=== PATIENT | female | born 1960 | race American Indian/Alaskan Native ===

== ENCOUNTER 2020-05-22 08:31 | Observation (INO) | payer OTHER ==
[2020-05-22] MEDS ORDERED: DEXTROSE 50% IN WATER (25GM) 50 ML SYRINGE IV ONE ×2 (08:41→09:56)
[2020-05-22 09:26] LABS: Basophils # (Auto) 0.1 K/mm3 (0.0-0.1); Basophils % (Auto) 0.8 % (0.0-1.8); Eosinophils % (Auto) 0.1 % (0.0-4.3); Hematocrit 42.2 % (30.3-42.9); Hemoglobin 14.6 gm/dl (10.1-14.3); Lymphocytes # (Auto) 1.4 K/mm3 (1.2-5.4); Lymphocytes % (Auto) 18.2 % (13.4-35.0); Mean Corpuscular HGB Conc 35 % (30-34); Mean Corpuscular Volume 93 fl (79-97); Monocytes # (Auto) 0.4 K/mm3 (0.0-0.8); Monocytes % (Auto) 5.6 % (0.0-7.3); Red Blood Count 4.52 M/mm3 (3.65-5.03); Red Cell Distribution Width 13.6 % (13.2-15.2)
[2020-05-22 09:28] LABS: Platelet Count 247 K/mm3 (140-440)
[2020-05-22 09:51] LABS: BUN/Creatinine Ratio 18; Blood Urea Nitrogen 14 mg/dL (7-17); Hemolysis Index 121
--- NOTE | 2020-05-22 11:04 | Cat Scan Report ---
CT HEAD WITHOUT CONTRAST INDICATION / CLINICAL INFORMATION: ALTERED MENTAL STATUS. TECHNIQUE: All CT scans at this location are performed using CT dose reduction for ALARA by means of automated e xposure control. COMPARISON: None available. FINDINGS: HEMORRHAGE: No evidence of intracranial hemorrhage or extra-axial fluid collection. EXTRA-AXIAL SPACES: Cortical sulci, sylvian fissures and basilar cisterns have an unremarkable appear ance. VENTRICULAR SYSTEM: The ventricular system is of normal size and configuration. CEREBRAL PARENCHYMA: Periventricular and deep white matter lucencies noted likely related to microvas cular ischemic change. This is somewhat greater than expected for age 59 years. A more focal 6 mm ramses meter area of decreased brain parenchymal attenuation is seen in the left gangliocapsular region. Thi s may represent a small deep infarction, age indeterminate. MIDLINE SHIFT OR HERNIATION: There is no mass effect. CEREBELLUM / BRAINSTEM: Brainstem and cerebellum have an unremarkable appearance. MIDLINE STRUCTURES:No abnormalities of the pituitary gland or pineal region are identified. INTRACRANIAL VESSELS: Mildly calcified atherosclerotic plaque is observed along the cavernous segment s of both internal carotid arteries. Similar findings are seen at the distal vertebral arteries. ORBITS: visualized portions of the orbits have an unremarkable appearance. SOFT TISSUES of HEAD: No significant abnormality. CALVARIUM: Evaluation of bone windows reveals no abnormalities. PARANASAL SINUSES / MASTOID AIR CELLS: Paranasal sinuses are free from inflammatory mucosal disease. Mastoid air cells are normally pneumatized. IMPRESSION: 1. Moderate microvascular ischemic change, greater than expected for age 59 years. 2. Focal area of decreased attenuation in the left gangliocapsular region may represent a small deep infarction, age indeterminate. Signer Name: Gilles Perez MD Signed: 05/22/2020 11:00 AM Workstation Name: [id number]
[2020-05-22 11:58] LABS: Bilirubin,Urine NEG (Negative); Blood,Urine NEG (Negative); Color,Urine Yellow (Yellow); Mucus,Urine FEW /HPF
--- NOTE | 2020-05-22 12:54 | Emergency Department Report ---
ED Altered Mental Status HPI - General Chief Complaint: Hypoglycemia Stated Complaint: LOW BLOOD SUGAR Time Seen by Provider: 05/22/20 08:37 Source: EMS Mode of arrival: Stretcher Limitations: No Limitations - History of Present Illness Initial Comments: Patient is a 59-year-old F [place] female who is presenting with altered mental status. Patient's daughter states she was try to get in touch with her this morning was unsuccessful and she when checked on her she was unconscious. Paramedics arrived and her blood glucose was 13. Is unknown whether the patient is ate or drank last night. Patient was given D50 prior to arrival and blood glucose was still 40. After giving her 2 additional amps we got the patient's blood glucose up to the 170 range. Patient is not complaining of any chest pain or shortness of breath but still states she feels weak all over. Patient's daughter states she is normally talkative and active throughout the day and the patient is slow to respond to questions and is just stating that she is cold. - Related Data Allergies Allergy/AdvReac Type Severity Reaction Status Date / Time No Known Allergies Allergy Unverified 05/22/20 09:16 ED Review of Systems ROS: Stated complaint: LOW BLOOD SUGAR Other details as noted in HPI Comment: All other systems reviewed and negative ED Past Medical Hx - Past Medical History Previous Medical History?: Yes Hx Diabetes: Yes - Social History Smoking Status: Unknown if ever smoked ED Physical Exam - General Limitations: No Limitations General appearance: alert, lethargic - Head Head exam: Present: atraumatic, normocephalic - Eye Eye exam: Present: normal appearance - ENT ENT exam: Present: mucous membranes moist - Neck Neck exam: Present: normal inspection - Respiratory Respiratory exam: Present: normal lung sounds bilaterally. Absent: respiratory distress, wheezes, rales - Cardiovascular Cardiovascular Exam: Present: regular rate, normal rhythm. Absent: systolic murmur, diastolic murmur, rubs, gallop - GI/Abdominal GI/Abdominal exam: Present: soft, normal bowel sounds - Extremities Exam Extremities exam: Present: normal inspection - Back Exam Back exam: Present: normal inspection - Neurological Exam Neurological exam: Present: alert, oriented X3 - Psychiatric Psychiatric exam: Present: normal affect, normal mood - Skin Skin exam: Present: warm, dry, intact, normal color. Absent: rash - Level of Consciousness 1a. Level of Consciousness: arousable/minor stimuli - LOC Questions 1b. LOC Questions: answers both correctly - LOC Command 1c. LOC Commands: performs tasks correctly - Best Gaze 2. Best Gaze: normal - Visual 3. Visual: no visual loss - Facial Palsy 4. Facial Palsy: normal symmetrical movement - Motor Arm 5a. Motor Arm Left: no drift 5b. Motor Arm Right: no drift - Motor Leg 6a. Motor Leg Left: no drift 6b. Motor Leg Right: no drift - Limb Ataxia 7. Limb Ataxia: absent - Sensory 8. Sensory: normal - Best Language 9. Best Language: no aphasia - Dysarthria 10. Dysarthria: normal - Extinction and Inattention 11. Extinction/Inattention: no abnormality - Scoring Total Score: 1 Stroke Severity: Minor Stroke ED Course Vital Signs 05/22/20 05/22/20 05/22/20 09:00 09:02 10:31 Pulse Rate 130 H 126 H Respiratory 22 22 25 H Rate Blood Pressure 160/98 180/100 O2 Sat by Pulse 90 94 100 Oximetry 05/22/20 05/22/20 05/22/20 11:01 11:10 11:15 Pulse Rate 121 H 120 H Respiratory 17 18 18 Rate Blood Pressure 137/73 137/73 O2 Sat by Pulse 100 100 100 Oximetry 05/22/20 05/22/20 11:31 11:45 Pulse Rate 124 H 119 H Respiratory 19 22 Rate Blood Pressure 180/100 180/100 O2 Sat by Pulse 100 100 Oximetry - Lab Data Result diagrams: 05/22/20 08:59 05/22/20 08:59 Lab Results 05/22/20 05/22/20 05/22/20 Range/Units 08:57 08:59 08:59 WBC 7.7 (4.5-11.0) K/mm3 RBC 4.52 (3.65-5.03) M/mm3 Hgb 14.6 H (10.1-14.3) gm/dl Hct 42.2 (30.3-42.9) % MCV 93 (79-97) fl MCH 32 (28-32) pg MCHC 35 H (30-34) % RDW 13.6 (13.2-15.2) % Plt Count 247 (140-440) K/mm3 Lymph % (Auto) 18.2 (13.4-35.0) % Webb % (Auto) 5.6 (0.0-7.3) % Eos % (Auto) 0.1 (0.0-4.3) % Baso % (Auto) 0.8 (0.0-1.8) % Lymph # (Auto) 1.4 (1.2-5.4) K/mm3 Webb # (Auto) 0.4 (0.0-0.8) K/mm3 Eos # (Auto) 0.0 (0.0-0.4) K/mm3 Baso # (Auto) 0.1 (0.0-0.1) K/mm3 Seg Neutrophils % 75.3 H (40.0-70.0) % Seg Neutrophils # 5.8 (1.8-7.7) K/mm3 Sodium 139 (137-145) mmol/L Potassium 4.7 (3.6-5.0) mmol/L Chloride 105.4 (98-107) mmol/L Carbon Dioxide 20 L (22-30) mmol/L Anion Gap 18 mmol/L BUN 14 (7-17) mg/dL Creatinine 0.8 (0.6-1.2) mg/dL Estimated GFR > 60 ml/min BUN/Creatinine Ratio 18 % Glucose 198 H (65-100) mg/dL POC Glucose 40 L (70-105) mg/dL Calcium 9.0 (8.4-10.2) mg/dL Urine Color (Yellow) Urine Turbidity (Clear) Urine pH (5.0-7.0) Ur Specific [place] (1.003-1.030) Urine Protein (Negative) mg/dL Urine Glucose (UA) (Negative) mg/dL Urine Ketones (Negative) mg/dL Urine Blood (Negative) Urine Nitrite (Negative) Urine Bilirubin (Negative) Urine Urobilinogen (<2.0) mg/dL Ur Leukocyte Esterase (Negative) Urine WBC (Auto) (0.0-6.0) /HPF Urine RBC (Auto) (0.0-6.0) /HPF U Epithel Cells (Auto) (0-13.0) /HPF Urine Mucus /HPF 05/22/20 05/22/20 05/22/20 Range/Units 09:14 10:06 11:08 WBC (4.5-11.0) K/mm3 RBC (3.65-5.03) M/mm3 Hgb (10.1-14.3) gm/dl Hct (30.3-42.9) % MCV (79-97) fl MCH (28-32) pg MCHC (30-34) % RDW (13.2-15.2) % Plt Count (140-440) K/mm3 Lymph % (Auto) (13.4-35.0) % Webb % (Auto) (0.0-7.3) % Eos % (Auto) (0.0-4.3) % Baso % (Auto) (0.0-1.8) % Lymph # (Auto) (1.2-5.4) K/mm3 Webb # (Auto) (0.0-0.8) K/mm3 Eos # (Auto) (0.0-0.4) K/mm3 Baso # (Auto) (0.0-0.1) K/mm3 Seg Neutrophils % (40.0-70.0) % Seg Neutrophils # (1.8-7.7) K/mm3 Sodium (137-145) mmol/L Potassium (3.6-5.0) mmol/L Chloride (98-107) mmol/L Carbon Dioxide (22-30) mmol/L Anion Gap mmol/L BUN (7-17) mg/dL Creatinine (0.6-1.2) mg/dL Estimated GFR ml/min BUN/Creatinine Ratio % Glucose (65-100) mg/dL POC Glucose 107 H 76 175 H (70-105) mg/dL Calcium (8.4-10.2) mg/dL Urine Color (Yellow) Urine Turbidity (Clear) Urine pH (5.0-7.0) Ur Specific [place] (1.003-1.030) Urine Protein (Negative) mg/dL Urine Glucose (UA) (Negative) mg/dL Urine Ketones (Negative) mg/dL Urine Blood (Negative) Urine Nitrite (Negative) Urine Bilirubin (Negative) Urine Urobilinogen (<2.0) mg/dL Ur Leukocyte Esterase (Negative) Urine WBC (Auto) (0.0-6.0) /HPF Urine RBC (Auto) (0.0-6.0) /HPF U Epithel Cells (Auto) (0-13.0) /HPF Urine Mucus /HPF 05/22/ Range/Units 11:49 WBC (4.5-11.0) K/mm3 RBC (3.65-5.03) M/mm3 Hgb (10.1-14.3) gm/dl Hct (30.3-42.9) % MCV (79-97) fl MCH (28-32) pg MCHC (30-34) % RDW (13.2-15.2) % Plt Count (140-440) K/mm3 Lymph % (Auto) (13.4-35.0) % Webb % (Auto) (0.0-7.3) % Eos % (Auto) (0.0-4.3) % Baso % (Auto) (0.0-1.8) % Lymph # (Auto) (1.2-5.4) K/mm3 Webb # (Auto) (0.0-0.8) K/mm3 Eos # (Auto) (0.0-0.4) K/mm3 Baso # (Auto) (0.0-0.1) K/mm3 Seg Neutrophils % (40.0-70.0) % Seg Neutrophils # (1.8-7.7) K/mm3 Sodium (137-145) mmol/L Potassium (3.6-5.0) mmol/L Chloride (98-107) mmol/L Carbon Dioxide (22-30) mmol/L Anion Gap mmol/L BUN (7-17) mg/dL Creatinine (0.6-1.2) mg/dL Estimated GFR ml/min BUN/Creatinine Ratio % Glucose (65-100) mg/dL POC Glucose (70-105) mg/dL Calcium (8.4-10.2) mg/dL Urine Color Yellow (Yellow) Urine Turbidity Clear (Clear) Urine pH 5.0 (5.0-7.0) Ur Specific [place] 1.018 (1.003-1.030) Urine Protein 30 mg/dl (Negative) mg/dL Urine Glucose (UA) >=500 (Negative) mg/dL Urine Ketones Neg (Negative) mg/dL Urine Blood Neg (Negative) Urine Nitrite Neg (Negative) Urine Bilirubin Neg (Negative) Urine Urobilinogen 2.0 (<2.0) mg/dL Ur Leukocyte Esterase Tr (Negative) Urine WBC (Auto) 1.0 (0.0-6.0) /HPF Urine RBC (Auto) 1.0 (0.0-6.0) /HPF U Epithel Cells (Auto) < 1.0 (0-13.0) /HPF Urine Mucus Few /HPF - Radiology Data CT HEAD WITHOUT CONTRAST INDICATION / CLINICAL INFORMATION: ALTERED MENTAL STATUS. TECHNIQUE: All CT scans at this location are performed using CT dose reduction for ALARA by means of automated exposure control. COMPARISON: None available. FINDINGS: HEMORRHAGE: No evidence of intracranial hemorrhage or extra-axial fluid collection. EXTRA-AXIAL SPACES: Cortical sulci, sylvian fissures and basilar cisterns have an unremarkable appearance. VENTRICULAR SYSTEM: The ventricular system is of normal size and configuration. CEREBRAL PARENCHYMA: Periventricular and deep white matter lucencies noted likely related to microvascular ischemic change. This is somewhat greater than expected for age 59 years. A more focal 6 mm diameter area of decreased brain parenchymal attenuation is seen in the left gangliocapsular region. This may represent a small deep infarction, age indeterminate. MIDLINE SHIFT OR HERNIATION: There is no mass effect. CEREBELLUM / BRAINSTEM: Brainstem and cerebellum have an unremarkable appearance. MIDLINE STRUCTURES:No abnormalities of the pituitary gland or pineal region are identified. INTRACRANIAL VESSELS: Mildly calcified atherosclerotic plaque is observed along the cavernous segments of both internal carotid arteries. Similar findings are seen at the distal vertebral arteries. ORBITS: visualized portions of the orbits have an unremarkable appearance. SOFT TISSUES of HEAD: No significant abnormality. CALVARIUM: Evaluation of bone windows reveals no abnormalities. PARANASAL SINUSES / MASTOID AIR CELLS: Paranasal sinuses are free from inflammatory mucosal disease. Mastoid air cells are normally pneumatized. IMPRESSION: 1. Moderate microvascular ischemic change, greater than expected for age 59 years. 2. Focal area of decreased attenuation in the left gangliocapsular region may represent a small deep infarction, age indeterminate. Signer Name: Gilles Perez MD Signed: 05/22/2020 11:00 AM Workstation Name: [id number] - Medical Decision Making After the patient's blood glucose funmilayo to acceptable level the patient still was sluggish and not at her baseline. We will admit the patient for observation. Critical care attestation.: If time is entered above; I have spent that time in minutes in the direct care of this critically ill patient, excluding procedure time. ED Disposition Clinical Impression: Hypoglycemia, Altered mental status Disposition: DC-09 OP ADMIT IP TO THIS HOSP Is pt being admited?: Yes Does the pt Need Aspirin: No Condition: Stable Time of Disposition: 12:59
[2020-05-22] MEDS ORDERED: DEXTROSE 5% IN WATER 1,000 ML IV SCH (13:00)
[2020-05-22] MEDS ORDERED: D5W/0.9% NACL 1,000 ML IV ONE (17:03)
[2020-05-22] MEDS ORDERED: DEXTROSE 5% IN WATER 1,000 ML IV ONE (20:35)
--- NOTE | 2020-05-22 23:27 | History and Physical Report ---
History of Present Illness Date of examination: 05/22/20 Date of admission: 05/22/20 13:01 Chief complaint: Unresponsive since a.m. Low blood glucose level of 13 History of present illness: 59-year-old female with history of diabetes on insulin was found unresponsive and a blood glucose of 13. Patient's daughter was trying to get intact with her and because there was no response, the daughter went and checked on her mother and found her to be unconscious. Paramedics arrived and her blood glucose was 13. Patient was given D50 W. Patient not able to give much history. Patient was given D50 prior to arrival with glucose was still 40. 2 additional amps of D50 W were given in the emergency room. With her blood glucose level coming up to 170. No chest pain no fever. Cannot tell whether patient has missed dinner. No fever or chills. Past History Past Medical History: diabetes (On insulin) Past Surgical History: Other (Surgical history not available) Social history: Lives alone Family history: diabetes Medications and Allergies Allergies Allergy/AdvReac Type Severity Reaction Status Date / Time No Known Allergies Allergy Unverified 05/22/20 09:16 Home Medications Medication Instructions Recorded Confirmed Last Taken Type Amoxicillin [Trimox CAP] 500 mg PO Q8H 05/22/20 05/22/20 Unknown History Clarithromycin [Clarithromycin ER] 500 mg PO DAILY 05/22/20 05/22/20 Unknown History Insulin Detemir [Levemir Flextouch] 10 unit SQ DAILY 05/22/20 05/22/20 Unknown History Active Meds: Active Medications Dextrose (D5w) 1,000 mls @ 75 mls/hr IV DIRECT SOLE Last Admin: 05/22/20 17:01 Dose: 75 mls/hr Documented by: Review of Systems All systems: negative Constitutional: no weight loss, no weight gain, no fever, no chills, no sweats, no night sweats Neurological: change in mentation, confusion Exam - Physical Exam Narrative exam: Initially patient was unresponsive but later became more responsive after multiple D50 W amps IV - Constitutional Vitals: Temp Pulse Resp BP Pulse Ox 106 H 20 128/80 96 05/22/20 20:31 05/22/20 20:31 05/22/20 20:31 05/22/20 20:31 General appearance: Present: no acute distress, well-nourished - EENT Eyes: Present: PERRL ENT: hearing intact, clear oral mucosa - Neck Neck: Present: supple, normal ROM - Respiratory Respiratory effort: normal Respiratory: bilateral: CTA - Cardiovascular Heart rate: 78 Rhythm: regular Heart Sounds: Present: S1 & S2. Absent: rub, click - Extremities Extremities: pulses symmetrical, No edema Peripheral Pulses: within normal limits - Abdominal General gastrointestinal: Present: soft, non-tender, non-distended, normal bowel sounds Female genitourinary: Present: normal - Rectal Rectal Exam: deferred - Integumentary Integumentary: Present: clear, warm, dry - Musculoskeletal Musculoskeletal: generalized weakness - Psychiatric Psychiatric: intact judgment & insight, other (Patient is lethargic and decreased responsiveness but becoming more conscious and responsive) - Neurologic Neurologic: CNII-XII intact, moves all extremities - Allied Health Allied health notes reviewed: nursing, case management HEART Score - HEART Score History: Slightly suspicious Age: 45-65 Risk factors: 1-2 risk factors Troponin: < normal limit - Critical Actions Critical Actions: 0-3 pts:0.9-1.7%risk of adverse cardiac event.Candidate for discharge Results - Labs CBC & Chem 7: 05/22/20 08:59 05/22/20 08:59 Labs: Laboratory Last Values WBC 7.7 K/mm3 (4.5-11.0) 05/22/20 08:59 RBC 4.52 M/mm3 (3.65-5.03) 05/22/20 08:59 Hgb 14.6 gm/dl (10.1-14.3) H 05/22/20 08:59 Hct 42.2 % (30.3-42.9) 05/22/20 08:59 MCV 93 fl (79-97) 05/22/20 08:59 MCH 32 pg (28-32) 05/22/20 08:59 MCHC 35 % (30-34) H 05/22/20 08:59 RDW 13.6 % (13.2-15.2) 05/22/20 08:59 Plt Count 247 K/mm3 (140-440) 05/22/20 08:59 Lymph % (Auto) 18.2 % (13.4-35.0) 05/22/20 08:59 [place] % (Auto) 5.6 % (0.0-7.3) 05/22/20 08:59 Eos % (Auto) 0.1 % (0.0-4.3) 05/22/20 08:59 Baso % (Auto) 0.8 % (0.0-1.8) 05/22/20 08:59 Lymph # (Auto) 1.4 K/mm3 (1.2-5.4) 05/22/20 08:59 [place] # (Auto) 0.4 K/mm3 (0.0-0.8) 05/22/20 08:59 Eos # (Auto) 0.0 K/mm3 (0.0-0.4) 05/22/20 08:59 Baso # (Auto) 0.1 K/mm3 (0.0-0.1) 05/22/20 08:59 Seg Neutrophils % 75.3 % (40.0-70.0) H 05/22/20 08:59 Seg Neutrophils # 5.8 K/mm3 (1.8-7.7) 05/22/20 08:59 Sodium 139 mmol/L (137-145) 05/22/20 08:59 Potassium 4.7 mmol/L (3.6-5.0) 05/22/20 08:59 Chloride 105.4 mmol/L (98-107) 05/22/20 08:59 Carbon Dioxide 20 mmol/L (22-30) L 05/22/20 08:59 Anion Gap 18 mmol/L 05/22/20 08:59 BUN 14 mg/dL (7-17) 05/22/20 08:59 Creatinine 0.8 mg/dL (0.6-1.2) 05/22/20 08:59 Estimated GFR > 60 ml/min 05/22/20 08:59 BUN/Creatinine Ratio 18 % 05/22/20 08:59 Glucose 198 mg/dL (65-100) H 05/22/20 08:59 POC Glucose 100 mg/dL (70-105) 05/22/20 22:10 Calcium 9.0 mg/dL (8.4-10.2) 05/22/20 08:59 Urine Color Yellow (Yellow) 05/22/20 11:49 Urine Turbidity Clear (Clear) 05/22/20 11:49 Urine pH 5.0 (5.0-7.0) 05/22/20 11:49 Ur Specific [place] 1.018 (1.003-1.030) 05/22/20 11:49 Urine Protein 30 mg/dl mg/dL (Negative) 05/22/20 11:49 Urine Glucose (UA) >=500 mg/dL (Negative) 05/22/20 11:49 Urine Ketones Neg mg/dL (Negative) 05/22/20 11:49 Urine Blood Neg (Negative) 05/22/20 11:49 Urine Nitrite Neg (Negative) 05/22/20 11:49 Urine Bilirubin Neg (Negative) 05/22/20 11:49 Urine Urobilinogen 2.0 mg/dL (<2.0) 05/22/20 11:49 Ur Leukocyte Esterase Tr (Negative) 05/22/20 11:49 Urine WBC (Auto) 1.0 /HPF (0.0-6.0) 05/22/20 11:49 Urine RBC (Auto) 1.0 /HPF (0.0-6.0) 05/22/20 11:49 U Epithel Cells (Auto) < 1.0 /HPF (0-13.0) 05/22/20 11:49 Urine Mucus Few /HPF 05/22/20 11:49 Short CBC 05/22/20 Range/Units 08:59 WBC 7.7 (4.5-11.0) K/mm3 Hgb 14.6 H (10.1-14.3) gm/dl Hct 42.2 (30.3-42.9) % Plt Count 247 (140-440) K/mm3 BMP 05/22/20 08:59 Sodium 139 Potassium 4.7 Chloride 105.4 Carbon Dioxide 20 L BUN 14 Creatinine 0.8 Glucose 198 H Calcium 9.0 Urine 05/22/20 Range/Units 11:49 Urine Color Yellow (Yellow) Urine pH 5.0 (5.0-7.0) Ur Specific [place] 1.018 (1.003-1.030) Urine Protein 30 mg/dl (Negative) mg/dL Urine Glucose (UA) >=500 (Negative) mg/dL - Imaging and Cardiology Imaging and Cardiology: Head CT Moderate microvascular ischemic change greater than expected for age 59 years Focal area of decreased attenuation in the left ganglial capsular region may represent a small deep infarction age-indeterminate. Wells/IV: IV Catheter Type [Left Upper INT / Saline Lock arm] IV Catheter Type [Right Wrist] INT / Saline Lock Assessment and Plan Advance Directives: Yes - Patient Problems (1) Hypoglycemia Current Visit: Yes Status: Acute Plan to address problem: Persistent hypoglycemia Admitted with IV D5W Patient was given about 4 A of D50 W in the emergency room and the paramedics to bring it up to 170 Her insulin dose needs to be reduced to 5 units and patient to be advised about regular meals Patient lives alone Insulin on hold (2) Acute metabolic encephalopathy Current Visit: Yes Status: Acute Plan to address problem: Secondary to hypoglycemia (3) IDDM (insulin dependent diabetes mellitus) Current Visit: Yes Status: Chronic Plan to address problem: Patient Levemir 10 units at nighttime We will decrease the insulin to 5 units at the time of discharge patient in observation status (4) DVT prophylaxis Current Visit: Yes Status: Acute Plan to address problem: On heparin and GI prophylaxis
[2020-05-22] MEDS ORDERED: ACETAMINOPHEN 325 MG TAB PO PRN (23:28)
[2020-05-22] MEDS ORDERED: ONDANSETRON 4 MG/2 ML INJ IV PRN (23:28)
[2020-05-22] MEDS ORDERED: HYDROmorphone 1 MG/1 ML INJ IV PRN (23:28)
[2020-05-22] MEDS ORDERED: oxyCODONE /ACETAMINOPHEN 5-325MG TAB PO PRN (23:28)
[2020-05-22] MEDS ORDERED: D5W/0.9% NACL 1,000 ML IV SCH (23:45)
--- NOTE | 2020-05-23 08:18 | Progress Note ---
Assessment and Plan Assessment and plan: --Acute metabolic encephalopathy; present on admission Secondary to severe hypoglycemia Patient has history of diabetes mellitus --Severe hypoglycemia ; Patient is on insulin at home all diabetic medications are on hold Blood sugars reasonably improved Frequent Accu-Cheks, sliding scale coverage IV D50 as needed, check HbA1c --Insulin-dependent diabetes mellitus; Unable to assess the compliance of medications Closely monitor blood sugars, start long-acting insulin from lower doses And increase as needed, check A1c Diabetic education, nutrition education Possible home health nurse at discharge for disease monitoring --Abnormal CT head; possible CVA Focal area of decreased attenuation in the left ganglial capsular region may represent small deep infarction age indeterminate Moderate microvascular ischemic changes greater than expected for age 59 We will check MRI, further neuro work-up pending MRI findings --Ongoing tobacco use; Smoking cessation counseling, advised nicotine patch as needed --DVT prophylaxis; subcu heparin --DC planning per case management We will closely monitor the patient and adjust the management as needed Plan of care reviewed with the patient and her nurse History Interval history: I have seen and examined the patient at the bedside this morning Patient's chart and medications reviewed Patient was admitted with altered level of consciousness and severe hypoglycemia Blood sugars are reasonable level today Patient is alert and awake responding appropriately Vital signs noted Hospitalist Physical - Constitutional Vitals: Temp Pulse Resp BP Pulse Ox 99.2 F 103 H 16 148/81 96 05/23/20 04:24 05/23/20 04:24 05/23/20 04:24 05/23/20 04:24 05/23/20 04:24 General appearance: Present: no acute distress, well-nourished - EENT Eyes: Present: PERRL, EOM intact - Neck Neck: Present: supple, normal ROM - Respiratory Respiratory effort: normal Respiratory: bilateral: diminished, negative: rales, rhonchi, wheezing - Cardiovascular Rhythm: regular Heart Sounds: Present: S1 & S2 - Extremities Extremities: no ischemia, No edema - Abdominal General gastrointestinal: soft, non-tender, non-distended, normal bowel sounds - Integumentary Integumentary: Present: clear, warm - Psychiatric Psychiatric: appropriate mood/affect, cooperative - Neurologic Neurologic: moves all extremities HEART Score - HEART Score Age: 45-65 Risk factors: 1-2 risk factors Troponin: < normal limit - Critical Actions Critical Actions: 0-3 pts:0.9-1.7%risk of adverse cardiac event.Candidate for discharge Results - Labs CBC & Chem 7: 05/23/20 15:57 05/23/20 09:25 Labs: Laboratory Last Values WBC 7.7 K/mm3 (4.5-11.0) 05/22/20 08:59 RBC 4.52 M/mm3 (3.65-5.03) 05/22/20 08:59 Hgb 14.6 gm/dl (10.1-14.3) H 05/22/20 08:59 Hct 42.2 % (30.3-42.9) 05/22/20 08:59 MCV 93 fl (79-97) 05/22/20 08:59 MCH 32 pg (28-32) 05/22/20 08:59 MCHC 35 % (30-34) H 05/22/20 08:59 RDW 13.6 % (13.2-15.2) 05/22/20 08:59 Plt Count 247 K/mm3 (140-440) 05/22/20 08:59 Lymph % (Auto) 18.2 % (13.4-35.0) 05/22/20 08:59 [place] % (Auto) 5.6 % (0.0-7.3) 05/22/20 08:59 Eos % (Auto) 0.1 % (0.0-4.3) 05/22/20 08:59 Baso % (Auto) 0.8 % (0.0-1.8) 05/22/20 08:59 Lymph # (Auto) 1.4 K/mm3 (1.2-5.4) 05/22/20 08:59 [place] # (Auto) 0.4 K/mm3 (0.0-0.8) 05/22/20 08:59 Eos # (Auto) 0.0 K/mm3 (0.0-0.4) 05/22/20 08:59 Baso # (Auto) 0.1 K/mm3 (0.0-0.1) 05/22/20 08:59 Seg Neutrophils % 75.3 % (40.0-70.0) H 05/22/20 08:59 Seg Neutrophils # 5.8 K/mm3 (1.8-7.7) 05/22/20 08:59 Sodium 139 mmol/L (137-145) 05/22/20 08:59 Potassium 4.7 mmol/L (3.6-5.0) 05/22/20 08:59 Chloride 105.4 mmol/L (98-107) 05/22/20 08:59 Carbon Dioxide 20 mmol/L (22-30) L 05/22/20 08:59 Anion Gap 18 mmol/L 05/22/20 08:59 BUN 14 mg/dL (7-17) 05/22/20 08:59 Creatinine 0.8 mg/dL (0.6-1.2) 05/22/20 08:59 Estimated GFR > 60 ml/min 05/22/20 08:59 BUN/Creatinine Ratio 18 % 05/22/20 08:59 Glucose 198 mg/dL (65-100) H 05/22/20 08:59 POC Glucose 202 mg/dL (70-105) H 05/23/20 07:26 Hemoglobin A1c 7.6 % (4-6) H 05/22/20 23:47 Calcium 9.0 mg/dL (8.4-10.2) 05/22/20 08:59 Urine Color Yellow (Yellow) 05/22/20 11:49 Urine Turbidity Clear (Clear) 05/22/20 11:49 Urine pH 5.0 (5.0-7.0) 05/22/20 11:49 Ur Specific [place] 1.018 (1.003-1.030) 05/22/20 11:49 Urine Protein 30 mg/dl mg/dL (Negative) 05/22/20 11:49 Urine Glucose (UA) >=500 mg/dL (Negative) 05/22/20 11:49 Urine Ketones Neg mg/dL (Negative) 05/22/20 11:49 Urine Blood Neg (Negative) 05/22/20 11:49 Urine Nitrite Neg (Negative) 05/22/20 11:49 Urine Bilirubin Neg (Negative) 05/22/20 11:49 Urine Urobilinogen 2.0 mg/dL (<2.0) 05/22/20 11:49 Ur Leukocyte Esterase Tr (Negative) 05/22/20 11:49 Urine WBC (Auto) 1.0 /HPF (0.0-6.0) 05/22/20 11:49 Urine RBC (Auto) 1.0 /HPF (0.0-6.0) 05/22/20 11:49 U Epithel Cells (Auto) < 1.0 /HPF (0-13.0) 05/22/20 11:49 Urine Mucus Few /HPF 05/22/20 11:49 Wells/IV: Voiding Method Urinal IV Catheter Type [Left Upper INT / Saline Lock arm] IV Catheter Type [Right Wrist] INT / Saline Lock Active Medications - Current Medications Current Medications: Generic Name Dose Route Start Last Admin Trade Name Freq PRN Reason Stop Dose Admin Acetaminophen 650 mg 05/22/20 23:28 Tylenol PO Q4H PRN Pain MILD(1-3)/Fever >100.5/WILDE Famotidine 20 mg 05/23/20 10:00 Pepcid IV BID SOLE Hydromorphone HCl 0.5 mg 05/22/20 23:28 Dilaudid IV Q3H PRN Pain , Severe (7-10) Ondansetron HCl 4 mg 05/22/20 23:28 Zofran IV Q8H PRN Nausea And Vomiting Oxycodone/Acetaminophen 1 tab 05/22/20 23:28 Percocet 5/325 PO Q6H PRN Pain, Moderate (4-6) Pneumococcal Polyvalent Vaccine 0.5 ml 05/23/20 12:00 Pneumovax 23 IM 05/23/20 12:01 .ONCE ONE Sodium Chloride 10 ml 05/23/20 10:00 Sodium Chloride Flush Syringe 10 Ml IV BID SOLE Sodium Chloride 10 ml 05/22/20 23:28 Sodium Chloride Flush Syringe 10 Ml IV PRN PRN LINE FLUSH
[2020-05-23] MEDS ORDERED: FAMOTIDINE 20 MG/2 ML INJ IV SCH (10:00)
[2020-05-23 10:41] LABS: Hematocrit TNR % (30.3-42.9); Hemoglobin TNR gm/dl (10.1-14.3); Mean Corpuscular HGB Conc TNR % (30-34); Mean Corpuscular Volume TNR fl (79-97); Mean Platelet Volume TNR fl (6-12); Platelet Count TNR K/mm3 (140-440); Red Blood Count TNR M/mm3 (3.65-5.03); Red Cell Distribution Width TNR % (13.2-15.2)
[2020-05-23 10:42] LABS: Alanine Aminotransferase 12 units/L (7-56); Albumin 3.5 g/dL (3.9-5); BUN/Creatinine Ratio 8; Basophils % (Auto) TNR % (0.0-1.8); Blood Urea Nitrogen 6 mg/dL (7-17); Calcium 8.5 mg/dL (8.4-10.2); Eosinophils % (Auto) TNR % (0.0-4.3); Hemolysis Index 6; Lymphocytes # (Auto) TNR K/mm3 (1.2-5.4); Lymphocytes % (Auto) TNR % (13.4-35.0); Monocytes % (Auto) TNR % (0.0-7.3)
[2020-05-23 10:43] LABS: Basophils # (Auto) TNR K/mm3 (0.0-0.1); Eosinophils # (Auto) TNR K/mm3 (0.0-0.4); Monocytes # (Auto) TNR K/mm3 (0.0-0.8)
[2020-05-23] MEDS ORDERED: PNEUMOCOCCAL 23 Valent 0.5 ML VIAL IM ONE (12:00)
[2020-05-23] MEDS ORDERED: FLU VACC QUAD 2020-2021 (6 months +)/PF 60 0.5 ML SYRINGE IM ONE (12:00)
[2020-05-23 16:59] LABS: Hematocrit 40.5 % (30.3-42.9); Hemoglobin 13.7 gm/dl (10.1-14.3); Mean Corpuscular HGB Conc 34 % (30-34); Mean Corpuscular Volume 97 fl (79-97); Platelet Count 207 K/mm3 (140-440); Red Cell Distribution Width 13.9 % (13.2-15.2)
[2020-05-23] MEDS: FAMOTIDINE 20 MG TAB PO SCH (21:01)
[2020-05-23] MEDS: ASPIRIN EC 325 MG TAB PO SCH (21:01)
[2020-05-24 06:52] LABS: Chol/HDL Ratio 4.12 %
--- NOTE | 2020-05-24 08:56 | Progress Note ---
Assessment and Plan Assessment and plan: --Abnormal CT head; possible CVA CT head ;focal area of decreased attenuation in the left ganglial capsular region may represent small deep infarction age indeterminate Moderate microvascular ischemic changes greater than expected for age 59 Follow MRI, further neuro work-up pending MRI findings Continue aspirin, statin, Patient has no physical deficits Consider PT OT, neuro consult if needed We will check echocardiogram, carotid Doppler --Dyslipidemia; Statin, low-cholesterol diet --Acute metabolic encephalopathy; present on admission Secondary to severe hypoglycemia Patient has history of diabetes mellitus --Severe hypoglycemia ; Patient is on insulin at home all diabetic medications are on hold Blood sugars reasonably improved Frequent Accu-Cheks, sliding scale coverage IV D50 as needed, check HbA1c --Insulin-dependent diabetes mellitus; Unable to assess the compliance of medications Closely monitor blood sugars, start long-acting insulin from lower doses And increase as needed, check A1c Diabetic education, nutrition education Possible home health nurse at discharge for disease monitoring --Ongoing tobacco use; Smoking cessation counseling, advised nicotine patch as needed --DVT prophylaxis; subcu heparin --DC planning per case management We will closely monitor the patient and adjust the management as needed Plan of care reviewed with the patient and her nurse Hospitalist Physical - Constitutional Vitals: Temp Pulse Resp BP Pulse Ox 99.0 F 98 H 16 157/85 98 05/24/20 04:08 05/24/20 04:08 05/24/20 04:08 05/24/20 04:08 05/24/20 04:08 General appearance: Present: no acute distress, well-nourished HEART Score - HEART Score Age: 45-65 Risk factors: 1-2 risk factors Troponin: < normal limit - Critical Actions Critical Actions: 0-3 pts:0.9-1.7%risk of adverse cardiac event.Candidate for discharge Results - Labs CBC & Chem 7: 05/23/20 15:57 05/23/20 09:25 Labs: Laboratory Last Values WBC 6.9 K/mm3 (4.5-11.0) 05/23/20 15:57 RBC 4.20 M/mm3 (3.65-5.03) 05/23/20 15:57 Hgb 13.7 gm/dl (10.1-14.3) 05/23/20 15:57 Hct 40.5 % (30.3-42.9) 05/23/20 15:57 MCV 97 fl (79-97) 05/23/20 15:57 MCH 33 pg (28-32) H 05/23/20 15:57 MCHC 34 % (30-34) 05/23/20 15:57 RDW 13.9 % (13.2-15.2) 05/23/20 15:57 Plt Count 207 K/mm3 (140-440) 05/23/20 15:57 Lymph % (Auto) TNR 05/23/20 09:25 [place] % (Auto) TNR 05/23/20 09:25 Eos % (Auto) TNR 05/23/20 09:25 Baso % (Auto) TNR 05/23/20 09:25 Lymph # (Auto) TNR 05/23/20 09:25 [place] # (Auto) TNR 05/23/20 09:25 Eos # (Auto) TNR 05/23/20 09:25 Baso # (Auto) TNR 05/23/20 09:25 Add Manual Diff TNR 05/23/20 09:25 Seg Neutrophils % TNR 05/23/20 09:25 Seg Neutrophils # TNR 05/23/20 09:25 Sodium 140 mmol/L (137-145) 05/23/20 09:25 Potassium 3.4 mmol/L (3.6-5.0) L D 05/23/20 09:25 Chloride 101.8 mmol/L (98-107) 05/23/20 09:25 Carbon Dioxide 27 mmol/L (22-30) D 05/23/20 09:25 Anion Gap 15 mmol/L 05/23/20 09:25 BUN 6 mg/dL (7-17) L 05/23/20 09:25 Creatinine 0.8 mg/dL (0.6-1.2) 05/23/20 09:25 Estimated GFR > 60 ml/min 05/23/20 09:25 BUN/Creatinine Ratio 8 % 05/23/20 09:25 Glucose 217 mg/dL (65-100) H 05/23/20 09:25 POC Glucose 158 mg/dL (70-105) H 05/24/20 07:30 Hemoglobin A1c 7.6 % (4-6) H 05/22/20 23:47 Calcium 8.5 mg/dL (8.4-10.2) 05/23/20 09:25 Total Bilirubin 0.80 mg/dL (0.1-1.2) 05/23/20 09:25 AST 15 units/L (5-40) 05/23/20 09:25 ALT 12 units/L (7-56) 05/23/20 09:25 Alkaline Phosphatase 55 units/L (35-129) 05/23/20 09:25 Total Protein 5.9 g/dL (6.3-8.2) L 05/23/20 09:25 Albumin 3.5 g/dL (3.9-5) L 05/23/20 09:25 Albumin/Globulin Ratio 1.5 % 05/23/20 09:25 Triglycerides 114 mg/dL (2-149) 05/24/20 05:11 Cholesterol 206 mg/dL (50-199) H 05/24/20 05:11 LDL Cholesterol Direct 142 mg/dL (50-130) H 05/24/20 05:11 HDL Cholesterol 50 mg/dL (40-59) 05/24/20 05:11 Cholesterol/HDL Ratio 4.12 % 05/24/20 05:11 Urine Color Yellow (Yellow) 05/22/20 11:49 Urine Turbidity Clear (Clear) 05/22/20 11:49 Urine pH 5.0 (5.0-7.0) 05/22/20 11:49 Ur Specific [place] 1.018 (1.003-1.030) 05/22/20 11:49 Urine Protein 30 mg/dl mg/dL (Negative) 05/22/20 11:49 Urine Glucose (UA) >=500 mg/dL (Negative) 05/22/20 11:49 Urine Ketones Neg mg/dL (Negative) 05/22/20 11:49 Urine Blood Neg (Negative) 05/22/20 11:49 Urine Nitrite Neg (Negative) 05/22/20 11:49 Urine Bilirubin Neg (Negative) 05/22/20 11:49 Urine Urobilinogen 2.0 mg/dL (<2.0) 05/22/20 11:49 Ur Leukocyte Esterase Tr (Negative) 05/22/20 11:49 Urine WBC (Auto) 1.0 /HPF (0.0-6.0) 05/22/20 11:49 Urine RBC (Auto) 1.0 /HPF (0.0-6.0) 05/22/20 11:49 U Epithel Cells (Auto) < 1.0 /HPF (0-13.0) 05/22/20 11:49 Urine Mucus Few /HPF 05/22/20 11:49 Wells/IV: Voiding Method Toilet IV Catheter Type [Left Upper INT / Saline Lock arm] IV Catheter Type [Right Wrist] INT / Saline Lock Active Medications - Current Medications Current Medications: Generic Name Dose Route Start Last Admin Trade Name Freq PRN Reason Stop Dose Admin Acetaminophen 650 mg 05/22/20 23:28 Tylenol PO Q4H PRN Pain MILD(1-3)/Fever >100.5/WILDE Aspirin 325 mg 05/23/20 19:00 05/23/20 21:01 Ecotrin PO 325 mg QDAY SOLE Administration Atorvastatin Calcium 20 mg 05/23/20 22:00 05/23/20 21:01 Lipitor PO 20 mg QHS SOLE Administration Famotidine 20 mg 05/23/20 22:00 05/23/20 21:01 Pepcid PO 20 mg BID SOLE Administration Hydromorphone HCl 0.5 mg 05/22/20 23:28 Dilaudid IV Q3H PRN Pain , Severe (7-10) Ondansetron HCl 4 mg 05/22/20 23:28 Zofran IV Q8H PRN Nausea And Vomiting Oxycodone/Acetaminophen 1 tab 05/22/20 23:28 Percocet 5/325 PO Q6H PRN Pain, Moderate (4-6) Sodium Chloride 10 ml 05/23/20 10:00 05/23/20 21:01 Sodium Chloride Flush Syringe 10 Ml IV 10 ml BID SOLE Administration Sodium Chloride 10 ml 05/22/20 23:28 Sodium Chloride Flush Syringe 10 Ml IV PRN PRN LINE FLUSH
[2020-05-24 10:06] VITALS: BP 156/90
[2020-05-24] MEDS: FAMOTIDINE 20 MG TAB PO SCH (10:12)
[2020-05-24] MEDS: ASPIRIN EC 325 MG TAB PO SCH (10:12)
--- NOTE | 2020-05-24 18:45 | Discharge Summary ---
Providers - Providers Date of Admission: 05/22/20 13:01 Date of discharge: 05/24/20 Attending physician: SUSANA ALCALA Primary care physician: [facility] Hospitalization Reason for admission: Metabolic encephalopathy/severe hypoglycemia/possible CVA Condition: Serious Pertinent studies: CT head ;focal area of decreased attenuation in the left ganglial capsular region may represent small deep infarction age indeterminate Moderate microvascular ischemic changes greater than expected for age 59 Hospital course: 59-year-old female patient with significant past medical history of type 2 diabetes insulin was found unresponsive and noted to have very low blood sugars of 13,Patient was brought to the emergency room received D50 was unresponsive but gradually got better.patient's insulin and diabetic medications were held Symptomatically managed, patient CT had without contrast revealed focal area of decreased attenuation of the left ganglial capsular region may represent deep infarction/possible stroke age undetermined. Patient was recommended neuro work-up to rule out acute versus acute on chronic versus chronic CVA. Placed on aspirin and statin, evaluation started with MRI carotid Doppler echocardiogram and considering neurology consult. However today patient did not want any of the work-up and wanted to leave the hospital AGAINST MEDICAL ADVICE. All the healthcare providers have counseled the patient the importance of completing the treatment and recent complications and consequences of not addr essing patient's health problems were explained to the patient, patient verbalized understanding signed the necessary AMA papers And left the hospital. Patient was advised to go back to the emergent emergency room immediately if she has worsening symptoms and also meet with his primary care physician MICHAEL for further evaluation and management She verbalized understanding Patient left AMA at 11:45 AM today Final diagnosis; --Abnormal CT head; possible CVA --Dyslipidemia; --Acute metabolic encephalopathy; present on admission Secondary to severe hypoglycemia improved --Severe hypoglycemia ; severe hypoglycemia --Insulin-dependent diabetes mellitus; --Ongoing tobacco use; Smoking cessation counseling done ,advised nicotine patch as needed --DVT prophylaxis; subcu heparin Disposition: DC-[id number] LEFT AGAINST MED ADVICE Time spent for discharge: 32 min Core Measure Documentation - Palliative Care Palliative Care/ Comfort Measures: Not Applicable - Core Measures Any of the following diagnoses?: none Exam - Physical Exam Narrative exam: Patient left AMA - Constitutional Vitals: Temp Pulse Resp BP Pulse Ox 98.0 F 95 H 18 156/90 97 05/24/20 07:10 05/24/20 10:00 05/24/20 07:10 05/24/20 07:10 05/24/20 07:10 - Respiratory Respiratory: bilateral: diminished, negative: rales, rhonchi, wheezing Plan Additional Instructions: Patient left AMA Follow up with: PRIMARY CARE, [Primary Care Provider] - 7 Days Forms: AMA Form
== END 2020-05-24 11:20 | disposition left against medical advice (07) ==
LOC: EDBD → ED 08:31 → 4A 13:01
PROVIDERS: ADMIT Internal Medicine; ATTEND Internal Medicine
DX: E11.649 Type 2 diabetes mellitus with hypoglycemia without coma (principal); G93.41 Metabolic encephalopathy; R41.82 Altered mental status, unspecified; E78.5 Hyperlipidemia, unspecified; R93.0 Abnormal findings on diagnostic imaging of skull and head, not elsewhere classified; F17.210 Nicotine dependence, cigarettes, uncomplicated; Z23 Encounter for immunization; Z79.4 Long term (current) use of insulin
CPT/HCPCS: 36415; 70450; 80048; 80053; 80061; 81001; 82962; 83036; 85025; 85027; 90471; 90732; 93005; 96361; 96374; 96375; 96376; 99284; 99406; A9270; G0378; J7042; J7070; 90686; G0009

== ENCOUNTER 2021-01-12 18:45 | Inpatient (IN) | payer OTHER ==
[2021-01-12 19:24] LABS: Basophils % (Auto) 0.8 % (0.0-1.8); Eosinophils # (Auto) 0.1 K/mm3 (0.0-0.4); Eosinophils % (Auto) 2.1 % (0.0-4.3); Hematocrit 42.8 % (30.3-42.9); Hemoglobin 14.5 gm/dl (10.1-14.3); Lymphocytes # (Auto) 1.6 K/mm3 (1.2-5.4); Lymphocytes % (Auto) 28.1 % (13.4-35.0); Mean Corpuscular HGB Conc 34 % (30-34); Mean Corpuscular Volume 96 fl (79-97); Monocytes # (Auto) 0.8 K/mm3 (0.0-0.8); Monocytes % (Auto) 14.9 % (0.0-7.3); Platelet Count 233 K/mm3 (140-440); Red Blood Count 4.46 M/mm3 (3.65-5.03); Red Cell Distribution Width 13.9 % (13.2-15.2)
[2021-01-12 19:37] LABS: INR 0.97 (0.87-1.13)
[2021-01-12 19:38] LABS: Partial Thromboplastin Time 22.9 Sec. (24.2-36.6); Thrombin Time 16.5 Sec. (15.1-19.6)
[2021-01-12 19:39] LABS: Creatine Kinase MB 2.8 ng/mL (0.0-4.0)
[2021-01-12 19:40] LABS: BUN/Creatinine Ratio 16; Blood Urea Nitrogen 16 mg/dL (7-17); Calcium 8.8 mg/dL (8.4-10.2); Hemolysis Index 8
--- NOTE | 2021-01-12 19:50 | Emergency Department Report ---
Blank Doc - Documentation Documentation: [facility] Consult Note # Demographics Consult Type: Acute Stroke Level 2 (4.5-24 hrs) Patient Location: Emergency Room First Name: Melva Last Name: Kareem Date of : 1960 Age: 60 Gender: Female Time of Initial Page ( Time): 01/12/2021, 19:15 Time of Return Call ( Time): 01/12/2021, 19:15 # HPI History: 60yo F presents after being found by family slumped over, has left sided facial droop and slurred speech. last well at 0700 this morning. # Scores Time of exam and NIHSS (): 01/12/2021, 19:32 Level of Consciousness 1a: [0] = Alert; keenly responsive LOC Questions 1b: [2] = Answers neither correctly LOC Commands 1c: [0] = Performs both tasks correctly Best Gaze 2: [2] = Forced deviation Visual 3: [0] = No visual loss Facial Palsy 4: [2] = Partial paralysis Motor Arm Left 5a: [4] = No movement Motor Arm Right 5b: [0] = No drift Motor Leg Left 6a: [4] = No movement Motor Leg Right 6b: [3] = No effort against gravity Limb Ataxia 7: [0] = Absent Sensory 8: [0] = Normal Best Language 9: [2] = Severe aphasia Dysarthria 10: [2] = Severe dysarthria Extinction and Inattention 11: [0] = No abnormality NIHSS Total: 21 # PMH-FH-SH Past Medical History: Diabetes hypertension # Data Time Head CT personally read by me (): 01/12/2021, 19:[address]: no bleed early ischemic change preliminarily reviewed by me, please refer to radiology read for official reading # Plan Thrombolytic/Intervention: NOT IV Thrombolytic or IA Intervention Thrombolytic Exclusion: > 4.5 hours Intraarterial Exclusion: unfavorable imaging/hypodensity Blood Pressure Management: labetolol Target Blood Pressure: SBP < 220 SBP > 100 Labs: hemoglobin A1c lipid panel Imaging: (urgency: STAT): CT Angiogram Head and CT Angiogram Neck AND call back with results if abnormal Imaging: (urgency: routine): MRI Brain without contrast Diagnostic Test: echo without bubble study Therapy/Evaluation: NPO until swallow evaluation PT/OT evaluation speech/swallow consultation Medication: aspirin 81 mg daily start statin with goal of LDL < 70 DVT Prophylaxis: SCD Other: LDL < 70 If patient has any neurological deterioration please call me back immediately permissive hypertension telemetry monitoring I have discussed my recommendations with the referring provider Disposition: admit # Logistics Telemedicine: Interactive 2 way audio and visual telecommunication technology was utilized during this visit
--- NOTE | 2021-01-12 19:52 | Emergency Department Report ---
ED Neuro Deficit HPI - General Chief Complaint: Altered Mental Status Stated Complaint: STROKE Time Seen by Provider: 01/12/21 19:12 Source: EMS Mode of arrival: Stretcher Limitations: Altered Mental Status - History of Present Illness Initial Comments: 60-year-old female, history of hypertension and diabetes, presents to ED as a stroke alert. I spoke with patient's daughter, Gin, over the phone. Patient's daughter lives with her. Daughter states that she was last seen normal at 7 AM this morning when daughter left for work. Daughter states carmen duncan normally works from home and [employer]. States patient has no history of prior CVA. Daughter came home this evening and found patient naked, on the floor, with the shower running. She noticed patient had a laceration to the left temporal area. Daughter states she has seen patient in this state before, usually due to hypoglycemia, so she checked patient's glucose and it was in the 200s, so daughter called EMS. She reports patient received her second Covid vaccine on Monday, 4 days ago. -: unknown Last Observed Normal: 07:00 Location: speech, left arm, left leg Presenting Symptoms: Present: Weak/Paralyzed One Side, Facial Droop/Numbness, Unable to Speak Clearly History of same: No Place: home Severity: moderate Quality: weak, constant Improves With: none Worsens With: none On Anticoagulants: No Context: found down Treatments Prior to Arrival: none - Related Data Home Medications: Home Medications Medication Instructions Recorded Confirmed Last Taken Amoxicillin [Trimox CAP] 500 mg PO Q8H 05/22/20 05/22/20 Unknown Clarithromycin [Clarithromycin ER] 500 mg PO DAILY 05/22/20 05/22/20 Unknown Insulin Detemir [Levemir Flextouch] 10 unit SQ DAILY 05/22/20 05/22/20 Unknown Allergies/Adverse Reactions: Allergies Allergy/AdvReac Type Severity Reaction Status Date / Time No Known Allergies Allergy Unverified 05/22/20 09:16 ED Review of Systems ROS: Stated complaint: STROKE Other details as noted in HPI Comment: Unobtainable due to pts medical conditions ED Past Medical Hx - Past Medical History Hx Diabetes: Yes - Social History Smoking Status: Current Every Day Smoker - Medications Home Medications: Home Medications Medication Instructions Recorded Confirmed Last Taken Type Amoxicillin [Trimox CAP] 500 mg PO Q8H 05/22/20 05/22/20 Unknown History Clarithromycin [Clarithromycin ER] 500 mg PO DAILY 05/22/20 05/22/20 Unknown H istory Insulin Detemir [Levemir Flextouch] 10 unit SQ DAILY 05/22/20 05/22/20 Unknown History ED Neuro Physical Exam - General Limitations: Altered Mental Status General appearance: alert Suspected Stroke: Yes - Head Head exam: Present: other (3 cm laceration to left temporal area) - Eye Eye exam: Present: normal appearance, PERRL, EOMI - ENT ENT exam: Present: mucous membranes dry - Neck Neck exam: Present: normal inspection - Respiratory Respiratory exam: Present: normal lung sounds bilaterally. Absent: respiratory distress - Cardiovascular Cardiovascular Exam: Present: regular rate, normal rhythm - GI/Abdominal GI/Abdominal exam: Present: soft. Absent: distended, tenderness - Extremities Exam Extremities exam: Present: normal inspection - NIHSS Assessment Interval: Baseline 1a. Level of Consciousness: alert/keenly responsive 1b. LOC Questions: dysarthric/intubated 1c. LOC Commands: performs tasks correctly 2. Best Gaze: normal 3. Visual: no visual loss 4. Facial Palsy: partial paralysis 5b. Motor Arm Right: no drift 5a. Motor Arm Left: no movement 6a. Motor Leg Left: no movement 6b. Motor Leg Right: some gravity effort 7. Limb Ataxia: absent 8. Sensory: normal 9. Best Language: severe aphasia 10. Dysarthria: severe dysarthria 11. Extinction/Inattention: no abnormality Total Score: 17 Stroke Severity: Moderate to Severe Stroke - Psychiatric Psychiatric exam: Present: normal affect, normal mood - Skin Skin exam: Present: warm, dry, intact, normal color ED Course Vital Signs 01/12/21 01/12/21 01/12/21 19:43 19:55 20:00 Temperature 97.9 F Pulse Rate 91 H 93 H Respiratory 22 15 18 Rate Blood Pressure 144/90 Blood Pressure 141/78 [Left] O2 Sat by Pulse 100 97 Oximetry 01/12/21 01/12/21 01/12/21 20:30 21:00 21:30 Temperature Pulse Rate 86 87 80 Respiratory 15 17 16 Rate Blood Pressure 150/87 152/82 151/85 Blood Pressure [Left] O2 Sat by Pulse 99 97 99 Oximetry 01/12/21 01/12/21 01/12/21 21:44 22:00 22:30 Temperature Pulse Rate 86 101 H 80 Respiratory 19 17 19 Rate Blood Pressure 162/97 151/84 Blood Pressure 151/79 [Left] O2 Sat by Pulse 98 100 97 Oximetry 01/12/21 23:00 Temperature Pulse Rate 87 Respiratory 17 Rate Blood Pressure 150/80 Blood Pressure [Left] O2 Sat by Pulse 99 Oximetry - Laceration /Wound Repair Face Wound Location: face Wound Length (cm): 3 Wound's Depth, Shape: superficial, linear Wound Explored: clean Irrigated w/ Saline (ccs): 30 Wound Repaired With: Dermabond - Lab Data Result diagrams: 01/12/21 Unknown 01/12/21 Unknown Lab Results 01/12/21 01/12/21 Range/Units 19:00 20:02 POC Glucose 209 H (70-105) mg/dL Magnesium 2.00 (1.7-2.3) mg/dL - EKG Data -: EKG Interpreted by [place] EKG shows normal: sinus rhythm, axis, intervals, QRS complexes Rate: normal Interpretation: nonspecific ST-T wave darci, LVH - Radiology Data Radiology results: report reviewed, image reviewed - Medical Decision Making 60-year-old female presents to ED with right MCA stroke. Patient presented outside of the window for TPA. CTA did not show any large vessel occlusion, therefore she is not a candidate for interventional therapy. EKG is unr emarkable. Labs show evidence of hypokalemia. Potassium has been repleted. Patient will be admitted to hospitalist, Dr. Salvador, for further management. - Differential Diagnosis Hemorrhagic CVA, ischemic CVA, hyperglycemia, intracranial trauma - Thrombolytic Inclusion/Exclusion Thrombolytic Exclusion Criteria: Symptom Onset > 3 Hours Critical Care Time: Yes Critical care time in (mins) excluding proc time.: 35 Critical care attestation.: If time is entered above; I have spent that time in minutes in the direct care of this critically ill patient, excluding procedure time. Critical Care Time: 35 min ED Disposition Clinical Impression: CVA (cerebral vascular accident), Hypokalemia, Laceration of face Disposition: - OP ADMIT IP TO THIS HOSP Is pt being admited?: Yes Condition: Stable Time of Disposition: 20:48
--- NOTE | 2021-01-12 19:59 | Cat Scan Report ---
CT HEAD WITHOUT CONTRAST INDICATION / CLINICAL INFORMATION: Stroke symptoms. TECHNIQUE: All CT scans at this location are performed using CT dose reduction for ALARA by means of automated e xposure control. COMPARISON: Head CT 05/22/2020 FINDINGS: HEMORRHAGE: No evidence of intracranial hemorrhage or extra-axial fluid collection. EXTRA-AXIAL SPACES: Cortical sulci, sylvian fissures and basilar cisterns have an unremarkable appear ance. VENTRICULAR SYSTEM: The third and lateral ventricles are of normal size and configuration. Choroid pl exus in the temporal horns the lateral ventricles is unusually dense but bilaterally symmetrical and unchanged since 05/22/2020. CEREBRAL PARENCHYMA: Decreased brain parenchymal attenuation is observed in the right temporal lobe a s well as in the right frontal and parietal opercula. There is loss of differentiation between kilpatrick a nd white matter in this same region. These findings reflect the sequelae of recent right MCA infarcti on. Last known well time was about 8:00 AM Eastern standard time. The appearance of this patient's in farction suggest that the stroke occurred shortly after the last known well time. MIDLINE SHIFT OR HERNIATION: There is no mass effect. CEREBELLUM / BRAINSTEM: Brainstem and cerebellum have an unremarkable appearance. MIDLINE STRUCTURES:No abnormalities of the pituitary gland or pineal region are identified. INTRACRANIAL VESSELS: Calcified atherosclerotic plaque is present along the course the cavernous segm ents of both internal carotid arteries. ORBITS: visualized portions of the orbits have an unremarkable appearance. SOFT TISSUES of HEAD: No significant abnormality. CALVARIUM: Evaluation of bone windows reveals no abnormalities. PARANASAL SINUSES / MASTOID AIR CELLS: Frontal sinuses did not develop in this individual. Visualized portions of the paranasal sinuses are free from inflammatory mucosal disease. Mastoid air cells are normally pneumatized. ADDITIONAL FINDINGS: None. IMPRESSION: 1. Recent right MCA infarction with no indication of hemorrhagic transformation. CODE STROKE: Time of Communication (WEIGHER AND MIXER/CDT): 1850 Central standard time. Licensed Practitioner Receiving Report: Dr. Ibarra of the [facility] emergency de partment. Signer Name: Gilles Perez MD Signed: 01/12/2021 7:55 PM Workstation Name: [id number]
[2021-01-12 20:06] LABS: Chol/HDL Ratio 4.53 %; HDL Cholesterol 49 mg/dL (40-59); LDL Cholesterol,Direct 143 mg/dL (50-130)
--- NOTE | 2021-01-12 20:23 | Cat Scan Report ---
CTA neck without and with intravenous contrast material CLINICAL HISTORY: stroke sx TECHNIQUE: Following acquisition of a timing bolus 0.625 mm thick contiguous axial scans were obtained from aort ic arch to the skull base during rapid bolus intravenous contrast infusion. In addition to evaluation of axial source images multiplanar reconstructions were produced and reviewed for this report. 3 raheem ne MIP reconstructions were produced and reviewed. Contrast dose report: Omnipaque 350: 100 ml, administered intravenously All CT examinations performed at this facility utilize modulated dose reduction, iterative reconstruc tion or weight-based dosing, as appropriate, to obtain a radiation dose which is as low as can reason ably be achieved. FINDINGS: Thoracic aorta:No abnormalities are identified along the course of the thoracic aorta.. There is a co mmon origin of the brachiocephalic artery and left common carotid artery. Calcified plaque is present at the origin of the great vessels without associated stenosis. Right and left subclavian arteries d emonstrate normal contrast enhancement. Right carotid artery: Mildly calcified atherosclerotic plaque is observed at the carotid bifurcation extending into the proximal R ICA. There is no associated stenosis. Left carotid artery: Mildly calcified plaque is observed at the proximal left carotid bulb with no as sociated stenosis. Posterior circulation:The vertebral arteries have an unremarkable appearance. Mild dominance of the l eft vertebral artery is noted. Both vertebral arteries contribute to the basilar artery origin. The b asilar artery is not included on this examination. The degree of stenosis, if any, is determined utilizing NASCET like criteria. In this case there is no indication of hemodynamically significant stenosis at the carotid bifurcations or elsewhere. Thyroid gland is enlarged consistent with thyroid goiter. No thyroid nodules or cysts are identified. Evaluation of the nonvascular soft tissue structures reveal no additional abnormality. There is no in dication of cervical lymphadenopathy. No abnormalities are seen along the course of the airway. Visua lized portions of the parotid glands and the submandibular salivary glands have a normal appearance. Evaluation of the lung apices reveals no evidence of lung nodule or infiltrate. Evaluation of the cervical spine revealed no significant abnormalities. IMPRESSION: 1. No indication of hemodynamically significant stenosis at the carotid bifurcations or elsewhere. Signer Name: Gilles Perez MD Signed: 01/12/2021 8:19 PM Workstation Name: [id number]
--- NOTE | 2021-01-12 20:33 | Cat Scan Report ---
CTA head with intravenous contrast CLINICAL HISTORY: Left-sided weakness. Cerebrovascular accident. TECHNIQUE: 0.625 mm thick contiguous axial scans were obtained from the skull base to the skull vertex during r apid bolus administration of intravenous contrast material. Multiplanar reconstructions were produced in the coronal and sagittal planes. In addition 3 plane MIP instructions were produced and reviewed for this report. The axial source images and reconstructed images were reviewed for this report. CONTRAST DOSE REPORT: Omnipaque 350: 100 ml administered intravenously. All CT scans at this location are performed using CT dose reduction for ALARA by means of automated e xposure control. FINDINGS: Internal carotid arteries:Pradip, cavernous, opthalmic, clinoid and supraclinoid segments of the ICAs have an unremarkable appearance. Middle cerebral arteries:Normal and symmetrical M1 segments of the middle cerebral arteries are demon strated. There is decreased size and contrast density of opercular and cortical branches of the right middle cerebral artery in the region of the patient's recently demonstrated are MCA infarction. I do not identify a large vessel occlusion however. No abnormalities are seen on evaluation of the left-s ided insular or opercular branches. Anterior cerebral arteries:Bilaterally symmetrical A1 segments are demonstrated. No abnormalities are seen along the course of the A2 segments or their visualized pericallosal branches. Vertebral arteries: Mild dominance of the left vertebral artery is noted. Both vertebral arteries con tribute to the basilar artery origin. Basilar artery:Basilar artery has an unremarkable appearance. Posterior cerebral arteries: Bilaterally symmetrical posterior cerebral arteries are observed. Dural sinuses: Dural venous sinuses are well demonstrated on this exam. There is no evidence of dural sinus thrombosis. IMPRESSION: 1. Interval decrease in size and contrast density of opercular and cortical branches of the right mid dle cerebral artery in the distribution of the patient's recently demonstrated infarction. I do not i dentify a definite large vessel occlusion however. Signer Name: Gilles Perez MD Signed: 01/12/2021 8:28 PM Workstation Name: [id number]
[2021-01-12] MEDS ORDERED: DEXTROSE 50% IN WATER (25GM) 50 ML SYRINGE IV PRN (21:44)
[2021-01-12] MEDS ORDERED: ONDANSETRON 4 MG/2 ML INJ IV PRN (21:44)
[2021-01-12] MEDS ORDERED: ACETAMINOPHEN 325 MG TAB PO PRN (21:44)
[2021-01-12] MEDS ORDERED: SODIUM CHLORIDE 0.9% 1000 ML 1,000 ML IV SCH (21:45)
[2021-01-12] MEDS: POTASSIUM CHLORIDE 10 MEQ 10 MEQ/100 ML BAG IV SCH ×3 (21:48→23:58)
--- NOTE | 2021-01-12 21:56 | History and Physical Report ---
History of Present Illness Date of examination: 01/12/21 Date of admission: 01/12/21 Chief complaint: Altered mental status Left-sided facial droop slurred speech History of present illness: 60-year-old female with history of hypertension and diabetes was brought to the emergency room because of left-sided facial droop slurred speech. Patient was last seen normal at 7 AM this morning when daughter left for work. 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 States patient has no history of prior CVA. Daughter came home this evening and found patient naked, on the floor, with the shower running. She noticed patient had a laceration to the left temporal area. Daughter states she has seen patient in this state before, usually due to hypoglycemia, so she checked patient's glucose and it was in the 200s, so daughter called EMS. She reports patient received her second Covid vaccine on Monday, [address] scan of the head showed recent right MCA infarction with no indication of hemorrhagic transformation. Patient is seen and evaluated by telemetry neurology Past History Past Medical History: diabetes, hypertension Medications and Allergies Allergies Allergy/AdvReac Type Severity Reaction Status Date / Time No Known Allergies Allergy Unverified 05/22/20 09:16 Home Medications Medication Instructions Recorded Confirmed Last Taken Type Amoxicillin [Trimox CAP] 500 mg PO Q8H 05/22/20 05/22/20 Unknown History Clarithromycin [Clarithromycin ER] 500 mg PO DAILY 05/22/20 05/22/20 Unknown History Insulin Detemir [Levemir Flextouch] 10 unit SQ DAILY 05/22/20 05/22/20 Unknown History Active Meds: Active Medications Acetaminophen (Acetaminophen 325 Mg Tab) 650 mg PO Q4H PRN PRN Reason: Pain MILD(1-3)/Fever >100.5/WILDE Amoxicillin (Amoxicillin 500 Mg Cap) 500 mg PO Q8H SOLE; Protocol Aspirin (Aspirin 325 Mg Tab) 325 mg PO QDAY SOLE Atorvastatin Calcium (Atorvastatin 40 Mg Tab) 40 mg PO QHS SOLE Dextrose (Dextrose 50% In Water (25gm) 50 Ml Syringe) 50 ml IV Q30MIN PRN; Protocol PRN Reason: Hypoglycemia Famotidine (Famotidine 20 Mg/2 Ml Inj) 20 mg IV BID SOLE Potassium Chloride (Kcl 10meq/100ml) 10 meq in 100 mls @ 100 mls/hr IV Q1H SOLE Stop: 01/12/21 23:59 Last Admin: 01/12/21 21:48 Dose: 100 mls/hr Documented by: Sodium Chloride (Nacl 0.9% 1000 Ml) 1,000 mls @ 100 mls/hr IV DIRECT SOLE Potassium Chloride/Sodium Chloride (Ns/Kcl 20meq) 1,000 mls @ 100 mls/hr IV DIRECT SOLE Insulin Human Regular (Insulin Regular, Human 100 Units/1 Ml) 0 units SUB-Q Q6H SOLE; Protocol Labetalol HCl (Labetalol 20 Mg/4 Ml Inj) 10 mg IV Q5MIN PRN PRN Reason: to maintain SBP < 180 Miscellaneous Medication (Clarithromycin [Clarithromycin Er]) 500 mg PO DAILY SOLE Ondansetron HCl (Ondansetron 4 Mg/2 Ml Inj) 4 mg IV Q8H PRN PRN Reason: Nausea And Vomiting Sodium Chloride (Sodium Chloride 0.9% 10 Ml Flush Syringe) 10 ml IV BID SOLE Sodium Chloride (Sodium Chloride 0.9% 10 Ml Flush Syringe) 10 ml IV PRN PRN PRN Reason: LINE FLUSH Sodium Chloride (Sodium Chloride 0.9% 10 Ml Flush Syringe) 10 ml INJ PRN PRN PRN Reason: LINE FLUSH Review of Systems Neurological: change in speech, change in mentation Exam - Constitutional Vitals: Temp Pulse Resp BP Pulse Ox 97.9 F 86 19 151/79 98 01/12/21 19:43 01/12/21 21:44 01/12/21 21:44 01/12/21 21:44 01/12/21 21:44 General appearance: Present: no acute distress, well-nourished - EENT Eyes: Present: PERRL ENT: hearing intact, clear oral mucosa - Neck Neck: Present: supple, normal ROM - Respiratory Respiratory effort: normal Respiratory: bilateral: CTA - Cardiovascular Heart Sounds: Present: S1 & S2. Absent: rub, click - Extremities Extremities: pulses symmetrical, No edema Peripheral Pulses: within normal limits - Abdominal General gastrointestinal: Present: soft, non-tender, non-distended, normal bowel sounds Female genitourinary: Present: normal - Integumentary Integumentary: Present: clear, warm, dry - Musculoskeletal Musculoskeletal: left sided weakness - Psychiatric Psychiatric: appropriate mood/affect, intact judgment & insight - Neurologic Neurologic: other (Left facial droop. Slurred speech) HEART Score - HEART Score Troponin: Troponin T 0.070 ng/mL (0.00-0.029) H 01/12/21 Unknown Results - Labs CBC & Chem 7: 01/12/21 Unknown 01/12/21 Unknown Labs: Laboratory Last Values WBC 5.5 K/mm3 (4.5-11.0) 01/12/21 Unknown RBC 4.46 M/mm3 (3.65-5.03) 01/12/21 Unknown Hgb 14.5 gm/dl (10.1-14.3) H 01/12/21 Unknown Hct 42.8 % (30.3-42.9) 01/12/21 Unknown MCV 96 fl (79-97) 01/12/21 Unknown MCH 33 pg (28-32) H 01/12/21 Unknown MCHC 34 % (30-34) 01/12/21 Unknown RDW 13.9 % (13.2-15.2) 01/12/21 Unknown Plt Count 233 K/mm3 (140-440) 01/12/21 Unknown Lymph % (Auto) 28.1 % (13.4-35.0) 01/12/21 Unknown [place] % (Auto) 14.9 % (0.0-7.3) H 01/12/21 Unknown Eos % (Auto) 2.1 % (0.0-4.3) 01/12/21 Unknown Baso % (Auto) 0.8 % (0.0-1.8) 01/12/21 Unknown Lymph # (Auto) 1.6 K/mm3 (1.2-5.4) 01/12/21 Unknown [place] # (Auto) 0.8 K/mm3 (0.0-0.8) 01/12/21 Unknown Eos # (Auto) 0.1 K/mm3 (0.0-0.4) 01/12/21 Unknown Baso # (Auto) 0.0 K/mm3 (0.0-0.1) 01/12/21 Unknown Seg Neutrophils % 54.1 % (40.0-70.0) 01/12/21 Unknown Seg Neutrophils # 3.0 K/mm3 (1.8-7.7) 01/12/21 Unknown PT 13.5 Sec. (12.2-14.9) 01/12/21 Unknown INR 0.97 (0.87-1.13) 01/12/21 Unknown APTT 22.9 Sec. (24.2-36.6) L 01/12/21 Unknown Thrombin Time 16.5 Sec. (15.1-19.6) 01/12/21 Unknown Sodium 135 mmol/L (137-145) L 01/12/21 Unknown Potassium 2.7 mmol/L (3.6-5.0) L* 01/12/21 Unknown Chloride 91.1 mmol/L (98-107) L 01/12/21 Unknown Carbon Dioxide 25 mmol/L (22-30) 01/12/21 Unknown Anion Gap 22 mmol/L 01/12/21 Unknown BUN 16 mg/dL (7-17) 01/12/21 Unknown Creatinine 1.0 mg/dL (0.6-1.2) 01/12/21 Unknown Estimated GFR > 60 ml/min 01/12/21 Unknown BUN/Creatinine Ratio 16 % 01/12/21 Unknown Glucose 209 mg/dL (65-100) H 01/12/21 Unknown POC Glucose 209 mg/dL (70-105) H 01/12/21 19:00 Calcium 8.8 mg/dL (8.4-10.2) 01/12/21 Unknown Magnesium 2.00 mg/dL (1.7-2.3) 01/12/21 20:02 Total Creatine Kinase 194 units/L (30-135) H 01/12/21 Unknown CK-MB (CK-2) 2.8 ng/mL (0.0-4.0) 01/12/21 Unknown CK-MB (CK-2) Rel Index 1.4 (0-4) 01/12/21 Unknown Troponin T 0.070 ng/mL (0.00-0.029) H 01/12/21 Unknown Triglycerides 130 mg/dL (2-149) 01/12/21 Unknown Cholesterol 222 mg/dL (50-199) H 01/12/21 Unknown LDL Cholesterol Direct 143 mg/dL (50-130) H 01/12/21 Unknown HDL Cholesterol 49 mg/dL (40-59) 01/12/21 Unknown Cholesterol/HDL Ratio 4.53 % 01/12/21 Unknown - Imaging and Cardiology CT Scan - head: report reviewed Assessment and Plan VTE prophylaxis?: Mechanical Plan of care discussed with patient/family: Yes - Patient Problems (1) CVA (cerebral vascular accident) Current Visit: Yes Status: Acute Plan to address problem: Admit the patient to the medical telemetry. Put the patient on CVA pathway. Aspirin 325 mg p.o. daily. Lipitor 40 mg p.o. daily. MRI of the brain with and without contrast MRA of the brain and neck with and without contrast echocardiogram PT OT any speech evaluation. Will consult neurology for ev aluation (2) Acute metabolic encephalopathy Current Visit: No Status: Acute Plan to address problem: Put the patient on CVA pathway. Aspirin 325 mg p.o. daily. Lipitor 40 mg p.o. daily. MRI of the brain with and without contrast MRA of the brain and neck with and without contrast echocardiogram PT OT any speech evaluation. Will consult neurology for evaluation (3) Hypokalemia Current Visit: Yes Status: Acute Plan to address problem: We will put the patient on normal saline with 20 of potassium at the rate of 100 cc/h. We also put the patient on potassium chloride 40 mEq IV every 4 hours x2 dose. Recheck BMP in the morning (4) IDDM (insulin dependent diabetes mellitus) Current Visit: No Status: Chronic Plan to address problem: We will put the patient on insulin sliding scale with regular insulin moderate dose coverage Accu-Chek every 6 hours. We will consult diabetic education (5) Hypertension Current Visit: Yes Status: Acute Plan to address problem: Labetalol 10 mg IV every 6 hours as needed. We will monitor the blood pressure closely. (6) DVT prophylaxis Current Visit: No Status: Acute Plan to address problem: SCD for DVT prophylaxis. Pepcid 20 mg IV every 12 hours for the GI prophylaxis. Patient is a full code
[2021-01-12] MEDS ORDERED: NACL 0.9%/KCL 20 MEQ 20 MEQ/1,000 ML BAG IV SCH (22:00)
[2021-01-12] MEDS: AMOXICILLIN 500 MG CAP PO SCH (22:13)
[2021-01-12] MEDS: FAMOTIDINE 20 MG/2 ML INJ IV SCH (22:27)
[2021-01-12] MEDS: INSULIN REGULAR, HUMAN 100 UNITS/1 ML SUB-Q SCH (22:28)
[2021-01-13] MEDS: POTASSIUM CHLORIDE 10 MEQ 10 MEQ/100 ML BAG IV SCH ×5 (01:01→13:55)
--- NOTE | 2021-01-13 07:37 | Consultation ---
History of Present Illness Consult date: 01/14/21 Reason for Consult: change in mentation History of present illness: Altered mental status Left-sided facial droop slurred speech History of present illness: 60-year-old female with history of hypertension and diabetes was brought to the emergency room because of left-sided facial droop slurred speech. Patient was last seen normal at 7 AM this morning when daughter left for work. 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 States patient has no history of prior CVA. Daughter came home this evening and found patient naked, on the floor, with the shower running. She noticed patient had a laceration to the left temporal area. Daughter states she has seen patient in this state before, usually due to hypoglycemia, so she checked patient's glucose and it was in the 200s, so daughter called EMS. She reports patient received her second Covid vaccine on Monday, [address] scan of the head showed recent right MCA infarction with no indication of hemorrhagic transformation. Patient is seen and evaluated by telemetry neurology Past History Past Medical History: diabetes, hypertension Medications and Allergies Allergies Allergy/AdvReac Type Severity Reaction Status Date / Time No Known Allergies Allergy Unverified 05/22/20 09:16 Home Medications Medication Instructions Recorded Confirmed Last Taken Type Amoxicillin [Trimox CAP] 500 mg PO Q8H 05/22/20 05/22/20 Unknown History Clarithromycin [Clarithromycin ER] 500 mg PO DAILY 05/22/20 05/22/20 Unknown History Insulin Detemir [Levemir Flextouch] 10 unit SQ DAILY 05/22/20 05/22/20 Unknown History Active Meds: Active Medications Acetaminophen (Acetaminophen 325 Mg Tab) 650 mg PO Q4H PRN PRN Reason: Pain MILD(1-3)/Fever >100.5/WILDE Amoxicillin (Amoxicillin 500 Mg Cap) 500 mg PO Q8H SOLE; Protocol Aspirin (Aspirin 325 Mg Tab) 325 mg PO QDAY SOLE Atorvastatin Calcium (Atorvastatin 40 Mg Tab) 40 mg PO QHS SOLE Dextrose (Dextrose 50% In Water (25gm) 50 Ml Syringe) 50 ml IV Q30MIN PRN; Protocol PRN Reason: Hypoglycemia Famotidine (Famotidine 20 Mg/2 Ml Inj) 20 mg IV BID SOLE Potassium Chloride (Kcl 10meq/100ml) 10 meq in 100 mls @ 100 mls/hr IV Q1H SOLE Stop: 01/12/21 23:59 Last Admin: 01/12/21 21:48 Dose: 100 mls/hr Documented by: Sodium Chloride (Nacl 0.9% 1000 Ml) 1,000 mls @ 100 mls/hr IV DIRECT SOLE Potassium Chloride/Sodium Chloride (Ns/Kcl 20meq) 1,000 mls @ 100 mls/hr IV DIRECT SOLE Insulin Human Regular (Insulin Regular, Human 100 Units/1 Ml) 0 units SUB-Q Q6H [facility]; Protocol Labetalol HCl (Labetalol 20 Mg/4 Ml Inj) 10 mg IV Q5MIN PRN PRN Reason: to maintain SBP < 180 Miscellaneous Medication (Clarithromycin [Clarithromycin Er]) 500 mg PO DAILY SOLE Ondansetron HCl (Ondansetron 4 Mg/2 Ml Inj) 4 mg IV Q8H PRN PRN Reason: Nausea And Vomiting Sodium Chloride (Sodium Chloride 0.9% 10 Ml Flush Syringe) 10 ml IV BID SOLE Sodium Chloride (Sodium Chloride 0.9% 10 Ml Flush Syringe) 10 ml IV PRN PRN PRN Reason: LINE FLUSH Sodium Chloride (Sodium Chloride 0.9% 10 Ml Flush Syringe) 10 ml INJ PRN PRN PRN Reason: LINE FLUSH Review of Systems Neurological: change in speech, change in mentation Past History Past Medical History: diabetes, hypertension Medications and Allergies Allergies Allergy/AdvReac Type Severity Reaction Status Date / Time No Known Allergies Allergy Unverified 05/22/20 09:16 Home Medications Medication Instructions Recorded Confirmed Last Taken Type Amoxicillin [Trimox CAP] 500 mg PO Q8H 05/22/20 05/22/20 Unknown History Clarithromycin [Clarithromycin ER] 500 mg PO DAILY 05/22/20 05/22/20 Unknown History Insulin Detemir [Levemir Flextouch] 10 unit SQ DAILY 05/22/20 05/22/20 Unknown History Active Meds: Active Medications Acetaminophen (Acetaminophen 325 Mg Tab) 650 mg PO Q4H PRN PRN Reason: Pain MILD(1-3)/Fever >100.5/WILDE Aspirin (Aspirin 325 Mg Tab) 325 mg PO QDAY [facility] Atorvastatin Calcium (Atorvastatin 40 Mg Tab) 40 mg PO QHS [facility] Last Admin: 01/12/21 22:12 Dose: Not Given Documented by: Dextrose (Dextrose 50% In Water (25gm) 50 Ml Syringe) 0 ml IV Q30MIN PRN; Protocol PRN Reason: Hypoglycemia Famotidine (Famotidine 20 Mg/2 Ml Inj) 20 mg IV BID [facility] Last Admin: 01/12/21 22:27 Dose: 20 mg Documented by: Sodium Chloride (Nacl 0.9% 1000 Ml) 1,000 mls @ 100 mls/hr IV DIRECT SOLE Potassium Chloride/Sodium Chloride (Ns/Kcl 20meq) 20 meq in 1,000 mls @ 100 ml s/hr IV DIRECT SOLE Insulin Human Regular (Insulin Regular, Human 100 Units/1 Ml) 0 units SUB-Q Q 6HR [facility]; Protocol Last Admin: 01/12/21 22:28 Dose: Not Given Documented by: Labetalol HCl (Labetalol 20 Mg/4 Ml Inj) 10 mg IV Q5MIN PRN PRN Reason: to maintain SBP < 180 Ondansetron HCl (Ondansetron 4 Mg/2 Ml Inj) 4 mg IV Q8H PRN PRN Reason: Nausea And Vomiting Sodium Chloride (Sodium Chloride 0.9% 10 Ml Flush Syringe) 10 ml IV BID [facility] Last Admin: 01/12/21 22:28 Dose: 10 ml Documented by: Sodium Chloride (Sodium Chloride 0.9% 10 Ml Flush Syringe) 10 ml IV PRN PRN PRN Reason: LINE FLUSH Sodium Chloride (Sodium Chloride 0.9% 10 Ml Flush Syringe) 10 ml IV PRN PRN PRN Reason: LINE FLUSH Physical Examination - Vital Signs Vital Signs: Vital Signs Temp Pulse Resp BP Pulse Ox 97.9 F 91 H 22 141/78 100 01/12/21 19:43 01/12/21 19:43 01/12/21 19:43 01/12/21 19:43 01/12/21 19:43 - EENT EENT: Present: PERRL - Respiratory Respiratory: Present: chest non-tender, lungs clear, rhonchi - Cardiovascular Cardiovascular: Present: regular rate, normal S1, normal S2 Extremities: Present: no peripheral edema bilatateraly - Gastrointestinal Gastrointestinal: Present: normoactive bowel sounds - Integumentary Integumentary: Present: normal - Neurologic Cranial nerve examination: other (alert speech is slurred she hsd some difficulty in recalling inaddition to memory difficulty she is hard to understand due to above) Sensorimotor examination: intact, seizure (not do details memory evaluation due to speech difficulty), other (dense left facial droop as well as weakness left arm 1-2 /5 left leg is 3+/5, gait is not done ,difffiu) - Musculoskeletal Musculoskeletal: Present: erythematous joints Results - Laboratory Findings CBC and BMP: 01/12/21 Unknown 01/14/21 04:46 Abnormal Lab Findings: Abnormal Labs 01/12/21 01/12/21 01/12/21 19:00 Unknown Unknown Hgb 14.5 H MCH 33 H [place] % (Auto) 14.9 H APTT 22.9 L Sodium Potassium Chloride Glucose POC Glucose 209 H Total Creatine Kinase Troponin T Cholesterol LDL Cholesterol Direct 01/12/21 Unknown Hgb MCH [place] % (Auto) APTT Sodium 135 L Potassium 2.7 L* Chloride 91.1 L Glucose 209 H POC Glucose Total Creatine Kinase 194 H Troponin T 0.070 H Cholesterol 222 H LDL Cholesterol Direct 143 H Assessment and Plan Assessment and Plan VTE prophylaxis?: Mechanical Plan of care discussed with patient/family: Yes # CVA (cerebral vascular accident) - new onset left side dense weakness and slurred speech -CT brain r.MCA infarct -CTA brain and neck--stenosis of right opercular a. and cortical right MCA -MRI is pending -Started on ASA# 325 mg and lipitor increase to 80 mg -Echo is pending -PT/ST -LDL#[id number] - # Acute metabolic encephalopathy Put the patient on CVA pathway. Aspirin 325 mg p.o. daily. Lipitor 80 mg p.o. daily. MRI of the brain with and without contrast MRA of the brain and neck with and without contrast echocardiogram PT OT any speech evaluation. # Hypokalemia -We will put the patient on normal saline with 20 of potassium at the rate of 100 cc/h. We also put the patient on potassium chloride 40 mEq IV every 4 hours x2 dose. Recheck BMP in the morning # IDDM (insulin dependent diabetes mellitus) -We will put the patient on insulin sliding scale with regular insulin moderate dose coverage Accu-Chek every 6 hours. We will consult diabetic education -A1C is pending # Hypertension -Labetalol 10 mg IV every 6 hours as needed. We will monitor the blood pressure closely. # DVT prophylaxis -SCD for DVT prophylaxis. - Pepcid 20 mg IV every 12 hours for the GI prophylaxis. - Patient is a full code will follow
--- NOTE | 2021-01-13 08:33 | Progress Note ---
Assessment and Plan Assessment and plan: VTE prophylaxis?: Mechanical Plan of care discussed with patient/family: Yes --Severe hypokalemia; K2.9 today Current Visit: Yes Status: Acute Replenished last night, remains low at 2.9 KCl oral 40 mEq x 1 KCl IV 40 mEqx x1 Monitor electrolytes weekly magnesium --Acute CVA (cerebral vascular accident) Current Visit: Yes Status: Acute Not a candidate for TPA put the patient on CVA pathway. Aspirin 325 mg p.o. daily. Lipitor 40 mg p.o. daily. MRI of the brain with and without contrast MRA of the brain and neck with and without contrast echocardiogram , PT OT any speech evaluation. Neurology following --Acute metabolic encephalopathy Current Visit: No Status: Acute Put the patient on CVA pathway. Continue aspirin and statin , neuro work-up is in progress Neurology evaluated and is following --Type II diabetes mellitus (insulin dependent diabetes mellitus) Current Visit: No Status: Chronic. Accu-Chek sliding scale coverage ADA diet Long-acting insulin as needed -- Hypertension Current Visit: Yes Status: Acute Moderate control , continue current antihypertensives And as needed had as needed hydralazine --Full code; -- DVT prophylaxis Current Visit: No Status: Acute SCD for DVT prophylaxis. Pepcid 20 mg IV every 12 hours for the GI prophylaxis. Patient is a full code We will closely monitor the patient and adjust management as needed 01/13/2021; acute CVA, not a candidate for TPA Neuro work-up is in progress Severe hypokalemia, replenished with IV KCl Follow potassium and magnesium Follow neuro evaluation and recommendations Patient passed swallow eval, soft diet advance as tolerated Plan of care reviewed with the patient and her nurse History Interval history: I have seen and examined the patient in ER awaiting room assignment Patient was admitted with acute CVA, neuro work-up is in progress Neurologist evaluation recommendations noted and appreciated Patient is confused, dysarthria, difficulty speaking Vital signs noted Hospitalist Physical - Constitutional Vitals: Temp Pulse Resp BP Pulse Ox 97.9 F 81 15 172/92 99 01/12/21 19:43 01/13/21 08:00 01/13/21 08:00 01/13/21 08:00 01/13/21 08:00 General appearance: Present: mild distress, well-nourished, other (Dysarthria) - EENT Eyes: Present: PERRL, EOM intact - Neck Neck: Present: supple, normal ROM - Respiratory Respiratory effort: normal Respiratory: bilateral: diminished, negative: rales, rhonchi, wheezing - Cardiovascular Rhythm: regular Heart Sounds: Present: S1 & S2 - Extremities Extremities: no ischemia, No edema - Abdominal General gastrointestinal: soft, non-tender, non-distended, normal bowel sounds - Integumentary Integumentary: Present: clear, warm - Psychiatric Psychiatric: other (Dysarthria) - Neurologic Neurologic: other (Acute CVA with residual weakness) HEART Score - HEART Score Troponin: Troponin T 0.070 ng/mL (0.00-0.029) H 01/12/21 Unknown Results - Labs CBC & Chem 7: 01/12/21 Unknown 01/13/21 08:51 Labs: Laboratory Last Values WBC 5.5 K/mm3 (4.5-11.0) 01/12/21 Unknown RBC 4.46 M/mm3 (3.65-5.03) 01/12/21 Unknown Hgb 14.5 gm/dl (10.1-14.3) H 01/12/21 Unknown Hct 42.8 % (30.3-42.9) 01/12/21 Unknown MCV 96 fl (79-97) 01/12/21 Unknown MCH 33 pg (28-32) H 01/12/21 Unknown MCHC 34 % (30-34) 01/12/21 Unknown RDW 13.9 % (13.2-15.2) 01/12/21 Unknown Plt Count 233 K/mm3 (140-440) 01/12/21 Unknown Lymph % (Auto) 28.1 % (13.4-35.0) 01/12/21 Unknown [place] % (Auto) 14.9 % (0.0-7.3) H 01/12/21 Unknown Eos % (Auto) 2.1 % (0.0-4.3) 01/12/21 Unknown Baso % (Auto) 0.8 % (0.0-1.8) 01/12/21 Unknown Lymph # (Auto) 1.6 K/mm3 (1.2-5.4) 01/12/21 Unknown [place] # (Auto) 0.8 K/mm3 (0.0-0.8) 01/12/21 Unknown Eos # (Auto) 0.1 K/mm3 (0.0-0.4) 01/12/21 Unknown Baso # (Auto) 0.0 K/mm3 (0.0-0.1) 01/12/21 Unknown Seg Neutrophils % 54.1 % (40.0-70.0) 01/12/21 Unknown Seg Neutrophils # 3.0 K/mm3 (1.8-7.7) 01/12/21 Unknown PT 13.5 Sec. (12.2-14.9) 01/12/21 Unknown INR 0.97 (0.87-1.13) 01/12/21 Unknown APTT 22.9 Sec. (24.2-36.6) L 01/12/21 Unknown Thrombin Time 16.5 Sec. (15.1-19.6) 01/12/21 Unknown Sodium 135 mmol/L (137-145) L 01/12/21 Unknown Potassium 2.7 mmol/L (3.6-5.0) L* 01/12/21 Unknown Chloride 91.1 mmol/L (98-107) L 01/12/21 Unknown Carbon Dioxide 25 mmol/L (22-30) 01/12/21 Unknown Anion Gap 22 mmol/L 01/12/21 Unknown BUN 16 mg/dL (7-17) 01/12/21 Unknown Creatinine 1.0 mg/dL (0.6-1.2) 01/12/21 Unknown Estimated GFR > 60 ml/min 01/12/21 Unknown BUN/Creatinine Ratio 16 % 01/12/21 Unknown Glucose 209 mg/dL (65-100) H 01/12/21 Unknown POC Glucose 163 mg/dL (70-105) H 01/13/21 07:56 Calcium 8.8 mg/dL (8.4-10.2) 01/12/21 Unknown Magnesium 2.00 mg/dL (1.7-2.3) 01/12/21 20:02 Total Creatine Kinase 194 units/L (30-135) H 01/12/21 Unknown CK-MB (CK-2) 2.8 ng/mL (0.0-4.0) 01/12/21 Unknown CK-MB (CK-2) Rel Index 1.4 (0-4) 01/12/21 Unknown Troponin T 0.070 ng/mL (0.00-0.029) H 01/12/21 Unknown Triglycerides 130 mg/dL (2-149) 01/12/21 Unknown Cholesterol 222 mg/dL (50-199) H 01/12/21 Unknown LDL Cholesterol Direct 143 mg/dL (50-130) H 01/12/21 Unknown HDL Cholesterol 49 mg/dL (40-59) 01/12/21 Unknown Cholesterol/HDL Ratio 4.53 % 01/12/21 Unknown Active Medications - Current Medications Current Medications: Generic Name Dose Route Start Last Admin Trade Name Freq PRN Reason Stop Dose Admin Acetaminophen 650 mg 01/12/21 21:44 Acetaminophen 325 Mg Tab PO Q4H PRN Pain MILD(1-3)/Fever >100.5/WILDE Aspirin 325 mg 01/13/21 10:00 Aspirin 325 Mg Tab PO QDAY [facility] Atorvastatin Calcium 40 mg 01/12/21 22:00 01/12/21 22:12 Atorvastatin 40 Mg Tab PO Not Given QHS SOLE Dextrose 0 ml 01/12/21 21:44 Dextrose 50% In Water (25gm) 50 Ml Syringe IV Q30MIN PRN Hypoglycemia Protocol Famotidine 20 mg 01/12/21 22:00 01/12/21 22:27 Famotidine 20 Mg/2 Ml Inj IV 20 mg BID SOLE Administration Sodium Chloride 1,000 mls @ 100 mls/hr 01/12/21 21:45 Nacl 0.9% 1000 Ml IV DIRECT SOLE Potassium Chloride/Sodium Chloride 20 meq in 1,000 mls @ 100 mls/hr 01/12/21 22:00 Ns/Kcl 20meq IV DIRECT SOLE Insulin Human Regular 0 units 01/12/21 22:00 01/12/21 22:28 Insulin Regular, Human 100 Units/1 Ml SUB-Q Not Given Q6HR [facility] Protocol Labetalol HCl 10 mg 01/12/21 21:44 Labetalol 20 Mg/4 Ml Inj IV Q5MIN PRN to maintain SBP < 180 Ondansetron HCl 4 mg 01/12/21 21:44 Ondansetron 4 Mg/2 Ml Inj IV Q8H PRN Nausea And Vomiting Sodium Chloride 10 ml 01/12/21 22:00 01/12/21 22:28 Sodium Chloride 0.9% 10 Ml Flush Syringe IV 10 ml BID SOLE Administration Sodium Chloride 10 ml 01/12/21 21:44 Sodium Chloride 0.9% 10 Ml Flush Syringe IV PRN PRN LINE FLUSH Sodium Chloride 10 ml 01/12/21 21:44 Sodium Chloride 0.9% 10 Ml Flush Syringe IV PRN PRN LINE FLUSH
[2021-01-13 09:22] LABS: Blood Urea Nitrogen 12 mg/dL (7-17); Calcium 8.8 mg/dL (8.4-10.2); Hemolysis Index 118
[2021-01-13 09:23] LABS: BUN/Creatinine Ratio 17
[2021-01-13] MEDS ORDERED: POTASSIUM CHLORIDE ER 20 MEQ TAB PO ONE (09:36)
[2021-01-13] MEDS: AMOXICILLIN 500 MG CAP PO SCH (09:42)
[2021-01-13] MEDS ORDERED: CLARITHROMYCIN 500 MG TAB PO SCH (10:00)
[2021-01-13] MEDS: ASPIRIN 325 MG TAB PO SCH (10:03)
[2021-01-13] MEDS: INSULIN REGULAR, HUMAN 100 UNITS/1 ML SUB-Q SCH ×3 (10:04→21:24)
[2021-01-13] MEDS: FAMOTIDINE 20 MG/2 ML INJ IV SCH ×2 (10:47→21:09)
[2021-01-13] MEDS ORDERED: POTASSIUM CHLORIDE ER 20 MEQ TAB PO NR (19:49)
[2021-01-14 05:35] LABS: Alanine Aminotransferase 8 units/L (7-56); Albumin 3.6 g/dL (3.9-5); BUN/Creatinine Ratio 13; Blood Urea Nitrogen 10 mg/dL (7-17); Calcium 8.1 mg/dL (8.4-10.2); Hemolysis Index 5
--- NOTE | 2021-01-14 08:16 | Progress Note ---
Assessment and Plan Assessment and plan: Assessment and plan: VTE prophylaxis?: Mechanical Plan of care discussed with patient/family: Yes --Severe hypokalemia; K2.9 today Current Visit: Yes Status: Acute Replenished last night, remains low at 2.9 KCl oral 40 mEq x 1 KCl IV 40 mEqx x1 Monitor electrolytes weekly magnesium --Acute CVA (cerebral vascular accident)/left hemiparesis Current Visit: Yes Status: Acute Not a candidate for TPA put the patient on CVA pathway. Aspirin 325 mg p.o. daily. Lipitor 40 mg p.o. daily. Neuro work-up in progress MRI of the brain with and without contrast MRA of the brain and neck with and without contrast echocardiogram , PT OT any speech evaluation. Neurology following --Acute metabolic encephalopathy Current Visit: No Status: Acute Put the patient on CVA pathway. Continue aspirin and statin , neuro work-up is in progress Neurology evaluated and is following --Type II diabetes mellitus (insulin dependent diabetes mellitus) Current Visit: No Status: Chronic. Accu-Chek sliding scale coverage ADA diet Long-acting insulin as needed -- Hypertension Current Visit: Yes Status: Acute Moderate control , continue current antihypertensives And as needed had as needed hydralazine --Full code; -- DVT prophylaxis Current Visit: No Status: Acute SCD for DVT prophylaxis. Pepcid 20 mg IV every 12 hours for the GI prophylaxis. Patient is a full code We will closely monitor the patient and adjust management as needed 01/13/2021; acute CVA, not a candidate for TPA Neuro work-up is in progress Severe hypokalemia, replenished with IV KCl Follow potassium and magnesium Follow neuro evaluation and recommendations Patient passed swallow eval, soft diet advance as tolerated Plan of care reviewed with the patient and her nurse 01/14/2021; Neuro work-up consistent with acute right-sided CVA with left hemiparesis PT OT, rehabilitation, not a candidate for TPA Continue aspirin and statin Closely monitor the patient and adjust the management as needed History Interval history: I have seen and examined the patient at the bedside Patient's chart and medications reviewed Patient with acute CVA neuro work-up is in progress Patient is tolerating oral nutrition Dysarthria Vital signs noted Hospitalist Physical - Constitutional Vitals: Temp Pulse Resp BP Pulse Ox 98.5 F 96 H 20 168/92 99 01/14/21 07:21 01/14/21 07:44 01/14/21 07:44 01/14/21 07:44 01/14/21 07:44 General appearance: Present: mild distress, well-nourished, other (Dysarthria) - EENT Eyes: Present: PERRL, EOM intact - Neck Neck: Present: supple, normal ROM - Respiratory Respiratory effort: normal Respiratory: bilateral: diminished, negative: rales, rhonchi, wheezing - Cardiovascular Rhythm: regular Heart Sounds: Present: S1 & S2 - Extremities Extremities: no ischemia, No edema - Abdominal General gastrointestinal: soft, non-tender, non-distended, normal bowel sounds - Integumentary Integumentary: Present: clear, warm - Psychiatric Psychiatric: appropriate mood/affect, cooperative, other (Dysarthria) - Neurologic Neurologic: other (Acute CVA with left hemiparesis) HEART Score - HEART Score Troponin: Troponin T 0.070 ng/mL (0.00-0.029) H 01/12/21 Unknown Results - Labs CBC & Chem 7: 01/12/21 Unknown 01/14/21 04:46 Labs: Laboratory Last Values WBC 5.5 K/mm3 (4.5-11.0) 01/12/21 Unknown RBC 4.46 M/mm3 (3.65-5.03) 01/12/21 Unknown Hgb 14.5 gm/dl (10.1-14.3) H 01/12/21 Unknown Hct 42.8 % (30.3-42.9) 01/12/21 Unknown MCV 96 fl (79-97) 01/12/21 Unknown MCH 33 pg (28-32) H 01/12/21 Unknown MCHC 34 % (30-34) 01/12/21 Unknown RDW 13.9 % (13.2-15.2) 01/12/21 Unknown Plt Count 233 K/mm3 (140-440) 01/12/21 Unknown Lymph % (Auto) 28.1 % (13.4-35.0) 01/12/21 Unknown [place] % (Auto) 14.9 % (0.0-7.3) H 01/12/21 Unknown Eos % (Auto) 2.1 % (0.0-4.3) 01/12/21 Unknown Baso % (Auto) 0.8 % (0.0-1.8) 01/12/21 Unknown Lymph # (Auto) 1.6 K/mm3 (1.2-5.4) 01/12/21 Unknown [place] # (Auto) 0.8 K/mm3 (0.0-0.8) 01/12/21 Unknown Eos # (Auto) 0.1 K/mm3 (0.0-0.4) 01/12/21 Unknown Baso # (Auto) 0.0 K/mm3 (0.0-0.1) 01/12/21 Unknown Seg Neutrophils % 54.1 % (40.0-70.0) 01/12/21 Unknown Seg Neutrophils # 3.0 K/mm3 (1.8-7.7) 01/12/21 Unknown PT 13.5 Sec. (12.2-14.9) 01/12/21 Unknown INR 0.97 (0.87-1.13) 01/12/21 Unknown APTT 22.9 Sec. (24.2-36.6) L 01/12/21 Unknown Thrombin Time 16.5 Sec. (15.1-19.6) 01/12/21 Unknown Sodium 138 mmol/L (137-145) 01/14/21 04:46 Potassium 2.8 mmol/L (3.6-5.0) L* 01/14/21 04:46 Chloride 98.2 mmol/L (98-107) 01/14/21 04:46 Carbon Dioxide 24 mmol/L (22-30) 01/14/21 04:46 Anion Gap 19 mmol/L 01/14/21 04:46 BUN 10 mg/dL (7-17) 01/14/21 04:46 Creatinine 0.8 mg/dL (0.6-1.2) 01/14/21 04:46 Estimated GFR > 60 ml/min 01/14/21 04:46 BUN/Creatinine Ratio 13 % 01/14/21 04:46 Glucose 117 mg/dL (65-100) H 01/14/21 04:46 POC Glucose 140 mg/dL (70-105) H 01/14/21 06:21 Calcium 8.1 mg/dL (8.4-10.2) L 01/14/21 04:46 Magnesium 2.10 mg/dL (1.7-2.3) 01/14/21 04:46 Total Bilirubin 0.80 mg/dL (0.1-1.2) 01/14/21 04:46 AST 15 units/L (5-40) 01/14/21 04:46 ALT 8 units/L (7-56) 01/14/21 04:46 Alkaline Phosphatase 61 units/L (35-129) 01/14/21 04:46 Total Creatine Kinase 194 units/L (30-135) H 01/12/21 Unknown CK-MB (CK-2) 2.8 ng/mL (0.0-4.0) 01/12/21 Unknown CK-MB (CK-2) Rel Index 1.4 (0-4) 01/12/21 Unknown Troponin T 0.070 ng/mL (0.00-0.029) H 01/12/21 Unknown Total Protein 6.5 g/dL (6.3-8.2) 01/14/21 04:46 Albumin 3.6 g/dL (3.9-5) L 01/14/21 04:46 Albumin/Globulin Ratio 1.2 % 01/14/21 04:46 Triglycerides 130 mg/dL (2-149) 01/12/21 Unknown Cholesterol 222 mg/dL (50-199) H 01/12/21 Unknown LDL Cholesterol Direct 143 mg/dL (50-130) H 01/12/21 Unknown HDL Cholesterol 49 mg/dL (40-59) 01/12/21 Unknown Cholesterol/HDL Ratio 4.53 % 01/12/21 Unknown Active Medications - Current Medications Current Medications: Generic Name Dose Route Start Last Admin Trade Name Freq PRN Reason Stop Dose Admin Acetaminophen 650 mg 01/12/21 21:44 Acetaminophen 325 Mg Tab PO Q4H PRN Pain MILD(1-3)/Fever >100.5/WILDE Aspirin 325 mg 01/13/21 10:00 01/13/21 10:03 Aspirin 325 Mg Tab PO Not Given QDAY SOLE Atorvastatin Calcium 40 mg 01/12/21 22:00 01/13/21 21:09 Atorvastatin 40 Mg Tab PO 40 mg QHS SOLE Administration Dextrose 0 ml 01/12/21 21:44 Dextrose 50% In Water (25gm) 50 Ml Syringe IV Q30MIN PRN Hypoglycemia Protocol Famotidine 20 mg 01/12/21 22:00 01/13/21 21:09 Famotidine 20 Mg/2 Ml Inj IV 20 mg BID SOLE Administration Sodium Chloride 1,000 mls @ 100 mls/hr 01/12/21 21:45 01/13/21 21:58 Nacl 0.9% 1000 Ml IV Infused DIRECT SOLE Infusion Potassium Chloride/Sodium Chloride 20 meq in 1,000 mls @ 100 mls/hr 01/12/21 22:00 Ns/Kcl 20meq IV DIRECT SOLE Insulin Human Regular 0 units 01/12/21 22:00 01/13/21 21:24 Insulin Regular, Human 100 Units/1 Ml SUB-Q Not Given Q6HR [facility] Protocol Labetalol HCl 10 mg 01/12/21 21:44 01/13/21 10:01 Labetalol 20 Mg/4 Ml Inj IV 10 mg Q5MIN PRN Administration to maintain SBP < 180 Ondansetron HCl 4 mg 01/12/21 21:44 Ondansetron 4 Mg/2 Ml Inj IV Q8H PRN Nausea And Vomiting Potassium Chloride 40 meq 01/14/21 06:30 Potassium Chloride Er 20 Meq Tab PO 01/14/21 10:31 Q4H SOLE Sodium Chloride 10 ml 01/12/21 22:00 01/13/21 21:09 Sodium Chloride 0.9% 10 Ml Flush Syringe IV 10 ml BID SOLE Administration Sodium Chloride 10 ml 01/12/21 21:44 Sodium Chloride 0.9% 10 Ml Flush Syringe IV PRN PRN LINE FLUSH Nutrition/Malnutrition Assess - Dietary Evaluation Nutrition/Malnutrition Findings: Nutrition Notes Start: 01/13/21 10: 01 Freq: Status: Active Protocol: Document 01/13/21 10:01 NORBERTO (Rec: 01/13/21 10:03 NORBERTO [id number]) Nutrition Notes Need for Assessment generated from: MD Order,Education Initial or Follow up Brief Note Current Diagnosis Diabetes,Hypertension,Stroke Labs/Tests POC BG 209 Cholesterol 222 LDL 143 Subjective/Other Information MD consult for diet education. Pt on hold in ED. Nutrition Intervention Follow-Up By: 01/15/21 Additional Comments FU for diet education
--- NOTE | 2021-01-14 08:37 | Cat Scan Report ---
CT HEAD WITHOUT CONTRAST INDICATION : Fall. Stroke TECHNIQUE: Axial imaging performed from the skull apex through the skull base without the use of con trast. Sagittal and coronal reformatted images. All CT scans at this location are performed using C T dose reduction for ALARA by means of automated exposure control. COMPARISON: 01/12/2021 FINDINGS: Parenchyma: Subacute ischemic infarct in the right posterior temporal and right frontal parietal reg ion is evolving with mild increased edematous changes. Overall the size of the infarct appears stable . No new abnormal brain density is appreciated. Mild chronic white matter changes are noted and stabl e. No hemorrhage, midline shift or extra-axial fluid collection is detected. Ventricles: Ventricles are normal in size and appear symmetric. Bones: No acute osseous abnormality. Sinuses: Sinuses and mastoid air cells are clear. Soft tissues: Soft tissues including the orbits appear normal. IMPRESSION: Evolving ischemic infarct on the right side which appears unchanged in size since 01/13/20 21. No acute intracranial process is appreciated. Signer Name: Flo Bush Jr, MD Signed: 01/14/2021 8:32 AM Workstation Name: [id number]
[2021-01-14] MEDS: ASPIRIN 325 MG TAB PO SCH (09:06)
[2021-01-14] MEDS: POTASSIUM CHLORIDE ER 20 MEQ TAB PO SCH ×2 (09:06→11:58)
[2021-01-14] MEDS: FAMOTIDINE 20 MG/2 ML INJ IV SCH ×2 (09:07→21:42)
[2021-01-14] MEDS: INSULIN REGULAR, HUMAN 100 UNITS/1 ML SUB-Q SCH ×3 (11:58→19:38)
--- NOTE | 2021-01-14 15:20 | Magnetic Resonance Report ---
MRI BRAIN WITHOUT CONTRAST, MRA HEAD WITHOUT CONTRAST INDICATION / CLINICAL INFORMATION: Stroke, recent fall. TECHNIQUE: Multiplanar, multi sequential MRI images of the brain. Routine MRA of the head is performed. 3-D/MIP reformats postprocessed. Percentage stenosis is determined by direct quantitative measurements of di stal internal carotid artery diameter compared with normal reference segments or by criteria similar to NASCET where applicable. COMPARISON: Head CTs on 01/14/2021 and 01/12/2021 FINDINGS: MR BRAIN: BRAIN / INTRACRANIAL CONTENTS: There is a recent infarct in the right MCA territory involving the rig ht posterior insular cortex, right posterior temporal cortex, and right posterior frontal cortex. The re is no associated hemorrhage or adverse mass effect. There is no other acute infarct. There is mode rate chronic small vessel ischemic change in the cerebral white matter. Ventricular and cisternal siz e appears normal for age. CRANIOCERVICAL JUNCTION: No significant abnormality. VASCULAR FLOW-VOIDS: No significant abnormality. ORBITS: No significant abnormality of visualized orbits. SINUSES / MASTOIDS: No significant abnormality of visualized sinuses and mastoid air cells. ADDITIONAL FINDINGS: None. MRA HEAD: Intracranial vertebral arteries: No significant abnormality. Basilar artery: No significant abnormality. Posterior cerebral arteries: No significant abnormality. Intracranial internal carotid arteries: No significant abnormality. Anterior cerebral arteries: No significant abnormality. Middle cerebral arteries: As seen on the prior CTA, there is relatively decreased flow in the inferio r branches of the right MCA but there is no definite focal large vessel occlusion identified. Left MC A branches appear normal. Additional findings: None. IMPRESSION: 1. Acute infarct in the right inferior MCA territory. 2. As seen on prior CTA, there is relative decreased flow of the inferior branches of the right MCA t erritory without appreciable focal large vessel occlusion. Signer Name: Estuardo Lu MD Signed: 01/14/2021 2:59 PM Workstation Name: [id number]
[2021-01-15] MEDS: INSULIN REGULAR, HUMAN 100 UNITS/1 ML SUB-Q SCH ×4 (01:49→17:05)
[2021-01-15 06:01] LABS: BUN/Creatinine Ratio 10; Blood Urea Nitrogen 6 mg/dL (7-17); Calcium 8.6 mg/dL (8.4-10.2); Hemolysis Index 8
[2021-01-15] MEDS: ASPIRIN 325 MG TAB PO SCH (09:23)
[2021-01-15] MEDS: FAMOTIDINE 20 MG/2 ML INJ IV SCH (09:23)
--- NOTE | 2021-01-15 11:22 | Progress Note ---
Assessment and Plan Assessment and Plan VTE prophylaxis?: Mechanical Plan of care discussed with patient/family: Yes # CVA (cerebral vascular accident) - new onset left side dense weakness and slurred speech -CT brain r.MCA infarct -CTA brain and neck--stenosis of right opercular a. and cortical right MCA -MRI is as above -Started on ASA# 325 mg and lipitor increase to 80 mg -Echo is with sever dilated cardiomyopathy EF#15-20% -PT/ST -LDL#143 -- pt. might benefit from AC ? to D/W cardiology no clear thrombus is noted -- will keep for now on ASA#81 plus add plavix#75 mg ,plus lipitor# 80 mg -pt. will benefit from rehab. # Acute metabolic encephalopathy Put the patient on CVA pathway. Aspirin 325 mg p.o. daily. Lipitor 80 mg p.o. daily. MRI of the brain with and without contrast MRA of the brain and neck with and without contrast echocardiogram PT OT any speech evaluation. # Hypokalemia -We will put the patient on normal saline with 20 of potassium at the rate of 100 cc/h. We also put the patient on potassium chloride 40 mEq IV every 4 hours x2 dose. Recheck BMP in the morning # IDDM (insulin dependent diabetes mellitus) -We will put the patient on insulin sliding scale with regular insulin moderate dose coverage Accu-Chek every 6 hours. We will consult diabetic education -A1C is pending # Hypertension -Labetalol 10 mg IV every 6 hours as needed. We will monitor the blood pressure closely. # DVT prophylaxis -SCD for DVT prophylaxis. - Pepcid 20 mg IV every 12 hours for the GI prophylaxis. - Patient is a full code will follow as needed Subjective Date of service: 01/15/21 Principal diagnosis: new onset left side weakness ,confusion Interval history: more awake still confused MRI and MRA are noted Echo is with sever dilated cardiomyopathy 15-20% no thrombus Objective - Vital Sign Vital Signs - 12hr 01/15/21 01/15/21 01/15/21 00:00 00:10 08:14 Temperature 97.8 F 97.9 F Pulse Rate 86 88 97 H Respiratory 18 18 Rate Blood Pressure 144/85 166/102 O2 Sat by Pulse 100 93 Oximetry - General Apperance Constitutional: comfortable - EENT EENT: PERRL, mucous membranes moist - Respiratory Respiratory: chest non-tender, lungs clear - Cardiovascular Cardiovascular: regular rate, normal S1, normal S2 Extremities: no peripheral edema bilat, no clubbing, cyanosis - Gastrointestinal Gastrointestinal: normoactive bowel sounds - Integumentary Integumentary: normal - Neurologic Cranial nerve examination: PERRL, EOMI, other (left facial droop) Detailed motor examination: other (left side 3/5 upper > lower decrease speech output and or slurred speech ) - Laboratory Findings CBC and BMP: 01/12/21 Unknown 01/15/21 05:27 Abnormal Lab Findings: Abnormal Labs 01/12/21 01/12/21 01/12/21 19:00 Unknown Unknown Hgb 14.5 H MCH 33 H [place] % (Auto) 14.9 H APTT 22.9 L Sodium Potassium Chloride BUN Glucose POC Glucose 209 H Calcium Total Creatine Kinase Troponin T Albumin Cholesterol LDL Cholesterol Direct 01/12/21 01/13/21 01/13/21 Unknown 07:56 08:51 Hgb MCH [place] % (Auto) APTT Sodium 135 L 135 L Potassium 2.7 L* Chloride 91.1 L 94.4 L BUN Glucose 209 H 160 H POC Glucose 163 H Calcium Total Creatine Kinase 194 H Troponin T 0.070 H Albumin Cholesterol 222 H LDL Cholesterol Direct 143 H 01/13/21 01/13/21 01/13/21 08:51 14:12 18:36 Hgb MCH [place] % (Auto) APTT Sodium Potassium 2.9 L* 3.2 L Chloride BUN Glucose POC Glucose 124 H Calcium Total Creatine Kinase Troponin T Albumin Cholesterol LDL Cholesterol Direct 01/14/21 01/14/21 01/14/21 00:25 04:46 06:21 Hgb MCH [place] % (Auto) APTT Sodium Potassium 2.8 L* Chloride BUN Glucose 117 H POC Glucose 112 H 140 H Calcium 8.1 L Total Creatine Kinase Troponin T Albumin 3.6 L Cholesterol LDL Cholesterol Direct 01/14/21 01/14/21 01/15/21 11:09 16:19 01:45 Hgb MCH [place] % (Auto) APTT Sodium Potassium Chloride BUN Glucose POC Glucose 242 H 129 H 174 H Calcium Total Creatine Kinase Troponin T Albumin Cholesterol LDL Cholesterol Direct 01/15/21 01/15/21 05:27 06:18 Hgb MCH [place] % (Auto) APTT Sodium 135 L Potassium Chloride BUN 6 L Glucose 175 H POC Glucose 199 H Calcium Total Creatine Kinase Troponin T Albumin Cholesterol LDL Cholesterol Direct
[2021-01-15] MEDS: hydrALAZINE 25 MG TAB PO SCH ×2 (13:27→22:12)
--- NOTE | 2021-01-15 17:36 | Progress Note ---
Assessment and Plan Assessment and plan: --Acute CVA (cerebral vascular accident)/left hemiparesis Current Visit: Yes Status: Acute Not a candidate for TPA put the patient on CVA pathway. Aspirin 325 mg p.o. daily. Lipitor 40 mg p.o. daily. Extensive neuro work-up reviewed Aspirin and statin, Mild dysarthria Neurology evaluation noted and appreciated Physical therapy occupational therapy, recommended acute inpatient rehab Speech therapy cleared, patient is tolerating mechanical soft diet Pending acute rehab evaluation for placement --Acute metabolic encephalopathy Current Visit: No Status: Acute Put the patient on CVA pathway. Continue aspirin and statin , supportive care Neuro work-up consistent with acute CVA with left hemiparesis --Severe hypokalemia; K2.9-3.0 today 3.6 Current Visit: Yes Status: Acute Closely monitor electrolytes Replenished as needed --Type II diabetes mellitus (insulin dependent diabetes mellitus) Current Visit: No Status: Chronic. Accu-Chek sliding scale coverage ADA diet Long-acting insulin as needed -- Hypertension Current Visit: Yes Status: Acute Moderate control , continue current antihypertensives And as needed had as needed hydralazine --Full code status; -- DVT prophylaxis Current Visit: No Status: Acute SCD for DVT prophylaxis. Pepcid 20 mg IV every 12 hours for the GI prophylaxis. Patient is a full code We will closely monitor the patient and adjust management as needed 01/13/2021; acute CVA, not a candidate for TPA Neuro work-up is in progress Severe hypokalemia, replenished with IV KCl Follow potassium and magnesium Follow neuro evaluation and recommendations Patient passed swallow eval, soft diet advance as tolerated Plan of care reviewed with the patient and her nurse 01/14/2021; Neuro work-up consistent with acute right-sided CVA with left hemiparesis PT OT, rehabilitation, not a candidate for TPA Continue aspirin and statin Closely monitor the patient and adjust the management as needed 01/15/2021; acute CVA with left hemiparesis PT OT recommended acute inpatient rehab placement Pending evaluation by inpatient rehab medical asst I also discussed with patient's daughter at the bedside at [phone] Discussed in detail patient's condition, tests and reports, consultants recommendations, PT OT evaluation Recommendations of inpatient acute rehab, pending rehab medical directors evaluation and recommendations She had many questions answered all of them, and encouraged her to call back with more concerns and questions that she may have History Interval history: I seen and examined the patient at the bedside this morning Patient's chart and current medications reviewed No new overnight events reported by the nursing staff/ Vital signs noted Patient is alert and awake responding appropriately Dysarthria Hospitalist Physical - Constitutional Vitals: Temp Pulse Resp BP Pulse Ox 98.8 F 89 18 125/78 96 01/15/21 16:12 01/15/21 16:12 01/15/21 16:12 01/15/21 16:12 01/15/21 16:12 General appearance: Present: mild distress, well-nourished, other (Dysarthria. Left hemiparesis) - EENT Eyes: Present: PERRL, EOM intact - Neck Neck: Present: supple, normal ROM - Respiratory Respiratory effort: normal Respiratory: bilateral: diminished, negative: rales, rhonchi, wheezing - Cardiovascular Rhythm: regular Heart Sounds: Present: S1 & S2 - Extremities Extremities: no ischemia, No edema - Abdominal General gastrointestinal: soft, non-tender, non-distended, normal bowel sounds - Integumentary Integumentary: Present: clear, warm - Psychiatric Psychiatric: appropriate mood/affect, cooperative, other (Dysarthria) - Neurologic Neurologic: other (Acute CVA. Dysarthria. Left-sided hemiparesis) HEART Score - HEART Score Troponin: Troponin T 0.070 ng/mL (0.00-0.029) H 01/12/21 Unknown Results - Labs CBC & Chem 7: 01/12/21 Unknown 01/15/21 05:27 Labs: Laboratory Last Values WBC 5.5 K/mm3 (4.5-11.0) 01/12/21 Unknown RBC 4.46 M/mm3 (3.65-5.03) 01/12/21 Unknown Hgb 14.5 gm/dl (10.1-14.3) H 01/12/21 Unknown Hct 42.8 % (30.3-42.9) 01/12/21 Unknown MCV 96 fl (79-97) 01/12/21 Unknown MCH 33 pg (28-32) H 01/12/21 Unknown MCHC 34 % (30-34) 01/12/21 Unknown RDW 13.9 % (13.2-15.2) 01/12/21 Unknown Plt Count 233 K/mm3 (140-440) 01/12/21 Unknown Lymph % (Auto) 28.1 % (13.4-35.0) 01/12/21 Unknown [place] % (Auto) 14.9 % (0.0-7.3) H 01/12/21 Unknown Eos % (Auto) 2.1 % (0.0-4.3) 01/12/21 Unknown Baso % (Auto) 0.8 % (0.0-1.8) 01/12/21 Unknown Lymph # (Auto) 1.6 K/mm3 (1.2-5.4) 01/12/21 Unknown [place] # (Auto) 0.8 K/mm3 (0.0-0.8) 01/12/21 Unknown Eos # (Auto) 0.1 K/mm3 (0.0-0.4) 01/12/21 Unknown Baso # (Auto) 0.0 K/mm3 (0.0-0.1) 01/12/21 Unknown Seg Neutrophils % 54.1 % (40.0-70.0) 01/12/21 Unknown Seg Neutrophils # 3.0 K/mm3 (1.8-7.7) 01/12/21 Unknown PT 13.5 Sec. (12.2-14.9) 01/12/21 Unknown INR 0.97 (0.87-1.13) 01/12/21 Unknown APTT 22.9 Sec. (24.2-36.6) L 01/12/21 Unknown Thrombin Time 16.5 Sec. (15.1-19.6) 01/12/21 Unknown Sodium 135 mmol/L (137-145) L 01/15/21 05:27 Potassium 3.6 mmol/L (3.6-5.0) D 01/15/21 05:27 Chloride 99.4 mmol/L (98-107) 01/15/21 05:27 Carbon Dioxide 24 mmol/L (22-30) 01/15/21 05:27 Anion Gap 15 mmol/L 01/15/21 05:27 BUN 6 mg/dL (7-17) L 01/15/21 05:27 Creatinine 0.6 mg/dL (0.6-1.2) 01/15/21 05:27 Estimated GFR > 60 ml/min 01/15/21 05:27 BUN/Creatinine Ratio 10 % 01/15/21 05:27 Glucose 175 mg/dL (65-100) H 01/15/21 05:27 POC Glucose 247 mg/dL (70-105) H 01/15/21 12:04 Calcium 8.6 mg/dL (8.4-10.2) 01/15/21 05:27 Magnesium 2.10 mg/dL (1.7-2.3) 01/15/21 05:27 Total Bilirubin 0.80 mg/dL (0.1-1.2) 01/14/21 04:46 AST 15 units/L (5-40) 01/14/21 04:46 ALT 8 units/L (7-56) 01/14/21 04:46 Alkaline Phosphatase 61 units/L (35-129) 01/14/21 04:46 Total Creatine Kinase 194 units/L (30-135) H 01/12/21 Unknown CK-MB (CK-2) 2.8 ng/mL (0.0-4.0) 01/12/21 Unknown CK-MB (CK-2) Rel Index 1.4 (0-4) 01/12/21 Unknown Troponin T 0.070 ng/mL (0.00-0.029) H 01/12/21 Unknown Total Protein 6.5 g/dL (6.3-8.2) 01/14/21 04:46 Albumin 3.6 g/dL (3.9-5) L 01/14/21 04:46 Albumin/Globulin Ratio 1.2 % 01/14/21 04:46 Triglycerides 130 mg/dL (2-149) 01/12/21 Unknown Cholesterol 222 mg/dL (50-199) H 01/12/21 Unknown LDL Cholesterol Direct 143 mg/dL (50-130) H 01/12/21 Unknown HDL Cholesterol 49 mg/dL (40-59) 01/12/21 Unknown Cholesterol/HDL Ratio 4.53 % 01/12/21 Unknown Wells/IV: Voiding Method Toilet Active Medications - Current Medications Current Medications: Generic Name Dose Route Start Last Admin Trade Name Freq PRN Reason Stop Dose Admin Acetaminophen 650 mg 01/12/21 21:44 Acetaminophen 325 Mg Tab PO Q4H PRN Pain MILD(1-3)/Fever >100.5/WILDE Aspirin 325 mg 01/13/21 10:00 01/15/21 09:23 Aspirin 325 Mg Tab PO 325 mg QDAY SOLE Administration Atorvastatin Calcium 80 mg 01/14/21 22:00 01/14/21 21:42 Atorvastatin 40 Mg Tab PO 80 mg QHS SOLE Administration Dextrose 0 ml 01/12/21 21:44 Dextrose 50% In Water (25gm) 50 Ml Syringe IV Q30MIN PRN Hypoglycemia Protocol Famotidine 20 mg 01/15/21 22:00 Famotidine 20 Mg Tab PO BID SOLE Hydralazine HCl 25 mg 01/15/21 14:00 01/15/21 13:27 Hydralazine 25 Mg Tab PO 25 mg Q8HR SOLE Administration Potassium Chloride/Sodium Chloride 20 meq in 1,000 mls @ 100 mls/hr 01/12/21 22:00 Ns/Kcl 20meq IV DIRECT SOLE Insulin Human Regular 0 units 01/12/21 22:00 01/15/21 17:05 Insulin Regular, Human 100 Units/1 Ml SUB-Q Not Given Q6HR [facility] Protocol Labetalol HCl 10 mg 01/12/21 21:44 01/13/21 10:01 Labetalol 20 Mg/4 Ml Inj IV 10 mg Q5MIN PRN Administration to maintain SBP < 180 Ondansetron HCl 4 mg 01/12/21 21:44 Ondansetron 4 Mg/2 Ml Inj IV Q8H PRN Nausea And Vomiting Sodium Chloride 10 ml 01/12/21 22:00 01/15/21 09:24 Sodium Chloride 0.9% 10 Ml Flush Syringe IV 10 ml BID SOLE Administration Sodium Chloride 10 ml 01/12/21 21:44 Sodium Chloride 0.9% 10 Ml Flush Syringe IV PRN PRN LINE FLUSH Nutrition/Malnutrition Assess - Dietary Evaluation Nutrition/Malnutrition Findings: Nutrition Notes Start: 01/13/21 10:01 Freq: Status: Active Protocol: Document 01/15/21 11:44 CW (Rec: 01/15/21 11:46 CW [email or web address]) Nutrition Notes Need for Assessment generated from: MD Order,Education Initial or Follow up Reassessment Current Diagnosis Diabetes,Hypertension,Stroke Current Diet Mechanical Soft Consistent Carbohydrate diet Labs/Tests BG 175 Pertinent Medications Humulin NS 1L Height 5 ft 6 in Weight 65.7 kg [place] Body Weight (kg) 59.09 BMI 23.3 Subjective/Other Information F/U for diet education. Pt appears to have AMS. Diet education not applicable at this time. Pt did not fully answer questions appropriately when asked nutritional history. PO intakes seems adequate Pt needs assistance with meals as per chart. Pt displays having an appetite by asking for RD to open fruit cup for her. Meal noted at bedside with 50% consumed. Burn Absent GI Symptoms None Difficulty In Chewing Food Allergy No Current % PO Fair (50-74%) Minimum of two criteria No physical signs of malnutrition Is patient on ventilator? No Is Patient Ambulatory and/or Out of Bed No REE-([place]-St. Jeor-confined to bed) 1503.372 [facility]culation [facility] Additional Notes protein needs: 53 - 66g (0.8 - 1g/kgBW) fluid needs: 1 ml/kcal Nutrition Intervention Change Diet Order: Continue current diet as ordered Teaching Recipient Patient Learning Readiness Poor Teaching Methods Discussion Response to Teaching Unable to comprehend Barriers to Learning Cognitive/Verbal RD phone number provided No Patient aware of follow up options No Goal #1 Meet at least 75% of kcal and protein need via PO Anticipated Discharge Needs: Mechanical Soft Consistent Carbohydrate diet Follow-Up By: 01/19/21 Additional Comments F/U for intakes
--- NOTE | 2021-01-15 17:46 | Event Note ---
Date: 01/15/21 I also discussed with patient's daughter Ms. Rachel Greenfield at the bedside at [phone] Discussed in detail patient's condition, tests and reports, consultants recommendations, PT OT evaluation Recommendations of inpatient acute rehab, pending rehab medical directors evaluation and recommendations She had many questions answered all of them, and encouraged her to call back with any new questions or concerns.
--- NOTE | 2021-01-15 17:51 | Progress Note ---
Assessment and Plan Assessment and plan: --Acute CVA (cerebral vascular accident)/left hemiparesis Current Visit: Yes Status: Acute Not a candidate for TPA put the patient on CVA pathway. Aspirin 325 mg p.o. daily. Lipitor 40 mg p.o. daily. Extensive neuro work-up reviewed Aspirin and statin, Mild dysarthria Neurology evaluation noted and appreciated Physical therapy occupational therapy, recommended acute inpatient rehab Speech therapy cleared, patient is tolerating mechanical soft diet Pending acute rehab evaluation for placement --Acute metabolic encephalopathy Current Visit: No Status: Acute Put the patient on CVA pathway. Continue aspirin and statin , supportive care Neuro work-up consistent with acute CVA with left hemiparesis --Severe hypokalemia; K2.9-3.0 today 3.6 Current Visit: Yes Status: Acute Closely monitor electrolytes Replenished as needed --Type II diabetes mellitus (insulin dependent diabetes mellitus) Current Visit: No Status: Chronic. Accu-Chek sliding scale coverage ADA diet Long-acting insulin as needed -- Hypertension Current Visit: Yes Status: Acute Moderate control , continue current antihypertensives And as needed had as needed hydralazine --Full code status; -- DVT prophylaxis Current Visit: No Status: Acute SCD for DVT prophylaxis. Pepcid 20 mg IV every 12 hours for the GI prophylaxis. Patient is a full code We will closely monitor the patient and adjust management as needed 01/13/2021; acute CVA, not a candidate for TPA Neuro work-up is in progress Severe hypokalemia, replenished with IV KCl Follow potassium and magnesium Follow neuro evaluation and recommendations Patient passed swallow eval, soft diet advance as tolerated Plan of care reviewed with the patient and her nurse 01/14/2021; Neuro work-up consistent with acute right-sided CVA with left hemiparesis PT OT, rehabilitation, not a candidate for TPA Continue aspirin and statin Closely monitor the patient and adjust the management as needed 01/15/2021; acute CVA with left hemiparesis PT OT recommended acute inpatient rehab placement Pending evaluation by inpatient rehab medical coding auditor 01/16/2021; neuro work-up was completed Dysarthria,Left hemiparesis, PT OT evaluated and recommended acute inpatient rehab evaluation Awaiting rehab evaluation for transfer to inpatient rehab I also discussed with patient's daughter at the bedside at [phone][01/15/2021] Discussed in detail patient's condition, tests and reports, consultants recommendations, PT OT evaluation Recommendations of inpatient acute rehab, pending rehab medical directors evaluation and recommendations She had many questions answered all of them, and encouraged her to call back with more concerns and questions that she may have History Interval history: I seen and examined the patient at the bedside Patient's chart and medications reviewed Patient has dysarthria, left-sided hemiparesis Able to swallow, restraint for safety Vital signs noted Hospitalist Physical - Constitutional Vitals: Temp Pulse Resp BP Pulse Ox 98.8 F 89 18 125/78 96 01/15/21 16:12 01/15/21 16:12 01/15/21 16:12 01/15/21 16:12 01/15/21 16:12 General appearance: Present: mild distress, well-nourished, other (Dysarthria. Left hemiparesis) - EENT Eyes: Present: PERRL, EOM intact - Neck Neck: Present: supple, normal ROM - Respiratory Respiratory effort: normal Respiratory: bilateral: rales, negative: diminished, rhonchi, wheezing - Cardiovascular Rhythm: regular Heart Sounds: Present: S1 & S2 - Extremities Extremities: no ischemia, pulses intact - Abdominal General gastrointestinal: soft, non-tender, non-distended, normal bowel sounds - Integumentary Integumentary: Present: clear, warm - Psychiatric Psychiatric: appropriate mood/affect, cooperative - Neurologic Neurologic: other (Acute CVA with dysarthria, left hemiparesis) HEART Score - HEART Score Troponin: Troponin T 0.070 ng/mL (0.00-0.029) H 01/12/21 Unknown Results - Labs CBC & Chem 7: 01/12/21 Unknown 01/15/21 05:27 Labs: Laboratory Last Values WBC 5.5 K/mm3 (4.5-11.0) 01/12/21 Unknown RBC 4.46 M/mm3 (3.65-5.03) 01/12/21 Unknown Hgb 14.5 gm/dl (10.1-14.3) H 01/12/21 Unknown Hct 42.8 % (30.3-42.9) 01/12/21 Unknown MCV 96 fl (79-97) 01/12/21 Unknown MCH 33 pg (28-32) H 01/12/21 Unknown MCHC 34 % (30-34) 01/12/21 Unknown RDW 13.9 % (13.2-15.2) 01/12/21 Unknown Plt Count 233 K/mm3 (140-440) 01/12/21 Unknown Lymph % (Auto) 28.1 % (13.4-35.0) 01/12/21 Unknown [place] % (Auto) 14.9 % (0.0-7.3) H 01/12/21 Unknown Eos % (Auto) 2.1 % (0.0-4.3) 01/12/21 Unknown Baso % (Auto) 0.8 % (0.0-1.8) 01/12/21 Unknown Lymph # (Auto) 1.6 K/mm3 (1.2-5.4) 01/12/21 Unknown [place] # (Auto) 0.8 K/mm3 (0.0-0.8) 01/12/21 Unknown Eos # (Auto) 0.1 K/mm3 (0.0-0.4) 01/12/21 Unknown Baso # (Auto) 0.0 K/mm3 (0.0-0.1) 01/12/21 Unknown Seg Neutrophils % 54.1 % (40.0-70.0) 01/12/21 Unknown Seg Neutrophils # 3.0 K/mm3 (1.8-7.7) 01/12/21 Unknown PT 13.5 Sec. (12.2-14.9) 01/12/21 Unknown INR 0.97 (0.87-1.13) 01/12/21 Unknown APTT 22.9 Sec. (24.2-36.6) L 01/12/21 Unknown Thrombin Time 16.5 Sec. (15.1-19.6) 01/12/21 Unknown Sodium 135 mmol/L (137-145) L 01/15/21 05:27 Potassium 3.6 mmol/L (3.6-5.0) D 01/15/21 05:27 Chloride 99.4 mmol/L (98-107) 01/15/21 05:27 Carbon Dioxide 24 mmol/L (22-30) 01/15/21 05:27 Anion Gap 15 mmol/L 01/15/21 05:27 BUN 6 mg/dL (7-17) L 01/15/21 05:27 Creatinine 0.6 mg/dL (0.6-1.2) 01/15/21 05:27 Estimated GFR > 60 ml/min 01/15/21 05:27 BUN/Creatinine Ratio 10 % 01/15/21 05:27 Glucose 175 mg/dL (65-100) H 01/15/21 05:27 POC Glucose 247 mg/dL (70-105) H 01/15/21 12:04 Calcium 8.6 mg/dL (8.4-10.2) 01/15/21 05:27 Magnesium 2.10 mg/dL (1.7-2.3) 01/15/21 05:27 Total Bilirubin 0.80 mg/dL (0.1-1.2) 01/14/21 04:46 AST 15 units/L (5-40) 01/14/21 04:46 ALT 8 units/L (7-56) 01/14/21 04:46 Alkaline Phosphatase 61 units/L (35-129) 01/14/21 04:46 Total Creatine Kinase 194 units/L (30-135) H 01/12/21 Unknown CK-MB (CK-2) 2.8 ng/mL (0.0-4.0) 01/12/21 Unknown CK-MB (CK-2) Rel Index 1.4 (0-4) 01/12/21 Unknown Troponin T 0.070 ng/mL (0.00-0.029) H 01/12/21 Unknown Total Protein 6.5 g/dL (6.3-8.2) 01/14/21 04:46 Albumin 3.6 g/dL (3.9-5) L 01/14/21 04:46 Albumin/Globulin Ratio 1.2 % 01/14/21 04:46 Triglycerides 130 mg/dL (2-149) 01/12/21 Unknown Cholesterol 222 mg/dL (50-199) H 01/12/21 Unknown LDL Cholesterol Direct 143 mg/dL (50-130) H 01/12/21 Unknown HDL Cholesterol 49 mg/dL (40-59) 01/12/21 Unknown Cholesterol/HDL Ratio 4.53 % 01/12/21 Unknown Wells/IV: Voiding Method Toilet Active Medications - Current Medications Current Medications: Generic Name Dose Route Start Last Admin Trade Name Freq PRN Reason Stop Dose Admin Acetaminophen 650 mg 01/12/21 21:44 Acetaminophen 325 Mg Tab PO Q4H PRN Pain MILD(1-3)/Fever >100.5/WILDE Aspirin 325 mg 01/13/21 10:00 01/15/21 09:23 Aspirin 325 Mg Tab PO 325 mg QDAY SOLE Administration Atorvastatin Calcium 80 mg 01/14/21 22:00 01/14/21 21:42 Atorvastatin 40 Mg Tab PO 80 mg QHS SOLE Administration Dextrose 0 ml 01/12/21 21:44 Dextrose 50% In Water (25gm) 50 Ml Syringe IV Q30MIN PRN Hypoglycemia Protocol Famotidine 20 mg 01/15/21 22:00 Famotidine 20 Mg Tab PO BID SOLE Hydralazine HCl 25 mg 01/15/21 14:00 01/15/21 13:27 Hydralazine 25 Mg Tab PO 25 mg Q8HR SOLE Administration Potassium Chloride/Sodium Chloride 20 meq in 1,000 mls @ 100 mls/hr 01/12/21 22:00 Ns/Kcl 20meq IV DIRECT SOLE Insulin Human Regular 0 units 01/12/21 22:00 01/15/21 17:05 Insulin Regular, Human 100 Units/1 Ml SUB-Q Not Given Q6HR [facility] Protocol Labetalol HCl 10 mg 01/12/21 21:44 01/13/21 10:01 Labetalol 20 Mg/4 Ml Inj IV 10 mg Q5MIN PRN Administration to maintain SBP < 180 Ondansetron HCl 4 mg 01/12/21 21:44 Ondansetron 4 Mg/2 Ml Inj IV Q8H PRN Nausea And Vomiting Sodium Chloride 10 ml 01/12/21 22:00 01/15/21 09:24 Sodium Chloride 0.9% 10 Ml Flush Syringe IV 10 ml BID SOLE Administration Sodium Chloride 10 ml 01/12/21 21:44 Sodium Chloride 0.9% 10 Ml Flush Syringe IV PRN PRN LINE FLUSH Nutrition/Malnutrition Assess - Dietary Evaluation Nutrition/Malnutrition Findings: Nutrition Notes Start: 01/13/21 10:01 Freq: Status: Active Protocol: Document 01/15/21 11:44 CW (Rec: 01/15/21 11:46 CW [id number]) Nutrition Notes Need for Assessment generated from: MD Order,Education Initial or Follow up Reassessment Current Diagnosis Diabetes,Hypertension,Stroke Current Diet Mechanical Soft Consistent Carbohydrate diet Labs/Tests BG 175 Pertinent Medications Humulin NS 1L Height 5 ft 6 in Weight 65.7 kg [place] Body Weight (kg) 59.09 BMI 23.3 Subjective/Other Information F/U for diet education. Pt appears to have AMS. Diet education not applicable at this time. Pt did not fully answer questions appropriately when asked nutritional history. PO intakes seems adequate Pt needs assistance with meals as per chart. Pt displays having an appetite by asking for RD to open fruit cup for her. Meal noted at bedside with 50% consumed. Burn Absent GI Symptoms None Difficulty In Chewing Food Allergy No Current % PO Fair (50-74%) Minimum of two criteria No physical signs of malnutrition Is patient on ventilator? No Is Patient Ambulatory and/or Out of Bed No REE-([place]-St. Jeor-confined to bed) 1503.372 Calculation Used for [facility]ations [facility] Additional Notes protein needs: 53 - 66g (0.8 - 1g/kgBW) fluid needs: 1 ml/kcal Nutrition Intervention Change Diet Order: Continue current diet as ordered Teaching Recipient Patient Learning Readiness Poor Teaching Methods Discussion Response to Teaching Unable to comprehend Barriers to Learning Cognitive/Verbal RD phone number provided No Patient aware of follow up options No Goal #1 Meet at least 75% of kcal and protein need via PO Anticipated Discharge Needs: Mechanical Soft Consistent Carbohydrate diet Follow-Up By: 01/19/21 Additional Comments F/U for intakes
--- NOTE | 2021-01-15 19:14 | Electrocardiograph Report ---
[facility] Test Date: 2021-01-12 Test Time: 19:04:23 Pat Name: DANYA BUSBY Department: Room: A471 Gender: F Certified Low Vision Therapist: LASHAY : 1960 Requested By: INEZ PHELPS Order Number: [id number] Reading MD: Jesse Bagley Measurements Intervals [place] Rate: 89 P: 45 PA: 106 QRS: 42 QRSD: 85 T: 237 QT: 418 QTc: 508 Interpretive Statements Sinus rhythm with short PA interval. Probable LVH with secondary repol abnrm No previous ECG available for comparison Electronically Signed On 01-15-2021 19:14:21 EDT by Jesse Bagley
[2021-01-15] MEDS: FAMOTIDINE 20 MG TAB PO SCH (22:14)
[2021-01-16] MEDS: INSULIN REGULAR, HUMAN 100 UNITS/1 ML SUB-Q SCH ×4 (00:26→17:04)
[2021-01-16] MEDS: hydrALAZINE 25 MG TAB PO SCH ×3 (06:57→22:15)
[2021-01-16] MEDS: ASPIRIN 325 MG TAB PO SCH (10:18)
[2021-01-16] MEDS: FAMOTIDINE 20 MG TAB PO SCH ×2 (10:18→22:15)
[2021-01-17] MEDS: INSULIN REGULAR, HUMAN 100 UNITS/1 ML SUB-Q SCH ×4 (00:57→17:50)
[2021-01-17] MEDS: hydrALAZINE 25 MG TAB PO SCH ×3 (06:20→21:36)
[2021-01-17] MEDS: FAMOTIDINE 20 MG TAB PO SCH ×2 (10:27→21:35)
[2021-01-17] MEDS: ASPIRIN 325 MG TAB PO SCH (10:27)
--- NOTE | 2021-01-17 11:33 | Progress Note ---
Assessment and Plan Assessment and plan: --COVID-19 test negative on 01/16/2021 --Acute CVA (cerebral vascular accident)/left hemiparesis Current Visit: Yes Status: Acute Not a candidate for TPA put the patient on CVA pathway. Aspirin 325 mg p.o. daily. Lipitor 40 mg p.o. daily. Extensive neuro work-up reviewed Aspirin and statin, Mild dysarthria Neurology evaluation noted and appreciated Physical therapy occupational therapy, recommended acute inpatient rehab Speech therapy cleared, patient is tolerating mechanical soft diet Pending acute rehab evaluation for placement --Acute metabolic encephalopathy Current Visit: No Status: Acute Put the patient on CVA pathway. Continue aspirin and statin , supportive care Neuro work-up consistent with acute CVA with left hemiparesis --Severe hypokalemia; K2.9-3.0 today 3.6 Current Visit: Yes Status: Acute Closely monitor electrolytes Replenished as needed --Type II diabetes mellitus (insulin dependent diabetes mellitus) Current Visit: No Status: Chronic. Accu-Chek sliding scale coverage ADA diet Long-acting insulin as needed -- Hypertension Current Visit: Yes Status: Acute Moderate control , continue current antihypertensives And as needed had as needed hydralazine --Full code status; -- DVT prophylaxis Current Visit: No Status: Acute SCD for DVT prophylaxis. Pepcid 20 mg IV every 12 hours for the GI prophylaxis. Patient is a full code We will closely monitor the patient and adjust management as needed 01/13/2021; acute CVA, not a candidate for TPA Neuro work-up is in progress Severe hypokalemia, replenished with IV KCl Follow potassium and magnesium Follow neuro evaluation and recommendations Patient passed swallow eval, soft diet advance as tolerated Plan of care reviewed with the patient and her nurse 01/14/2021; Neuro work-up consistent with acute right-sided CVA with left hemiparesis PT OT, rehabilitation, not a candidate for TPA Continue aspirin and statin Closely monitor the patient and adjust the management as needed 01/15/2021; acute CVA with left hemiparesis PT OT recommended acute inpatient rehab placement Pending evaluation by inpatient rehab medical superintendent I also discussed with patient's daughter at the bedside at [phone][01/15/2021] Discussed in detail patient's condition, tests and reports, consultants recommendations, PT OT evaluation Recommendations of inpatient acute rehab, pending rehab medical directors evaluation and recommendations She had many questions answered all of them, and encouraged her to call back with more concerns and questions that she may have 01/16/2021; neuro work-up was completed Dysarthria,Left hemiparesis, PT OT evaluated and recommended acute inpatient rehab evaluation Awaiting rehab evaluation for transfer to inpatient rehab 01/17/2021; COVID-19 test is - negative 01/16/2021 Patient awaiting placement History Interval history: I have seen and examined the patient at the bedside Patient's chart and medications reviewed Patient is sleeping easily awakens dysarthria patient's Covid test is negative - 01/16/2021 Vital signs reviewed Hospitalist Physical - Constitutional Vitals: Temp Pulse Resp BP Pulse Ox 97.6 F 99 H 18 146/98 100 01/17/21 05:03 01/17/21 10:00 01/17/21 05:03 01/17/21 06:20 01/17/21 05:03 General appearance: Present: no acute distress, well-nourished, other ([place] hria. Left hemiparesis) - EENT Eyes: Present: PERRL, EOM intact - Neck Neck: Present: supple, normal ROM - Respiratory Respiratory effort: normal Respiratory: bilateral: diminished, negative: rales, rhonchi, wheezing - Cardiovascular Rhythm: regular Heart Sounds: Present: S1 & S2 - Extremities Extremities: no ischemia, No edema - Abdominal General gastrointestinal: soft, non-tender, non-distended, normal bowel sounds - Integumentary Integumentary: Present: clear, warm - Psychiatric Psychiatric: appropriate mood/affect, cooperative - Neurologic Neurologic: other (Dysarthria, hemiparesis) HEART Score - HEART Score Troponin: Troponin T 0.070 ng/mL (0.00-0.029) H 01/12/21 Unknown Results - Labs CBC & Chem 7: 01/12/21 Unknown 01/15/21 05:27 Labs: Laboratory Last Values WBC 5.5 K/mm3 (4.5-11.0) 01/12/21 Unknown RBC 4.46 M/mm3 (3.65-5.03) 01/12/21 Unknown Hgb 14.5 gm/dl (10.1-14.3) H 01/12/21 Unknown Hct 42.8 % (30.3-42.9) 01/12/21 Unknown MCV 96 fl (79-97) 01/12/21 Unknown MCH 33 pg (28-32) H 01/12/21 Unknown MCHC 34 % (30-34) 01/12/21 Unknown RDW 13.9 % (13.2-15.2) 01/12/21 Unknown Plt Count 233 K/mm3 (140-440) 01/12/21 Unknown Lymph % (Auto) 28.1 % (13.4-35.0) 01/12/21 Unknown [place] % (Auto) 14.9 % (0.0-7.3) H 01/12/21 Unknown Eos % (Auto) 2.1 % (0.0-4.3) 01/12/21 Unknown Baso % (Auto) 0.8 % (0.0-1.8) 01/12/21 Unknown Lymph # (Auto) 1.6 K/mm3 (1.2-5.4) 01/12/21 Unknown [place] # (Auto) 0.8 K/mm3 (0.0-0.8) 01/12/21 Unknown Eos # (Auto) 0.1 K/mm3 (0.0-0.4) 01/12/21 Unknown Baso # (Auto) 0.0 K/mm3 (0.0-0.1) 01/12/21 Unknown Seg Neutrophils % 54.1 % (40.0-70.0) 01/12/21 Unknown Seg Neutrophils # 3.0 K/mm3 (1.8-7.7) 01/12/21 Unknown PT 13.5 Sec. (12.2-14.9) 01/12/21 Unknown INR 0.97 (0.87-1.13) 01/12/21 Unknown APTT 22.9 Sec. (24.2-36.6) L 01/12/21 Unknown Thrombin Time 16.5 Sec. (15.1-19.6) 01/12/21 Unknown Sodium 135 mmol/L (137-145) L 01/15/21 05:27 Potassium 3.6 mmol/L (3.6-5.0) D 01/15/21 05:27 Chloride 99.4 mmol/L (98-107) 01/15/21 05:27 Carbon Dioxide 24 mmol/L (22-30) 01/15/21 05:27 Anion Gap 15 mmol/L 01/15/21 05:27 BUN 6 mg/dL (7-17) L 01/15/21 05:27 Creatinine 0.6 mg/dL (0.6-1.2) 01/15/21 05:27 Estimated GFR > 60 ml/min 01/15/21 05:27 BUN/Creatinine Ratio 10 % 01/15/21 05:27 Glucose 175 mg/dL (65-100) H 01/15/21 05:27 POC Glucose 134 mg/dL (70-105) H 01/17/21 06:11 Calcium 8.6 mg/dL (8.4-10.2) 01/15/21 05:27 Magnesium 2.10 mg/dL (1.7-2.3) 01/15/21 05:27 Total Bilirubin 0.80 mg/dL (0.1-1.2) 01/14/21 04:46 AST 15 units/L (5-40) 01/14/21 04:46 ALT 8 units/L (7-56) 01/14/21 04:46 Alkaline Phosphatase 61 units/L (35-129) 01/14/21 04:46 Total Creatine Kinase 194 units/L (30-135) H 01/12/21 Unknown CK-MB (CK-2) 2.8 ng/mL (0.0-4.0) 01/12/21 Unknown CK-MB (CK-2) Rel Index 1.4 (0-4) 01/12/21 Unknown Troponin T 0.070 ng/mL (0.00-0.029) H 01/12/21 Unknown Total Protein 6.5 g/dL (6.3-8.2) 01/14/21 04:46 Albumin 3.6 g/dL (3.9-5) L 01/14/21 04:46 Albumin/Globulin Ratio 1.2 % 01/14/21 04:46 Triglycerides 130 mg/dL (2-149) 01/12/21 Unknown Cholesterol 222 mg/dL (50-199) H 01/12/21 Unknown LDL Cholesterol Direct 143 mg/dL (50-130) H 01/12/21 Unknown HDL Cholesterol 49 mg/dL (40-59) 01/12/21 Unknown Cholesterol/HDL Ratio 4.53 % 01/12/21 Unknown Coronavirus (PCR) Negative (Negative) 01/16/21 Unknown Wells/IV: Voiding Method Incontinent Active Medications - Current Medications Current Medications: Generic Name Dose Route Start Last Admin Trade Name Freq PRN Reason Stop Dose Admin Acetaminophen 650 mg 01/12/21 21:44 Acetaminophen 325 Mg Tab PO Q4H PRN Pain MILD(1-3)/Fever >100.5/WILDE Aspirin 325 mg 01/13/21 10:00 01/17/21 10:27 Aspirin 325 Mg Tab PO 325 mg QDAY SOLE Administration Atorvastatin Calcium 80 mg 01/14/21 22:00 01/16/21 22:15 Atorvastatin 40 Mg Tab PO 80 mg QHS SOLE Administration Dextrose 0 ml 01/12/21 21:44 Dextrose 50% In Water (25gm) 50 Ml Syringe IV Q30MIN PRN Hypoglycemia Protocol Famotidine 20 mg 01/15/21 22:00 01/17/21 10:27 Famotidine 20 Mg Tab PO 20 mg BID SOLE Administration Hydralazine HCl 25 mg 01/15/21 14:00 01/17/21 06:20 Hydralazine 25 Mg Tab PO 25 mg Q8HR SOLE Administration Insulin Human Regular 0 units 01/12/21 22:00 01/17/21 06:18 Insulin Regular, Human 100 Units/1 Ml SUB-Q Not Given Q6HR [facility] Protocol Labetalol HCl 10 mg 01/12/21 21:44 01/13/21 10:01 Labetalol 20 Mg/4 Ml Inj IV 10 mg Q5MIN PRN Administration to maintain SBP < 180 Ondansetron HCl 4 mg 01/12/21 21:44 Ondansetron 4 Mg/2 Ml Inj IV Q8H PRN Nausea And Vomiting Sodium Chloride 10 ml 01/12/21 22:00 01/17/21 10:27 Sodium Chloride 0.9% 10 Ml Flush Syringe IV 10 ml BID SOLE Administration Sodium Chloride 10 ml 01/12/21 21:44 Sodium Chloride 0.9% 10 Ml Flush Syringe IV PRN PRN LINE FLUSH Nutrition/Malnutrition Assess - Dietary Evaluation Nutrition/Malnutrition Findings: Nutrition Notes Start: 01/13/21 10:01 Freq: Status: Active Protocol: Document 01/15/21 11:44 CW (Rec: 01/15/21 11:46 CW [email or web address]) Nutrition Notes Need for Assessment generated from: MD Order,Education Initial or Follow up Reassessment Current Diagnosis Diabetes,Hypertension,Stroke Current Diet Mechanical Soft Consistent Carbohydrate diet Labs/Tests BG 175 Pertinent Medications Humulin NS 1L Height 5 ft 6 in Weight 65.7 kg [place] Body Weight (kg) 59.09 BMI 23.3 Subjective/Other Information F/U for diet education. Pt appears to have AMS. Diet education not applicable at this time. Pt did not fully answer questions appropriately when asked nutritional history. PO intakes seems adequate Pt needs assistance with meals as per chart. Pt displays having an appetite by asking for RD to open fruit cup for her. Meal noted at bedside with 50% consumed. Burn Absent GI Symptoms None Difficulty In Chewing Food Allergy No Current % PO Fair (50-74%) Minimum of two criteria No physical signs of malnutrition Is patient on ventilator? No Is Patient Ambulatory and/or Out of Bed No REE-([facility]-confined to bed) 1503.372 Calculation Used for Recommendations [facility] Additional Notes protein needs: 53 - 66g (0.8 - 1g/kgBW) fluid needs: 1 ml/kcal Nutrition Intervention Change Diet Order: Continue current diet as ordered Teaching Recipient Patient Learning Readiness Poor Teaching Methods Discussion Response to Teaching Unable to comprehend Barriers to Learning Cognitive/Verbal RD phone number provided No Patient aware of follow up options No Goal #1 Meet at least 75% of kcal and protein need via PO Anticipated Discharge Needs: Mechanical Soft Consistent Carbohydrate diet Follow-Up By: 01/19/21 Additional Comments F/U for intakes
[2021-01-18] MEDS: INSULIN REGULAR, HUMAN 100 UNITS/1 ML SUB-Q SCH ×3 (06:27→16:17)
[2021-01-18] MEDS: hydrALAZINE 25 MG TAB PO SCH ×2 (06:27→16:08)
--- NOTE | 2021-01-18 10:24 | Progress Note ---
Assessment and Plan Assessment and plan: --COVID-19 test negative on 01/16/2021 --Acute CVA (cerebral vascular accident)/left hemiparesis Current Visit: Yes Status: Acute Not a candidate for TPA put the patient on CVA pathway. Aspirin 325 mg p.o. daily. Lipitor 40 mg p.o. daily. Extensive neuro work-up reviewed Aspirin and statin, Mild dysarthria Neurology evaluation noted and appreciated Physical therapy occupational therapy, recommended acute inpatient rehab Speech therapy cleared, patient is tolerating mechanical soft diet Pending acute rehab evaluation for placement --Acute metabolic encephalopathy Current Visit: No Status: Acute Put the patient on CVA pathway. Continue aspirin and statin , supportive care Neuro work-up consistent with acute CVA with left hemiparesis --Severe hypokalemia; K2.9-3.0 today 3.6 Current Visit: Yes Status: Acute Closely monitor electrolytes Replenished as needed --Type II diabetes mellitus (insulin dependent diabetes mellitus) Current Visit: No Status: Chronic. Accu-Chek sliding scale coverage ADA diet Long-acting insulin as needed -- Hypertension Current Visit: Yes Status: Acute Moderate control , continue current antihypertensives And as needed had as needed hydralazine --Full code status; -- DVT prophylaxis Current Visit: No Status: Acute SCD for DVT prophylaxis. Pepcid 20 mg IV every 12 hours for the GI prophylaxis. Patient is a full code We will closely monitor the patient and adjust management as needed 01/13/2021; acute CVA, not a candidate for TPA Neuro work-up is in progress Severe hypokalemia, replenished with IV KCl Follow potassium and magnesium Follow neuro evaluation and recommendations Patient passed swallow eval, soft diet advance as tolerated Plan of care reviewed with the patient and her nurse 01/14/2021; Neuro work-up consistent with acute right-sided CVA with left hemiparesis PT OT, rehabilitation, not a candidate for TPA Continue aspirin and statin Closely monitor the patient and adjust the management as needed 01/15/2021; acute CVA with left hemiparesis PT OT recommended acute inpatient rehab placement Pending evaluation by inpatient rehab medical care manager I also discussed with patient's daughter at the bedside at [phone][01/15/2021] Discussed in detail patient's condition, tests and reports, consultants recommendations, PT OT evaluation Recommendations of inpatient acute rehab, pending rehab medical directors evaluation and recommendations She had many questions answered all of them, and encouraged her to call back with more concerns and questions that she may have 01/16/2021; neuro work-up was completed Dysarthria,Left hemiparesis, PT OT evaluated and recommended acute inpatient rehab evaluation Awaiting rehab evaluation for transfer to inpatient rehab 01/17/2021; COVID-19 test is - negative 01/16/2021 Patient awaiting placement History Interval history: I have seen and examined the patient at the bedside Patient's chart and medications reviewed Patient with acute CVA with left-sided hemiparesis Awaiting acute rehab placement Off restraints last 48 hours Vital signs noted Hospitalist Physical - Constitutional Vitals: Temp Pulse Resp BP Pulse Ox 98.3 F 112 H 16 137/76 96 01/18/21 03:17 01/18/21 06:27 01/18/21 03:17 01/18/21 06:27 01/18/21 03:17 General appearance: Present: no acute distress, well-nourished, other (Dysarthria. Left hemiparesis) - EENT Eyes: Present: PERRL, EOM intact - Neck Neck: Present: supple, normal ROM - Respiratory Respiratory effort: normal Respiratory: bilateral: diminished, negative: rales, rhonchi, wheezing - Cardiovascular Rhythm: regular Heart Sounds: Present: S1 & S2 - Extremities Extremities: no ischemia, No edema - Abdominal General gastrointestinal: soft, non-tender, non-distended, normal bowel sounds - Integumentary Integumentary: Present: clear, warm - Psychiatric Psychiatric: appropriate mood/affect, cooperative - Neurologic Neurologic: CNII-XII intact, moves all extremities HEART Score - HEART Score Troponin: Troponin T 0.070 ng/mL (0.00-0.029) H 01/12/21 Unknown Results - Labs CBC & Chem 7: 01/12/21 Unknown 01/15/21 05:27 Labs: Laboratory Last Values WBC 5.5 K/mm3 (4.5-11.0) 01/12/21 Unknown RBC 4.46 M/mm3 (3.65-5.03) 01/12/21 Unknown Hgb 14.5 gm/dl (10.1-14.3) H 01/12/21 Unknown Hct 42.8 % (30.3-42.9) 01/12/21 Unknown MCV 96 fl (79-97) 01/12/21 Unknown MCH 33 pg (28-32) H 01/12/21 Unknown MCHC 34 % (30-34) 01/12/21 Unknown RDW 13.9 % (13.2-15.2) 01/12/21 Unknown Plt Count 233 K/mm3 (140-440) 01/12/21 Unknown Lymph % (Auto) 28.1 % (13.4-35.0) 01/12/21 Unknown [place] % (Auto) 14.9 % (0.0-7.3) H 01/12/21 Unknown Eos % (Auto) 2.1 % (0.0-4.3) 01/12/21 Unknown Baso % (Auto) 0.8 % (0.0-1.8) 01/12/21 Unknown Lymph # (Auto) 1.6 K/mm3 (1.2-5.4) 01/12/21 Unknown [place] # (Auto) 0.8 K/mm3 (0.0-0.8) 01/12/21 Unknown Eos # (Auto) 0.1 K/mm3 (0.0-0.4) 01/12/21 Unknown Baso # (Auto) 0.0 K/mm3 (0.0-0.1) 01/12/21 Unknown Seg Neutrophils % 54.1 % (40.0-70.0) 01/12/21 Unknown Seg Neutrophils # 3.0 K/mm3 (1.8-7.7) 01/12/21 Unknown PT 13.5 Sec. (12.2-14.9) 01/12/21 Unknown INR 0.97 (0.87-1.13) 01/12/21 Unknown APTT 22.9 Sec. (24.2-36.6) L 01/12/21 Unknown Thrombin Time 16.5 Sec. (15.1-19.6) 01/12/21 Unknown Sodium 135 mmol/L (137-145) L 01/15/21 05:27 Potassium 3.6 mmol/L (3.6-5.0) D 01/15/21 05:27 Chloride 99.4 mmol/L (98-107) 01/15/21 05:27 Carbon Dioxide 24 mmol/L (22-30) 01/15/21 05:27 Anion Gap 15 mmol/L 01/15/21 05:27 BUN 6 mg/dL (7-17) L 01/15/21 05:27 Creatinine 0.6 mg/dL (0.6-1.2) 01/15/21 05:27 Estimated GFR > 60 ml/min 01/15/21 05:27 BUN/Creatinine Ratio 10 % 01/15/21 05:27 Glucose 175 mg/dL (65-100) H 01/15/21 05:27 POC Glucose 179 mg/dL (70-105) H 01/18/21 05:36 Calcium 8.6 mg/dL (8.4-10.2) 01/15/21 05:27 Magnesium 2.10 mg/dL (1.7-2.3) 01/15/21 05:27 Total Bilirubin 0.80 mg/dL (0.1-1.2) 01/14/21 04:46 AST 15 units/L (5-40) 01/14/21 04:46 ALT 8 units/L (7-56) 01/14/21 04:46 Alkaline Phosphatase 61 units/L (35-129) 01/14/21 04:46 Total Creatine Kinase 194 units/L (30-135) H 01/12/21 Unknown CK-MB (CK-2) 2.8 ng/mL (0.0-4.0) 01/12/21 Unknown CK-MB (CK-2) Rel Index 1.4 (0-4) 01/12/21 Unknown Troponin T 0.070 ng/mL (0.00-0.029) H 01/12/21 Unknown Total Protein 6.5 g/dL (6.3-8.2) 01/14/21 04:46 Albumin 3.6 g/dL (3.9-5) L 01/14/21 04:46 Albumin/Globulin Ratio 1.2 % 01/14/21 04:46 Triglycerides 130 mg/dL (2-149) 01/12/21 Unknown Cholesterol 222 mg/dL (50-199) H 01/12/21 Unknown LDL Cholesterol Direct 143 mg/dL (50-130) H 01/12/21 Unknown HDL Cholesterol 49 mg/dL (40-59) 01/12/21 Unknown Cholesterol/HDL Ratio 4.53 % 01/12/21 Unknown Coronavirus (PCR) Negative (Negative) 01/16/21 Unknown Wells/IV: Voiding Method Incontinent Active Medications - Current Medications Current Medications: Generic Name Dose Route Start Last Admin Trade Name Freq PRN Reason Stop Dose Admin Acetaminophen 650 mg 01/12/21 21:44 Acetaminophen 325 Mg Tab PO Q4H PRN Pain MILD(1-3)/Fever >100.5/WILDE Aspirin 325 mg 01/13/21 10:00 01/17/21 10:27 Aspirin 325 Mg Tab PO 325 mg QDAY SOLE Administration Atorvastatin Calcium 80 mg 01/14/21 22:00 01/17/21 21:35 Atorvastatin 40 Mg Tab PO 80 mg QHS SOLE Administration Dextrose 0 ml 01/12/21 21:44 Dextrose 50% In Water (25gm) 50 Ml Syringe IV Q30MIN PRN Hypoglycemia Protocol Famotidine 20 mg 01/15/21 22:00 01/17/21 21:35 Famotidine 20 Mg Tab PO 20 mg BID SOLE Administration Hydralazine HCl 25 mg 01/15/21 14:00 01/18/21 06:27 Hydralazine 25 Mg Tab PO 25 mg Q8HR SOLE Administration Insulin Human Regular 0 units 01/12/21 22:00 01/18/21 06:27 Insulin Regular, Human 100 Units/1 Ml SUB-Q 2 units Q6HR SOLE Administration Protocol Labetalol HCl 10 mg 01/12/21 21:44 01/13/21 10:01 Labetalol 20 Mg/4 Ml Inj IV 10 mg Q5MIN PRN Administration to maintain SBP < 180 Ondansetron HCl 4 mg 01/12/21 21:44 Ondansetron 4 Mg/2 Ml Inj IV Q8H PRN Nausea And Vomiting Sodium Chloride 10 ml 01/12/21 22:00 01/17/21 21:36 Sodium Chloride 0.9% 10 Ml Flush Syringe IV 10 ml BID SOLE Administration Sodium Chloride 10 ml 01/12/21 21:44 Sodium Chloride 0.9% 10 Ml Flush Syringe IV PRN PRN LINE FLUSH Nutrition/Malnutrition Assess - Dietary Evaluation Nutrition/Malnutrition Findings: Nutrition Notes Start: 01/13/21 10:01 Freq: Status: Active Protocol: Document 01/15/21 11:44 CW (Rec: 01/15/21 11:46 [id number]) Nutrition Notes Need for Assessment generated from: MD Order,Education Initial or Follow up Reassessment Current Diagnosis Diabetes,Hypertension,Stroke Current Diet Mechanical Soft Consistent Carbohydrate diet Labs/Tests BG 175 Pertinent Medications Humulin NS 1L Height 5 ft 6 in Weight [address] Body Weight (kg) 59.09 BMI 23.3 Subjective/Other Information F/U for diet education. Pt appears to have AMS. Diet education not applicable at this time. Pt did not fully answer questions appropriately when asked nutritional history. PO intakes seems adequate Pt needs assistance with meals as per chart. Pt displays having an appetite by asking for RD to open fruit cup for her. Meal noted at bedside with 50% consumed. Burn Absent GI Symptoms None Difficulty In Chewing Food Allergy No Current % PO Fair (50-74%) Minimum of two criteria No physical signs of malnutrition Is patient on ventilator? No Is Patient Ambulatory and/or Out of Bed No REE-([facility]-confined to bed) 1503.372 Calculation Used for Recommendations [facility] Additional Notes protein needs: 53 - 66g (0.8 - 1g/kgBW) fluid needs: 1 ml/kcal Nutrition Intervention Change Diet Order: Continue current diet as ordered Teaching Recipient Patient Learning Readiness Poor Teaching Methods Discussion Response to Teaching Unable to comprehend Barriers to Learning Cognitive/Verbal RD phone number provided No Patient aware of follow up options No Goal #1 Meet at least 75% of kcal and protein need via PO Anticipated Discharge Needs: Mechanical Soft Consistent Carbohydrate diet Follow-Up By: 01/19/21 Additional Comments F/U for intakes
[2021-01-18] MEDS: FAMOTIDINE 20 MG TAB PO SCH (11:06)
[2021-01-18] MEDS: ASPIRIN 325 MG TAB PO SCH (11:06)
--- NOTE | 2021-01-18 14:49 | Discharge Summary ---
Providers - Providers Date of Admission: 01/12/21 21:34 Date of discharge: 01/18/21 Attending physician: SUSANA ALCALA 01/12/21 Consult to Physician [CONS] Routine Comment: Consulting Provider: ALBINA DAVIS Physician Instructions: Reason For Exam: cva 01/12/21 21:45 Consult to Dietitian/Nutrition [CONS] Routine Physician Instructions: Reason For Exam: Reason for Consult: Diet education Occupational Therapy Evaluate and Treat [CONS] Routine Comment: Reason For Exam: Neuro deficits Physical Therapy Evaluation and Treat [CONS] Routine Comment: Reason For Exam: Neuro deficits 01/14/21 13:57 Speech Therapy Evaluation and Treat [CONS] Routine Reason For Exam: Speech to eval and treat 01/15/21 10:30 Physical Therapy Evaluation and Treat [CONS] Stat Comment: stat PT/OT Reason For Exam: weakness 01/15/21 10:31 Occupational Therapy Evaluate and Treat [CONS] Stat Comment: weakness Reason For Exam: weakness Primary care physician: LISA ALVAREZ Hospitalization Reason for admission: Acute metabolic encephalopathy/left-sided weakness/CVA Condition: Stable Pertinent studies: CT head without contrast CTA neck CTA head Echocardiogram Head MRA MRI brain Hospital course: 60-year-old female with history of hypertension and diabetes was brought to the emergency room because of left-sided facial droop slurred speech. Patient was not a candidate for TPA, telemetry neurologist evaluated the patient patient was started on aspirin and statin, had extensive neuro work-up Which was positive for acute right-sided CVA with dysarthria and left hemiparesis Patient's medications optimized. PT. OT and speech therapist have evaluated the patient and recommended acute rehab placement Case management assisted with DC planning Today patient is comfortable still has dysarthria and confusion with left-sided hemiparesis Vital signs reviewed, physical examination prior to discharge no new changes Patient is hemodynamically and clinically stable for discharge to inpatient rehab unit Discharge diagnosis: --COVID-19 test negative on 01/16/2021 --Acute CVA (cerebral vascular accident)/left hemiparesis Not a candidate for TPA put the patient on CVA pathway. Aspirin 325 mg p.o. daily. Lipitor 40 mg p.o. daily. PT OT rehab --Acute metabolic encephalopathy Significantly improved, dysarthria and left hemiparesis --Severe hypokalemia; Replenished as needed, electrolytes within normal limits --Type II diabetes mellitus (insulin dependent diabetes mellitus) Accu-Chek sliding scale coverage ADA diet mechanical soft Long-acting insulin held due to poor oral intake -- Hypertension; Moderate control , continue current antihypertensives. --Full code status; Patient is stable at discharge and transfer to inpatient rehab unit Disposition: [id number] Final Discharge Diagnosis (Prints w/discharge instructions): Acute CVA. Left hemiparesis. Acute metabolic encephalopathy. Severe hypokalemia. Type 2 diabetes mellitus. Hypertension. Dyslipidemia Time spent for discharge: 35 min Core Measure Documentation - Palliative Care Palliative Care/ Comfort Measures: Not Applicable - Core Measures Any of the following diagnoses?: stroke - Stroke Discharge Requirements Statin for LDL = or >70 mg/dl on DC: Yes Anticoag for atrial fib/atrial flutter: Not Applicable (No A. fib/A. flutter/) Antithrombotic for ischemic stroke: Yes Exam - Constitutional Vitals: Temp Pulse Resp BP Pulse Ox 97.1 F L 92 H 15 126/83 98 01/18/21 08:00 01/18/21 08:00 01/18/21 08:00 01/18/21 08:00 01/18/21 08:00 General appearance: Present: no acute distress, well-nourished, other (Dysarthria) - EENT Eyes: Present: PERRL, EOM intact - Neck Neck: Present: supple, normal ROM - Respiratory Respiratory effort: normal Respiratory: bilateral: diminished, negative: rales, rhonchi, wheezing - Cardiovascular Rhythm: regular Heart Sounds: Present: S1 & S2 - Extremities Extremities: no ischemia, abnormal (Left hemiparesis) - Abdominal General gastrointestinal: Present: soft, non-tender, non-distended, normal bowel sounds - Integumentary Integumentary: Present: clear, warm - Musculoskeletal Musculoskeletal: left sided weakness - Psychiatric Psychiatric: appropriate mood/affect, cooperative - Neurologic Neurologic: other (Acute CVA with dysarthria, left hemiparesis) Plan Activity: advance as tolerated, fall precautions Diet: diabetic, other (Mechanical soft diet, advance as tolerated) Special Instructions: physical therapy, occupational therapy Additional Instructions: Patient can be started back on Levemir 10 units subcu daily, when she improves her diet by increasing her oral intake. Rest of the management per acute inpatient rehab medical pathologist. Advised to follow private neurologist Dr. Joni Spence in 2 weeks after your discharge from rehab. Advised to follow primary care physician after 1 to 2 weeks after your discharge from rehab. Advised fall precautions Follow up with: PRIMARY MD SAIDA [Referring] - 3-5 Days CHASITY GODWIN MD [Staff Physician] - 14 Days Prescriptions: hydrALAZINE [Apresoline TAB] 25 mg PO Q8HR #90 tablet Aspirin 325 mg PO QDAY #30 tablet AtorvaSTATin [Lipitor] 80 mg PO QHS #30 tablet Famotidine [Pepcid] 20 mg PO BID #60 tablet
[2021-01-18 16:04] VITALS: BP 138/84
== END 2021-01-18 17:41 | DRG 64 ==
LOC: ED 18:45 → 4A 21:34
PROVIDERS: ADMIT Hospitalist; ATTEND Internal Medicine
PROC: 0HQ1XZZ Repair Face Skin, External Approach (ICD-10-PCS; principal; 2021-01-12)
DX: I63.9 Cerebral infarction, unspecified (principal); G93.41 Metabolic encephalopathy; G81.94 Hemiplegia, unspecified affecting left nondominant side; E87.6 Hypokalemia; I10 Essential (primary) hypertension; E11.649 Type 2 diabetes mellitus with hypoglycemia without coma; S01.81XA Laceration without foreign body of other part of head, initial encounter; E78.5 Hyperlipidemia, unspecified; Z20.822 Contact with and (suspected) exposure to COVID-19; X58.XXXA Exposure to other specified factors, initial encounter; Y93.89 Activity, other specified; Y92.89 Other specified places as the place of occurrence of the external cause; Y99.8 Other external cause status; Z79.4 Long term (current) use of insulin
CPT/HCPCS: 36415; 70450; 70496; 70498; 70544; 70551; 80048; 80053; 80061; 82550; 82553; 82962; 83735; 84132; 84484; 85025; 85610; 85670; 85730; 93005; 93306; 96365; 96375; G0378; A9270-GY; J1815; J3480; J7030; Q9967; U0003

== ENCOUNTER 2021-01-18 14:51 | Inpatient (IN) | payer OTHER ==
[2021-01-18] MEDS ORDERED: DEXTROSE 50% IN WATER (25GM) 50 ML SYRINGE IV PRN (15:54)
[2021-01-18] MEDS ORDERED: POLYETHYLENE GLYCOL 3350 17 GM POWDER PO PRN (16:03)
[2021-01-18] MEDS ORDERED: hydrALAZINE 20 MG/1 ML INJ IV PRN (16:03)
[2021-01-18] MEDS ORDERED: ONDANSETRON 4 MG ODT TAB PO PRN (16:03)
[2021-01-18] MEDS ORDERED: ALBUTEROL 2.5 MG/3 ML NEBU IH PRN (16:03)
[2021-01-18] MEDS: hydrALAZINE 25 MG TAB PO SCH (22:26)
[2021-01-18] MEDS: FAMOTIDINE 20 MG TAB PO SCH (22:27)
[2021-01-19] MEDS: hydrALAZINE 25 MG TAB PO SCH (06:06)
[2021-01-19 06:23] LABS: Basophils % (Auto) 0.7 % (0.0-1.8); Eosinophils # (Auto) 0.2 K/mm3 (0.0-0.4); Eosinophils % (Auto) 3.2 % (0.0-4.3); Hematocrit 39.2 % (30.3-42.9); Hemoglobin 13.3 gm/dl (10.1-14.3); Lymphocytes # (Auto) 2.4 K/mm3 (1.2-5.4); Lymphocytes % (Auto) 48.1 % (13.4-35.0); Mean Corpuscular HGB Conc 34 % (30-34); Mean Corpuscular Volume 96 fl (79-97); Monocytes # (Auto) 0.5 K/mm3 (0.0-0.8); Monocytes % (Auto) 10.4 % (0.0-7.3); Platelet Count 176 K/mm3 (140-440); Red Cell Distribution Width 13.8 % (13.2-15.2)
[2021-01-19 06:56] LABS: Alanine Aminotransferase 11 units/L (7-56); Albumin 3.5 g/dL (3.9-5); Blood Urea Nitrogen 5 mg/dL (7-17); Calcium 8.6 mg/dL (8.4-10.2); Hemolysis Index 194
[2021-01-19 07:08] LABS: BUN/Creatinine Ratio 7
[2021-01-19] MEDS: ENOXAPARIN 40 MG/0.4 ML INJ SUB-Q SCH (09:00)
[2021-01-19] MEDS: CLOPIDOGREL 75 MG TAB PO SCH (09:00)
[2021-01-19] MEDS: FAMOTIDINE 20 MG TAB PO SCH ×2 (09:00→22:22)
[2021-01-19] MEDS: ASPIRIN EC 81 MG TAB PO SCH (09:01)
[2021-01-19] MEDS: INSULIN LISPRO 100 UNIT/ML SUB-Q SCH ×5 (09:17→22:24)
--- NOTE | 2021-01-19 09:58 | History and Physical Report ---
History of Present Illness Date: 01/19/21 Date of admission: 01/18/21 17:53 Chief Complaint: CVA History of present illness: 60-year-old female who presented to the hospital on 01/12/2021 with left-sided facial droop and slurred speech. Patient apparently was found by her daughter on the floor and had a laceration to the left temporal area. Head CT showed a right MCA infarct with no evidence of hemorrhagic transformation. Neurology was consulted and recommended continued work-up including MRI echo. Also recommended aspirin and Plavix ongoing. Echocardiogram showed severely dilated left ventricle with severe decrease in systolic function and a left ventricular ejection fraction of 15-20%. Brain MRI showed right MCA infarct involving the right posterior insular cortex and right posterior temporal cortex and right posterior frontal cortex. Remainder of imaging reviewed including head MRA, repeat head CT, head neck CTA. Neurology recommended cardiology consult for consideration of anticoagulation due to severe heart failure. We will place the consult today after seeing the patient and would appreciate their recommendations. Patient has been placed on aspirin and Plavix. Discussion was had with treating neurologist yesterday who stated that his preference would be that the patient remain on both of these ongoing unless patient is changed to anticoagulation by cardiology. Initially the patient was confused and had encephalopathy requiring restraints for safety. Prior to admission she had been off of restraints for approximately 48 hours and has improved. She is participating with therapy and making good progress. I have placed her on remote telemetry due to her heart failure and have spoken with therapist and instructed them to notified nursing and telemetry monitoring whenever she is off the floor and in the therapy gym. Patient currently remains on the telemetry unit due to decreased availability of nursing staff and will be moved to the rehab unit as soon as able. Speech therapy saw the patient and recommended a mechanical soft diet with ground meats, this order has been placed as well. Hypokalemia was treated with replacement. Will monitor closely for need to retreat that. Glucose was fairly well controlled on sliding scale, will monitor the patient for a few days on sliding scale to see if we need to start basal insulin doses. A1c was ordered yesterday after admission to rehab which showed an A1c of 8.8%. This a.m., the patient is tachycardic with an elevated blood pressure. Of note, telemetry was not on the patient, have spoken with nursing and they are arranging to replace monitor on patient. After the patient was medically stabilized they were transferred for further rehabilitation. All available medical records have been reviewed. Plan of care was discussed with patient and family. Was able to speak with the patient's daughter for about 20 minutes after examining the patient. Patient's daughter gave me information concerning the patient's past medical history as well as she knew. Reviewing previous records from 2019 confirmed that the patient was here previously for a hypoglycemic episode. Patient's daughter states that the patient does still smoke cigarettes and occasionally will drink alcohol. She was previously being treated for H. pylori by a low pressure firer. They live in a split-level and the patient resides upstairs. While the daughter was here previously the patient attempted to access her online banking account utilizing her phone but was not able to input the username and password correctly. Once the daughter assisted her with that she stated that she was able to pay a bill. I then contacted the patient's PCP to notify them of the patient's changes and to fill in some more of the picture. Patient was previously taken amlodipine 5 mg, lisinopril 40 mg, and carvedilol 12.5 mg twice daily. We will look start these medications and get the patient's blood pressure under better control. We will also look to consult cardiology for further recommendations for the heart failure. In total, 110 minutes was invested in patient care today including times above, team conference, calls to the PCP office, daughter, discussion with therapist and nursing, and review of the patient's medical records including visits in 2019. Greater than 50% of this time was spent counseling and coordinating care. Patient was discussed in team conference. Therapist have seen her on the acute care side but have started to evaluate her this morning for IRU. We discussed the patient's heart failure and precautions at the need to take with that. We will update further as she undergoes full evaluation and starts therapy. Plan to treat the patient for approximately 14-18 days Past History Past Medical History: diabetes, hypertension, hyperlipidemia, other (Neuropathy, H. pylori) Past Surgical History: No surgical history (None known by the daughter) Social history: lives with family, smoking. denies: alcohol abuse (Occasional alcohol use) Family history: diabetes, hypertension Medications and Allergies Allergies Allergy/AdvReac Type Severity Reaction Status Date / Time No Known Allergies Allergy Unverified 05/22/20 09:16 Home Medications Medication Instructions Recorded Confirmed Last Taken Type Aspirin 325 mg PO QDAY #30 tablet 01/18/21 Unknown Rx AtorvaSTATin [Lipitor] 80 mg PO QHS #30 tablet 01/18/21 Unknown Rx Dextrose 50% in Water [D50W (25GM) 0 ml IV Q30MIN PRN syringe 01/18/21 Unknown Rx Syringe] Famotidine [Pepcid] 20 mg PO BID #60 tablet 01/18/21 Unknown Rx Insulin Regular, Human [HumuLIN R] 0 units SUB-Q Q6HR units 01/18/21 Unknown Rx hydrALAZINE [Apresoline TAB] 25 mg PO Q8HR #90 tablet 01/18/21 Unknown Rx Active Meds: Active Medications Acetaminophen (Acetaminophen 325 Mg Tab) 650 mg PO Q6H PRN PRN Reason: Non Cardiac Pain or Temp>100.5 Albuterol (Albuterol 2.5 Mg/3 Ml Nebu) 2.5 mg IH Q4HRT PRN PRN Reason: Shortness Of Breath Aspirin (Aspirin Ec 81 Mg Tab) 81 mg PO QDAY [facility] Last Admin: 01/19/21 09:01 Dose: 81 mg Documented by: Atorvastatin Calcium (Atorvastatin 40 Mg Tab) 80 mg PO QHS [facility] Last Admin: 01/18/21 22:26 Dose: 80 mg Documented by: Bisacodyl (Bisacodyl 10 Mg Rect Supp) 10 mg VA QDAY PRN PRN Reason: Constipation Clopidogrel Bisulfate (Clopidogrel 75 Mg Tab) 75 mg PO QDAY [facility] Last Admin: 01/19/21 09:00 Dose: 75 mg Documented by: Dextrose (Dextrose 50% In Water (25gm) 50 Ml Syringe) 50 ml IV Q30MIN PRN; Protocol PRN Reason: Hypoglycemia Enoxaparin Sodium (Enoxaparin 40 Mg/0.4 Ml Inj) 40 mg SUB-Q QDAY [facility] Last Admin: 01/19/21 09:00 Dose: 40 mg Documented by: Famotidine (Famotidine 20 Mg Tab) 20 mg PO BID [facility] Last Admin: 01/19/21 09:00 Dose: 20 mg Documented by: Hydralazine HCl (Hydralazine 20 Mg/1 Ml Inj) 10 mg IV Q4HR PRN PRN Reason: Hypertension Hydralazine HCl (Hydralazine 25 Mg Tab) 25 mg PO Q8HR [facility] Last Admin: 01/19/21 06:06 Dose: 25 mg Documented by: Insulin Human Lispro (Insulin Lispro 100 Unit/Ml) 0 unit SUB-Q ACHS [facility]; Protocol Last Admin: 01/19/21 09:24 Dose: 1 unit Documented by: Ondansetron HCl (Ondansetron 4 Mg Odt Tab) 4 mg PO Q8H PRN PRN Reason: Nausea And Vomiting Polyethylene Glycol (Polyethylene Glycol 3350 17 Gm Powder) 17 gm PO QDAY PRN PRN Reason: Constipation Review of Systems All systems: negative (ROS negative for 10 systems except as noted below with pertinent positives and negatives. Patient unable to communicate, review of syst ems per record and observation) Constitutional: weakness, no fever Ears, nose, mouth and throat: other (Poor oral hygiene), no decreased hearing Cardiovascular: rapid/irregular heart beat, high blood pressure, no edema, no le g edema Respiratory: no cough, no congestion Gastrointestinal: no nausea, no vomiting, no diarrhea, no constipation Musculoskeletal: leg numbness/tingling, no atrophy Integumentary: no rash, no pruritis Neurological: weakness, parathesias, lack of coordination, aphasia, confusion, gait dysfunction Psychiatric: confusion, no insomnia Exam - Exam Narrative exam: MUSCULOSKELETAL SPECIALTY EXAM CONSTITUTIONAL: Well developed, well nourished, appropriately groomed. RIGHT hand dominant. LYMPHATIC: No appreciable abnormalities palpable in neck RESPIRATORY: Clear to auscultation bilaterally, no increased work of breathing CARDIOVASCULAR: Tachycardic, regular Rhythm, no swelling, edema or tenderness in BUE or BLE. Pulses palpable in all extremities. All extremities warm. GI: + bowel sounds, soft, NTTP, nondistended. INTEGUMENTARY: Injury to left restorationism, otherwise normal, no lesion, rash, masses or bruising noted in extremities. MUSCULOSKELETAL: Some arthritic changes in bilateral hands, otherwise BUE and BLE normal without defect, crepitus, subluxation, effusion, arthritic changes or TTP. R 4+/5 L 3/5 without full range of motion ROM within normal limits on right, decreased on left Tone normal on right, slightly decreased on left without flaccidity NEURO: CN II : Visual villalba full to confrontation CN II, III : PERRL CN III, IV, : EOMI CN V : Facial sensation appears intact CN VII : Left facial droop slight CN VIII : Hearing intact to finger rustle CN IX, X : Palate/uvula elevate midline, phonation normal CN XI : Intact shoulder shrug and head rotation CN XII : Tongue protrudes midline Sensation intact in all extremities unable to test extinction. Reflexes 2+ bilaterally at biceps, brachioradialis and patella. No clonus at ankles. Coordination impaired in BUE. No tremor noted in 4 extremities. Naming and repetition impaired Does not follow 2 step commands but will occasionally mimic. Aphasia present Dysarthria not appreciated Dysphagia present Neglect appears present POSTURE and GAIT: Sitting posture good. Balance and gait deferred until seen with therapy. PSYCH: Alert, orientation unable to be tested due to severe aphasia, affect appears euthymic. Insight appears impaired - Constitutional Vitals: Vital Signs - 12hr 01/18/21 01/18/21 01/19/21 22:05 22:26 00:01 Temperature 98.0 F Pulse Rate 100 H 107 H Pulse Rate [ 84 Bilateral Throughout] Respiratory 18 Rate Respiratory 18 Rate [Bilateral Throughout] Blood Pressure 125/77 146/86 O2 Sat by Pulse 97 Oximetry 01/19/21 01/19/21 01/19/21 03:54 04:58 06:06 Temperature 97.8 F Pulse Rate 110 H 110 H Pulse Rate [ Bilateral Throughout] Respiratory 18 18 Rate Respiratory Rate [Bilateral Throughout] Blood Pressure 151/98 151/98 O2 Sat by Pulse 97 96 Oximetry 01/19/21 08:28 Temperature Pulse Rate Pulse Rate [ Bilateral Throughout] Respiratory Rate Respiratory Rate [Bilateral Throughout] Blood Pressure O2 Sat by Pulse 100 Oximetry - Labs CBC & Chem 7: 01/19/21 05:45 01/19/21 05:45 Labs: Laboratory Results - last 72 hr 01/18/21 01/19/21 01/19/21 21:41 05:45 05:45 WBC 4.9 RBC 4.10 Hgb 13.3 Hct 39.2 MCV 96 MCH 33 H MCHC 34 RDW 13.8 Plt Count 176 Lymph % (Auto) 48.1 H [place] % (Auto) 10.4 H Eos % (Auto) 3.2 Baso % (Auto) 0.7 Lymph # (Auto) 2.4 [place] # (Auto) 0.5 Eos # (Auto) 0.2 Baso # (Auto) 0.0 Seg Neutrophils % 37.6 L Seg Neutrophils # 1.8 Sodium 138 Potassium 4.5 D Chloride 104.7 Carbon Dioxide 22 Anion Gap 16 BUN 5 L Creatinine 0.7 Estimated GFR > 60 BUN/Creatinine Ratio 7 Glucose 125 H POC Glucose 90 Hemoglobin A1c Calcium 8.6 Total Bilirubin 0.60 AST 25 ALT 11 Alkaline Phosphatase 52 Total Protein 6.6 Albumin 3.5 L Albumin/Globulin Ratio 1.1 01/19/21 01/19/21 05:45 08:25 WBC RBC Hgb Hct MCV MCH MCHC RDW Plt Count Lymph % (Auto) [place] % (Auto) Eos % (Auto) Baso % (Auto) Lymph # (Auto) [place] # (Auto) Eos # (Auto) Baso # (Auto) Seg Neutrophils % Seg Neutrophils # Sodium Potassium Chloride Carbon Dioxide Anion Gap BUN Creatinine Estimated GFR BUN/Creatinine Ratio Glucose POC Glucose 153 H Hemoglobin A1c 8.8 H Calcium Total Bilirubin AST ALT Alkaline Phosphatase Total Protein Albumin Albumin/Globulin Ratio Assessment and Plan Assessment and plan: Patient was assessed and evaluated for Acute Inpatient Rehab Unit. Due to the patients above-mentioned medical complexity, along with decreased functional mobility and self care, this patient continues to require and be appropriate for a comprehensive, multidisciplinary [id number] rehabilitation program. These needs cannot be met in an outpatient or other less intensive setting. The patient would continue to benefit from skilled therapy intervention for at least 3 hours per day, five days a week, with techniques specific to the needs of the patient to improve function, activities of daily living, and reintegration into the community. The patient continues to require: -- OT to improve ROM, self-care, and learn use of adaptive equipment -- PT to improve strength and balance, functional transfers, and ambulation with energy conservation techniques to improve functional mobility -- LANGUAGE ASSISTANT to address cognitive deficits and swallowing ability -- 24 hour RN to ensure and prevent skin breakdown, promote progressive independence while ensuring safety, ensure education regarding medications, and incorporation of the rehabilitation at the bedside -- 24 hour [employer] Motor Mechanic to coordinate this interdisciplinary program, and to manage/prevent complications as a result of the patients medical comorbidities. -Plan of care by day 4 -Weekly team conferences With such a program, there is a reasonable certainty that the goals individualized for this patient can be achieved within the specified length of stay. CVA: Continue Secondary Stroke Prevention (Antithrombotic, Statin (Goal LDL-C <70), BP control (Goal <140/90), GLU control (Goal A1c <7), and lifestyle modification). Monitor for recurrent stroke or post-stroke recrudescence. Continue neuromotor therapy as above. Family training when available. Monitor for post stroke depression, cognitive deficits, seizure, dysphagia, aphasia, shoulder hand syndrome, sensory deficits, spasticity, bowel/bladder deficits, sleep disturbance, vision deficits and DVT. Prognosis for recovery and Secondary Stroke Prevention discussed. Follow up with Neurology. No driving until cleared by Neurologist. Dysphagia: Continue modified diet, speech therapy, swallow precautions. MBS as needed in order to advance patient's diet. Continue therapy to improve patient's ability to safely swallow. Hypertension: Contacted patient's PCP who noted she was previously on amlodipine 5 mg, lisinopril 40 mg, and carvedilol 12.5 mg twice daily. Patient was discharged to us on hydralazine. We will discontinue this and restart patient's home medications and increase as needed for better blood pressure control. Diabetes: Currently on sliding scale insulin. Patient has a history of hospitalization for hypoglycemia. Will monitor her dietary intake and continue to utilize sliding scale before starting basal insulin. A1c 8.8%. Heart Failure: Echocardiogram showed 15-20% LVEF. Neurology recommended cardiology consult for consideration of further action and possibly anticoagulation. Will consult cardiology today. PCPs office did not know of any cardiology affiliation with the patient previously. Hyperlipidemia: Continue statin as per secondary stroke prevention. Dose has been increased. ADL dysfunction: OT will work on improving ability to perform ADLs (including assistive devices) to increase independence and decrease caregiver burden and improve functional transfers and mobility training. Difficulty walking: PT will work on gait training and proper use of assistive devices and advance as appropriate to use of stairs and outside ambulation on uneven surfaces. Unsteadiness on feet: PT will work on improving static and dynamic sitting and standing balance as well as proper use of assistive devices to decrease risk of falls. Abnormality of gait: PT will work to improve safety and efficiency of gait through neuromotor training and gait training along with instruction on proper use of assistive devices. Muscle weakness: PT & OT will work on strengthening exercises to improve functional strength including mixture of closed and open kinetic chain exercises. Debility: PT & OT will work on improving overall functional status to improve participation with ADLs, mobility and social involvement. Fatigue: PT & OT will work on improving endurance through aerobic exercises and therapeutic activity while monitoring patients tolerance for activity and vital signs as needed. DVT ppx: Lovenox Pain: Continue physical modalities in therapy and pain medications as needed to achieve functional pain control. Sleep: Monitor and address as needed. Bowel: Monitor and address as needed. Appetite: Monitor and address as needed. Discharge planning: Pending therapy progress and care plan meeting. Will continue discussion with therapy team, SW, patient and family. Restrictions/ Precautions: Falls, swallow, severe heart failure, aphasia WB status: FWB Functional Hx: ADLs: Independent Cognition: Independent Mobility: No AD Barriers to Discharge: Decreased mobility and ability to perform self care, balance deficits, weakness Estimated Length of Stay: 1418 days Discharge Destination: Home with family POST ADMISSION PHYSICIAN EVALUATION I have examined the patient and find that functional status, medical condition and appropriateness for IRF admission are essentially unchanged from those described in the preadmission screening. Will monitor for worsening neurologic condition, shoulder-hand syndrome, subluxation of the shoulder, post stroke depression, aspiration pneumonia, DVT/PE, bowel and bladder complications and complications due to hypertension, diabetes, severe heart failure and electro lyte abnormalities. Will attempt to avoid occurrence of these issues or treat them if they present themselves.
[2021-01-19] MEDS: carvediloL 6.25 MG TAB PO SCH ×2 (18:03→22:22)
[2021-01-20] MEDS ORDERED: LISINOPRIL 10 MG TAB PO SCH (08:00)
[2021-01-20] MEDS: ASPIRIN EC 81 MG TAB PO SCH (08:08)
[2021-01-20] MEDS: carvediloL 6.25 MG TAB PO SCH (08:08)
[2021-01-20] MEDS: CLOPIDOGREL 75 MG TAB PO SCH (08:08)
[2021-01-20] MEDS: FAMOTIDINE 20 MG TAB PO SCH ×2 (08:08→21:48)
[2021-01-20] MEDS: ENOXAPARIN 40 MG/0.4 ML INJ SUB-Q SCH (08:08)
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
[2021-01-20] MEDS ORDERED: carvediloL 6.25 MG TAB PO SCH (08:28)
[2021-01-20] MEDS ORDERED: carvediloL 6.25 MG TAB PO ONE (09:00)
[2021-01-20] MEDS: INSULIN LISPRO 100 UNIT/ML SUB-Q SCH ×6 (09:44→22:32)
--- NOTE | 2021-01-20 11:09 | Consultation ---
History of Present Illness Consult date: 01/20/21 Consult reason: known to you, other (CMP) History of present illness: 60-year old F presented to this hospital 1 week ago with acute CVA with left hemiparesis. She is on plavix and low dose aspirin. Patient has a prior history of nonischemic cardiomyopathy by serial outpatient stress thallium test that showed no ischemia but a decreased ejection fraction 35% by echocardiogram. Co- morbidities includes hypertension and diabetes. On presentation, her ECG showed sinus rhythm, LVH with repolarization abnormality. There were no reports of arrhythmias seen on telemetry monitoring. A repeat echocardiogram shows persistent dilated cardiomyopathy with an ejection fraction 15-20%. Bubble study is negative. Patient is now admitted to acute rehab. A cardiac consultation has been requested for management of cardiomyopathy and to decide is anticoagulation is indicated. Past History Past Medical History: diabetes, heart failure, hypertension, hyperlipidemia, other (Neuropathy, H. pylori) Past Surgical History: No surgical history (None known by the daughter) Social history: lives with family, smoking. denies: alcohol abuse (Occasional alcohol use) Family history: diabetes, hypertension Medications and Allergies Allergies Allergy/AdvReac Type Severity Reaction Status Date / Time No Known Allergies Allergy Unverified 05/22/20 09:16 Home Medications Medication Instructions Recorded Confirmed Last Taken Type Aspirin 325 mg PO QDAY #30 tablet 01/18/21 Unknown Rx AtorvaSTATin [Lipitor] 80 mg PO QHS #30 tablet 01/18/21 Unknown Rx Dextrose 50% in Water [D50W (25GM) 0 ml IV Q30MIN PRN syringe 01/18/21 Unknown Rx Syringe] Famotidine [Pepcid] 20 mg PO BID #60 tablet 01/18/21 Unknown Rx Insulin Regular, Human [HumuLIN R] 0 units SUB-Q Q6HR units 01/18/21 Unknown Rx hydrALAZINE [Apresoline TAB] 25 mg PO Q8HR #90 tablet 01/18/21 Unknown Rx Active Meds: Active Medications Acetaminophen (Acetaminophen 325 Mg Tab) 650 mg PO Q6H PRN PRN Reason: Non Cardiac Pain or Temp>100.5 Albuterol (Albuterol 2.5 Mg/3 Ml Nebu) 2.5 mg IH Q4HRT PRN PRN Reason: Shortness Of Breath Aspirin (Aspirin Ec 81 Mg Tab) 81 mg PO QDAY SOLE Last Admin: 01/20/21 08:08 Dose: 81 mg Documented by: Atorvastatin Calcium (Atorvastatin 40 Mg Tab) 80 mg PO QHS [facility] Last Admin: 01/19/21 22:22 Dose: 80 mg Documented by: Bisacodyl (Bisacodyl 10 Mg Rect Supp) 10 mg PA QDAY PRN PRN Reason: Constipation Carvedilol (Carvedilol 12.5 Mg Tab) 12.5 mg PO BID [facility] Clopidogrel Bisulfate (Clopidogrel 75 Mg Tab) 75 mg PO QDAY [facility] Last Admin: 01/20/21 08:08 Dose: 75 mg Documented by: Dextrose (Dextrose 50% In Water (25gm) 50 Ml Syringe) 50 ml IV Q30MIN PRN; Protocol PRN Reason: Hypoglycemia Enoxaparin Sodium (Enoxaparin 40 Mg/0.4 Ml Inj) 40 mg SUB-Q QDAY [facility] Last Admin: 01/20/21 08:08 Dose: 40 mg Documented by: Famotidine (Famotidine 20 Mg Tab) 20 mg PO BID [facility] Last Admin: 01/20/21 08:08 Dose: 20 mg Documented by: Hydralazine HCl (Hydralazine 20 Mg/1 Ml Inj) 10 mg IV Q4HR PRN PRN Reason: Hypertension Insulin Human Lispro (Insulin Lispro 100 Unit/Ml) 0 unit SUB-Q [facility]; Protocol Last Admin: 01/20/21 09:44 Dose: 1 unit Documented by: Lisinopril (Lisinopril 10 Mg Tab) 10 mg PO BID [facility] Ondansetron HCl (Ondansetron 4 Mg Odt Tab) 4 mg PO Q8H PRN PRN Reason: Nausea And Vomiting Polyethylene Glycol (Polyethylene Glycol 3350 17 Gm Powder) 17 gm PO QDAY PRN PRN Reason: Constipation Last Admin: 01/19/21 22:21 Dose: 17 gm Documented by: Review of Systems Cardiovascular: no chest pain, no palpitations, no edema, no shortness of breath Physical Examination Vital Signs Pulse 76 01/18/21 18:59 General appearance: no acute distress HEENT: Positive: PERRL Neck: Positive: trachea midline Cardiac: Positive: Reg Rate and Rhythm Neuro: Positive: Other (left hemiparesis) Extremities: Absent: edema Results 01/19/21 05:45 01/19/21 05:45 Assessment and Plan Hx of dilated cardiomyopathy Echo this presentation reports an LVEF 15-20%. Bubble study is negative. Acute CVA with left hemiparesis on plavix and aspirin Hypertension Diabetes Continue remote telemetry monitoring. Continue medical therapy for nonischemic cardiomyopathy. As an outpatient, will recommend a 30 event monitor.
[2021-01-20] MEDS: LISINOPRIL 10 MG TAB PO SCH (21:47)
[2021-01-20] MEDS: ACETAMINOPHEN 325 MG TAB PO PRN (21:48)
[2021-01-20] MEDS: carvediloL 12.5 MG TAB PO SCH (21:48)
--- NOTE | 2021-01-21 09:16 | Progress Note ---
Subjective Date of service: 01/21/21 Principal diagnosis: CVA Interval history: 60-year-old female who presented to the hospital on 01/12/2021 with left-sided facial droop and slurred speech. Patient apparently was found by her daughter on the floor and had a laceration to the left temporal area. Head CT showed a right MCA infarct with no evidence of hemorrhagic transformation. Neurology was consulted and recommended continued work-up including MRI echo. Also recommended aspirin and Plavix ongoing. Echocardiogram showed severely dilated left ventricle with severe decrease in systolic function and a left ventricular ejection fraction of 15-20%. Brain MRI showed right MCA infarct involving the right posterior insular cortex and right posterior temporal cortex and right posterior frontal cortex. Remainder of imaging reviewed including head MRA, repeat head CT, head neck CTA. Neurology recommended cardiology consult for consideration of anticoagulation due to severe heart failure. We will place the consult today after seeing the patient and would appreciate their recommendat ions. Patient has been placed on aspirin and Plavix. Discussion was had with treating neurologist yesterday who stated that his preference would be that the patient remain on both of these ongoing unless patient is changed to anticoagulation by cardiology. Initially the patient was confused and had encephalopathy requiring restraints for safety. Prior to admission she had been off of restraints for approximately 48 hours and has improved. She is participating with therapy and making good progress. I have placed her on remote telemetry due to her heart failure and have spoken with therapist and instructed them to notified nursing and telemetry monitoring whenever she is off the floor and in the therapy gym. Patient currently remains on the telemetry unit due to decreased availability of nursing staff and will be moved to the rehab unit as soon as able. Speech therapy saw the patient and recommended a mechanical soft diet with ground meats, this order has been placed as well. Hy pokalemia was treated with replacement. Will monitor closely for need to retreat that. Glucose was fairly well controlled on sliding scale, will monitor the patient for a few days on sliding scale to see if we need to start basal insulin doses. A1c was ordered yesterday after admission to rehab which showed an A1c of 8.8%. This a.m., the patient is tachycardic with an elevated blood pressure. Of note, telemetry was not on the patient, have spoken with nursing and they are arranging to replace monitor on patient. Interval History: Patient is participating in therapy and making reasonable progress. Taking rest breaks as needed. +BM. Denies pain, palpitations, dyspnea, cough, N/V, or joint pain. Telemetry in place. CVA with Left NonDom Hemiparesis: Continue secondary stroke prevention. Monitor the patient for any signs of worsening neurologic function or post stroke depression. Currently not showing signs of either of these, no headache, shoulder-hand syndrome, neurologic bowel or bladder. Continue therapy to improve patient's ability to perform self-care and mobility. Hypertension: Home medication was restarted at a lower dose, and blood pressure better since increased dose on 01/20 and will continue to adjust in a stepwise fashion to adjust her blood pressure to goal less than 140/90. Avoid hypotension Diabetes: Continue carb controlled diet and sliding scale insulin. Patient has been admitted in the past for hypoglycemic episodes due to not eating while on basal doses of insulin. We will avoid this currently. Hemoglobin A1c was 8.8 on our check on her admission. Glucose values more variable today, had a hypoglycemic episode yesterday around 47 but then was in the 200s. Heart failure: Appreciate cardiology consult, will continue current management and defer use of anticoagulation. Will have patient follow-up with cardiology as an outpatient for possible event monitoring Aphasia: Was much improved yesterday when the patient was upset however seems to be worse today and back almost to what she was like the first day I saw her. Would likely have some variation going forward, continue speech therapy and monitor for further improvement Dysphagia: Continue speech therapy monitor for further improvement. MBS as needed All records, vitals, labs and medications were reviewed. No other issues per patient, nursing or therapy. Objective - Exam Narrative Exam: MUSCULOSKELETAL SPECIALTY EXAM CONSTITUTIONAL: Well developed, well nourished, appropriately groomed. RIGHT hand dominant. RESPIRATORY: Clear to auscultation bilaterally, no increased work of breathing CARDIOVASCULAR: Regular rate and rhythm, no swelling, edema or tenderness in BUE or BLE. All extremities warm. GI: + bowel sounds, soft, NTTP, nondistended. INTEGUMENTARY: Injury to left mormonism, otherwise normal, no lesion, rash, masses or bruising noted in extremities. MUSCULOSKELETAL: Some arthritic changes in bilateral hands, otherwise BUE and BLE normal without defect, crepitus, subluxation, effusion, arthritic changes or TTP. R 4+/5 L 3/5 without full range of motion ROM within normal limits on right, decreased on left Tone normal on right, slightly decreased on left without flaccidity NEURO: CN VII : Left facial droop slight Sensation intact in all extremities unable to test extinction. No tremor noted in 4 extremities. Naming and repetition impaired Improvement with following two-step command. Aphasia present Dysarthria present now that she is talking more Dysphagia present Neglect appears present POSTURE and GAIT: Sitting posture good. PSYCH: Alert, oriented x2. Affect appears euthymic. Insight appears impaired - Constitutional Vitals: Vital Signs - 12hr 01/20/21 01/21/21 01/21/21 23:41 02:00 04:27 Temperature 98.3 F Pulse Rate 93 H 90 Respiratory 18 16 Rate Blood Pressure 103/58 O2 Sat by Pulse 98 Oximetry 01/21/21 07:48 Temperature 97.8 F Pulse Rate 89 Respiratory 18 Rate Blood Pressure 125/79 O2 Sat by Pulse 96 Oximetry - Allied health notes Allied health notes reviewed: nursing, PT, ST, OT FIMS assessment as documented by PT/OT/ST: Locomotion- walk/wheelchair Ambulation Distance 80 - Labs CBC & Chem 7: 01/19/21 05:45 01/19/21 05:45 Labs: Laboratory Results - last 72 hr 01/18/21 01/19/21 01/19/21 21:41 05:45 05:45 WBC 4.9 RBC 4.10 Hgb 13.3 Hct 39.2 MCV 96 MCH 33 H MCHC 34 RDW 13.8 Plt Count 176 Lymph % (Auto) 48.1 H [place] % (Auto) 10.4 H Eos % (Auto) 3.2 Baso % (Auto) 0.7 Lymph # (Auto) 2.4 [place] # (Auto) 0.5 Eos # (Auto) 0.2 Baso # (Auto) 0.0 Seg Neutrophils % 37.6 L Seg Neutrophils # 1.8 Sodium 138 Potassium 4.5 D Chloride 104.7 Carbon Dioxide 22 Anion Gap 16 BUN 5 L Creatinine 0.7 Estimated GFR > 60 BUN/Creatinine Ratio 7 Glucose 125 H POC Glucose 90 Hemoglobin A1c Calcium 8.6 Total Bilirubin 0.60 AST 25 ALT 11 Alkaline Phosphatase 52 Total Protein 6.6 Albumin 3.5 L Albumin/Globulin Ratio 1.1 01/19/21 01/19/21 01/19/21 05:45 08:25 12:00 WBC RBC Hgb Hct MCV MCH MCHC RDW Plt Count Lymph % (Auto) [place] % (Auto) Eos % (Auto) Baso % (Auto) Lymph # (Auto) [place] # (Auto) Eos # (Auto) Baso # (Auto) Seg Neutrophils % Seg Neutrophils # Sodium Potassium Chloride Carbon Dioxide Anion Gap BUN Creatinine Estimated GFR BUN/Creatinine Ratio Glucose POC Glucose 153 H 224 H Hemoglobin A1c 8.8 H Calcium Total Bilirubin AST ALT Alkaline Phosphatase Total Protein Albumin Albumin/Globulin Ratio 01/19/21 01/19/21 01/20/21 16:56 22:16 08:12 WBC RBC Hgb Hct MCV MCH MCHC RDW Plt Count Lymph % (Auto) [place] % (Auto) Eos % (Auto) Baso % (Auto) Lymph # (Auto) [place] # (Auto) Eos # (Auto) Baso # (Auto) Seg Neutrophils % Seg Neutrophils # Sodium Potassium Chloride Carbon Dioxide Anion Gap BUN Creatinine Estimated GFR BUN/Creatinine Ratio Glucose POC Glucose 177 H 101 177 H Hemoglobin A1c Calcium Total Bilirubin AST ALT Alkaline Phosphatase Total Protein Albumin Albumin/Globulin Ratio 01/20/21 01/20/21 01/20/21 11:24 16:11 16:32 WBC RBC Hgb Hct MCV MCH MCHC RDW Plt Count Lymph % (Auto) [place] % (Auto) Eos % (Auto) Baso % (Auto) Lymph # (Auto) [place] # (Auto) Eos # (Auto) Baso # (Auto) Seg Neutrophils % Seg Neutrophils # Sodium Potassium Chloride Carbon Dioxide Anion Gap BUN Creatinine Estimated GFR BUN/Creatinine Ratio Glucose POC Glucose 215 H 47 L 103 Hemoglobin A1c Calcium Total Bilirubin AST ALT Alkaline Phosphatase Total Protein Albumin Albumin/Globulin Ratio 01/20/21 01/21/21 22:02 07:48 WBC RBC Hgb Hct MCV MCH MCHC RDW Plt Count Lymph % (Auto) [place] % (Auto) Eos % (Auto) Baso % (Auto) Lymph # (Auto) [place] # (Auto) Eos # (Auto) Baso # (Auto) Seg Neutrophils % Seg Neutrophils # Sodium Potassium Chloride Carbon Dioxide Anion Gap BUN Creatinine Estimated GFR BUN/Creatinine Ratio Glucose POC Glucose 268 H 162 H Hemoglobin A1c Calcium Total Bilirubin AST ALT Alkaline Phosphatase Total Protein Albumin Albumin/Globulin Ratio Assessment and Plan CVA with left nondominant hemiparesis: Continue Secondary Stroke Prevention (Antithrombotic, Statin (Goal LDL-C <70), BP control (Goal <140/90), GLU control (Goal A1c <7), and lifestyle modification). Monitor for recurrent stroke or post-stroke recrudescence. Continue neuromotor therapy as above. Family training when available. Monitor for post stroke depression, cognitive deficits, seizure, dysphagia, aphasia, shoulder hand syndrome, sensory deficits, spasticity, bowel/bladder deficits, sleep disturbance, vision deficits and DVT. Prognosis for recovery and Secondary Stroke Prevention discussed. Follow up with Neurology. No driving until cleared by Neurologist. Dysphagia: Continue modified diet, speech therapy, swallow precautions. MBS as needed in order to advance patient's diet. Continue therapy to improve patient's ability to safely swallow. Aphasia: Continue speech therapy to improve patient's ability to speak and communicate her needs. Monitor closely for any needs that patient is unable to voice. Dysarthria: Becoming more apparent as the patient is starting to talk more. Continue speech therapy and address in order to improve patient's clarity and ability to communicate her needs. Hypertension: Contacted patient's PCP who noted she was previously on amlodipine 5 mg, lisinopril 40 mg, and carvedilol 12.5 mg twice daily. Patient's home medications have been restarted at lower doses, increase as needed for better blood pressure control. Diabetes: Currently on sliding scale insulin. Patient has a history of hospitalization for hypoglycemia. Will monitor her dietary intake and continue to utilize sliding scale before starting basal insulin. A1c 8.8%. Heart Failure: Echocardiogram showed 15-20% LVEF. Appreciate cardiology recommendations PCPs office did not know of any cardiology affiliation with the patient previously. Continue telemetry monitoring. Hyperlipidemia: Continue statin as per secondary stroke prevention. Dose has been increased. ADL dysfunction: OT will work on improving ability to perform ADLs (including assistive devices) to increase independence and decrease caregiver burden and improve functional transfers and mobility training. Difficulty walking: PT will work on gait training and proper use of assistive devices and advance as appropriate to use of stairs and outside ambulation on uneven surfaces. Unsteadiness on feet: PT will work on improving static and dynamic sitting and standing balance as well as proper use of assistive devices to decrease risk of falls. Abnormality of gait: PT will work to improve safety and efficiency of gait through neuromotor training and gait training along with instruction on proper use of assistive devices. Muscle weakness: PT & OT will work on strengthening exercises to improve functional strength including mixture of closed and open kinetic chain exercises. Debility: PT & OT will work on improving overall functional status to improve participation with ADLs, mobility and social involvement. Fatigue: PT & OT will work on improving endurance through aerobic exercises and therapeutic activity while monitoring patients tolerance for activity and vital signs as needed. DVT ppx: Lovenox Pain: Continue physical modalities in therapy and pain medications as needed to achieve functional pain control. Sleep: Monitor and address as needed. Bowel: Monitor and address as needed. Appetite: Monitor and address as needed. Discharge planning: Pending therapy progress and care plan meeting. Will continue discussion with therapy team, SW, patient and family. Restrictions/ Precautions: Falls, swallow, severe heart failure, aphasia WB status: FWB Functional Hx: ADLs: Independent Cognition: Independent Mobility: No AD Barriers to Discharge: Decreased mobility and ability to perform self care, balance deficits, weakness Estimated Length of Stay: 1418 days Discharge Destination: Home with family
[2021-01-21] MEDS: INSULIN LISPRO 100 UNIT/ML SUB-Q SCH ×4 (09:18→21:13)
[2021-01-21] MEDS: ENOXAPARIN 40 MG/0.4 ML INJ SUB-Q SCH (09:19)
[2021-01-21] MEDS: ASPIRIN EC 81 MG TAB PO SCH (09:22)
[2021-01-21] MEDS: carvediloL 12.5 MG TAB PO SCH ×2 (09:22→21:13)
[2021-01-21] MEDS: CLOPIDOGREL 75 MG TAB PO SCH (09:22)
[2021-01-21] MEDS: FAMOTIDINE 20 MG TAB PO SCH ×2 (09:22→21:13)
[2021-01-21] MEDS: LISINOPRIL 10 MG TAB PO SCH ×2 (09:22→21:12)
--- NOTE | 2021-01-21 09:38 | Progress Note ---
Assessment and Plan Hx of dilated cardiomyopathy Echo this presentation reports an LVEF 15-20%. Bubble study is negative. Acute CVA with left hemiparesis on plavix and aspirin Hypertension Diabetes Continue remote telemetry monitoring. Continue medical therapy for nonischemic cardiomyopathy. As an outpatient, will recommend a 30 event monitor. Subjective Date of service: 01/21/21 Principal diagnosis: CVA Interval history: Patient is resting in bed comfortably. Stable sinus rhythm on telemetry. No evidence of atrial fibrillation. Objective Vital Signs Temp Pulse Resp BP Pulse Ox 01/21/21 09:22 89 125/79 01/21/21 07:48 97.8 F 89 18 125/79 96 01/21/21 04:27 98.3 F 90 16 103/58 98 01/21/21 02:00 93 H 01/20/21 23:41 18 01/20/21 20:33 98.5 F 93 H 18 123/67 94 01/20/21 18:00 18 01/20/21 16:13 97.8 F 83 18 142/81 96 01/20/21 11:15 98.3 F 93 H 18 100/68 100 - Physical Examination General: No Apparent Distress HEENT: Positive: PERRL Neck: Positive: trachea midline Cardiac: Positive: Reg Rate and Rhythm Lungs: Positive: Decreased Breath Sounds Neuro: Positive: Other (left hemiparesis) Extremities: Absent: edema
--- NOTE | 2021-01-21 19:27 | IRU Plan of Care ---
Interdisciplinary Plan of Care - IP IRU INTERDISCIPLINARY PLAN: [facility] Inpatient Rehab Unit Plan of Care IRU Interdisciplinary Care Plan Start: 01/19/21 12:01 Freq: Status: Active Protocol: Document 01/21/21 14:59 TH (Rec: 01/21/21 15:03 TH [id number]) Interdisciplinary Problem List Interdisciplinary Problem List Interdisciplinary Problem List Impaired Bathing/Grooming, Query Text:Answers will Trigger Problems Impaired Dressing,Impaired and Outcomes on Worklist. Mobility,Impaired Transfers, Impaired Bladder/Bowel Management,Impaired Toileting, Impaired Expression,Impaired Problem Solving,Impaired Home Management,Impaired Safety IRU Interdisciplinary Care Plan Therapy Services Therapy Services Will Include: Physical Therapy,Occupational Query Text:Patient will be seen for a Therapy,Speech Therapy minimum of 3 hours of daily therapy 5 out of 7 days a week. Therapy intensity may be adjusted within a 7 consecutive day period to effectively serve the individual needs of the patient. Treatment Frequency/Intensity/Duration Treatment Frequency 5 days/week Treatment Intensity 3 hours per day Treatment Duration 2 weeks Problem Area: Eating/Swallowing Eating/Swallowing Outcomes Feed Self Eating/Swallowing Interventions Use of Assistive Devices, Compensatory Strategies, Neuromuscular Re-Education,ADL Training,Patient/Caregiver Education Problem Area: Bathing/Grooming Bathing/Grooming Outcomes Improve [place] w/ Grooming,Improve [place] w/ Bathing Bathing/Grooming Interventions ADL Training,Use of Assistive Devices,Therapeutic Exercise, Therapeutic Activity, Neuromuscular Re-Education, Balance Work,Activity Tolerance Work,Patient/ Caregiver Education Problem Area: Dressing Dressing Outcomes Improve [place] w/ UB Dressing,Improve [place] w/ LB Dressing Dressing Interventions ADL Training,Use of Assistive Devices,Neuromuscular Re- Education,Therapeutic Exercise ,Balance Work,Modalities, Patient/Caregiver Education Problem Area: Mobility Mobility Outcomes Improve [place] w/ Bed Mobility,Improve [place] w/ Ambulation,Improve [place] w/ Stairs/Curb, Improve [place] w/ Wheelchair Mobility Interventions Therapeutic Exercise, Neuromuscular Re-Ed.,Activity Tolerance Work,Use of Assistive Devices,Patient/ Caregiver Education,Bed Mobility Work,Gait Training,W/ C Mobility Work Problem Area: Transfers Transfers Outcomes Improve [place] w/ Bed Transfers,Improve [place] w/ Toilet Transfers,Improve [place] w/ Tub/Shower Transfers,Improve [place] w/ Car Transfers Transfers Interventions Transfer Training,Therapeutic Exercise,Neuromuscular Re- Education,Activity Tolerance Work,Use of Assistive Devices, Patient/Caregiver Education Problem Area: Bowel/Bladder Managment Bowel/Bladder Outcomes Bowel/Bladder Interventions Problem Area: Toileting Toileting Outcomes Improve [place] w/ Toileting Toileting Interventions ADL Training,Balance Work,Use of Assistive Devices,Patient/ Caregiver Education Problem Area: Nutrition Nutrition Outcomes Nutrition Interventions Problem Area: Comprehension Comprehension Outcomes Improve Comprehension,Follow Commands Comprehension Interventions Receptive Language Tasks, Patient/Caregiver Education Problem Area: Expression Expression Outcomes Improve Intelligibility, Improve Vocal Quality,Improve Verbalization Expression Interventions Expressive Language,Patient/ Caregiver Education Problem Area: Problem Solving Problem Solving Outcomes Improve Problem Solving Problem Solving Interventions Cognitive Training,Visual/ Perceptual Training,Safety Education,Patient/Caregiver Education Problem Area: Memory Memory Outcomes Memory Interventions Problem Area: Pain Management Pain Management Outcomes Pain Management Interventions Problem Area: Knowledge Deficits Knowledge Deficits Outcomes Knowledge Deficits Interventions Problem Area: Skin/Tissue Integrity Skin/Tissue Integrity Outcomes Skin/Tissue Integrity Interventions Problem Area: Social Interaction Social Interaction Outcomes Social Interaction Interventions Problem Area: Adjustment to Disability Adjustment to Disability Outcomes Adjustment to Disability Interventions Problem Area: Discharge Concerns Discharge Concerns Outcomes Discharge Concerns Interventions Problem Area: Community Reintegration Community Reintegration Outcomes Community Reintegration Interventions Problem Area: Home Management Home Management Outcomes Improve [place] w/ Home Management Home Management Interventions Money Management Tasks,Meal Preparation,Activity Tolerance Work,Leisure Skills Development,House Cleaning, Patient/Caregiver Education Problem Area: Safety Safety Outcomes Provide Safe Environment, Perform Selfcare Safely, Demonstrate Good Safety w/ Transfers/Mobility Safety Interventions Identify Fall Risk,[place] Pt. to Environment,Reduce Environmental Hazards,Neuro Check Assessment,Implement Mechanical Devices, i.e. Chair Alarm (Post Fall Update),Re- Educate Patient/Caregiver for Safety (Post Fall Update) Problem Area: Medication Education Medication Education Outcomes Medication Education Interventions Problem Area: Diabetes Education Diabetes Education Outcomes Demonstrate Knowledge of Resources Availlable in Diabetic Ed. Folder Diabetes Education Interventions Give Pt. Diabetes Education Folder,Discuss Pathophysiology of Diabetes Problem Area: Oxygenation Oxygenation Outcomes Oxygenation Interventions Problem Area: Cardiovascular Cardiovascular Outcomes Maintain or Improve Cardiovascular Status Cardiovascular Interventions Assess Vital Signs at least Every 4 hours,Cardiac Monitoring, EKG and ABG as Ordered. Physician Only Medical Prognosis and Rehabilitation Potential (Completed by Physician) Good prognosis, good rehab potential This plan of care has been developed based on the findings from the pre-admission assessment, post admission physician evaluation, information gathered from the assessments from all therapy disciplines and other pertinent clinicians. The plan of care has been reviewed and discussed in collaboration with the interdisciplinary team. The plan of care will be reviewed and updated at least weekly.
--- NOTE | 2021-01-22 08:23 | Progress Note ---
Subjective Date of service: 01/22/21 Principal diagnosis: CVA Interval history: 60-year-old female who presented to the hospital on 01/12/2021 with left-sided facial droop and slurred speech. Patient apparently was found by her daughter on the floor and had a laceration to the left temporal area. Head CT showed a right MCA infarct with no evidence of hemorrhagic transformation. Neurology was consulted and recommended continued work-up including MRI echo. Also recommended aspirin and Plavix ongoing. Echocardiogram showed severely dilated left ventricle with severe decrease in systolic function and a left ventricular ejection fraction of 15-20%. Brain MRI showed right MCA infarct involving the right posterior insular cortex and right posterior temporal cortex and right posterior frontal cortex. Remainder of imaging reviewed including head MRA, repeat head CT, head neck CTA. Neurology recommended cardiology consult for consideration of anticoagulation due to severe heart failure. We will place the consult today after seeing the patient and would appreciate their recommendat ions. Patient has been placed on aspirin and Plavix. Discussion was had with treating neurologist yesterday who stated that his preference would be that the patient remain on both of these ongoing unless patient is changed to anticoagulation by cardiology. Initially the patient was confused and had encephalopathy requiring restraints for safety. Prior to admission she had been off of restraints for approximately 48 hours and has improved. She is participating with therapy and making good progress. I have placed her on remote telemetry due to her heart failure and have spoken with therapist and instructed them to notified nursing and telemetry monitoring whenever she is off the floor and in the therapy gym. Patient currently remains on the telemetry unit due to decreased availability of nursing staff and will be moved to the rehab unit as soon as able. Speech therapy saw the patient and recommended a mechanical soft diet with ground meats, this order has been placed as well. Hy pokalemia was treated with replacement. Will monitor closely for need to retreat that. Glucose was fairly well controlled on sliding scale, will monitor the patient for a few days on sliding scale to see if we need to start basal insulin doses. A1c was ordered yesterday after admission to rehab which showed an A1c of 8.8%. This a.m., the patient is tachycardic with an elevated blood pressure. Of note, telemetry was not on the patient, have spoken with nursing and they are arranging to replace monitor on patient. Interval History: Patient is participating in therapy and making reasonable progress. Taking rest breaks as needed. +BM. Denies pain, palpitations, dyspnea, cough, N/V, or joint pain. Telemetry in place. CVA with Left NonDom Hemiparesis: Continue secondary stroke prevention. Monitor the patient for any signs of worsening neurologic function or post stroke depression. Currently not showing signs of either of these, no headache, shoulder-hand syndrome, neurologic bowel or bladder. Continue therapy to improve patient's ability to perform self-care and mobility. Hypertension: Home medication was restarted at a lower dose, and blood pressure better since increased dose on 01/20 and will continue to adjust in a stepwise fashion to adjust her blood pressure to goal less than 140/90. Avoid hypotension Diabetes: Continue carb controlled diet and sliding scale insulin. Patient has been admitted in the past for hypoglycemic episodes due to not eating while on basal doses of insulin. We will avoid this currently. Hemoglobin A1c was 8.8 on our check on her admission. Glucose fairly well controlled with sliding scale currently. Heart failure: Appreciate cardiology consult, will continue current management and defer use of anticoagulation. Will have patient follow-up with cardiology as an outpatient for possible event monitoring Aphasia: Worse again today. Patient was not understandable at all during the initial conversation when I had with her this morning. Was not able to follow commands or pick an object out of a series of objects. Seems that she will have a fluctuating course of recovery Dysphagia: Continue speech therapy monitor for further improvement. MBS as needed All records, vitals, labs and medications were reviewed. No other issues per patient, nursing or therapy. Objective - Exam Narrative Exam: MUSCULOSKELETAL SPECIALTY EXAM CONSTITUTIONAL: Well developed, well nourished, appropriately groomed. RIGHT hand dominant. RESPIRATORY: Clear to auscultation bilaterally, no increased work of breathing CARDIOVASCULAR: Regular rate and rhythm, no swelling, edema or tenderness in BUE or BLE. All extremities warm. GI: + bowel sounds, soft, NTTP, nondistended. INTEGUMENTARY: Injury to left evangelical, otherwise normal, no lesion, rash, masses or bruising noted in extremities. MUSCULOSKELETAL: Some arthritic changes in bilateral hands, otherwise BUE and BLE normal without defect, crepitus, subluxation, effusion, arthritic changes or TTP. R 4+/5 L 3/5 without full range of motion ROM within normal limits on right, decreased on left Tone normal on right, slightly decreased on left without flaccidity NEURO: CN VII : Left facial droop slight Sensation intact in all extremities unable to test extinction. No tremor noted in 4 extremities. Naming and repetition impaired Command following is variable depending on time of day. Likely related to aphasia Aphasia present Dysarthria present now that she is talking more Dysphagia present Neglect appears present POSTURE and GAIT: Sitting posture good. PSYCH: Alert, oriented x2. Affect appears euthymic. Insight appears impaired - Constitutional Vitals: Vital Signs - 12hr 01/22/21 01/22/21 01/22/21 02:00 05:00 07:15 Temperature 98.3 F 97.3 F L Pulse Rate 86 95 H 34 L Respiratory 16 18 Rate Blood Pressure 133/52 Blood Pressure 115/67 [Left] O2 Sat by Pulse 98 100 Oximetry 01/22/21 07:17 Temperature Pulse Rate 85 Respiratory Rate Blood Pressure Blood Pressure [Left] O2 Sat by Pulse Oximetry - Allied health notes Allied health notes reviewed: nursing, PT, ST, OT FIMS assessment as documented by PT/OT/ST: Locomotion- walk/wheelchair Ambulation Distance 80 - Labs CBC & Chem 7: 01/19/21 05:45 01/19/21 05:45 Labs: Laboratory Results - last 72 hr 01/19/21 01/19/21 01/19/21 08:25 12:00 16:56 POC Glucose 153 H 224 H 177 H 01/19/21 01/20/21 01/20/21 22:16 08:12 11:24 POC Glucose 101 177 H 215 H 01/20/21 01/20/21 01/20/21 16:11 16:32 22:02 POC Glucose 47 L 103 268 H 01/21/21 01/21/21 01/21/21 07:48 11:37 15:46 POC Glucose 162 H 208 H 198 H 01/21/21 20:41 POC Glucose 228 H Assessment and Plan CVA with left nondominant hemiparesis: Continue Secondary Stroke Prevention (Antithrombotic, Statin (Goal LDL-C <70), BP control (Goal <140/90), GLU control (Goal A1c <7), and lifestyle modification). Monitor for recurrent stroke or post-stroke recrudescence. Continue neuromotor therapy as above. Family training when available. Monitor for post stroke depression, cognitive deficits, seizure, dysphagia, aphasia, shoulder hand syndrome, sensory deficits, spasticity, bowel/bladder deficits, sleep disturbance, vision deficits and DVT. Prognosis for recovery and Secondary Stroke Prevention discussed. Follow up with Neurology. No driving until cleared by Neurologist. Dysphagia: Continue modified diet, speech therapy, swallow precautions. MBS as needed in order to advance patient's diet. Continue therapy to improve patient's ability to safely swallow. Aphasia: Continue speech therapy to improve patient's ability to speak and communicate her needs. Monitor closely for any needs that patient is unable to voice. Dysarthria: Becoming more apparent as the patient is starting to talk more. Continue speech therapy and address in order to improve patient's clarity and ability to communicate her needs. Hypertension: Contacted patient's PCP who noted she was previously on amlodipine 5 mg, lisinopril 40 mg, and carvedilol 12.5 mg twice daily. Patient's home medications have been restarted at lower doses, increase as needed for better blood pressure control. Diabetes: Currently on sliding scale insulin. Patient has a history of hospitalization for hypoglycemia. Will monitor her dietary intake and continue to utilize sliding scale before starting basal insulin. A1c 8.8%. Heart Failure: Echocardiogram showed 15-20% LVEF. Appreciate cardiology recommendations PCPs office did not know of any cardiology affiliation with the patient previously. Continue telemetry monitoring. Hyperlipidemia: Continue statin as per secondary stroke prevention. Dose has been increased. ADL dysfunction: OT will work on improving ability to perform ADLs (including assistive devices) to increase independence and decrease caregiver burden and improve functional transfers and mobility training. Difficulty walking: PT will work on gait training and proper use of assistive devices and advance as appropriate to use of stairs and outside ambulation on uneven surfaces. Unsteadiness on feet: PT will work on improving static and dynamic sitting and standing balance as well as proper use of assistive devices to decrease risk of falls. Abnormality of gait: PT will work to improve safety and efficiency of gait through neuromotor training and gait training along with instruction on proper use of assistive devices. Muscle weakness: PT & OT will work on strengthening exercises to improve functional strength including mixture of closed and open kinetic chain exercises. Debility: PT & OT will work on improving overall functional status to improve participation with ADLs, mobility and social involvement. Fatigue: PT & OT will work on improving endurance through aerobic exercises and therapeutic activity while monitoring patients tolerance for activity and vital signs as needed. DVT ppx: Lovenox Pain: Continue physical modalities in therapy and pain medications as needed to achieve functional pain control. Sleep: Monitor and address as needed. Bowel: Monitor and address as needed. Appetite: Monitor and address as needed. Discharge planning: Pending therapy progress and care plan meeting. Rodrigo mercado ontinue discussion with therapy team, SW, patient and family. Restrictions/ Precautions: Falls, swallow, severe heart failure, aphasia WB status: FWB Functional Hx: ADLs: Independent Cognition: Independent Mobility: No AD Barriers to Discharge: Decreased mobility and ability to perform self care, balance deficits, weakness Estimated Length of Stay: 1418 days Discharge Destination: Home with family
[2021-01-22] MEDS: INSULIN LISPRO 100 UNIT/ML SUB-Q SCH ×4 (08:45→23:45)
[2021-01-22] MEDS: LISINOPRIL 10 MG TAB PO SCH (08:46)
[2021-01-22] MEDS: FAMOTIDINE 20 MG TAB PO SCH ×2 (08:46→22:00)
[2021-01-22] MEDS: carvediloL 12.5 MG TAB PO SCH (08:46)
[2021-01-22] MEDS: ENOXAPARIN 40 MG/0.4 ML INJ SUB-Q SCH (08:46)
--- NOTE | 2021-01-22 09:46 | Progress Note ---
Assessment and Plan Hx of dilated cardiomyopathy Echo this presentation reports an LVEF 15-20%. Bubble study is negative. Acute CVA with left hemiparesis on plavix and aspirin Hypertension Diabetes Continue remote telemetry monitoring. Continue medical therapy for nonischemic cardiomyopathy. As an outpatient, will recommend a 30 event monitor. Subjective Date of service: 01/22/21 Principal diagnosis: CVA Interval history: Stable sinus rhythm with occasional PVCs on telemetry. No evidence of atrial fibrillation. Objective Vital Signs Temp Pulse Resp BP BP Pulse Ox 01/22/21 07:17 85 01/22/21 07:15 97.3 F L 34 L 18 133/52 100 01/22/21 05:00 98.3 F 95 H 16 115/67 98 01/22/21 02:00 86 01/21/21 19:39 98 F 86 16 104/61 95 01/21/21 18:00 92 H 01/21/21 15:46 98.4 F 89 18 104/72 98 01/21/21 11:37 97.8 F 83 18 90/45 100 01/21/21 10:00 99 H - Physical Examination General: No Apparent Distress HEENT: Positive: PERRL Neck: Positive: trachea midline Cardiac: Positive: Irregularly Regular Lungs: Positive: Decreased Breath Sounds Neuro: Positive: Other (left hemiparesis) Extremities: Absent: edema
[2021-01-22] MEDS: ASPIRIN EC 81 MG TAB PO SCH (12:54)
[2021-01-22] MEDS: CLOPIDOGREL 75 MG TAB PO SCH (12:58)
--- NOTE | 2021-01-23 00:36 | XRay Report ---
Chest single view INDICATION: Dyspnea IMPRESSION: Cardiomegaly with early interstitial edema. No large pleural effusion. Signer Name: Matheus Seals MD Signed: 01/23/2021 12:31 AM Workstation Name: [id number]
[2021-01-23] MEDS: carvediloL 12.5 MG TAB PO SCH ×3 (04:50→22:00)
[2021-01-23] MEDS: LISINOPRIL 10 MG TAB PO SCH ×3 (04:52→22:46)
[2021-01-23] MEDS: CLOPIDOGREL 75 MG TAB PO SCH (08:39)
[2021-01-23] MEDS: ENOXAPARIN 40 MG/0.4 ML INJ SUB-Q SCH (08:39)
[2021-01-23] MEDS: ASPIRIN EC 81 MG TAB PO SCH (08:39)
[2021-01-23] MEDS: FAMOTIDINE 20 MG TAB PO SCH ×2 (08:39→22:00)
[2021-01-23] MEDS: INSULIN LISPRO 100 UNIT/ML SUB-Q SCH ×4 (08:48→22:00)
--- NOTE | 2021-01-23 14:59 | Progress Note ---
Subjective Date of service: 01/23/21 Principal diagnosis: CVA Interval history: 60-year-old female who presented to the hospital on 01/12/2021 with left-sided facial droop and slurred speech. Patient apparently was found by her daughter on the floor and had a laceration to the left temporal area. Head CT showed a right MCA infarct with no evidence of hemorrhagic transformation. Neurology was consulted and recommended continued work-up including MRI echo. Also recommended aspirin and Plavix ongoing. Echocardiogram showed severely dilated left ventricle with severe decrease in systolic function and a left ventricular ejection fraction of 15-20%. Brain MRI showed right MCA infarct involving the right posterior insular cortex and right posterior temporal cortex and right posterior frontal cortex. Remainder of imaging reviewed including head MRA, repeat head CT, head neck CTA. Neurology recommended cardiology consult for consideration of anticoagulation due to severe heart failure. We will place the consult today after seeing the patient and would appreciate their recommendat ions. Patient has been placed on aspirin and Plavix. Discussion was had with treating neurologist yesterday who stated that his preference would be that the patient remain on both of these ongoing unless patient is changed to anticoagulation by cardiology. Initially the patient was confused and had encephalopathy requiring restraints for safety. Prior to admission she had been off of restraints for approximately 48 hours and has improved. She is participating with therapy and making good progress. I have placed her on remote telemetry due to her heart failure and have spoken with therapist and instructed them to notified nursing and telemetry monitoring whenever she is off the floor and in the therapy gym. Patient currently remains on the telemetry unit due to decreased availability of nursing staff and will be moved to the rehab unit as soon as able. Speech therapy saw the patient and recommended a mechanical soft diet with ground meats, this order has been placed as well. Hy pokalemia was treated with replacement. Will monitor closely for need to retreat that. Glucose was fairly well controlled on sliding scale, will monitor the patient for a few days on sliding scale to see if we need to start basal insulin doses. A1c was ordered yesterday after admission to rehab which showed an A1c of 8.8%. This a.m., the patient is tachycardic with an elevated blood pressure. Of note, telemetry was not on the patient, have spoken with nursing and they are arranging to replace monitor on patient. Interval History: Patient is participating in therapy and making reasonable progress. Taking rest breaks as needed. +BM. Denies pain, palpitations, dyspnea, cough, N/V, or joint pain. Telemetry in place. I was called last night around 11:00 for dyspnea. Ordered chest x-ray, patient had oxygen placed, checked with telemetry. Called and confirmed again with telemetry this morning there were no changes over the last several days including last night. Patient was still on nonrebreather this morning and did not want to utilize a nasal cannula even though her sats were 100%. In working with therapy she was able to come off the oxygen completely and was still satting high 90s with no supplemental oxygen. Chest x-ray was reviewed and looks to be fairly clear, fairly benign chest exam with some slight crackles at the base. In total, greater than 45 minutes was invested in patient care today with over half of that time being spent counseling coordinating care with the respiratory therapist, telemetry, nursing and daughter. CVA with Left NonDom Hemiparesis: Continue secondary stroke prevention. Monitor the patient for any signs of worsening neurologic function or post stroke depression. Currently not showing signs of either of these, no headache, shou lder-hand syndrome, neurologic bowel or bladder. Continue therapy to improve patient's ability to perform self-care and mobility. Dyspnea: Chest x-ray reviewed. Patient doing well off of oxygen currently. Will order 1 dose of Lasix as there is not a strong picture for volume overload. Hypertension: Home medication was restarted at a lower dose, and blood pressure better since increased dose on 01/20 and will continue to adjust in a stepwise fashion to adjust her blood pressure to goal less than 140/90. Avoid hypotension Diabetes: Continue carb controlled diet and sliding scale insulin. Patient has been admitted in the past for hypoglycemic episodes due to not eating while on basal doses of insulin. We will avoid this currently. Hemoglobin A1c was 8.8 on our check on her admission. Glucose fairly well controlled with sliding scale currently. Heart failure: Appreciate cardiology consult, will continue current management and defer use of anticoagulation. Will have patient follow-up with cardiology as an outpatient for possible event monitoring Aphasia: Worse again today. Patient was not understandable at all during the initial conversation when I had with her this morning. Was not able to follow commands or pick an object out of a series of objects. Seems that she will have a fluctuating course of recovery Dysphagia: Continue speech therapy monitor for further improvement. MBS as needed All records, vitals, labs and medications were reviewed. No other issues per patient, nursing or therapy. Objective - Exam Narrative Exam: MUSCULOSKELETAL SPECIALTY EXAM CONSTITUTIONAL: Well developed, well nourished, appropriately groomed. RIGHT hand dominant. RESPIRATORY: Slight crackles bibasilar, no increased work of breathing CARDIOVASCULAR: Regular rate and rhythm, no swelling, edema or tenderness in BUE or BLE. All extremities warm. GI: + bowel sounds, soft, NTTP, nondistended. INTEGUMENTARY: Injury to left yazidi, otherwise normal, no lesion, rash, masses or bruising noted in extremities. MUSCULOSKELETAL: Some arthritic changes in bilateral hands, otherwise BUE and BLE normal without defect, crepitus, subluxation, effusion, arthritic changes or TTP. R 4+/5 L 3/5 without full range of motion ROM within normal limits on right, decreased on left Tone normal on right, slightly decreased on left without flaccidity NEURO: CN VII : Left facial droop slight Sensation intact in all extremities unable to test extinction. No tremor noted in 4 extremities. Naming and repetition impaired Command following is variable depending on time of day. Likely related to aphasia Aphasia present Dysarthria present now that she is talking more Dysphagia present Neglect appears present POSTURE and GAIT: Sitting posture good. PSYCH: Alert, oriented x2. Affect appears euthymic. Insight appears impaired - Constitutional Vitals: Vital Signs - 12hr 01/23/21 01/23/21 01/23/21 04:38 04:41 04:50 Temperature 97.6 F 97.6 F Pulse Rate 89 89 96 H Respiratory 16 16 Rate Blood Pressure 128/83 112/65 Blood Pressure 128/83 [Left] O2 Sat by Pulse 100 100 Oximetry 01/23/21 01/23/21 01/23/21 04:52 07:20 08:39 Temperature 97.4 F L Pulse Rate 96 H 92 H 92 H Respiratory 18 Rate Blood Pressure 112/65 127/79 127/79 Blood Pressure [Left] O2 Sat by Pulse 100 Oximetry 01/23/21 01/23/21 01/23/21 08:45 10:00 12:49 Temperature 98.3 F Pulse Rate 92 H 82 Respiratory 16 Rate Blood Pressure 127/79 Blood Pressure 105/63 [Left] O2 Sat by Pulse 100 100 Oximetry - Allied health notes Allied health notes reviewed: nursing, PT, ST, OT FIMS assessment as documented by PT/OT/ST: Locomotion- walk/wheelchair Ambulation Distance 80 - Labs CBC & Chem 7: 01/19/21 05:45 01/19/21 05:45 Labs: Laboratory Results - last 72 hr 01/20/21 01/20/21 01/20/21 16:11 16:32 22:02 POC Glucose 47 L 103 268 H 01/21/21 01/21/21 01/21/21 07:48 11:37 15:46 POC Glucose 162 H 208 H 198 H 01/21/21 01/22/21 01/22/21 20:41 08:25 11:49 POC Glucose 228 H 176 H 137 H 01/22/21 01/22/21 01/22/21 15:52 20:58 23:40 POC Glucose 199 H 186 H 215 H 01/23/21 01/23/21 08:46 12:15 POC Glucose 180 H 168 H - Imaging and cardiology Chest x-ray: report reviewed, image reviewed Assessment and Plan CVA with left nondominant hemiparesis: Continue Secondary Stroke Prevention (Antithrombotic, Statin (Goal LDL-C <70), BP control (Goal <140/90), GLU control (Goal A1c <7), and lifestyle modification). Monitor for recurrent stroke or post-stroke recrudescence. Continue neuromotor therapy as above. Family training when available. Monitor for post stroke depression, cognitive deficits, seizure, dysphagia, aphasia, shoulder hand syndrome, sensory deficits, spasticity, bowel/bladder d eficits, sleep disturbance, vision deficits and DVT. Prognosis for recovery and Secondary Stroke Prevention discussed. Follow up with Neurology. No driving until cleared by Neurologist. Dysphagia: Continue modified diet, speech therapy, swallow precautions. MBS as needed in order to advance patient's diet. Continue therapy to improve patient's ability to safely swallow. Aphasia: Continue speech therapy to improve patient's ability to speak and communicate her needs. Monitor closely for any needs that patient is unable to voice. Dyspnea: Oxygen as needed. Chest x-ray reviewed. 1 dose of Lasix. Monitor for improvement or return. Dysarthria: Becoming more apparent as the patient is starting to talk more. Continue speech therapy and address in order to improve patient's clarity and ability to communicate her needs. Hypertension: Contacted patient's PCP who noted she was previously on amlodipine 5 mg, lisinopril 40 mg, and carvedilol 12.5 mg twice daily. Patient's home medications have been restarted at lower doses, increase as needed for better blood pressure control. Diabetes: Currently on sliding scale insulin. Patient has a history of hospitalization for hypoglycemia. Will monitor her dietary intake and continue to utilize sliding scale before starting basal insulin. A1c 8.8%. Heart Failure: Echocardiogram showed 15-20% LVEF. Appreciate cardiology recommendations PCPs office did not know of any cardiology affiliation with the patient previously. Continue telemetry monitoring. Hyperlipidemia: Continue statin as per secondary stroke prevention. Dose has been increased. ADL dysfunction: OT will work on improving ability to perform ADLs (including assistive devices) to increase independence and decrease caregiver burden and improve functional transfers and mobility training. Difficulty walking: PT will work on gait training and proper use of assistive d evices and advance as appropriate to use of stairs and outside ambulation on uneven surfaces. Unsteadiness on feet: PT will work on improving static and dynamic sitting and standing balance as well as proper use of assistive devices to decrease risk of falls. Abnormality of gait: PT will work to improve safety and efficiency of gait through neuromotor training and gait training along with instruction on proper use of assistive devices. Muscle weakness: PT & OT will work on strengthening exercises to improve functional strength including mixture of closed and open kinetic chain exercises. Debility: PT & OT will work on improving overall functional status to improve participation with ADLs, mobility and social involvement. Fatigue: PT & OT will work on improving endurance through aerobic exercises and therapeutic activity while monitoring patients tolerance for activity and vital signs as needed. DVT ppx: Lovenox Pain: Continue physical modalities in therapy and pain medications as needed to achieve functional pain control. Sleep: Monitor and address as needed. Bowel: Monitor and address as needed. Appetite: Monitor and address as needed. Discharge planning: Pending therapy progress and care plan meeting. Will continue discussion with therapy team, SW, patient and family. Restrictions/ Precautions: Falls, swallow, severe heart failure, aphasia WB status: FWB Functional Hx: ADLs: Independent Cognition: Independent Mobility: No AD Barriers to Discharge: Decreased mobility and ability to perform self care, balance deficits, weakness Estimated Length of Stay: 1418 days Discharge Destination: Home with family
[2021-01-23] MEDS ORDERED: FUROSEMIDE 20 MG TAB PO ONE (19:03)
[2021-01-24] MEDS: INSULIN LISPRO 100 UNIT/ML SUB-Q SCH ×4 (07:54→21:27)
[2021-01-24] MEDS: LISINOPRIL 10 MG TAB PO SCH ×2 (07:57→21:24)
[2021-01-24] MEDS: ENOXAPARIN 40 MG/0.4 ML INJ SUB-Q SCH (07:57)
[2021-01-24] MEDS: CLOPIDOGREL 75 MG TAB PO SCH (07:57)
[2021-01-24] MEDS: carvediloL 12.5 MG TAB PO SCH ×2 (07:58→21:25)
[2021-01-24] MEDS: FAMOTIDINE 20 MG TAB PO SCH ×2 (07:58→21:25)
[2021-01-24] MEDS: ASPIRIN EC 81 MG TAB PO SCH (07:59)
[2021-01-24 09:54] LABS: Hematocrit 34.4 % (30.3-42.9); Hemoglobin 11.8 gm/dl (10.1-14.3); Mean Corpuscular HGB Conc 34 % (30-34); Mean Corpuscular Volume 96 fl (79-97); Platelet Count 191 K/mm3 (140-440); Red Blood Count 3.57 M/mm3 (3.65-5.03); Red Cell Distribution Width 13.5 % (13.2-15.2)
[2021-01-24 10:39] LABS: BUN/Creatinine Ratio 10; Blood Urea Nitrogen 8 mg/dL (7-17); Calcium 8.9 mg/dL (8.4-10.2); Hemolysis Index 5
[2021-01-25] MEDS: ASPIRIN EC 81 MG TAB PO SCH (09:25)
[2021-01-25] MEDS: FAMOTIDINE 20 MG TAB PO SCH ×2 (09:25→22:34)
[2021-01-25] MEDS: CLOPIDOGREL 75 MG TAB PO SCH (09:26)
[2021-01-25] MEDS: carvediloL 12.5 MG TAB PO SCH ×2 (09:26→22:34)
[2021-01-25] MEDS: ENOXAPARIN 40 MG/0.4 ML INJ SUB-Q SCH (09:30)
[2021-01-25] MEDS: INSULIN LISPRO 100 UNIT/ML SUB-Q SCH ×4 (09:30→22:35)
[2021-01-25] MEDS: LISINOPRIL 10 MG TAB PO SCH ×2 (09:47→22:34)
--- NOTE | 2021-01-25 10:22 | Progress Note ---
Subjective Date of service: 01/25/21 Principal diagnosis: CVA Interval history: 60-year-old female who presented to the hospital on 01/12/2021 with left-sided facial droop and slurred speech. Patient apparently was found by her daughter on the floor and had a laceration to the left temporal area. Head CT showed a right MCA infarct with no evidence of hemorrhagic transformation. Neurology was consulted and recommended continued work-up including MRI echo. Also recommended aspirin and Plavix ongoing. Echocardiogram showed severely dilated left ventricle with severe decrease in systolic function and a left ventricular ejection fraction of 15-20%. Brain MRI showed right MCA infarct involving the right posterior insular cortex and right posterior temporal cortex and right posterior frontal cortex. Remainder of imaging reviewed including head MRA, repeat head CT, head neck CTA. Neurology recommended cardiology consult for consideration of anticoagulation due to severe heart failure. We will place the consult today after seeing the patient and would appreciate their recommendat ions. Patient has been placed on aspirin and Plavix. Discussion was had with treating neurologist yesterday who stated that his preference would be that the patient remain on both of these ongoing unless patient is changed to anticoagulation by cardiology. Initially the patient was confused and had encephalopathy requiring restraints for safety. Prior to admission she had been off of restraints for approximately 48 hours and has improved. She is participating with therapy and making good progress. I have placed her on remote telemetry due to her heart failure and have spoken with therapist and instructed them to notified nursing and telemetry monitoring whenever she is off the floor and in the therapy gym. Patient currently remains on the telemetry unit due to decreased availability of nursing staff and will be moved to the rehab unit as soon as able. Speech therapy saw the patient and recommended a mechanical soft diet with ground meats, this order has been placed as well. Hy pokalemia was treated with replacement. Will monitor closely for need to retreat that. Glucose was fairly well controlled on sliding scale, will monitor the patient for a few days on sliding scale to see if we need to start basal insulin doses. A1c was ordered yesterday after admission to rehab which showed an A1c of 8.8%. This a.m., the patient is tachycardic with an elevated blood pressure. Of note, telemetry was not on the patient, have spoken with nursing and they are arranging to replace monitor on patient. Interval History: Patient is participating in therapy and making reasonable progress. Taking rest breaks as needed. +BM. Denies pain, palpitations, dyspnea, cough, N/V, or joint pain. Telemetry in place. Patient was able to do therapy over the weekend without any oxygen in place and was having normal oxygen sats. This morning patient was again on 3 L of oxygen, do not see a reason why. She was then taken off the oxygen and again perform therapy without any problems at all and maintained her oxygen sats. Uncertain of why she required 15 L on nonrebreather over the weekend. Continue to wean, do not see the need for continued supplemental oxygen. CVA with Left NonDom Hemiparesis: Continue secondary stroke prevention. Monitor the patient for any signs of worsening neurologic function or post stroke depression. Currently not showing signs of either of these, no headache, shoulder-hand syndrome, neurologic bowel or bladder. Continue therapy to improve patient's ability to perform self-care and mobility. Dyspnea: Chest x-ray reviewed. Patient doing well off of oxygen currently. Seems to be doing better despite being placed back on oxygen overnight. Hypertension: Home medication was restarted at a lower dose, and blood pressure better since increased dose on 01/20 and will continue to adjust in a stepwise fashion to adjust her blood pressure to goal less than 140/90. Avoid hypotension Diabetes: Continue carb controlled diet and sliding scale insulin. Patient has been admitted in the past for hypoglycemic episodes due to not eating while on basal doses of insulin. We will avoid this currently. Hemoglobin A1c was 8.8 on our check on her admission. Glucose fairly well controlled with sliding scale currently. Heart failure: Appreciate cardiology consult, will continue current management and defer use of anticoagulation. Will have patient follow-up with cardiology as an outpatient for possible event monitoring Aphasia: Worse again today. Patient was not understandable at all during the initial conversation when I had with her this morning. Was not able to follow commands or pick an object out of a series of objects. Seems that she will have a fluctuating course of recovery Dysphagia: Continue speech therapy monitor for further improvement. MBS as needed All records, vitals, labs and medications were reviewed. No other issues per patient, nursing or therapy. Objective - Exam Narrative Exam: MUSCULOSKELETAL SPECIALTY EXAM CONSTITUTIONAL: Well developed, well nourished, appropriately groomed. RIGHT hand dominant. RESPIRATORY: Slight crackles bibasilar, no increased work of breathing CARDIOVASCULAR: Regular rate and rhythm, no swelling, edema or tenderness in BUE or BLE. All extremities warm. GI: + bowel sounds, soft, NTTP, nondistended. INTEGUMENTARY: Injury to left samaritan, otherwise normal, no lesion, rash, masses or bruising noted in extremities. MUSCULOSKELETAL: Some arthritic changes in bilateral hands, otherwise BUE and BLE normal without defect, crepitus, subluxation, effusion, arthritic changes or TTP. R 4+/5 L 3/5 without full range of motion ROM within normal limits on right, decreased on left Tone normal on right, slightly decreased on left without flaccidity NEURO: CN VII : Left facial droop slight Sensation intact in all extremities unable to test extinction. No tremor noted in 4 extremities. Naming and repetition impaired Command following is variable depending on time of day. Likely related to aphasia Aphasia present Dysarthria present now that she is talking more Dysphagia present Neglect appears present POSTURE and GAIT: Sitting posture good. PSYCH: Alert, orientation difficult to check again due to patient's aphasia. When she was more understandable briefly she did have some orientation. Affect appears euthymic. Insight appears impaired - Constitutional Vitals: Vital Signs - 12hr 01/25/21 01/25/21 01/25/21 04:52 06:28 07:40 Temperature 98.7 F 98.6 F 98.5 F Pulse Rate 83 64 94 H Respiratory 18 20 18 Rate Blood Pressure 135/73 126/71 Blood Pressure 147/82 [Left] O2 Sat by Pulse 94 98 97 Oximetry 01/25/21 01/25/21 09:26 09:47 Temperature Pulse Rate 95 H 95 H Respiratory Rate Blood Pressure 126/71 126/71 Blood Pressure [Left] O2 Sat by Pulse Oximetry - Allied health notes Allied health notes reviewed: nursing, PT, ST, OT FIMS assessment as documented by PT/OT/ST: Locomotion- walk/wheelchair Ambulation Distance 80 - Labs CBC & Chem 7: 01/24/21 09:29 01/24/21 09:29 Labs: Laboratory Results - last 72 hr 01/22/21 01/22/21 01/22/21 11:49 15:52 20:58 WBC RBC Hgb Hct MCV MCH MCHC RDW Plt Count Sodium Potassium Chloride Carbon Dioxide Anion Gap BUN Creatinine Estimated GFR BUN/Creatinine Ratio Glucose POC Glucose 137 H 199 H 186 H Calcium 01/22/21 01/23/21 01/23/21 23:40 08:46 12:15 WBC RBC Hgb Hct MCV MCH MCHC RDW Plt Count Sodium Potassium Chloride Carbon Dioxide Anion Gap BUN Creatinine Estimated GFR BUN/Creatinine Ratio Glucose POC Glucose 215 H 180 H 168 H Calcium 01/23/21 01/23/21 01/24/21 16:39 21:45 07:50 WBC RBC Hgb Hct MCV MCH MCHC RDW Plt Count Sodium Potassium Chloride Carbon Dioxide Anion Gap BUN Creatinine Estimated GFR BUN/Creatinine Ratio Glucose POC Glucose 165 H 177 H 163 H Calcium 01/24/21 01/24/21 01/24/21 09:29 09:29 12:24 WBC 4.3 L RBC 3.57 L Hgb 11.8 Hct 34.4 MCV 96 MCH 33 H MCHC 34 RDW 13.5 Plt Count 191 Sodium 138 Potassium 4.1 Chloride 104.9 Carbon Dioxide 25 Anion Gap 12 BUN 8 Creatinine 0.8 Estimated GFR > 60 BUN/Creatinine Ratio 10 Glucose 205 H POC Glucose 194 H Calcium 8.9 01/24/21 01/24/21 01/25/21 16:42 21:17 07:39 WBC RBC Hgb Hct MCV MCH MCHC RDW Plt Count Sodium Potassium Chloride Carbon Dioxide Anion Gap BUN Creatinine Estimated GFR BUN/Creatinine Ratio Glucose POC Glucose 180 H 227 H 159 H Calcium Assessment and Plan CVA with left nondominant hemiparesis: Continue Secondary Stroke Prevention (Antithrombotic, Statin (Goal LDL-C <70), BP control (Goal <140/90), GLU control (Goal A1c <7), and lifestyle modification). Monitor for recurrent stroke or post-stroke recrudescence. Continue neuromotor therapy as above. Family training when available. Monitor for post stroke depression, cognitive deficits, seizure, dysphagia, aphasia, shoulder hand syndrome, sensory deficits, spasticity, bowel/bladder deficits, sleep disturbance, vision deficits and DVT. Prognosis for recovery and Secondary Stroke Prevention discussed. Follow up with Neurology. No driving until cleared by Neurologist. Dysphagia: Continue modified diet, speech therapy, swallow precautions. MBS as needed in order to advance patient's diet. Continue therapy to improve patient's ability to safely swallow. Aphasia: Continue speech therapy to improve patient's ability to speak and communicate her needs. Monitor closely for any needs that patient is unable to voice. Dyspnea: Chest x-ray reviewed. 1 dose of Lasix. Patient doing well off of supplemental oxygen. Monitor for improvement or return. Dysarthria: Becoming more apparent as the patient is starting to talk more. Continue speech therapy and address in order to improve patient's clarity and ability to communicate her needs. Hypertension: Contacted patient's PCP who noted she was previously on amlodipine 5 mg, lisinopril 40 mg, and carvedilol 12.5 mg twice daily. Patient's home medications have been restarted at lower doses, increase as needed for better blood pressure control. Diabetes: Currently on sliding scale insulin. Patient has a history of hospitalization for hypoglycemia. Will monitor her dietary intake and continue to utilize sliding scale before starting basal insulin. A1c 8.8%. Heart Failure: Echocardiogram showed 15-20% LVEF. Appreciate cardiology recommendations PCPs office did not know of any cardiology affiliation with the patient previously. Continue telemetry monitoring. Hyperlipidemia: Continue statin as per secondary stroke prevention. Dose has been increased. ADL dysfunction: OT will work on improving ability to perform ADLs (including assistive devices) to increase independence and decrease caregiver burden and improve functional transfers and mobility training. Difficulty walking: PT will work on gait training and proper use of assistive devices and advance as appropriate to use of stairs and outside ambulation on uneven surfaces. Unsteadiness on feet: PT will work on improving static and dynamic sitting and standing balance as well as proper use of assistive devices to decrease risk of falls. Abnormality of gait: PT will work to improve safety and efficiency of gait through neuromotor training and gait training along with instruction on proper use of assistive devices. Muscle weakness: PT & OT will work on strengthening exercises to improve functional strength including mixture of closed and open kinetic chain exercises. Debility: PT & OT will work on improving overall functional status to improve participation with ADLs, mobility and social involvement. Fatigue: PT & OT will work on improving endurance through aerobic exercises and therapeutic activity while monitoring patients tolerance for activity and vital signs as needed. DVT ppx: Lovenox Pain: Continue physical modalities in therapy and pain medications as needed to achieve functional pain control. Sleep: Monitor and address as needed. Bowel: Monitor and address as needed. Appetite: Monitor and address as needed. Discharge planning: Pending therapy progress and care plan meeting. Will continue discussion with therapy team, SW, patient and family. Restrictions/ Precautions: Falls, swallow, severe heart failure, aphasia WB status: FWB Functional Hx: ADLs: Independent Cognition: Independent Mobility: No AD Barriers to Discharge: Decreased mobility and ability to perform self care, balance deficits, weakness Estimated Length of Stay: 1418 days Discharge Destination: Home with family
--- NOTE | 2021-01-26 07:45 | Progress Note ---
Subjective Date of service: 01/26/21 Principal diagnosis: CVA Interval history: 60-year-old female who presented to the hospital on 01/12/2021 with left-sided facial droop and slurred speech. Patient apparently was found by her daughter on the floor and had a laceration to the left temporal area. Head CT showed a right MCA infarct with no evidence of hemorrhagic transformation. Neurology was consulted and recommended continued work-up including MRI echo. Also recommended aspirin and Plavix ongoing. Echocardiogram showed severely dilated left ventricle with severe decrease in systolic function and a left ventricular ejection fraction of 15-20%. Brain MRI showed right MCA infarct involving the right posterior insular cortex and right posterior temporal cortex and right posterior frontal cortex. Remainder of imaging reviewed including head MRA, repeat head CT, head neck CTA. Neurology recommended cardiology consult for consideration of anticoagulation due to severe heart failure. We will place the consult today after seeing the patient and would appreciate their recommendat ions. Patient has been placed on aspirin and Plavix. Discussion was had with treating neurologist yesterday who stated that his preference would be that the patient remain on both of these ongoing unless patient is changed to anticoagulation by cardiology. Initially the patient was confused and had encephalopathy requiring restraints for safety. Prior to admission she had been off of restraints for approximately 48 hours and has improved. She is participating with therapy and making good progress. I have placed her on remote telemetry due to her heart failure and have spoken with therapist and instructed them to notified nursing and telemetry monitoring whenever she is off the floor and in the therapy gym. Patient currently remains on the telemetry unit due to decreased availability of nursing staff and will be moved to the rehab unit as soon as able. Speech therapy saw the patient and recommended a mechanical soft diet with ground meats, this order has been placed as well. Hy pokalemia was treated with replacement. Will monitor closely for need to retreat that. Glucose was fairly well controlled on sliding scale, will monitor the patient for a few days on sliding scale to see if we need to start basal insulin doses. A1c was ordered yesterday after admission to rehab which showed an A1c of 8.8%. This a.m., the patient is tachycardic with an elevated blood pressure. Of note, telemetry was not on the patient, have spoken with nursing and they are arranging to replace monitor on patient. Interval History: Patient is participating in therapy and making reasonable progress. Taking rest breaks as needed. +BM. Denies pain, palpitations, dyspnea, cough, N/V, or joint pain. Telemetry in place. Patient still having issues with tearfulness and possible anxiety. Have discussed with nursing and therapy, will start patient on Zoloft. CVA with Left NonDom Hemiparesis: Continue secondary stroke prevention. Monitor the patient for any signs of worsening neurologic function or post stroke depression. Currently not showing signs of either of these, no headache, shoulder-hand syndrome, neurologic bowel or bladder. Continue therapy to improve patient's ability to perform self-care and mobility. 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 Will start Zoloft and monitor for improvement. Dyspnea: Chest x-ray reviewed. Patient doing well off of oxygen currently. Seems to be doing better . Hypertension: Home medication was restarted at a lower dose, and blood pressure better since increased dose on 01/20 and will continue to adjust in a stepwise fashion to adjust her blood pressure to goal less than 140/90. Avoid hy potension Diabetes: Continue carb controlled diet and sliding scale insulin. Patient has been admitted in the past for hypoglycemic episodes due to not eating while on basal doses of insulin. We will avoid this currently. Hemoglobin A1c was 8.8 on our check on her admission. Glucose fairly well controlled with sliding scale currently. Heart failure: Appreciate cardiology consult, will continue current management and defer use of anticoagulation. Will have patient follow-up with cardiology as an outpatient for possible event monitoring Aphasia: Patient was not understandable at all during the initial conversation when I had with her this morning. Was not able to follow commands or pick an object out of a series of objects. Dysphagia: Continue speech therapy monitor for further improvement. MBS as needed All records, vitals, labs and medications were reviewed. No other issues per patient, nursing or therapy. Patient discussed during team conference. Still largely aphasic and needs repeated cueing, often tactile or visual cueing. Was able to ambulate up approximately 100 feet with a wide-based quad cane with only occasional loss of balance and min assist. Will need to ensure that the patient will have 24/7 assistance at home. Hopefully she will continue to improve over the next couple of weeks. Projected discharge date 02/09 based on her current functioning. Objective - Exam Narrative Exam: MUSCULOSKELETAL SPECIALTY EXAM CONSTITUTIONAL: Well developed, well nourished, appropriately groomed. RIGHT hand dominant. RESPIRATORY: Slight crackles bibasilar, no increased work of breathing CARDIOVASCULAR: Regular rate and rhythm, no swelling, edema or tenderness in BUE or BLE. All extremities warm. GI: + bowel sounds, soft, NTTP, nondistended. INTEGUMENTARY: Injury to left islam, otherwise normal, no lesion, rash, masses or bruising noted in extremities. MUSCULOSKELETAL: Some arthritic changes in bilateral hands, otherwise BUE and BLE normal without defect, crepitus, subluxation, effusion, arthritic changes or TTP. R 4+/5 L 3/5 without full range of motion ROM within normal limits on right, decreased on left Tone normal on right, slightly decreased on left without flaccidity NEURO: CN VII : Left facial droop slight Sensation intact in all extremities unable to test extinction. No tremor noted in 4 extremities. Naming and repetition impaired Command following is variable depending on time of day. Likely related to aph serafin Aphasia present Dysarthria present now that she is talking more Dysphagia present Neglect appears present POSTURE and GAIT: Sitting posture good. PSYCH: Alert, orientation difficult to check again due to patient's aphasia. Affect appears flattened. Insight appears impaired - Constitutional Vitals: Vital Signs - 12hr 01/25/21 01/26/21 22:34 05:28 Temperature 98.3 F Pulse Rate 89 Respiratory 18 Rate Blood Pressure 110/63 125/76 O2 Sat by Pulse 99 Oximetry - Allied health notes Allied health notes reviewed: nursing, PT, ST, OT FIMS assessment as documented by PT/OT/ST: Locomotion- walk/wheelchair Ambulation Distance 80 - Labs CBC & Chem 7: 01/24/21 09:29 01/24/21 09:29 Labs: Laboratory Results - last 72 hr 01/23/21 01/23/21 01/23/21 08:46 12:15 16:39 WBC RBC Hgb Hct MCV MCH MCHC RDW Plt Count Sodium Potassium Chloride Carbon Dioxide Anion Gap BUN Creatinine Estimated GFR BUN/Creatinine Ratio Glucose POC Glucose 180 H 168 H 165 H Calcium 01/23/21 01/24/21 01/24/21 21:45 07:50 09:29 WBC 4.3 L RBC 3.57 L Hgb 11.8 Hct 34.4 MCV 96 MCH 33 H MCHC 34 RDW 13.5 Plt Count 191 Sodium Potassium Chloride Carbon Dioxide Anion Gap BUN Creatinine Estimated GFR BUN/Creatinine Ratio Glucose POC Glucose 177 H 163 H Calcium 01/24/21 01/24/21 01/24/21 09:29 12:24 16:42 WBC RBC Hgb Hct MCV MCH MCHC RDW Plt Count Sodium 138 Potassium 4.1 Chloride 104.9 Carbon Dioxide 25 Anion Gap 12 BUN 8 Creatinine 0.8 Estimated GFR > 60 BUN/Creatinine Ratio 10 Glucose 205 H POC Glucose 194 H 180 H Calcium 8.9 01/24/21 01/25/21 01/25/21 21:17 07:39 11:10 WBC RBC Hgb Hct MCV MCH MCHC RDW Plt Count Sodium Potassium Chloride Carbon Dioxide Anion Gap BUN Creatinine Estimated GFR BUN/Creatinine Ratio Glucose POC Glucose 227 H 159 H 173 H Calcium 01/25/21 01/25/21 01/26/21 16:13 20:56 07:36 WBC RBC Hgb Hct MCV MCH MCHC RDW Plt Count Sodium Potassium Chloride Carbon Dioxide Anion Gap BUN Creatinine Estimated GFR BUN/Creatinine Ratio Glucose POC Glucose 159 H 117 H 178 H Calcium Assessment and Plan CVA with left nondominant hemiparesis: Continue Secondary Stroke Prevention (Antithrombotic, Statin (Goal LDL-C <70), BP control (Goal <140/90), GLU control (Goal A1c <7), and lifestyle modification). Monitor for recurrent stroke or post-stroke recrudescence. Continue neuromotor therapy as above. Family training when available. Monitor for post stroke depression, cognitive deficits, seizure, dysphagia, aphasia, shoulder hand syndrome, sensory deficits, spasticity, bowel/bladder deficits, sleep disturbance, vision deficits and DVT. Prognosis for recovery and Secondary Stroke Prevention discussed. Follow up with Neurology. No driving until cleared by Neurologist. Dysphagia: Continue modified diet, speech therapy, swallow precautions. MBS as needed in order to advance patient's diet. Continue therapy to improve patient's ability to safely swallow. Post stroke depression: Start patient on Zoloft and monitor for improvement. Aphasia: Continue speech therapy to improve patient's ability to speak and communicate her needs. Monitor closely for any needs that patient is unable to voice. Dyspnea: Chest x-ray reviewed. 1 dose of Lasix. Patient doing well off of supplemental oxygen. Monitor for improvement or return. Dysarthria: Becoming more apparent as the patient is starting to talk more. Continue speech therapy and address in order to improve patient's clarity and ability to communicate her needs. Hypertension: Contacted patient's PCP who noted she was previously on amlodipine 5 mg, lisinopril 40 mg, and carvedilol 12.5 mg twice daily. Patient's home medications have been restarted at lower doses, increase as needed for better blood pressure control. Diabetes: Currently on sliding scale insulin. Patient has a history of hospitalization for hypoglycemia. Will monitor her dietary intake and continue to utilize sliding scale before starting basal insulin. A1c 8.8%. Heart Failure: Echocardiogram showed 15-20% LVEF. Appreciate cardiology recommendations PCPs office did not know of any cardiology affiliation with the patient previously. Continue telemetry monitoring. Hyperlipidemia: Continue statin as per secondary stroke prevention. Dose has been increased. ADL dysfunction: OT will work on improving ability to perform ADLs (including assistive devices) to increase independence and decrease caregiver burden and improve functional transfers and mobility training. Difficulty walking: PT will work on gait training and proper use of assistive devices and advance as appropriate to use of stairs and outside ambulation on uneven surfaces. Unsteadiness on feet: PT will work on improving static and dynamic sitting and standing balance as well as proper use of assistive devices to decrease risk of falls. Abnormality of gait: PT will work to improve safety and efficiency of gait through neuromotor training and gait training along with instruction on proper use of assistive devices. Muscle weakness: PT & OT will work on strengthening exercises to improve functional strength including mixture of closed and open kinetic chain exercises. Debility: PT & OT will work on improving overall functional status to improve participation with ADLs, mobility and social involvement. Fatigue: PT & OT will work on improving endurance through aerobic exercises and therapeutic activity while monitoring patients tolerance for activity and vital signs as needed. DVT ppx: Lovenox Pain: Continue physical modalities in therapy and pain medications as needed to achieve functional pain control. Sleep: Monitor and address as needed. Bowel: Monitor and address as needed. Appetite: Monitor and address as needed. Discharge planning: Pending therapy progress and care plan meeting. Will continue discussion with therapy team, SW, patient and family. Tentative date for discharge is 02/09. DME requirements to be determined. Patient will need / supervision at this point Restrictions/ Precautions: Falls, swallow, severe heart failure, aphasia WB status: FWB Functional Hx: ADLs: Independent Cognition: Independent Mobility: No AD Barriers to Discharge: Decreased mobility and ability to perform self care, balance deficits, weakness Estimated Length of Stay: 1418 days Discharge Destination: Home with family
[2021-01-26] MEDS: INSULIN LISPRO 100 UNIT/ML SUB-Q SCH ×4 (09:38→22:17)
[2021-01-26] MEDS: carvediloL 12.5 MG TAB PO SCH ×2 (09:39→22:16)
[2021-01-26] MEDS: CLOPIDOGREL 75 MG TAB PO SCH (09:39)
[2021-01-26] MEDS: ASPIRIN EC 81 MG TAB PO SCH (09:39)
[2021-01-26] MEDS: ENOXAPARIN 40 MG/0.4 ML INJ SUB-Q SCH (09:39)
[2021-01-26] MEDS: LISINOPRIL 10 MG TAB PO SCH ×2 (09:40→22:17)
[2021-01-26] MEDS: FAMOTIDINE 20 MG TAB PO SCH ×2 (09:40→22:17)
[2021-01-26] MEDS: SERTRALINE 25 MG TAB PO SCH (09:47)
[2021-01-27] MEDS: ENOXAPARIN 40 MG/0.4 ML INJ SUB-Q SCH (08:43)
[2021-01-27] MEDS: CLOPIDOGREL 75 MG TAB PO SCH (08:43)
[2021-01-27] MEDS: carvediloL 12.5 MG TAB PO SCH ×2 (08:43→22:26)
[2021-01-27] MEDS: SERTRALINE 25 MG TAB PO SCH (08:43)
[2021-01-27] MEDS: INSULIN LISPRO 100 UNIT/ML SUB-Q SCH ×4 (08:43→22:42)
[2021-01-27] MEDS: LISINOPRIL 10 MG TAB PO SCH ×2 (08:43→22:27)
[2021-01-27] MEDS: FAMOTIDINE 20 MG TAB PO SCH ×2 (08:43→22:27)
[2021-01-27] MEDS: ASPIRIN EC 81 MG TAB PO SCH (08:43)
[2021-01-27 10:22] LABS: Hemoglobin 11.7 gm/dl (10.1-14.3); Mean Corpuscular HGB Conc 34 % (30-34); Mean Corpuscular Volume 94 fl (79-97); Platelet Count 195 K/mm3 (140-440); Red Cell Distribution Width 13.6 % (13.2-15.2)
[2021-01-27 10:47] LABS: Blood Urea Nitrogen 9 mg/dL (7-17); Calcium 8.9 mg/dL (8.4-10.2); Hemolysis Index 0
[2021-01-27 11:20] LABS: BUN/Creatinine Ratio 13
--- NOTE | 2021-01-27 14:27 | Progress Note ---
Subjective Date of service: 01/27/21 Principal diagnosis: CVA Interval history: 60-year-old female who presented to the hospital on 01/12/2021 with left-sided facial droop and slurred speech. Patient apparently was found by her daughter on the floor and had a laceration to the left temporal area. Head CT showed a right MCA infarct with no evidence of hemorrhagic transformation. Neurology was consulted and recommended continued work-up including MRI echo. Also recommended aspirin and Plavix ongoing. Echocardiogram showed severely dilated left ventricle with severe decrease in systolic function and a left ventricular ejection fraction of 15-20%. Brain MRI showed right MCA infarct involving the right posterior insular cortex and right posterior temporal cortex and right posterior frontal cortex. Remainder of imaging reviewed including head MRA, repeat head CT, head neck CTA. Neurology recommended cardiology consult for consideration of anticoagulation due to severe heart failure. We will place the consult today after seeing the patient and would appreciate their recommendat ions. Patient has been placed on aspirin and Plavix. Discussion was had with treating neurologist yesterday who stated that his preference would be that the patient remain on both of these ongoing unless patient is changed to anticoagulation by cardiology. Initially the patient was confused and had encephalopathy requiring restraints for safety. Prior to admission she had been off of restraints for approximately 48 hours and has improved. She is participating with therapy and making good progress. I have placed her on remote telemetry due to her heart failure and have spoken with therapist and instructed them to notified nursing and telemetry monitoring whenever she is off the floor and in the therapy gym. Patient currently remains on the telemetry unit due to decreased availability of nursing staff and will be moved to the rehab unit as soon as able. Speech therapy saw the patient and recommended a mechanical soft diet with ground meats, this order has been placed as well. Hy pokalemia was treated with replacement. Will monitor closely for need to retreat that. Glucose was fairly well controlled on sliding scale, will monitor the patient for a few days on sliding scale to see if we need to start basal insulin doses. A1c was ordered yesterday after admission to rehab which showed an A1c of 8.8%. This a.m., the patient is tachycardic with an elevated blood pressure. Of note, telemetry was not on the patient, have spoken with nursing and they are arranging to replace monitor on patient. Interval History: Patient is participating in therapy and making reasonable progress. Taking rest breaks as needed. +BM. Denies pain, palpitations, dyspnea, cough, N/V, or joint pain. Telemetry in place. Discussed patient's progress with her daughter. We will continue working with the patient and likely discharge on 02/09 which was also discussed with the daughter. CVA with Left NonDom Hemiparesis: Continue secondary stroke prevention. Monitor the patient for any signs of worsening neurologic function or post stroke depression. Currently not showing signs of either of these, no headache, shoulder-hand syndrome, neurologic bowel or bladder. Continue therapy to improve patient's ability to perform self-care and mobility. 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 Will start Zoloft and monitor for improvement. Dyspnea: Likely resolved, seems to be doing better. Monitor. Hypertension: Home medication was restarted at a lower dose, and blood pressure better since increased dose on 01/20 and will continue to adjust in a stepwise fashion to adjust her blood pressure to goal less than 140/90. Avoid hypotension Diabetes: Continue carb controlled diet and sliding scale insulin. Patient has been admitted in the past for hypoglycemic episodes due to not eating while on basal doses of insulin. We will avoid this currently. Hemoglobin A1c was 8.8 on our check on her admission. Glucose fairly well controlled with sliding scale currently. Heart failure: Appreciate cardiology consult, will continue current management and defer use of anticoagulation. Will have patient follow-up with cardiology as an outpatient for possible event monitoring Aphasia: Patient was not understandable at all during the initial conversation when I had with her this morning. Was not able to follow commands or pick an object out of a series of objects. Dysphagia: Continue speech therapy monitor for further improvement. MBS as needed All records, vitals, labs and medications were reviewed. No other issues per patient, nursing or therapy. Objective - Exam Narrative Exam: MUSCULOSKELETAL SPECIALTY EXAM CONSTITUTIONAL: Well developed, well nourished, appropriately groomed. RIGHT hand dominant. RESPIRATORY: Clear to auscultation bilaterally, no increased work of breathing CARDIOVASCULAR: Regular rate and rhythm, no swelling, edema or tenderness in BUE or BLE. All extremities warm. GI: + bowel sounds, soft, NTTP, nondistended. INTEGUMENTARY: Injury to left mormonism, healing well, otherwise normal, no lesion, rash, masses or bruising noted in extremities. MUSCULOSKELETAL: Some arthritic changes in bilateral hands, otherwise BUE and BLE normal without defect, crepitus, subluxation, effusion, arthritic changes or TTP. R 4+/5 L 3/5 without full range of motion ROM within normal limits on right, decreased on left Tone normal on right, slightly decreased on left without flaccidity NEURO: CN VII : Left facial droop slight Sensation intact in all extremities unable to test extinction. No tremor noted in 4 extremities. Naming and repetition impaired Command following is variable depending on time of day. Likely related to aphasia Aphasia present Dysarthria present now that she is talking more Dysphagia present Neglect appears present POSTURE and GAIT: Sitting posture good. PSYCH: Alert, orientation difficult to check again due to patient's aphasia. Affect appears flattened, not tearful today during exam. Insight appears impaired - Constitutional Vitals: Vital Signs - 12hr 01/27/21 01/27/21 01/27/21 07:09 07:10 10:49 Temperature 97.2 F L 98.3 F Pulse Rate 91 H 83 Respiratory 16 18 Rate Blood Pressure 148/81 107/60 O2 Sat by Pulse 95 96 98 Oximetry - Allied health notes Allied health notes reviewed: nursing, PT, ST, OT FIMS assessment as documented by PT/OT/ST: Grooming Patient cleans teeth/dentures: Yes Patient khalil/brushes hair: Yes Patient washes, rinses and Yes dries face: Patient washes, rinses and Yes dries hands: Patient performs (no make-up/ 4/4 (100%) shaving): Grooming FIM Score 4. Minimal Assistance (Patient = 75% or more. Needs touching.) Social interaction/Memory/Problem solving Memory FIM Score 4. Minimal Assistance (Recognizes and remembers 75-90%.) Problem Solving FIM Score 4. Minimal Assistance (Solves routine problems 75-90%.) Locomotion- walk/wheelchair Ambulation Distance 80 Eating Eating FIM Score 5. Supervision/Set-Up (Needs help w/ containers, cutting meat, etc.) - Labs CBC & Chem 7: 01/27/21 09:14 01/27/21 09:14 Labs: Laboratory Results - last 72 hr 01/24/21 01/24/21 01/25/21 16:42 21:17 07:39 WBC RBC Hgb Hct MCV MCH MCHC RDW Plt Count Sodium Potassium Chloride Carbon Dioxide Anion Gap BUN Creatinine Estimated GFR BUN/Creatinine Ratio Glucose POC Glucose 180 H 227 H 159 H Calcium 01/25/21 01/25/21 01/25/21 11:10 16:13 20:56 WBC RBC Hgb Hct MCV MCH MCHC RDW Plt Count Sodium Potassium Chloride Carbon Dioxide Anion Gap BUN Creatinine Estimated GFR BUN/Creatinine Ratio Glucose POC Glucose 173 H 159 H 117 H Calcium 01/26/21 01/26/21 01/26/21 07:36 11:13 16:19 WBC RBC Hgb Hct MCV MCH MCHC RDW Plt Count Sodium Potassium Chloride Carbon Dioxide Anion Gap BUN Creatinine Estimated GFR BUN/Creatinine Ratio Glucose POC Glucose 178 H 198 H 127 H Calcium 01/26/21 01/27/21 01/27/21 21:57 07:13 09:14 WBC 3.5 L RBC 3.60 L Hgb 11.7 Hct 34.0 MCV 94 MCH 33 H MCHC 34 RDW 13.6 Plt Count 195 Sodium Potassium Chloride Carbon Dioxide Anion Gap BUN Creatinine Estimated GFR BUN/Creatinine Ratio Glucose POC Glucose 142 H 159 H Calcium 01/27/21 01/27/21 09:14 11:48 WBC RBC Hgb Hct MCV MCH MCHC RDW Plt Count Sodium 140 Potassium 3.8 Chloride 104.6 Carbon Dioxide 24 Anion Gap 15 BUN 9 Creatinine 0.7 Estimated GFR > 60 BUN/Creatinine Ratio 13 Glucose 214 H POC Glucose 223 H Calcium 8.9 Assessment and Plan CVA with left nondominant hemiparesis: Continue Secondary Stroke Prevention (A ntithrombotic, Statin (Goal LDL-C <70), BP control (Goal <140/90), GLU control (Goal A1c <7), and lifestyle modification). Monitor for recurrent stroke or post-stroke recrudescence. Continue neuromotor therapy as above. Family training when available. Monitor for post stroke depression, cognitive deficits, seizure, dysphagia, aphasia, shoulder hand syndrome, sensory deficits, spasticity, bowel/bladder deficits, sleep disturbance, vision deficits and DVT. Prognosis for recovery and Secondary Stroke Prevention discussed. Follow up with Neurology. No driving until cleared by Neurologist. Dysphagia: Continue modified diet, speech therapy, swallow precautions. MBS as needed in order to advance patient's diet. Continue therapy to improve patient's ability to safely swallow. Post stroke depression: Start patient on Zoloft and monitor for improvement. Aphasia: Continue speech therapy to improve patient's ability to speak and communicate her needs. Monitor closely for any needs that patient is unable to voice. Dyspnea: Appears resolved. Chest x-ray reviewed. 1 dose of Lasix. Patient doing well off of supplemental oxygen. Monitor for improvement or return. Dysarthria: Becoming more apparent as the patient is starting to talk more. Continue speech therapy and address in order to improve patient's clarity and ability to communicate her needs. Hypertension: Contacted patient's PCP who noted she was previously on amlodipine 5 mg, lisinopril 40 mg, and carvedilol 12.5 mg twice daily. Patient's home medications have been restarted at lower doses, increase as needed for better blood pressure control. Diabetes: Currently on sliding scale insulin. Patient has a history of hospitalization for hypoglycemia. Will monitor her dietary intake and continue to utilize sliding scale before starting basal insulin. A1c 8.8%. Heart Failure: Echocardiogram showed 15-20% LVEF. Appreciate cardiology recommendations PCPs office did not know of any cardiology affiliation with the patient previously. Continue telemetry monitoring. Hyperlipidemia: Continue statin as per secondary stroke prevention. Dose has been increased. ADL dysfunction: OT will work on improving ability to perform ADLs (including assistive devices) to increase independence and decrease caregiver burden and improve functional transfers and mobility training. Difficulty walking: PT will work on gait training and proper use of assistive devices and advance as appropriate to use of stairs and outside ambulation on uneven surfaces. Unsteadiness on feet: PT will work on improving static and dynamic sitting and standing balance as well as proper use of assistive devices to decrease risk of falls. Abnormality of gait: PT will work to improve safety and efficiency of gait through neuromotor training and gait training along with instruction on proper use of assistive devices. Muscle weakness: PT & OT will work on strengthening exercises to improve functional strength including mixture of closed and open kinetic chain exercises. Debility: PT & OT will work on improving overall functional status to improve participation with ADLs, mobility and social involvement. Fatigue: PT & OT will work on improving endurance through aerobic exercises and therapeutic activity while monitoring patients tolerance for activity and vital signs as needed. DVT ppx: Lovenox Pain: Continue physical modalities in therapy and pain medications as needed to achieve functional pain control. Sleep: Monitor and address as needed. Bowel: Monitor and address as needed. Appetite: Monitor and address as needed. Discharge planning: Pending therapy progress and care plan meeting. Will continue discussion with therapy team, SW, patient and family. Tentative date for discharge is 02/09. DME requirements to be determined. Patient will need 20/02 supervision at this point Restrictions/ Precautions: Falls, swallow, severe heart failure, aphasia WB status: FWB Functional Hx: ADLs: Independent Cognition: Independent Mobility: No AD Barriers to Discharge: Decreased mobility and ability to perform self care, balance deficits, weakness Estimated Length of Stay: 1418 days Discharge Destination: Home with family
[2021-01-28] MEDS: SERTRALINE 25 MG TAB PO SCH (08:33)
[2021-01-28] MEDS: CLOPIDOGREL 75 MG TAB PO SCH (08:33)
[2021-01-28] MEDS: INSULIN LISPRO 100 UNIT/ML SUB-Q SCH ×4 (08:33→22:30)
[2021-01-28] MEDS: FAMOTIDINE 20 MG TAB PO SCH ×2 (08:33→22:30)
[2021-01-28] MEDS: ENOXAPARIN 40 MG/0.4 ML INJ SUB-Q SCH (08:33)
[2021-01-28] MEDS: ASPIRIN EC 81 MG TAB PO SCH (08:33)
[2021-01-28] MEDS: carvediloL 12.5 MG TAB PO SCH ×2 (08:33→22:29)
[2021-01-28] MEDS: LISINOPRIL 10 MG TAB PO SCH ×2 (08:33→22:30)
--- NOTE | 2021-01-28 12:47 | Progress Note ---
Assessment and Plan Hx of dilated cardiomyopathy Echo this presentation reports an LVEF 15-20%. Bubble study is negative. Acute CVA with left hemiparesis on plavix and aspirin Hypertension Diabetes Continue remote telemetry monitoring. Continue medical therapy for nonischemic cardiomyopathy. As an outpatient, will recommend a 30 event monitor. Subjective Date of service: 01/28/21 Principal diagnosis: CVA Interval history: Stable sinus rhythm with occasional PVCs on telemetry. No evidence of atrial fibrillation. Objective Vital Signs Temp Pulse Resp BP BP Pulse Ox 01/28/21 11:47 98.7 F 86 18 110/75 99 01/28/21 07:31 97.9 F 79 16 138/66 99 01/28/21 04:15 98.4 F 90 16 145/81 95 01/27/21 23:01 98.0 F 90 16 134/72 96 01/27/21 22:27 90 123/71 01/27/21 22:26 90 123/71 01/27/21 20:36 98.5 F 89 16 117/65 95 01/27/21 20:22 98.5 F 89 16 117/65 95 01/27/21 14:47 98.0 F 82 20 111/72 100 - Physical Examination General: No Apparent Distress HEENT: Positive: PERRL Neck: Positive: trachea midline Cardiac: Positive: Reg Rate and Rhythm Lungs: Positive: Decreased Breath Sounds Neuro: Positive: Other (left hemiparesis) Extremities: Absent: edema
--- NOTE | 2021-01-28 15:16 | Progress Note ---
Subjective Date of service: 01/28/21 Principal diagnosis: CVA Interval history: 60-year-old female who presented to the hospital on 01/12/2021 with left-sided facial droop and slurred speech. Patient apparently was found by her daughter on the floor and had a laceration to the left temporal area. Head CT showed a right MCA infarct with no evidence of hemorrhagic transformation. Neurology was consulted and recommended continued work-up including MRI echo. Also recommended aspirin and Plavix ongoing. Echocardiogram showed severely dilated left ventricle with severe decrease in systolic function and a left ventricular ejection fraction of 15-20%. Brain MRI showed right MCA infarct involving the right posterior insular cortex and right posterior temporal cortex and right posterior frontal cortex. Remainder of imaging reviewed including head MRA, repeat head CT, head neck CTA. Neurology recommended cardiology consult for consideration of anticoagulation due to severe heart failure. We will place the consult today after seeing the patient and would appreciate their recommendat ions. Patient has been placed on aspirin and Plavix. Discussion was had with treating neurologist yesterday who stated that his preference would be that the patient remain on both of these ongoing unless patient is changed to anticoagulation by cardiology. Initially the patient was confused and had encephalopathy requiring restraints for safety. Prior to admission she had been off of restraints for approximately 48 hours and has improved. She is participating with therapy and making good progress. I have placed her on remote telemetry due to her heart failure and have spoken with therapist and instructed them to notified nursing and telemetry monitoring whenever she is off the floor and in the therapy gym. Patient currently remains on the telemetry unit due to decreased availability of nursing staff and will be moved to the rehab unit as soon as able. Speech therapy saw the patient and recommended a mechanical soft diet with ground meats, this order has been placed as well. Hy pokalemia was treated with replacement. Will monitor closely for need to retreat that. Glucose was fairly well controlled on sliding scale, will monitor the patient for a few days on sliding scale to see if we need to start basal insulin doses. A1c was ordered yesterday after admission to rehab which showed an A1c of 8.8%. This a.m., the patient is tachycardic with an elevated blood pressure. Of note, telemetry was not on the patient, have spoken with nursing and they are arranging to replace monitor on patient. Interval History: Patient is participating in therapy and making reasonable progress. Taking rest breaks as needed. +BM. Denies pain, palpitations, dyspnea, cough, N/V, or joint pain. Telemetry in place. No acute events overnight, patient doing fairly well today. We will continue working with the patient and likely discharge on 02/09 which was also discussed with the daughter yesterday. CVA with Left NonDom Hemiparesis: Continue secondary stroke prevention. Monitor the patient for any signs of worsening neurologic function or post stroke depression. Currently not showing signs of either of these, no headache, shoulder-hand syndrome, neurologic bowel or bladder. Continue therapy to improve patient's ability to perform self-care and mobility. 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 Started Zoloft and monitor for improvement. Dyspnea: Likely resolved, seems to be doing better. Monitor. Hypertension: Home medication was restarted at a lower dose, and blood pressure better since increased dose on 01/20 and will continue to adjust in a stepwise fashion to adjust her blood pressure to goal less than 140/90. Avoid hypotension Diabetes: Continue carb controlled diet and sliding scale insulin. Patient has been admitted in the past for hypoglycemic episodes due to not eating while on basal doses of insulin. We will avoid this currently. Hemoglobin A1c was 8.8 on our check on her admission. Glucose fairly well controlled with sliding scale currently. Heart failure: Appreciate cardiology consult, will continue current management and defer use of anticoagulation. Will have patient follow-up with cardiology as an outpatient for possible event monitoring Aphasia: Continue working with speech therapy, patient's difficult to understand and still does not follow commands very well without visual cues. Dysphagia: Continue speech therapy monitor for further improvement. MBS as needed All records, vitals, labs and medications were reviewed. No other issues per patient, nursing or therapy. Objective - Exam Narrative Exam: MUSCULOSKELETAL SPECIALTY EXAM CONSTITUTIONAL: Well developed, well nourished, appropriately groomed. RIGHT hand dominant. RESPIRATORY: Clear to auscultation bilaterally, no increased work of breathing CARDIOVASCULAR: Regular rate and rhythm, no swelling, edema or tenderness in BUE or BLE. All extremities warm. GI: + bowel sounds, soft, NTTP, nondistended. INTEGUMENTARY: Injury to left holiness, healing well, otherwise normal, no lesion, rash, masses or bruising noted in extremities. MUSCULOSKELETAL: Some arthritic changes in bilateral hands, otherwise BUE and BLE normal without defect, crepitus, subluxation, effusion, arthritic changes or TTP. R 4+/5 L 3/5 without full range of motion ROM within normal limits on right, decreased on left Tone normal on right, slightly decreased on left without flaccidity NEURO: CN VII : Left facial droop slight Sensation intact in all extremities unable to test extinction. No tremor noted in 4 extremities. Naming and repetition impaired Command following is variable depending on time of day. Likely related to aphasia Aphasia present Dysarthria present now that she is talking more Dysphagia present Neglect appears present POSTURE and GAIT: Sitting posture good. PSYCH: Alert, orientation difficult to check again due to patient's aphasia. Affect appears flattened, not tearful today during exam. Insight appears impaired - Constitutional Vitals: Vital Signs - 12hr 01/28/21 01/28/21 01/28/21 04:15 07:31 11:47 Temperature 98.4 F 97.9 F 98.7 F Pulse Rate 90 79 86 Respiratory 16 16 18 Rate Blood Pressure 145/81 138/66 110/75 O2 Sat by Pulse 95 99 99 Oximetry - Allied health notes Allied health notes reviewed: nursing, PT, ST, OT FIMS assessment as documented by PT/OT/ST: Grooming Patient cleans teeth/dentures: Yes Patient khalil/brushes hair: Yes Patient washes, rinses and Yes dries face: Patient washes, rinses and Yes dries hands: Patient performs (no make-up/ 4/4 (100%) shaving): Grooming FIM Score 4. Minimal Assistance (Patient = 75% or more. Needs touching.) Social interaction/Memory/Problem solving Memory FIM Score 4. Minimal Assistance (Recognizes and remembers 75-90%.) Problem Solving FIM Score 4. Minimal Assistance (Solves routine problems 75-90%.) Locomotion- walk/wheelchair Ambulation Distance 80 Eating Eating FIM Score 5. Supervision/Set-Up (Needs help w/ containers, cutting meat, etc.) - Labs CBC & Chem 7: 01/27/21 09:14 01/27/21 09:14 Labs: Laboratory Results - last 72 hr 01/25/21 01/25/21 01/26/21 16:13 20:56 07:36 WBC RBC Hgb Hct MCV MCH MCHC RDW Plt Count Sodium Potassium Chloride Carbon Dioxide Anion Gap BUN Creatinine Estimated GFR BUN/Creatinine Ratio Glucose POC Glucose 159 H 117 H 178 H Calcium 01/26/21 01/26/21 01/26/21 11:13 16:19 21:57 WBC RBC Hgb Hct MCV MCH MCHC RDW Plt Count Sodium Potassium Chloride Carbon Dioxide Anion Gap BUN Creatinine Estimated GFR BUN/Creatinine Ratio Glucose POC Glucose 198 H 127 H 142 H Calcium 01/27/21 01/27/21 01/27/21 07:13 09:14 09:14 WBC 3.5 L RBC 3.60 L Hgb 11.7 Hct 34.0 MCV 94 MCH 33 H MCHC 34 RDW 13.6 Plt Count 195 Sodium 140 Potassium 3.8 Chloride 104.6 Carbon Dioxide 24 Anion Gap 15 BUN 9 Creatinine 0.7 Estimated GFR > 60 BUN/Creatinine Ratio 13 Glucose 214 H POC Glucose 159 H Calcium 8.9 01/27/21 01/27/21 01/27/21 11:48 16:07 20:49 WBC RBC Hgb Hct MCV MCH MCHC RDW Plt Count Sodium Potassium Chloride Carbon Dioxide Anion Gap BUN Creatinine Estimated GFR BUN/Creatinine Ratio Glucose POC Glucose 223 H 229 H 162 H Calcium 01/28/21 01/28/21 07:33 11:03 WBC RBC Hgb Hct MCV MCH MCHC RDW Plt Count Sodium Potassium Chloride Carbon Dioxide Anion Gap BUN Creatinine Estimated GFR BUN/Creatinine Ratio Glucose POC Glucose 157 H 210 H Calcium Assessment and Plan CVA with left nondominant hemiparesis: Continue Secondary Stroke Prevention (Antithrombotic, Statin (Goal LDL-C <70), BP control (Goal <140/90), GLU control (Goal A1c <7), and lifestyle modification). Monitor for recurrent stroke or post-stroke recrudescence. Continue neuromotor therapy as above. Family training when available. Monitor for post stroke depression, cognitive deficits, seizure, dysphagia, aphasia, shoulder hand syndrome, sensory deficits, spasticity, bowel/bladder deficits, sleep disturbance, vision deficits and DVT. Prognosis for recovery and Secondary Stroke Prevention discussed. Follow up with Neurology. No driving until cleared by Neurologist. Dysphagia: Continue modified diet, speech therapy, swallow precautions. MBS as needed in order to advance patient's diet. Continue therapy to improve patient's ability to safely swallow. Post stroke depression: Start patient on Zoloft and monitor for improvement. Aphasia: Continue speech therapy to improve patient's ability to speak and communicate her needs. Monitor closely for any needs that patient is unable to voice. Dyspnea: Appears resolved. Chest x-ray reviewed. 1 dose of Lasix. Patient doing well off of supplemental oxygen. Monitor for improvement or return. Dysarthria: Becoming more apparent as the patient is starting to talk more. Continue speech therapy and address in order to improve patient's clarity and ability to communicate her needs. Hypertension: Contacted patient's PCP who noted she was previously on amlodipine 5 mg, lisinopril 40 mg, and carvedilol 12.5 mg twice daily. Patient's home medications have been restarted at lower doses, increase as needed for better blood pressure control. Diabetes: Currently on sliding scale insulin. Patient has a history of hospitalization for hypoglycemia. Will monitor her dietary intake and continue to utilize sliding scale before starting basal insulin. A1c 8.8%. Heart Failure: Echocardiogram showed 15-20% LVEF. Appreciate cardiology recommendations PCPs office did not know of any cardiology affiliation with the patient previously. Continue telemetry monitoring. Hyperlipidemia: Continue statin as per secondary stroke prevention. Dose has been increased. ADL dysfunction: OT will work on improving ability to perform ADLs (including assistive devices) to increase independence and decrease caregiver burden and improve functional transfers and mobility training. Difficulty walking: PT will work on gait training and proper use of assistive devices and advance as appropriate to use of stairs and outside ambulation on uneven surfaces. Unsteadiness on feet: PT will work on improving static and dynamic sitting and standing balance as well as proper use of assistive devices to decrease risk of falls. Abnormality of gait: PT will work to improve safety and efficiency of gait through neuromotor training and gait training along with instruction on proper use of assistive devices. Muscle weakness: PT & OT will work on strengthening exercises to improve functional strength including mixture of closed and open kinetic chain exercises. Debility: PT & OT will work on improving overall functional status to improve participation with ADLs, mobility and social involvement. Fatigue: PT & OT will work on improving endurance through aerobic exercises and therapeutic activity while monitoring patients tolerance for activity and vital signs as needed. DVT ppx: Lovenox Pain: Continue physical modalities in therapy and pain medications as needed to achieve functional pain control. Sleep: Monitor and address as needed. Bowel: Monitor and address as needed. Appetite: Monitor and address as needed. Discharge planning: Pending therapy progress and care plan meeting. Will continue discussion with therapy team, SW, patient and family. Tentative date for discharge is 02/09. DME requirements to be determined. Patient will need 20/02 supervision at this point Restrictions/ Precautions: Falls, swallow, severe heart failure, aphasia WB status: FWB Functional Hx: ADLs: Independent Cognition: Independent Mobility: No AD Barriers to Discharge: Decreased mobility and ability to perform self care, balance deficits, weakness Estimated Length of Stay: 1418 days Discharge Destination: Home with family
--- NOTE | 2021-01-29 07:44 | Progress Note ---
Subjective Date of service: 01/29/21 Principal diagnosis: CVA Interval history: 60-year-old female who presented to the hospital on 01/12/2021 with left-sided facial droop and slurred speech. Patient apparently was found by her daughter on the floor and had a laceration to the left temporal area. Head CT showed a right MCA infarct with no evidence of hemorrhagic transformation. Neurology was consulted and recommended continued work-up including MRI echo. Also recommended aspirin and Plavix ongoing. Echocardiogram showed severely dilated left ventricle with severe decrease in systolic function and a left ventricular ejection fraction of 15-20%. Brain MRI showed right MCA infarct involving the right posterior insular cortex and right posterior temporal cortex and right posterior frontal cortex. Remainder of imaging reviewed including head MRA, repeat head CT, head neck CTA. Neurology recommended cardiology consult for consideration of anticoagulation due to severe heart failure. We will place the consult today after seeing the patient and would appreciate their recommendat ions. Patient has been placed on aspirin and Plavix. Discussion was had with treating neurologist yesterday who stated that his preference would be that the patient remain on both of these ongoing unless patient is changed to anticoagulation by cardiology. Initially the patient was confused and had encephalopathy requiring restraints for safety. Prior to admission she had been off of restraints for approximately 48 hours and has improved. She is participating with therapy and making good progress. I have placed her on remote telemetry due to her heart failure and have spoken with therapist and instructed them to notified nursing and telemetry monitoring whenever she is off the floor and in the therapy gym. Patient currently remains on the telemetry unit due to decreased availability of nursing staff and will be moved to the rehab unit as soon as able. Speech therapy saw the patient and recommended a mechanical soft diet with ground meats, this order has been placed as well. Hy pokalemia was treated with replacement. Will monitor closely for need to retreat that. Glucose was fairly well controlled on sliding scale, will monitor the patient for a few days on sliding scale to see if we need to start basal insulin doses. A1c was ordered yesterday after admission to rehab which showed an A1c of 8.8%. This a.m., the patient is tachycardic with an elevated blood pressure. Of note, telemetry was not on the patient, have spoken with nursing and they are arranging to replace monitor on patient. Interval History: Patient is participating in therapy and making reasonable progress. Taking rest breaks as needed. +BM. Denies pain, palpitations, dyspnea, cough, N/V, or joint pain. Telemetry in place. No acute events overnight, patient doing fairly well today. We will continue working with the patient and likely discharge on 02/09. Initially, her speech was a little better first thing this morning, however shortly after that she became unintelligible again. She continues to have these short bursts of improvements with her speech but unfortunately is not long lived CVA with Left NonDom Hemiparesis: Continue secondary stroke prevention. Monitor the patient for any signs of worsening neurologic function or post stroke depression. Currently not showing signs of either of these, no headache, shoulder-hand syndrome, neurologic bowel or bladder. Continue therapy to improve patient's ability to perform self-care and mobility. 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 Started Zoloft and monitor for improvement. Dyspnea: Likely resolved, seems to be doing better. Monitor. Hypertension: Home medication was restarted at a lower dose, and blood pressure better since increased dose on 01/20 and will continue to adjust in a stepwise fashion to adjust her blood pressure to goal less than 140/90. Avoid hypotension Diabetes: Continue carb controlled diet and sliding scale insulin. Patient has been admitted in the past for hypoglycemic episodes due to not eating while on basal doses of insulin. We will avoid this currently. Hemoglobin A1c was 8.8 on our check on her admission. Glucose fairly well controlled with sliding scale currently. Heart failure: Appreciate cardiology consult, will continue current management and defer use of anticoagulation. Will have patient follow-up with cardiology as an outpatient for possible event monitoring Aphasia: Continue working with speech therapy, patient's difficult to understand and still does not follow commands very well without visual cues. Dysphagia: Continue speech therapy monitor for further improvement. MBS as needed All records, vitals, labs and medications were reviewed. No other issues per patient, nursing or therapy. Objective - Exam Narrative Exam: MUSCULOSKELETAL SPECIALTY EXAM CONSTITUTIONAL: Well developed, well nourished, appropriately groomed. RIGHT hand dominant. RESPIRATORY: Clear to auscultation bilaterally, no increased work of breathing CARDIOVASCULAR: Regular rate and rhythm, no swelling, edema or tenderness in BUE or BLE. All extremities warm. GI: + bowel sounds, soft, NTTP, nondistended. INTEGUMENTARY: Injury to left gnosticism, healing well, otherwise normal, no lesion, rash, masses or bruising noted in extremities. MUSCULOSKELETAL: Some arthritic changes in bilateral hands, otherwise BUE and BLE normal without defect, crepitus, subluxation, effusion, arthritic changes or TTP. R 4+/5 L 3/5 without full range of motion ROM within normal limits on right, decreased on left Tone normal on right, slightly decreased on left without flaccidity NEURO: CN VII : Left facial droop slight Sensation intact in all extremities unable to test extinction. No tremor noted in 4 extremities. Naming and repetition impaired Command following is variable depending on time of day. Likely related to a phasia Aphasia present Dysarthria present now that she is talking more Dysphagia present Neglect appears present POSTURE and GAIT: Sitting posture good. PSYCH: Alert, orientation difficult to check again due to patient's aphasia. Affect appears flattened, not tearful today during exam. Insight appears impaired - Constitutional Vitals: Vital Signs - 12hr 01/28/21 01/28/21 01/28/21 20:31 22:29 22:30 Temperature 98.5 F Pulse Rate 90 95 H 95 H Respiratory 18 Rate Blood Pressure 119/80 140/87 140/87 O2 Sat by Pulse 98 Oximetry 01/29/21 05:12 Temperature 99.1 F Pulse Rate 92 H Respiratory 18 Rate Blood Pressure 138/77 O2 Sat by Pulse 96 Oximetry - Allied health notes Allied health notes reviewed: nursing, PT, ST, OT FIMS assessment as documented by PT/OT/ST: Grooming Patient cleans teeth/dentures: Yes Patient khalil/brushes hair: Yes Patient washes, rinses and Yes dries face: Patient washes, rinses and Yes dries hands: Patient performs (no make-up/ / (100%) shaving): Grooming FIM Score 4. Minimal Assistance (Patient = 75% or more. Needs touching.) Social interaction/Memory/Problem solving Social Interaction FIM Score 3. Moderate Assistance (Interacts appropriately 50-74%.) Memory FIM Score 5. Supervision (Needs cueing <10%, stressful/ unfamiliar situations.) Problem Solving FIM Score 3. Moderate Assistance (Solves routine problems 50-74%.) Locomotion- walk/wheelchair Ambulation Distance 80 Eating Eating FIM Score 5. Supervision/Set-Up (Needs help w/ containers, cutting meat, etc.) - Labs CBC & Chem 7: 01/27/21 09:14 01/27/21 09:14 Labs: Laboratory Results - last 72 hr 01/26/21 01/26/21 01/26/21 11:13 16:19 21:57 WBC RBC Hgb Hct MCV MCH MCHC RDW Plt Count Sodium Potassium Chloride Carbon Dioxide Anion Gap BUN Creatinine Estimated GFR BUN/Creatinine Ratio Glucose POC Glucose 198 H 127 H 142 H Calcium 01/27/21 01/27/21 01/27/21 07:13 09:14 09:14 WBC 3.5 L RBC 3.60 L Hgb 11.7 Hct 34.0 MCV 94 MCH 33 H MCHC 34 RDW 13.6 Plt Count 195 Sodium 140 Potassium 3.8 Chloride 104.6 Carbon Dioxide 24 Anion Gap 15 BUN 9 Creatinine 0.7 Estimated GFR > 60 BUN/Creatinine Ratio 13 Glucose 214 H POC Glucose 159 H Calcium 8.9 01/27/21 01/27/21 01/27/21 11:48 16:07 20:49 WBC RBC Hgb Hct MCV MCH MCHC RDW Plt Count Sodium Potassium Chloride Carbon Dioxide Anion Gap BUN Creatinine Estimated GFR BUN/Creatinine Ratio Glucose POC Glucose 223 H 229 H 162 H Calcium 01/28/21 01/28/21 01/28/21 07:33 11:03 16:12 WBC RBC Hgb Hct MCV MCH MCHC RDW Plt Count Sodium Potassium Chloride Carbon Dioxide Anion Gap BUN Creatinine Estimated GFR BUN/Creatinine Ratio Glucose POC Glucose 157 H 210 H 151 H Calcium 01/28/21 21:36 WBC RBC Hgb Hct MCV MCH MCHC RDW Plt Count Sodium Potassium Chloride Carbon Dioxide Anion Gap BUN Creatinine Estimated GFR BUN/Creatinine Ratio Glucose POC Glucose 111 H Calcium Assessment and Plan CVA with left nondominant hemiparesis: Continue Secondary Stroke Prevention (Antithrombotic, Statin (Goal LDL-C <70), BP control (Goal <140/90), GLU control (Goal A1c <7), and lifestyle modification). Monitor for recurrent stroke or post-stroke recrudescence. Continue neuromotor therapy as above. Family training when available. Monitor for post stroke depression, cognitive deficits, seizure, dysphagia, aphasia, shoulder hand syndrome, sensory deficits, spasticity, bowel/bladder deficits, sleep disturbance, vision deficits and DVT. Prognosis for recovery and Secondary Stroke Prevention discussed. Follow up with Neurology. No driving until cleared by Neurologist. Dysphagia: Continue modified diet, speech therapy, swallow precautions. MBS as needed in order to advance patient's diet. Continue therapy to improve patient's ability to safely swallow. Post stroke depression: Start patient on Zoloft and monitor for improvement. Aphasia: Continue speech therapy to improve patient's ability to speak and communicate her needs. Monitor closely for any needs that patient is unable to voice. Dyspnea: Appears resolved. Chest x-ray reviewed. 1 dose of Lasix. Patient doing well off of supplemental oxygen. Monitor for improvement or return. Dysarthria: Becoming more apparent as the patient is starting to talk more. Continue speech therapy and address in order to improve patient's clarity and ability to communicate her needs. Hypertension: Contacted patient's PCP who noted she was previously on amlodipine 5 mg, lisinopril 40 mg, and carvedilol 12.5 mg twice daily. Patient's home medications have been restarted at lower doses, increase as needed for better blood pressure control. Diabetes: Currently on sliding scale insulin. Patient has a history of hospitalization for hypoglycemia. Will monitor her dietary intake and continue to utilize sliding scale before starting basal insulin. A1c 8.8%. Heart Failure: Echocardiogram showed 15-20% LVEF. Appreciate cardiology recommendations PCPs office did not know of any cardiology affiliation with the patient previously. Continue telemetry monitoring. Hyperlipidemia: Continue statin as per secondary stroke prevention. Dose has been increased. ADL dysfunction: OT will work on improving ability to perform ADLs (including assistive devices) to increase independence and decrease caregiver burden and improve functional transfers and mobility training. Difficulty walking: PT will work on gait training and proper use of assistive devices and advance as appropriate to use of stairs and outside ambulation on uneven surfaces. Unsteadiness on feet: PT will work on improving static and dynamic sitting and standing balance as well as proper use of assistive devices to decrease risk of falls. Abnormality of gait: PT will work to improve safety and efficiency of gait through neuromotor training and gait training along with instruction on proper use of assistive devices. Muscle weakness: PT & OT will work on strengthening exercises to improve functional strength including mixture of closed and open kinetic chain exercises. Debility: PT & OT will work on improving overall functional status to improve participation with ADLs, mobility and social involvement. Fatigue: PT & OT will work on improving endurance through aerobic exercises and therapeutic activity while monitoring patients tolerance for activity and vital signs as needed. DVT ppx: Lovenox Pain: Continue physical modalities in therapy and pain medications as needed to achieve functional pain control. Sleep: Monitor and address as needed. Bowel: Monitor and address as needed. Appetite: Monitor and address as needed. Discharge planning: Pending therapy progress and care plan meeting. Will con tinue discussion with therapy team, SW, patient and family. Tentative date for discharge is 02/09. DME requirements to be determined. Patient will need 20/02 supervision at this point Restrictions/ Precautions: Falls, swallow, severe heart failure, aphasia WB status: FWB Functional Hx: ADLs: Independent Cognition: Independent Mobility: No AD Barriers to Discharge: Decreased mobility and ability to perform self care, balance deficits, weakness Estimated Length of Stay: 1418 days Discharge Destination: Home with family
[2021-01-29] MEDS: ASPIRIN EC 81 MG TAB PO SCH (08:24)
[2021-01-29] MEDS: FAMOTIDINE 20 MG TAB PO SCH ×2 (08:24→22:01)
[2021-01-29] MEDS: SERTRALINE 25 MG TAB PO SCH (08:25)
[2021-01-29] MEDS: carvediloL 12.5 MG TAB PO SCH ×2 (08:25→22:01)
[2021-01-29] MEDS: LISINOPRIL 10 MG TAB PO SCH ×2 (08:25→22:01)
[2021-01-29] MEDS: ENOXAPARIN 40 MG/0.4 ML INJ SUB-Q SCH (08:25)
[2021-01-29] MEDS: CLOPIDOGREL 75 MG TAB PO SCH (08:25)
[2021-01-29] MEDS: INSULIN LISPRO 100 UNIT/ML SUB-Q SCH ×4 (09:18→22:05)
--- NOTE | 2021-01-30 08:29 | Progress Note ---
Subjective Date of service: 01/30/21 Principal diagnosis: CVA Interval history: NO C/O,,,,,,,EATING BREAKFAST Objective Vital Signs Temp Pulse Resp BP Pulse Ox 01/30/21 07:29 98.4 F 77 18 140/66 99 01/30/21 05:33 98.3 F 91 H 18 144/81 94 01/29/21 21:10 99 01/29/21 20:15 98.5 F 84 18 120/67 97 01/29/21 14:55 98.3 F 81 18 117/62 99 01/29/21 11:54 97.0 F L 86 18 113/68 92 - Physical Examination General: No Apparent Distress HEENT: Positive: PERRL Neck: Positive: trachea midline Cardiac: Positive: Reg Rate and Rhythm Lungs: Positive: clear to auscultation Neuro: Positive: Other (left hemiparesis) Abdomen: Positive: Soft Extremities: Absent: edema
[2021-01-30] MEDS: INSULIN LISPRO 100 UNIT/ML SUB-Q SCH ×4 (09:17→23:07)
[2021-01-30] MEDS: ASPIRIN EC 81 MG TAB PO SCH (09:21)
[2021-01-30] MEDS: FAMOTIDINE 20 MG TAB PO SCH ×2 (09:21→22:31)
[2021-01-30] MEDS: carvediloL 12.5 MG TAB PO SCH ×2 (09:21→23:10)
[2021-01-30] MEDS: LISINOPRIL 10 MG TAB PO SCH ×2 (09:22→22:32)
[2021-01-30] MEDS: ENOXAPARIN 40 MG/0.4 ML INJ SUB-Q SCH (09:23)
[2021-01-30] MEDS: CLOPIDOGREL 75 MG TAB PO SCH (09:23)
[2021-01-30] MEDS: SERTRALINE 25 MG TAB PO SCH (09:27)
[2021-01-31] MEDS: INSULIN LISPRO 100 UNIT/ML SUB-Q SCH ×4 (07:59→22:40)
[2021-01-31] MEDS: ENOXAPARIN 40 MG/0.4 ML INJ SUB-Q SCH (08:45)
[2021-01-31] MEDS: LISINOPRIL 10 MG TAB PO SCH ×2 (08:45→22:34)
[2021-01-31] MEDS: SERTRALINE 25 MG TAB PO SCH (08:45)
[2021-01-31] MEDS: ASPIRIN EC 81 MG TAB PO SCH (08:45)
[2021-01-31] MEDS: FAMOTIDINE 20 MG TAB PO SCH ×2 (08:45→22:34)
[2021-01-31] MEDS: carvediloL 12.5 MG TAB PO SCH ×2 (08:45→22:34)
[2021-01-31] MEDS: CLOPIDOGREL 75 MG TAB PO SCH (08:45)
--- NOTE | 2021-01-31 10:21 | Progress Note ---
Subjective Date of service: 01/31/21 Principal diagnosis: CVA Interval history: NO C/O,,,,,,,EATING BREAKFAST Objective Vital Signs Temp Pulse Resp BP Pulse Ox 01/31/21 09:08 98 01/31/21 07:48 98.2 F 92 H 19 142/81 93 01/30/21 19:35 98.4 F 89 18 128/76 97 01/30/21 15:06 97.2 F L 82 16 132/79 100 01/30/21 15:00 96 01/30/21 11:07 98.2 F 86 16 143/78 97 - Physical Examination General: No Apparent Distress HEENT: Positive: PERRL Neck: Positive: trachea midline Cardiac: Positive: Reg Rate and Rhythm Lungs: Positive: clear to auscultation Neuro: Positive: Other (left hemiparesis) Abdomen: Positive: Soft Extremities: Absent: edema
[2021-02-01] MEDS: INSULIN LISPRO 100 UNIT/ML SUB-Q SCH ×4 (07:19→21:58)
[2021-02-01] MEDS: ENOXAPARIN 40 MG/0.4 ML INJ SUB-Q SCH (09:16)
[2021-02-01] MEDS: ASPIRIN EC 81 MG TAB PO SCH (09:19)
[2021-02-01] MEDS: SERTRALINE 25 MG TAB PO SCH (09:19)
[2021-02-01] MEDS: CLOPIDOGREL 75 MG TAB PO SCH (09:22)
[2021-02-01] MEDS: LISINOPRIL 10 MG TAB PO SCH ×2 (09:23→21:42)
[2021-02-01] MEDS: FAMOTIDINE 20 MG TAB PO SCH ×2 (09:23→21:42)
[2021-02-01] MEDS: carvediloL 12.5 MG TAB PO SCH ×2 (09:24→21:42)
--- NOTE | 2021-02-01 10:48 | Progress Note ---
Subjective Date of service: 02/01/21 Principal diagnosis: CVA Interval history: NO C/O,,,,,,,EATING BREAKFAST Objective Vital Signs Temp Pulse Resp BP BP Pulse Ox 02/01/21 07:20 98.3 F 83 18 148/83 100 02/01/21 05:59 98.3 F 86 20 136/74 97 01/31/21 22:34 91 H 134/76 01/31/21 19:43 97.8 F 86 18 130/76 100 01/31/21 16:01 98.3 F 85 18 117/68 97 01/31/21 11:35 98.6 F 78 18 140/75 100 - Physical Examination General: No Apparent Distress HEENT: Positive: PERRL Neck: Positive: trachea midline Cardiac: Positive: Reg Rate and Rhythm Lungs: Positive: clear to auscultation Neuro: Positive: Other (left hemiparesis) Abdomen: Positive: Soft Extremities: Absent: edema
[2021-02-02] MEDS: INSULIN LISPRO 100 UNIT/ML SUB-Q SCH ×4 (08:30→23:40)
[2021-02-02] MEDS: CLOPIDOGREL 75 MG TAB PO SCH (08:32)
[2021-02-02] MEDS: ASPIRIN EC 81 MG TAB PO SCH (08:32)
[2021-02-02] MEDS: LISINOPRIL 10 MG TAB PO SCH ×2 (08:32→21:30)
[2021-02-02] MEDS: ENOXAPARIN 40 MG/0.4 ML INJ SUB-Q SCH (08:32)
[2021-02-02] MEDS: FAMOTIDINE 20 MG TAB PO SCH ×2 (08:32→21:42)
[2021-02-02] MEDS: carvediloL 12.5 MG TAB PO SCH ×2 (08:32→21:30)
[2021-02-02] MEDS: SERTRALINE 25 MG TAB PO SCH (08:33)
--- NOTE | 2021-02-02 09:07 | XRay Report ---
CHEST 2 VIEWS INDICATION: cough and could not breath. COMPARISON: 01/23/2021 FINDINGS: Support devices: None. Heart: Within normal limits. Lungs/pleura: Moderate airspace opacity has developed at the right lung base. The left lung remains g enerally clear. No large pleural effusion or pneumothorax. Additional findings: None. IMPRESSION: New right lower lobe opacity concerning for pneumonia. Signer Name: Flo Bush Jr, MD Signed: 02/02/2021 9:02 AM Workstation Name: [id number]
--- NOTE | 2021-02-02 12:26 | Progress Note ---
Assessment and Plan Hx of dilated cardiomyopathy Echo this presentation reports an LVEF 15-20%. Bubble study is negative. Acute CVA with left hemiparesis on plavix and aspirin Shortness of breath and cough CXR findings suspicious for pneumonia Hypertension Diabetes Continue remote telemetry monitoring. Continue medical therapy for nonischemic cardiomyopathy. As an outpatient, will recommend a 30 event monitor. Subjective Date of service: 02/02/21 Principal diagnosis: CVA Interval history: Stable sinus rhythm with occasional PVCs on telemetry. No evidence of atrial fibrillation. Objective Vital Signs Temp Pulse Resp BP BP Pulse Ox 02/02/21 08:00 18 02/02/21 07:45 97.4 F L 93 H 18 160/92 100 02/02/21 07:15 100 02/02/21 05:06 98.5 F 99 H 20 142/93 95 02/01/21 21:42 100 H 148/76 02/01/21 19:14 98.2 F 16 150/92 02/01/21 15:23 97.9 F 91 H 18 140/83 98 - Physical Examination General: No Apparent Distress HEENT: Positive: PERRL Neck: Positive: trachea midline Cardiac: Positive: Reg Rate and Rhythm Lungs: Positive: Decreased Breath Sounds Neuro: Positive: Other (left hemiparesis) Extremities: Absent: edema
[2021-02-02] MEDS: cefTRIAXone/NS 1 GM/50 ML 1 GM/50 ML BAG IV SCH (14:33)
--- NOTE | 2021-02-02 19:59 | Progress Note ---
Subjective Date of service: 02/02/21 Principal diagnosis: CVA Interval history: 60-year-old female who presented to the hospital on 01/12/2021 with left-sided facial droop and slurred speech. Patient apparently was found by her daughter on the floor and had a laceration to the left temporal area. Head CT showed a right MCA infarct with no evidence of hemorrhagic transformation. Neurology was consulted and recommended continued work-up including MRI echo. Also recommended aspirin and Plavix ongoing. Echocardiogram showed severely dilated left ventricle with severe decrease in systolic function and a left ventricular ejection fraction of 15-20%. Brain MRI showed right MCA infarct involving the right posterior insular cortex and right posterior temporal cortex and right posterior frontal cortex. Remainder of imaging reviewed including head MRA, repeat head CT, head neck CTA. Neurology recommended cardiology consult for consideration of anticoagulation due to severe heart failure. We will place the consult today after seeing the patient and would appreciate their recommendat ions. Patient has been placed on aspirin and Plavix. Discussion was had with treating neurologist yesterday who stated that his preference would be that the patient remain on both of these ongoing unless patient is changed to anticoagulation by cardiology. Initially the patient was confused and had encephalopathy requiring restraints for safety. Prior to admission she had been off of restraints for approximately 48 hours and has improved. She is participating with therapy and making good progress. I have placed her on remote telemetry due to her heart failure and have spoken with therapist and instructed them to notified nursing and telemetry monitoring whenever she is off the floor and in the therapy gym. Patient currently remains on the telemetry unit due to decreased availability of nursing staff and will be moved to the rehab unit as soon as able. Speech therapy saw the patient and recommended a mechanical soft diet with ground meats, this order has been placed as well. Hy pokalemia was treated with replacement. Will monitor closely for need to retreat that. Glucose was fairly well controlled on sliding scale, will monitor the patient for a few days on sliding scale to see if we need to start basal insulin doses. A1c was ordered yesterday after admission to rehab which showed an A1c of 8.8%. This a.m., the patient is tachycardic with an elevated blood pressure. Of note, telemetry was not on the patient, have spoken with nursing and they are arranging to replace monitor on patient. Interval History: Patient is participating in therapy and making reasonable progress. Taking rest breaks as needed. +BM. Denies pain, palpitations, dyspnea, cough, N/V, or joint pain. Telemetry in place. No acute events overnight, patient doing fairly well today. Patient developed a cough and another episode of dyspnea. Chest x-ray was obtained which showed infiltrate, antibiotics have been started. CVA with Left NonDom Hemiparesis: Continue secondary stroke prevention. Monitor the patient for any signs of worsening neurologic function or post stroke depression. Currently not showing signs of either of these, no headache, shoulder-hand syndrome, neurologic bowel or bladder. Continue therapy to improve patient's ability to perform self-care and mobility. 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 Started Zoloft and monitor for improvement. Pneumonia: Chest x-ray reviewed shows a right sided infiltrate. Have started patient on antibiotics. Cough seems improved from what was previously reported, afebrile, no leukocytosis. Monitor for resolution Dyspnea: Patient had another episode of dyspnea which was resolved with 2 L of oxygen via nasal cannula. Seems to be related to anxiety as the patient was requesting to use the nonrebreather mask even though she was stable on her vital signs. Hypertension: Home medication was restarted at a lower dose, and blood pressure better since increased dose on 01/20 and will continue to adjust in a stepwise fashion to adjust her blood pressure to goal less than 140/90. Avoid hypotension Diabetes: Continue carb controlled diet and sliding scale insulin. Patient has been admitted in the past for hypoglycemic episodes due to not eating while on basal doses of insulin. We will avoid this currently. Hemoglobin A1c was 8.8 on our check on her admission. Glucose fairly well controlled with sliding scale currently. Heart failure: Appreciate cardiology consult, will continue current management and defer use of anticoagulation. Will have patient follow-up with cardiology as an outpatient for possible event monitoring Aphasia: Continue working with speech therapy, patient's difficult to understand and still does not follow commands very well without visual cues. Dysphagia: Continue speech therapy monitor for further improvement. MBS as needed All records, vitals, labs and medications were reviewed. No other issues per patient, nursing or therapy. Patient discussed during team conference, progress seems to be variable and she seems to work with some therapist more so than others. At any rate, she still needs supervision and will continue to need that at home. When she is able to dissipate and follow directions she does fairly well but at other times she has poor balance and needs more assistance. Aphasia is not clearing currently. P atient currently being treated for pneumonia, afebrile and no leukocytosis. Objective - Exam Narrative Exam: MUSCULOSKELETAL SPECIALTY EXAM CONSTITUTIONAL: Well developed, well nourished, appropriately groomed. RIGHT hand dominant. RESPIRATORY: Clear to auscultation bilaterally, no increased work of breathing CARDIOVASCULAR: Regular rate and rhythm, no swelling, edema or tenderness in BUE or BLE. All extremities warm. GI: + bowel sounds, soft, NTTP, nondistended. INTEGUMENTARY: Injury to left judaism, healing well, otherwise normal, no lesion, rash, masses or bruising noted in extremities. MUSCULOSKELETAL: Some arthritic changes in bilateral hands, otherwise BUE and BLE normal without defect, crepitus, subluxation, effusion, arthritic changes or TTP. R 4+/5 L 3/5 without full range of motion ROM within normal limits on right, decreased on left Tone normal on right, slightly decreased on left without flaccidity NEURO: CN VII : Left facial droop slight Sensation intact in all extremities unable to test extinction. No tremor noted in 4 extremities. Naming and repetition impaired Command following is variable depending on time of day. Likely related to aphasia Aphasia present Dysarthria present now that she is talking more Dysphagia present Neglect appears present POSTURE and GAIT: Sitting posture good. PSYCH: Alert, orientation difficult to check again due to patient's aphasia. Affect appears flattened, not tearful today during exam. Insight appears impaired - Constitutional Vitals: Vital Signs - 12hr 02/02/21 02/02/21 08:00 13:53 Respiratory 18 Rate O2 Sat by Pulse 98 Oximetry - Allied health notes Allied health notes reviewed: nursing, PT, ST, OT FIMS assessment as documented by PT/OT/ST: Grooming Patient cleans teeth/dentures: Yes Patient khalil/brushes hair: Yes Patient washes, rinses and Yes dries face: Patient washes, rinses and Yes dries hands: Patient performs (no make-up/ 4/4 (100%) shaving): Grooming FIM Score 4. Minimal Assistance (Patient = 75% or more. Needs touching.) Social interaction/Memory/Problem solving Social Interaction FIM Score 4. Minimal Assistance (Interacts appropriately 75-90%.) Memory FIM Score 5. Supervision (Needs cueing <10%, stressful/ unfamiliar situations.) Problem Solving FIM Score 5. Supervision (Needs cueing <10% to solve routine problems.) Locomotion- walk/wheelchair Ambulation Distance 80 Eating Eating FIM Score 5. Supervision/Set-Up (Needs help w/ containers, cutting meat, etc.) - Labs CBC & Chem 7: 01/27/21 09:14 01/27/21 09:14 Labs: Laboratory Results - last 72 hr 01/30/21 01/31/21 01/31/21 22:45 07:47 11:33 POC Glucose 213 H 107 H 219 H 01/31/21 01/31/21 02/01/21 16:00 21:21 07:20 POC Glucose 140 H 171 H 127 H 02/01/21 02/01/21 02/01/21 11:14 16:04 20:33 POC Glucose 192 H 155 H 202 H 02/02/21 02/02/21 02/02/21 08:10 12:43 16:30 POC Glucose 164 H 234 H 141 H - Imaging and cardiology Chest x-ray: report reviewed, image reviewed Assessment and Plan CVA with left nondominant hemiparesis: Continue Secondary Stroke Prevention (A ntithrombotic, Statin (Goal LDL-C <70), BP control (Goal <140/90), GLU control (Goal A1c <7), and lifestyle modification). Monitor for recurrent stroke or post-stroke recrudescence. Continue neuromotor therapy as above. Family training when available. Monitor for post stroke depression, cognitive deficits, seizure, dysphagia, aphasia, shoulder hand syndrome, sensory deficits, spasticity, bowel/bladder deficits, sleep disturbance, vision deficits and DVT. Prognosis for recovery and Secondary Stroke Prevention discussed. Follow up with Neurology. No driving until cleared by Neurologist. Dysphagia: Continue modified diet, speech therapy, swallow precautions. MBS as needed in order to advance patient's diet. Continue therapy to improve patient's ability to safely swallow. Pneumonia: Continue antibiotics, monitor vitals and oxygenation as well as other symptoms. Nebs as needed. Post stroke depression: Start patient on Zoloft and monitor for improvement. Aphasia: Continue speech therapy to improve patient's ability to speak and communicate her needs. Monitor closely for any needs that patient is unable to voice. Dyspnea: Appears resolved. Chest x-ray reviewed. 1 dose of Lasix. Patient doing well off of supplemental oxygen. Monitor for improvement or return. Dysarthria: Becoming more apparent as the patient is starting to talk more. Continue speech therapy and address in order to improve patient's clarity and ability to communicate her needs. Hypertension: Contacted patient's PCP who noted she was previously on amlodipine 5 mg, lisinopril 40 mg, and carvedilol 12.5 mg twice daily. Patient's home medications have been restarted at lower doses, increase as needed for better blood pressure control. Diabetes: Currently on sliding scale insulin. Patient has a history of hospitalization for hypoglycemia. Will monitor her dietary intake and continue to utilize sliding scale before starting basal insulin. A1c 8.8%. Heart Failure: Echocardiogram showed 15-20% LVEF. Appreciate cardiology recommendations PCPs office did not know of any cardiology affiliation with the patient previously. Continue telemetry monitoring. Hyperlipidemia: Continue statin as per secondary stroke prevention. Dose has been increased. ADL dysfunction: OT will work on improving ability to perform ADLs (including assistive devices) to increase independence and decrease caregiver burden and improve functional transfers and mobility training. Difficulty walking: PT will work on gait training and proper use of assistive devices and advance as appropriate to use of stairs and outside ambulation on uneven surfaces. Unsteadiness on feet: PT will work on improving static and dynamic sitting and standing balance as well as proper use of assistive devices to decrease risk of falls. Abnormality of gait: PT will work to improve safety and efficiency of gait through neuromotor training and gait training along with instruction on proper use of assistive devices. Muscle weakness: PT & OT will work on strengthening exercises to improve functional strength including mixture of closed and open kinetic chain exercises. Debility: PT & OT will work on improving overall functional status to improve participation with ADLs, mobility and social involvement. Fatigue: PT & OT will work on improving endurance through aerobic exercises and therapeutic activity while monitoring patients tolerance for activity and vital signs as needed. DVT ppx: Lovenox Pain: Continue physical modalities in therapy and pain medications as needed to achieve functional pain control. Sleep: Monitor and address as needed. Bowel: Monitor and address as needed. Appetite: Monitor and address as needed. Discharge planning: Pending therapy progress and care plan meeting. Will continue discussion with therapy team, SW, patient and family. Tentative date for discharge is 02/09. DME requirements to be determined. Patient will need 20/02 supervision at this point, may discharge sooner if patient is actually having more improvement than what we are seeing. Restrictions/ Precautions: Falls, swallow, severe heart failure, aphasia WB status: FWB Functional Hx: ADLs: Independent Cognition: Independent Mobility: No AD Barriers to Discharge: Decreased mobility and ability to perform self care, balance deficits, weakness Estimated Length of Stay: 1418 days Discharge Destination: Home with family
[2021-02-02] MEDS: ACETAMINOPHEN 325 MG TAB PO PRN (21:30)
--- NOTE | 2021-02-03 07:28 | Progress Note ---
Subjective Date of service: 02/03/21 Principal diagnosis: CVA Interval history: 60-year-old female who presented to the hospital on 01/12/2021 with left-sided facial droop and slurred speech. Patient apparently was found by her daughter on the floor and had a laceration to the left temporal area. Head CT showed a right MCA infarct with no evidence of hemorrhagic transformation. Neurology was consulted and recommended continued work-up including MRI echo. Also recommended aspirin and Plavix ongoing. Echocardiogram showed severely dilated left ventricle with severe decrease in systolic function and a left ventricular ejection fraction of 15-20%. Brain MRI showed right MCA infarct involving the right posterior insular cortex and right posterior temporal cortex and right posterior frontal cortex. Remainder of imaging reviewed including head MRA, repeat head CT, head neck CTA. Neurology recommended cardiology consult for consideration of anticoagulation due to severe heart failure. We will place the consult today after seeing the patient and would appreciate their recommendat ions. Patient has been placed on aspirin and Plavix. Discussion was had with treating neurologist yesterday who stated that his preference would be that the patient remain on both of these ongoing unless patient is changed to anticoagulation by cardiology. Initially the patient was confused and had encephalopathy requiring restraints for safety. Prior to admission she had been off of restraints for approximately 48 hours and has improved. She is participating with therapy and making good progress. I have placed her on remote telemetry due to her heart failure and have spoken with therapist and instructed them to notified nursing and telemetry monitoring whenever she is off the floor and in the therapy gym. Patient currently remains on the telemetry unit due to decreased availability of nursing staff and will be moved to the rehab unit as soon as able. Speech therapy saw the patient and recommended a mechanical soft diet with ground meats, this order has been placed as well. Hy pokalemia was treated with replacement. Will monitor closely for need to retreat that. Glucose was fairly well controlled on sliding scale, will monitor the patient for a few days on sliding scale to see if we need to start basal insulin doses. A1c was ordered yesterday after admission to rehab which showed an A1c of 8.8%. This a.m., the patient is tachycardic with an elevated blood pressure. Of note, telemetry was not on the patient, have spoken with nursing and they are arranging to replace monitor on patient. Interval History: Patient is participating in therapy and making reasonable progress. Taking rest breaks as needed. +BM. Denies pain, palpitations, dyspnea, cough, N/V, or joint pain. Telemetry in place. No acute events overnight, patient doing fairly well today. CVA with Left NonDom Hemiparesis: Continue secondary stroke prevention. Monitor the patient for any signs of worsening neurologic function or post stroke depression. Currently not showing signs of either of these, no headache, shoulder-hand syndrome, neurologic bowel or bladder. Continue therapy to improve patient's ability to perform self-care and mobility. 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 Started Zoloft and monitor for improvement. Pneumonia: Chest x-ray reviewed shows a right sided infiltrate. Have started patient on antibiotics. Cough seems improved from what was previously reported, afebrile, no leukocytosis. Monitor for resolution. No cough today on exam Dyspnea: Patient had another episode of dyspnea which was resolved with 2 L of oxygen via nasal cannula. Seems to be related to anxiety as the patient was requesting to use the nonrebreather mask even though she was stable on her vital signs. Hypertension: Home medication was restarted at a lower dose, and blood pressure better since increased dose on 01/20 and will continue to adjust in a stepwise fashion to adjust her blood pressure to goal less than 140/90. Avoid hypote nsion Diabetes: Continue carb controlled diet and sliding scale insulin. Patient has been admitted in the past for hypoglycemic episodes due to not eating while on basal doses of insulin. We will avoid this currently. Hemoglobin A1c was 8.8 on our check on her admission. Glucose fairly well controlled with sliding scale currently. Heart failure: Appreciate cardiology consult, will continue current management and defer use of anticoagulation. Will have patient follow-up with cardiology as an outpatient for possible event monitoring Aphasia: Continue working with speech therapy, patient's difficult to understand and still does not follow commands very well without visual cues. Dysphagia: Continue speech therapy monitor for further improvement. MBS as needed All records, vitals, labs and medications were reviewed. No other issues per patient, nursing or therapy. Objective - Exam Narrative Exam: MUSCULOSKELETAL SPECIALTY EXAM CONSTITUTIONAL: Well developed, well nourished, appropriately groomed. RIGHT hand dominant. RESPIRATORY: Clear to auscultation bilaterally, no increased work of breathing CARDIOVASCULAR: Regular rate and rhythm, no swelling, edema or tenderness in BUE or BLE. All extremities warm. GI: + bowel sounds, soft, NTTP, nondistended. INTEGUMENTARY: Injury to left taoism, healing well, otherwise normal, no lesion, rash, masses or bruising noted in extremities. MUSCULOSKELETAL: Some arthritic changes in bilateral hands, otherwise BUE and BLE normal without defect, crepitus, subluxation, effusion, arthritic changes or TTP. R 4+/5 L 3/5 without full range of motion ROM within normal limits on right, decreased on left Tone normal on right, slightly decreased on left without flaccidity NEURO: CN VII : Left facial droop slight Sensation intact in all extremities unable to test extinction. No tremor noted in 4 extremities. Naming and repetition impaired Command following is variable depending on time of day. Likely related to aphasia Aphasia present Dysarthria present now that she is talking more Dysphagia present Neglect appears present POSTURE and GAIT: Sitting posture good. PSYCH: Alert, orientation difficult to check again due to patient's aphasia. Affect appears flattened, not tearful today during exam. Insight appears impaired - Constitutional Vitals: Vital Signs - 12hr 02/02/21 19:55 Temperature 98.4 F Pulse Rate 97 H Respiratory 18 Rate Blood Pressure 145/79 O2 Sat by Pulse 94 Oximetry - Allied health notes Allied health notes reviewed: nursing, PT, ST, OT FIMS assessment as documented by PT/OT/ST: Grooming Patient cleans teeth/dentures: Yes Patient khalil/brushes hair: Yes Patient washes, rinses and Yes dries face: Patient washes, rinses and Yes dries hands: Patient performs (no make-up/ 4/4 (100%) shaving): Grooming FIM Score 4. Minimal Assistance (Patient = 75% or more. Needs touching.) Social interaction/Memory/Problem solving Social Interaction FIM Score 4. Minimal Assistance (Interacts appropriately 75-90%.) Memory FIM Score 5. Supervision (Needs cueing <10%, stressful/ unfamiliar situations.) Problem Solving FIM Score 5. Supervision (Needs cueing <10% to solve routine problems.) Locomotion- walk/wheelchair Ambulation Distance 80 Eating Eating FIM Score 5. Supervision/Set-Up (Needs help w/ containers, cutting meat, etc.) - Labs CBC & Chem 7: 02/03/21 07:05 02/03/21 07:05 Labs: Laboratory Results - last 72 hr 01/31/21 01/31/21 01/31/21 07:47 11:33 16:00 POC Glucose 107 H 219 H 140 H 01/31/21 02/01/21 02/01/21 21:21 07:20 11:14 POC Glucose 171 H 127 H 192 H 02/01/21 02/01/21 02/02/21 16:04 20:33 08:10 POC Glucose 155 H 202 H 164 H 02/02/21 02/02/21 02/02/21 12:43 16:30 22:48 POC Glucose 234 H 141 H 184 H Assessment and Plan CVA with left nondominant hemiparesis: Continue Secondary Stroke Prevention (Antithrombotic, Statin (Goal LDL-C <70), BP control (Goal <140/90), GLU control (Goal A1c <7), and lifestyle modification). Monitor for recurrent stroke or post-stroke recrudescence. Continue neuromotor therapy as above. Family training when available. Monitor for post stroke depression, cognitive deficits, seizure, dysphagia, aphasia, shoulder hand syndrome, sensory deficits, spasticity, bowel/bladder deficits, sleep disturbance, vision deficits and DVT. Prognosis for recovery and Secondary Stroke Prevention discussed. Follow up with Neurology. No driving until cleared by Neurologist. Dysphagia: Continue modified diet, speech therapy, swallow precautions. MBS as needed in order to advance patient's diet. Continue therapy to improve patient's ability to safely swallow. Pneumonia: Continue antibiotics, monitor vitals and oxygenation as well as other symptoms. Nebs as needed. Post stroke depression: Start patient on Zoloft and monitor for improvement. Aphasia: Continue speech therapy to improve patient's ability to speak and co mmunicate her needs. Monitor closely for any needs that patient is unable to voice. Dyspnea: Appears resolved. Chest x-ray reviewed. 1 dose of Lasix. Patient doing well off of supplemental oxygen. Monitor for improvement or return. Dysarthria: Becoming more apparent as the patient is starting to talk more. Continue speech therapy and address in order to improve patient's clarity and ability to communicate her needs. Hypertension: Contacted patient's PCP who noted she was previously on amlodipine 5 mg, lisinopril 40 mg, and carvedilol 12.5 mg twice daily. Patient's home medications have been restarted at lower doses, increase as needed for better blood pressure control. Diabetes: Currently on sliding scale insulin. Patient has a history of hospitalization for hypoglycemia. Will monitor her dietary intake and continue to utilize sliding scale before starting basal insulin. A1c 8.8%. Heart Failure: Echocardiogram showed 15-20% LVEF. Appreciate cardiology recommendations PCPs office did not know of any cardiology affiliation with the patient previously. Continue telemetry monitoring. Hyperlipidemia: Continue statin as per secondary stroke prevention. Dose has been increased. ADL dysfunction: OT will work on improving ability to perform ADLs (including assistive devices) to increase independence and decrease caregiver burden and improve functional transfers and mobility training. Difficulty walking: PT will work on gait training and proper use of assistive devices and advance as appropriate to use of stairs and outside ambulation on uneven surfaces. Unsteadiness on feet: PT will work on improving static and dynamic sitting and standing balance as well as proper use of assistive devices to decrease risk of falls. Abnormality of gait: PT will work to improve safety and efficiency of gait through neuromotor training and gait training along with instruction on proper use of assistive devices. Muscle weakness: PT & OT will work on strengthening exercises to improve functional strength including mixture of closed and open kinetic chain exercises. Debility: PT & OT will work on improving overall functional status to improve participation with ADLs, mobility and social involvement. Fatigue: PT & OT will work on improving endurance through aerobic exercises and therapeutic activity while monitoring patients tolerance for activity and vital signs as needed. DVT ppx: Lovenox Pain: Continue physical modalities in therapy and pain medications as needed to achieve functional pain control. Sleep: Monitor and address as needed. Bowel: Monitor and address as needed. Appetite: Monitor and address as needed. Discharge planning: Pending therapy progress and care plan meeting. Will continue discussion with therapy team, SW, patient and family. Tentative date for discharge is 02/09. DME requirements to be determined. Patient will need / supervision at this point, may discharge sooner if patient is actually having more improvement than what we are seeing. Restrictions/ Precautions: Falls, swallow, severe heart failure, aphasia WB status: FWB Functional Hx: ADLs: Independent Cognition: Independent Mobility: No AD Barriers to Discharge: Decreased mobility and ability to perform self care, balance deficits, weakness Estimated Length of Stay: 1418 days Discharge Destination: Home with family
[2021-02-03 07:33] LABS: Hematocrit 31.5 % (30.3-42.9); Mean Corpuscular HGB Conc 35 % (30-34); Mean Corpuscular Volume 94 fl (79-97); Platelet Count 210 K/mm3 (140-440); Red Blood Count 3.34 M/mm3 (3.65-5.03); Red Cell Distribution Width 13.8 % (13.2-15.2)
[2021-02-03] MEDS: INSULIN LISPRO 100 UNIT/ML SUB-Q SCH ×5 (08:25→22:28)
[2021-02-03 08:34] LABS: Blood Urea Nitrogen 6 mg/dL (7-17); Hemolysis Index 46
[2021-02-03] MEDS: CLOPIDOGREL 75 MG TAB PO SCH (08:34)
[2021-02-03] MEDS: carvediloL 12.5 MG TAB PO SCH ×2 (08:34→22:27)
[2021-02-03] MEDS: ASPIRIN EC 81 MG TAB PO SCH (08:34)
[2021-02-03] MEDS: FAMOTIDINE 20 MG TAB PO SCH ×2 (08:34→22:27)
[2021-02-03] MEDS: SERTRALINE 25 MG TAB PO SCH (08:34)
[2021-02-03] MEDS: LISINOPRIL 10 MG TAB PO SCH ×2 (08:34→22:27)
[2021-02-03] MEDS: ENOXAPARIN 40 MG/0.4 ML INJ SUB-Q SCH (08:34)
[2021-02-03 08:47] LABS: BUN/Creatinine Ratio 9
--- NOTE | 2021-02-03 09:22 | Progress Note ---
Assessment and Plan Hx of dilated cardiomyopathy Echo this presentation reports an LVEF 15-20%. Bubble study is negative. Acute CVA with left hemiparesis on plavix and aspirin Shortness of breath and cough CXR findings suspicious for pneumonia Hypertension Diabetes Continue remote telemetry monitoring. Continue medical therapy for nonischemic cardiomyopathy. As an outpatient, will recommend a 30 event monitor. Subjective Date of service: 02/03/21 Principal diagnosis: CVA Interval history: Patient is resting in bed comfortably. Stable sinus rhythm with occasional PVCs on telemetry. No evidence of atrial fibrillation. Objective Vital Signs Temp Pulse Resp BP Pulse Ox 02/02/21 19:55 98.4 F 97 H 18 145/79 94 02/02/21 17:33 98.7 F 20 126/79 02/02/21 16:28 97.6 F 88 16 121/65 97 02/02/21 13:53 98 02/02/21 12:09 97.3 F L 54 L 16 143/74 100 - Physical Examination General: No Apparent Distress HEENT: Positive: PERRL Neck: Positive: trachea midline Cardiac: Positive: Reg Rate and Rhythm Lungs: Positive: Decreased Breath Sounds Neuro: Positive: Other (left hemiparesis) Abdomen: Positive: Soft Extremities: Absent: edema - Labs and Meds CBC 02/03/21 Range/Units 07:05 WBC 3.8 L (4.5-11.0) K/mm3 RBC 3.34 L (3.65-5.03) M/mm3 Hgb 11.0 (10.1-14.3) gm/dl Hct 31.5 (30.3-42.9) % Plt Count 210 (140-440) K/mm3 Comprehensive Metabolic Panel 02/03/21 Range/Units 07:05 Sodium 140 (137-145) mmol/L Potassium 3.4 L (3.6-5.0) mmol/L Chloride 104.7 (98-107) mmol/L Carbon Dioxide 24 (22-30) mmol/L BUN 6 L (7-17) mg/dL Creatinine 0.7 (0.6-1.2) mg/dL Glucose 139 H (65-100) mg/dL Calcium 9.0 (8.4-10.2) mg/dL
[2021-02-03] MEDS: cefTRIAXone/NS 1 GM/50 ML 1 GM/50 ML BAG IV SCH (15:02)
[2021-02-03] MEDS: ACETAMINOPHEN 325 MG TAB PO PRN (22:28)
[2021-02-04] MEDS: LISINOPRIL 10 MG TAB PO SCH ×2 (08:25→22:13)
[2021-02-04] MEDS: ASPIRIN EC 81 MG TAB PO SCH (08:26)
[2021-02-04] MEDS: CLOPIDOGREL 75 MG TAB PO SCH (08:26)
[2021-02-04] MEDS: ENOXAPARIN 40 MG/0.4 ML INJ SUB-Q SCH (08:26)
[2021-02-04] MEDS: FAMOTIDINE 20 MG TAB PO SCH ×2 (08:27→21:43)
[2021-02-04] MEDS: SERTRALINE 25 MG TAB PO SCH (08:27)
[2021-02-04] MEDS: carvediloL 12.5 MG TAB PO SCH ×2 (08:30→21:43)
[2021-02-04] MEDS: INSULIN LISPRO 100 UNIT/ML SUB-Q SCH ×4 (08:33→22:16)
--- NOTE | 2021-02-04 09:26 | Progress Note ---
Assessment and Plan Hx of dilated cardiomyopathy Echo this presentation reports an LVEF 15-20%. Bubble study is negative. Acute CVA with left hemiparesis on plavix and aspirin Shortness of breath and cough CXR findings suspicious for pneumonia Hypertension Diabetes Continue remote telemetry monitoring. Continue medical therapy for nonischemic cardiomyopathy. Otherwise, conservative cardiac management. As an outpatient, will recommend a 30 event monitor. Subjective Date of service: 02/04/21 Principal diagnosis: CVA Interval history: Patient is undergoing physical therapy. No distress noted. No evidence of atrial fibrillation seen on telemetry thus far. Objective Vital Signs Temp Pulse Resp BP BP Pulse Ox 02/04/21 08:25 95 H 167/89 02/04/21 07:49 98.2 F 95 H 18 167/89 94 02/04/21 06:29 95 02/04/21 06:26 98.3 F 18 147/81 02/03/21 20:04 98.1 F 99 H 18 146/91 94 02/03/21 12:44 98 F 87 18 131/80 02/03/21 10:00 97 - Physical Examination General: No Apparent Distress HEENT: Positive: PERRL Neck: Positive: trachea midline Cardiac: Positive: Reg Rate and Rhythm Neuro: Positive: Other (left hemiparesis) Extremities: Absent: edema
--- NOTE | 2021-02-04 09:42 | Progress Note ---
Subjective Date of service: 02/04/21 Principal diagnosis: CVA Interval history: 60-year-old female who presented to the hospital on 01/12/2021 with left-sided facial droop and slurred speech. Patient apparently was found by her daughter on the floor and had a laceration to the left temporal area. Head CT showed a right MCA infarct with no evidence of hemorrhagic transformation. Neurology was consulted and recommended continued work-up including MRI echo. Also recommended aspirin and Plavix ongoing. Echocardiogram showed severely dilated left ventricle with severe decrease in systolic function and a left ventricular ejection fraction of 15-20%. Brain MRI showed right MCA infarct involving the right posterior insular cortex and right posterior temporal cortex and right posterior frontal cortex. Remainder of imaging reviewed including head MRA, repeat head CT, head neck CTA. Neurology recommended cardiology consult for consideration of anticoagulation due to severe heart failure. We will place the consult today after seeing the patient and would appreciate their recommendat ions. Patient has been placed on aspirin and Plavix. Discussion was had with treating neurologist yesterday who stated that his preference would be that the patient remain on both of these ongoing unless patient is changed to anticoagulation by cardiology. Initially the patient was confused and had encephalopathy requiring restraints for safety. Prior to admission she had been off of restraints for approximately 48 hours and has improved. She is participating with therapy and making good progress. I have placed her on remote telemetry due to her heart failure and have spoken with therapist and instructed them to notified nursing and telemetry monitoring whenever she is off the floor and in the therapy gym. Patient currently remains on the telemetry unit due to decreased availability of nursing staff and will be moved to the rehab unit as soon as able. Speech therapy saw the patient and recommended a mechanical soft diet with ground meats, this order has been placed as well. Hy pokalemia was treated with replacement. Will monitor closely for need to retreat that. Glucose was fairly well controlled on sliding scale, will monitor the patient for a few days on sliding scale to see if we need to start basal insulin doses. A1c was ordered yesterday after admission to rehab which showed an A1c of 8.8%. This a.m., the patient is tachycardic with an elevated blood pressure. Of note, telemetry was not on the patient, have spoken with nursing and they are arranging to replace monitor on patient. Interval History: Patient is participating in therapy and making reasonable progress. Taking rest breaks as needed. +BM. Denies pain, palpitations, dyspnea, cough, N/V, or joint pain. Telemetry in place. No acute events overnight. CVA with Left NonDom Hemiparesis: Continue secondary stroke prevention. Monitor the patient for any signs of worsening neurologic function or post stroke depression. Currently not showing signs of either of these, no headache, should er-hand syndrome, neurologic bowel or bladder. Continue therapy to improve patient's ability to perform self-care and mobility. 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 Started Zoloft and monitor for improvement. Pneumonia: Chest x-ray reviewed shows a right sided infiltrate. Have started patient on antibiotics. Cough seems improved from what was previously reported, afebrile, no leukocytosis. Monitor for resolution. Start duo nebs for short course x3 days. Possible that this may be aspiration related however we have not seen any aspiration leading up to the pneumonia. Have discussed with speech therapy and they may consider performing MBS in order to rule out silent aspiration. If we see any evidence that is concerning for aspiration, will adj ust antibiotics accordingly. Dyspnea: Patient had another episode of dyspnea which was resolved with 2 L of oxygen via nasal cannula. Seems to be related to anxiety as the patient was requesting to use the nonrebreather mask even though she was stable on her vital signs. Hypertension: Home medication was restarted at a lower dose, and blood pressure better since increased dose on 01/20 and will continue to adjust in a stepwise fashion to adjust her blood pressure to goal less than 140/90. Avoid hypotension Diabetes: Continue carb controlled diet and sliding scale insulin. Patient has been admitted in the past for hypoglycemic episodes due to not eating while on basal doses of insulin. We will avoid this currently. Hemoglobin A1c was 8.8 on our check on her admission. Glucose fairly well controlled with sliding scale currently. Heart failure: Appreciate cardiology consult, will continue current management and defer use of anticoagulation. Will have patient follow-up with cardiology as an outpatient for possible event monitoring Aphasia: Continue working with speech therapy, patient's difficult to understand and still does not follow commands very well without visual cues. Intermittently able to have conversations that are meaningful and understandable however has difficulty following any oral directions and amount of time that she is able to engage in conversation is limited. Dysphagia: Continue speech therapy monitor for further improvement. MBS as needed All records, vitals, labs and medications were reviewed. No other issues per patient, nursing or therapy. Objective - Exam Narrative Exam: MUSCULOSKELETAL SPECIALTY EXAM CONSTITUTIONAL: Well developed, well nourished, appropriately groomed. RIGHT hand dominant. RESPIRATORY: Clear to auscultation on the left, coarse breath sounds on the right lower lobe, no increased work of breathing CARDIOVASCULAR: Regular rate and rhythm, no swelling, edema or tenderness in BUE or BLE. All extremities warm. GI: + bowel sounds, soft, NTTP, nondistended. INTEGUMENTARY: Injury to left pentecostal healed, otherwise normal, no lesion, rash, masses or bruising noted in extremities. MUSCULOSKELETAL: Some arthritic changes in bilateral hands, otherwise BUE and BLE normal without defect, crepitus, subluxation, effusion, arthritic changes or TTP. R 4+/5 L 3/5 without full range of motion ROM within normal limits on right, decreased on left Tone normal on right, slightly decreased on left without flaccidity NEURO: CN VII : Left facial droop slight Sensation intact in all extremities unable to test extinction. No tremor noted in 4 extremities. Naming and repetition impaired Command following is variable depending on time of day. Likely related to aphasia and some likely apraxia Aphasia present Dysarthria present now that she is talking more Dysphagia present Neglect appears present POSTURE and GAIT: Sitting posture good. PSYCH: Alert, orientation difficult to check again due to patient's aphasia. Affect appears flattened, not tearful today during exam. Insight appears impaired - Constitutional Vitals: Vital Signs - 12hr 02/04/21 02/04/21 02/04/21 06:26 06:29 07:49 Temperature 98.3 F 98.2 F Pulse Rate 95 H Respiratory 18 18 Rate Blood Pressure 147/81 167/89 O2 Sat by Pulse 95 94 Oximetry 02/04/21 08:25 Temperature Pulse Rate 95 H Respiratory Rate Blood Pressure 167/89 O2 Sat by Pulse Oximetry - Allied health notes Allied health notes reviewed: nursing, PT, ST, OT FIMS assessment as documented by PT/OT/ST: Grooming Patient cleans teeth/dentures: Yes Patient khalil/brushes hair: Yes Patient washes, rinses and Yes dries face: Patient washes, rinses and Yes dries hands: Patient performs (no make-up/ 4/4 (100%) shaving): Grooming FIM Score 4. Minimal Assistance (Patient = 75% or more. Needs touching.) Social interaction/Memory/Problem solving Social Interaction FIM Score 4. Minimal Assistance (Interacts appropriately 75-90%.) Memory FIM Score 6. Modified [place](Mild difficulty remembering people/routines.) Problem Solving FIM Score 5. Supervision (Needs cueing <10% to solve routine problems.) Locomotion- walk/wheelchair Ambulation Distance 80 Eating Eating Device Adapted Utensil Eating FIM Score 5. Supervision/Set-Up (Needs help w/ containers, cutting meat, etc.) - Labs CBC & Chem 7: 02/03/21 07:05 02/03/21 07:05 Labs: Laboratory Results - last 72 hr 02/01/21 02/01/21 02/01/21 11:14 16:04 20:33 WBC RBC Hgb Hct MCV MCH MCHC RDW Plt Count Sodium Potassium Chloride Carbon Dioxide Anion Gap BUN Creatinine Estimated GFR BUN/Creatinine Ratio Glucose POC Glucose 192 H 155 H 202 H Calcium 02/02/21 02/02/21 02/02/21 08:10 12:43 16:30 WBC RBC Hgb Hct MCV MCH MCHC RDW Plt Count Sodium Potassium Chloride Carbon Dioxide Anion Gap BUN Creatinine Estimated GFR BUN/Creatinine Ratio Glucose POC Glucose 164 H 234 H 141 H Calcium 02/02/21 02/03/21 02/03/21 22:48 07:05 07:05 WBC 3.8 L RBC 3.34 L Hgb 11.0 Hct 31.5 MCV 94 MCH 33 H MCHC 35 H RDW 13.8 Plt Count 210 Sodium 140 Potassium 3.4 L Chloride 104.7 Carbon Dioxide 24 Anion Gap 15 BUN 6 L Creatinine 0.7 Estimated GFR > 60 BUN/Creatinine Ratio 9 Glucose 139 H POC Glucose 184 H Calcium 9.0 02/03/21 02/03/21 02/03/21 08:20 11:18 16:25 WBC RBC Hgb Hct MCV MCH MCHC RDW Plt Count Sodium Potassium Chloride Carbon Dioxide Anion Gap BUN Creatinine Estimated GFR BUN/Creatinine Ratio Glucose POC Glucose 138 H 159 H 152 H Calcium 02/03/21 02/04/21 21:01 07:50 WBC RBC Hgb Hct MCV MCH MCHC RDW Plt Count Sodium Potassium Chloride Carbon Dioxide Anion Gap BUN Creatinine Estimated GFR BUN/Creatinine Ratio Glucose POC Glucose 132 H 146 H Calcium Assessment and Plan CVA with left nondominant hemiparesis: Continue Secondary Stroke Prevention (Antithrombotic, Statin (Goal LDL-C <70), BP control (Goal <140/90), GLU control (Goal A1c <7), and lifestyle modification). Monitor for recurrent stroke or post-stroke recrudescence. Continue neuromotor therapy as above. Family training when available. Monitor for post stroke depression, cognitive deficits, seizure, dysphagia, aphasia, shoulder hand syndrome, sensory deficits, spasticity, bowel/bladder deficits, sleep disturbance, vision deficits and DVT. Prognosis for recovery and Secondary Stroke Prevention discussed. Follow up with Neurology. No driving until cleared by Neurologist. Dysphagia: Continue modified diet, speech therapy, swallow precautions. MBS as needed in order to advance patient's diet. Continue therapy to improve patient's ability to safely swallow. Pneumonia: Continue antibiotics, monitor vitals and oxygenation as well as other symptoms. Nebs scheduled for 3 days. Post stroke depression: Start patient on Zoloft and monitor for improvement. Aphasia: Continue speech therapy to improve patient's ability to speak and communicate her needs. Monitor closely for any needs that patient is unable to voice. Dyspnea: Appears resolved. Possibly anxiety induced. Dysarthria: Becoming more apparent as the patient is starting to talk more. Continue speech therapy and address in order to improve patient's clarity and ability to communicate her needs. Hypertension: Contacted patient's PCP who noted she was previously on amlodipine 5 mg, lisinopril 40 mg, and carvedilol 12.5 mg twice daily. Patient's home medications have been restarted at lower doses, increase as needed for better blood pressure control. Diabetes: Currently on sliding scale insulin. Patient has a history of hospitalization for hypoglycemia. Will monitor her dietary intake and continue to utilize sliding scale before starting basal insulin. A1c 8.8%. Heart Failure: Echocardiogram showed 15-20% LVEF. Appreciate cardiology recommendations PCPs office did not know of any cardiology affiliation with the patient previously. Continue telemetry monitoring. Hyperlipidemia: Continue statin as per secondary stroke prevention. Dose has been increased. ADL dysfunction: OT will work on improving ability to perform ADLs (including assistive devices) to increase independence and decrease caregiver burden and improve functional transfers and mobility training. Difficulty walking: PT will work on gait training and proper use of assistive devices and advance as appropriate to use of stairs and outside ambulation on uneven surfaces. Unsteadiness on feet: PT will work on improving static and dynamic sitting and standing balance as well as proper use of assistive devices to decrease risk of falls. Abnormality of gait: PT will work to improve safety and efficiency of gait through neuromotor training and gait training along with instruction on proper use of assistive devices. Muscle weakness: PT & OT will work on strengthening exercises to improve functional strength including mixture of closed and open kinetic chain exercises. Debility: PT & OT will work on improving overall functional status to improve participation with ADLs, mobility and social involvement. Fatigue: PT & OT will work on improving endurance through aerobic exercises and therapeutic activity while monitoring patients tolerance for activity and vital signs as needed. DVT ppx: Lovenox Pain: Continue physical modalities in therapy and pain medications as needed to achieve functional pain control. Sleep: Monitor and address as needed. Bowel: Monitor and address as needed. Appetite: Monitor and address as needed. Discharge planning: Pending therapy progress and care plan meeting. Will continue discussion with therapy team, SW, patient and family. Tentative date for discharge is 02/09. DME requirements to be determined. Patient will need 20/02 supervision at this point, may discharge sooner if patient is actually having more improvement than what we are seeing. Restrictions/ Precautions: Falls, swallow, severe heart failure, aphasia WB status: FWB Functional Hx: ADLs: Independent Cognition: Independent Mobility: No AD Barriers to Discharge: Decreased mobility and ability to perform self care, balance deficits, weakness Estimated Length of Stay: 1418 days Discharge Destination: Home with family
[2021-02-04] MEDS: IPRATROPIUM/ALBUTEROL SULFATE 3 ML AMPUL.NEB IH SCH ×2 (14:49→21:27)
[2021-02-04] MEDS: cefTRIAXone/NS 1 GM/50 ML 1 GM/50 ML BAG IV SCH (15:41)
[2021-02-04] MEDS: ACETAMINOPHEN 325 MG TAB PO PRN (21:43)
[2021-02-05] MEDS: IPRATROPIUM/ALBUTEROL SULFATE 3 ML AMPUL.NEB IH SCH (07:46)
[2021-02-05] MEDS: INSULIN LISPRO 100 UNIT/ML SUB-Q SCH ×4 (07:56→22:00)
[2021-02-05] MEDS: LISINOPRIL 10 MG TAB PO SCH (08:15)
[2021-02-05] MEDS: FAMOTIDINE 20 MG TAB PO SCH ×2 (08:15→21:59)
[2021-02-05] MEDS: ASPIRIN EC 81 MG TAB PO SCH (08:15)
[2021-02-05] MEDS: carvediloL 12.5 MG TAB PO SCH (08:15)
[2021-02-05] MEDS: ENOXAPARIN 40 MG/0.4 ML INJ SUB-Q SCH (08:15)
[2021-02-05] MEDS: CLOPIDOGREL 75 MG TAB PO SCH (08:15)
[2021-02-05] MEDS: SERTRALINE 25 MG TAB PO SCH (08:18)
--- NOTE | 2021-02-05 08:57 | Progress Note ---
Subjective Date of service: 02/05/21 Principal diagnosis: CVA Interval history: 60-year-old female who presented to the hospital on 01/12/2021 with left-sided facial droop and slurred speech. Patient apparently was found by her daughter on the floor and had a laceration to the left temporal area. Head CT showed a right MCA infarct with no evidence of hemorrhagic transformation. Neurology was consulted and recommended continued work-up including MRI echo. Also recommended aspirin and Plavix ongoing. Echocardiogram showed severely dilated left ventricle with severe decrease in systolic function and a left ventricular ejection fraction of 15-20%. Brain MRI showed right MCA infarct involving the right posterior insular cortex and right posterior temporal cortex and right posterior frontal cortex. Remainder of imaging reviewed including head MRA, repeat head CT, head neck CTA. Neurology recommended cardiology consult for consideration of anticoagulation due to severe heart failure. We will place the consult today after seeing the patient and would appreciate their recommendat ions. Patient has been placed on aspirin and Plavix. Discussion was had with treating neurologist yesterday who stated that his preference would be that the patient remain on both of these ongoing unless patient is changed to anticoagulation by cardiology. Initially the patient was confused and had encephalopathy requiring restraints for safety. Prior to admission she had been off of restraints for approximately 48 hours and has improved. She is participating with therapy and making good progress. I have placed her on remote telemetry due to her heart failure and have spoken with therapist and instructed them to notified nursing and telemetry monitoring whenever she is off the floor and in the therapy gym. Patient currently remains on the telemetry unit due to decreased availability of nursing staff and will be moved to the rehab unit as soon as able. Speech therapy saw the patient and recommended a mechanical soft diet with ground meats, this order has been placed as well. Hy pokalemia was treated with replacement. Will monitor closely for need to retreat that. Glucose was fairly well controlled on sliding scale, will monitor the patient for a few days on sliding scale to see if we need to start basal insulin doses. A1c was ordered yesterday after admission to rehab which showed an A1c of 8.8%. This a.m., the patient is tachycardic with an elevated blood pressure. Of note, telemetry was not on the patient, have spoken with nursing and they are arranging to replace monitor on patient. Interval History: Patient is participating in therapy and making reasonable progress. Taking rest breaks as needed. +BM. Denies pain, palpitations, dyspnea, cough, N/V, or joint pain. Telemetry in place. No acute events overnight. Working with therapy and regaining some strength in her left upper arm grossly, fine motor still not significantly improved CVA with Left NonDom Hemiparesis: Continue secondary stroke prevention. Monitor the patient for any signs of worsening neurologic function or post stroke depression. Currently not showing signs of either of these, no headache, shoulder-hand syndrome, neurologic bowel or bladder. Continue therapy to improve patient's ability to perform self-care and mobility. 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 Started Zoloft and monitor for improvement. Pneumonia: Chest x-ray reviewed shows a right sided infiltrate. Have started patient on antibiotics. Cough seems improved from what was previously reported, afebrile, no leukocytosis. Monitor for resolution. Start duo nebs for short course x3 days. Possible that this may be aspiration related however we have not seen any aspiration leading up to the pneumonia. Have discussed with speech therapy and they may consider performing MBS in order to rule out silent aspiration. If we see any evidence that is concerning for aspiration, will adjust antibiotics accordingly. Dyspnea: Patient had another episode of dyspnea which was resolved with 2 L of oxygen via nasal cannula. Seems to be related to anxiety as the patient was requesting to use the nonrebreather mask even though she was stable on her vital signs. Hypertension: Home medication was restarted at a lower dose, and blood pressure better since increased dose on 01/20 and will continue to adjust in a stepwise fashion to adjust her blood pressure to goal less than 140/90. Avoid hypotension blood pressure remains elevated, increasing medication, monitor Diabetes: Continue carb controlled diet and sliding scale insulin. Patient has been admitted in the past for hypoglycemic episodes due to not eating while on basal doses of insulin. We will avoid this currently. Hemoglobin A1c was 8.8 on our check on her admission. Glucose fairly well controlled with sliding scale currently. Heart failure: Appreciate cardiology consult, will continue current management and defer use of anticoagulation. Will have patient follow-up with cardiology as an outpatient for possible event monitoring Aphasia: Continue working with speech therapy, patient's difficult to understand and still does not follow commands very well without visual cues. Intermittently able to have conversations that are meaningful and understandable however has difficulty following any oral directions and amount of time that she is able to engage in conversation is limited. Dysphagia: Continue speech therapy monitor for further improvement. MBS scheduled for today All records, vitals, labs and medications were reviewed. No other issues per patient, nursing or therapy. Objective - Exam Narrative Exam: MUSCULOSKELETAL SPECIALTY EXAM CONSTITUTIONAL: Well developed, well nourished, appropriately groomed. RIGHT hand dominant. RESPIRATORY: Clear to auscultation bilaterally, improved from yesterday, no increased work of breathing CARDIOVASCULAR: Regular rate and rhythm, no swelling, edema or tenderness in BUE or BLE. All extremities warm. GI: + bowel sounds, soft, NTTP, nondistended. INTEGUMENTARY: Normal, no lesion, rash, masses or bruising noted in extremities. MUSCULOSKELETAL: Some arthritic changes in bilateral hands, otherwise BUE and BLE normal without defect, crepitus, subluxation, effusion, arthritic changes or TTP. R 4+/5 L 4-/5 without full range of motion but she is improving ROM within normal limits on right, decreased on left Tone normal on right, slightly decreased on left without flaccidity NEURO: CN VII : Left facial droop slight Sensation intact in all extremities unable to test extinction. No tremor noted in 4 extremities. Naming and repetition impaired Command following is variable depending on time of day. Likely related to aphasia and some likely apraxia Aphasia present Dysarthria present now that she is talking more Dysphagia present Neglect appears present POSTURE and GAIT: Sitting posture good. PSYCH: Alert, orientation difficult to check again due to patient's aphasia. Affect appears flattened. Insight appears impaired - Constitutional Vitals: Vital Signs - 12hr 02/04/21 02/05/21 02/05/21 21:44 05:39 07:46 Temperature 98.5 F 98.2 F Pulse Rate 98 H 94 H Pulse Rate [ 98 H Bilateral Throughout] Respiratory 18 18 Rate Respiratory 18 Rate [Bilateral Throughout] Blood Pressure 155/98 155/88 O2 Sat by Pulse 96 100 95 Oximetry 02/05/21 08:15 Temperature Pulse Rate 94 H Pulse Rate [ Bilateral Throughout] Respiratory Rate Respiratory Rate [Bilateral Throughout] Blood Pressure 155/88 O2 Sat by Pulse Oximetry - Allied health notes Allied health notes reviewed: nursing, PT, ST, OT FIMS assessment as documented by PT/OT/ST: Grooming Patient cleans teeth/dentures: Yes Patient khalil/brushes hair: Yes Patient washes, rinses and Yes dries face: Patient washes, rinses and Yes dries hands: Patient performs (no make-up/ 11/01 (100%) shaving): Grooming FIM Score 4. Minimal Assistance (Patient = 75% or more. Needs touching.) Social interaction/Memory/Problem solving Social Interaction FIM Score 4. Minimal Assistance (Interacts appropriately 75-90%.) Memory FIM Score 5. Supervision (Needs cueing <10%, stressful/ unfamiliar situations.) Problem Solving FIM Score 5. Supervision (Needs cueing <10% to solve routine problems.) Locomotion- walk/wheelchair Ambulation Distance 80 Eating Eating Device Adapted Utensil Eating FIM Score 5. Supervision/Set-Up (Needs help w/ co ntainers, cutting meat, etc.) - Labs CBC & Chem 7: 02/03/21 07:05 02/03/21 07:05 Labs: Laboratory Results - last 72 hr 02/02/21 02/02/21 02/02/21 12:43 16:30 22:48 WBC RBC Hgb Hct MCV MCH MCHC RDW Plt Count Sodium Potassium Chloride Carbon Dioxide Anion Gap BUN Creatinine Estimated GFR BUN/Creatinine Ratio Glucose POC Glucose 234 H 141 H 184 H Calcium 02/03/21 02/03/21 02/03/21 07:05 07:05 08:20 WBC 3.8 L RBC 3.34 L Hgb 11.0 Hct 31.5 MCV 94 MCH 33 H MCHC 35 H RDW 13.8 Plt Count 210 Sodium 140 Potassium 3.4 L Chloride 104.7 Carbon Dioxide 24 Anion Gap 15 BUN 6 L Creatinine 0.7 Estimated GFR > 60 BUN/Creatinine Ratio 9 Glucose 139 H POC Glucose 138 H Calcium 9.0 02/03/21 02/03/21 02/03/21 11:18 16:25 21:01 WBC RBC Hgb Hct MCV MCH MCHC RDW Plt Count Sodium Potassium Chloride Carbon Dioxide Anion Gap BUN Creatinine Estimated GFR BUN/Creatinine Ratio Glucose POC Glucose 159 H 152 H 132 H Calcium 02/04/21 02/04/21 02/04/21 07:50 11:12 15:55 WBC RBC Hgb Hct MCV MCH MCHC RDW Plt Count Sodium Potassium Chloride Carbon Dioxide Anion Gap BUN Creatinine Estimated GFR BUN/Creatinine Ratio Glucose POC Glucose 146 H 203 H 135 H Calcium 02/04/21 02/05/21 21:08 07:46 WBC RBC Hgb Hct MCV MCH MCHC RDW Plt Count Sodium Potassium Chloride Carbon Dioxide Anion Gap BUN Creatinine Estimated GFR BUN/Creatinine Ratio Glucose POC Glucose 166 H 126 H Calcium Assessment and Plan CVA with left nondominant hemiparesis: Continue Secondary Stroke Prevention (Antithrombotic, Statin (Goal LDL-C <70), BP control (Goal <140/90), GLU control (Goal A1c <7), and lifestyle modification). Monitor for recurrent stroke or post-stroke recrudescence. Continue neuromotor therapy as above. Family training when available. Monitor for post stroke depression, cognitive deficits, seizure, dysphagia, aphasia, shoulder hand syndrome, sensory deficits, spasticity, bowel/bladder deficits, sleep disturbance, vision deficits and DVT. Prognosis for recovery and Secondary Stroke Prevention discussed. Follow up with Neurology. No driving until cleared by Neurologist. Dysphagia: Continue modified diet, speech therapy, swallow precautions. MBS as needed in order to advance patient's diet. Continue therapy to improve patient's ability to safely swallow. Pneumonia: Continue antibiotics, monitor vitals and oxygenation as well as other symptoms. Nebs scheduled for 3 days. Post stroke depression: Start patient on Zoloft and monitor for improvement. Aphasia: Continue speech therapy to improve patient's ability to speak and communicate her needs. Monitor closely for any needs that patient is unable to voice. Dyspnea: Appears resolved. Possibly anxiety induced. Dysarthria: Becoming more apparent as the patient is starting to talk more. Continue speech therapy and address in order to improve patient's clarity and ability to communicate her needs. Hypertension: Contacted patient's PCP who noted she was previously on amlodipine 5 mg, lisinopril 40 mg, and carvedilol 12.5 mg twice daily. Patient's home medications have been restarted at lower doses, increase as needed for better blood pressure control. Diabetes: Currently on sliding scale insulin. Patient has a history of hospitalization for hypoglycemia. Will monitor her dietary intake and continue to utilize sliding scale before starting basal insulin. A1c 8.8%. Heart Failure: Echocardiogram showed 15-20% LVEF. Appreciate cardiology r ecommendations PCPs office did not know of any cardiology affiliation with the patient previously. Continue telemetry monitoring. Hyperlipidemia: Continue statin as per secondary stroke prevention. Dose has been increased. ADL dysfunction: OT will work on improving ability to perform ADLs (including assistive devices) to increase independence and decrease caregiver burden and improve functional transfers and mobility training. Difficulty walking: PT will work on gait training and proper use of assistive devices and advance as appropriate to use of stairs and outside ambulation on uneven surfaces. Unsteadiness on feet: PT will work on improving static and dynamic sitting and standing balance as well as proper use of assistive devices to decrease risk of falls. Abnormality of gait: PT will work to improve safety and efficiency of gait through neuromotor training and gait training along with instruction on proper use of assistive devices. Muscle weakness: PT & OT will work on strengthening exercises to improve functional strength including mixture of closed and open kinetic chain exercises. Debility: PT & OT will work on improving overall functional status to improve participation with ADLs, mobility and social involvement. Fatigue: PT & OT will work on improving endurance through aerobic exercises and therapeutic activity while monitoring patients tolerance for activity and vital signs as needed. DVT ppx: Lovenox Pain: Continue physical modalities in therapy and pain medications as needed to achieve functional pain control. Sleep: Monitor and address as needed. Bowel: Monitor and address as needed. Appetite: Monitor and address as needed. Discharge planning: Pending therapy progress and care plan meeting. Will continue discussion with therapy team, SW, patient and family. Tentative date for discharge is 02/09. DME requirements to be determined. Patient will need 20/02 supervision at this point, may discharge sooner if patient is actually having more improvement than what we are seeing. Restrictions/ Precautions: Falls, swallow, severe heart failure, aphasia WB status: FWB Functional Hx: ADLs: Independent Cognition: Independent Mobility: No AD Barriers to Discharge: Decreased mobility and ability to perform self care, balance deficits, weakness Estimated Length of Stay: 1418 days Discharge Destination: Home with family
[2021-02-05] MEDS ORDERED: carvediloL 12.5 MG TAB PO SCH ×2 (09:01→09:30)
--- NOTE | 2021-02-05 11:23 | Progress Note ---
Assessment and Plan Hx of dilated cardiomyopathy Echo this presentation reports an LVEF 15-20%. Bubble study is negative. Acute CVA with left hemiparesis on plavix and aspirin Shortness of breath and cough CXR findings suspicious for pneumonia Hypertension Diabetes Continue remote telemetry monitoring. Continue medical therapy for nonischemic cardiomyopathy. Otherwise, conservative cardiac management. As an outpatient, will recommend a 30 event monitor. Will follow intermittently. Subjective Date of service: 02/05/21 Principal diagnosis: CVA Interval history: No cardiac events. No evidence of atrial fibrillation seen on telemetry thus far. Objective Vital Signs Temp Pulse Pulse Resp Resp BP Pulse Ox 02/05/21 08:15 94 H 155/88 02/05/21 07:46 98.2 F 94 H 18 155/88 95 02/05/21 05:39 98.5 F 98 H 18 155/98 100 02/04/21 21:44 98 H 18 96 02/04/21 19:59 98.7 F 98 H 18 145/84 96 02/04/21 15:55 98.3 F 93 H 18 156/93 96 02/04/21 11:41 97.9 F 86 18 134/82 100 - Physical Examination General: No Apparent Distress HEENT: Positive: PERRL Neck: Positive: trachea midline Cardiac: Positive: Reg Rate and Rhythm Lungs: Positive: Decreased Breath Sounds Neuro: Positive: Other (left hemiparesis) Abdomen: Positive: Soft Extremities: Absent: edema
[2021-02-05] MEDS: cefTRIAXone/NS 1 GM/50 ML 1 GM/50 ML BAG IV SCH (13:51)
--- NOTE | 2021-02-05 14:01 | Fluoroscopy Report ---
MODIFIED BARIUM SWALLOW INDICATION: RLL infiltrate TECHNIQUE: Swallowing was evaluated in the lateral position under direct fluoroscopy. FINDINGS: The patient was evaluated with thin liquid, puree and semisolid consistencies. No evidence for aspiration or penetration. IMPRESSION: Unremarkable exam. Fluoroscopic time: 1.1 minutes Number of fluoroscopic images: 10 Signer Name: Flo Bush Jr, MD Signed: 02/05/2021 1:56 PM Workstation Name: [id number]
[2021-02-05] MEDS: carvediloL 25 MG TAB PO SCH (21:59)
[2021-02-06] MEDS: INSULIN LISPRO 100 UNIT/ML SUB-Q SCH ×4 (07:06→22:00)
[2021-02-06] MEDS: LISINOPRIL 40 MG TAB PO SCH (09:22)
[2021-02-06] MEDS: ASPIRIN EC 81 MG TAB PO SCH (09:22)
[2021-02-06] MEDS: ENOXAPARIN 40 MG/0.4 ML INJ SUB-Q SCH (09:22)
[2021-02-06] MEDS: CLOPIDOGREL 75 MG TAB PO SCH (09:22)
[2021-02-06] MEDS: carvediloL 25 MG TAB PO SCH ×2 (09:23→22:47)
[2021-02-06] MEDS: FAMOTIDINE 20 MG TAB PO SCH ×2 (09:23→22:00)
[2021-02-06] MEDS: SERTRALINE 25 MG TAB PO SCH (09:23)
--- NOTE | 2021-02-06 09:29 | Progress Note ---
Assessment and Plan 1. Chronic combined systolic and diastolic heart failure 2. Dilated cardiomyopathy 3. Acute CVA probably cardioembolic with residual left sided hemiparesis 4. Essential hypertension 5. Type 2 diabetes mellitus Plan. Patient is currently stable. Patient has cardiac substrate which could predispose to a cardiac embolic source. Questionable history of paroxysmal atrial fibrillation. I will recommend patient to be on full anticoagulation going forward with discontinuation of Plavix and continue low-dose aspirin. Subjective Date of service: 02/06/21 Principal diagnosis: CVA Interval history: No new complains Objective Vital Signs Temp Pulse Resp BP Pulse Ox 02/06/21 09:22 86 151/83 02/06/21 07:43 98.2 F 86 16 151/83 99 02/05/21 22:00 95 02/05/21 21:59 93 H 146/81 02/05/21 19:21 98.4 F 93 H 16 146/81 89 02/05/21 16:00 98.4 F 98 H 18 143/67 90 02/05/21 12:41 98.7 F 87 18 115/60 97 - Physical Examination General: No Apparent Distress HEENT: Positive: PERRL Neck: Positive: trachea midline Cardiac: Positive: Regular Rate, Regular Rhythm, S1/S2, S3, PMI, Laterally Displaced Lungs: Positive: clear to auscultation, No Wheeze, Rales, Rhonchi Neuro: Positive: Other (left hemiparesis) Abdomen: Positive: Soft Extremities: Absent: edema
[2021-02-06] MEDS: cefTRIAXone/NS 1 GM/50 ML 1 GM/50 ML BAG IV SCH (14:00)
[2021-02-07] MEDS: ENOXAPARIN 40 MG/0.4 ML INJ SUB-Q SCH (08:53)
[2021-02-07] MEDS: SERTRALINE 25 MG TAB PO SCH (08:53)
[2021-02-07] MEDS: FAMOTIDINE 20 MG TAB PO SCH ×2 (08:53→21:02)
[2021-02-07] MEDS: ASPIRIN EC 81 MG TAB PO SCH (08:53)
[2021-02-07] MEDS: LISINOPRIL 40 MG TAB PO SCH (08:53)
[2021-02-07] MEDS: CLOPIDOGREL 75 MG TAB PO SCH (08:53)
[2021-02-07] MEDS: INSULIN LISPRO 100 UNIT/ML SUB-Q SCH ×4 (08:53→21:03)
[2021-02-07] MEDS: carvediloL 25 MG TAB PO SCH ×2 (09:19→21:03)
--- NOTE | 2021-02-07 09:45 | Progress Note ---
Assessment and Plan 1. Chronic combined systolic and diastolic heart failure 2. Dilated cardiomyopathy 3. Acute CVA probably cardioembolic with residual left sided hemiparesis 4. Essential hypertension 5. Type 2 diabetes mellitus Plan. Patient is currently stable. Patient has cardiac substrate which could predispose to a cardiac embolic source. Questionable history of paroxysmal atrial fibrillation. I will recommend patient to be on full anticoagulation going forward with discontinuation of Plavix and continue low-dose aspirin. Subjective Date of service: 02/07/21 Principal diagnosis: CVA Interval history: No new complains Objective Vital Signs Temp Pulse Resp BP Pulse Ox 02/07/21 09:19 90 153/95 02/07/21 07:28 98.4 F 96 H 16 162/94 82 L 02/07/21 05:57 98.1 F 94 H 18 155/89 90 02/06/21 22:47 80 130/72 02/06/21 22:00 18 02/06/21 19:38 98.2 F 95 H 18 130/84 91 02/06/21 16:41 97.3 F L 88 16 135/75 91 02/06/21 11:58 97.6 F 83 16 135/80 99 - Physical Examination General: No Apparent Distress HEENT: Positive: PERRL Neck: Positive: trachea midline Cardiac: Positive: Regular Rate, S1/S2, PMI, Laterally Displaced. Negative: S3, S4 Lungs: Positive: clear to auscultation, No Wheeze, Rales, Rhonchi Neuro: Positive: Other (left hemiparesis) Abdomen: Positive: Soft Extremities: Absent: edema
[2021-02-08] MEDS: INSULIN LISPRO 100 UNIT/ML SUB-Q SCH ×4 (08:14→21:22)
[2021-02-08] MEDS: carvediloL 25 MG TAB PO SCH ×3 (08:14→21:21)
[2021-02-08] MEDS: CLOPIDOGREL 75 MG TAB PO SCH (08:14)
[2021-02-08] MEDS: SERTRALINE 25 MG TAB PO SCH (08:14)
[2021-02-08] MEDS: FAMOTIDINE 20 MG TAB PO SCH ×2 (08:14→21:21)
[2021-02-08] MEDS: LISINOPRIL 40 MG TAB PO SCH (08:14)
[2021-02-08] MEDS: ASPIRIN EC 81 MG TAB PO SCH (08:14)
[2021-02-08] MEDS: ENOXAPARIN 40 MG/0.4 ML INJ SUB-Q SCH (08:14)
[2021-02-08 08:26] LABS: Hematocrit 34.4 % (30.3-42.9); Hemoglobin 11.6 gm/dl (10.1-14.3); Mean Corpuscular HGB Conc 34 % (30-34); Mean Corpuscular Volume 96 fl (79-97); Platelet Count 226 K/mm3 (140-440); Red Blood Count 3.58 M/mm3 (3.65-5.03); Red Cell Distribution Width 14.5 % (13.2-15.2)
[2021-02-08 09:00] LABS: Blood Urea Nitrogen 8 mg/dL (7-17); Calcium 8.7 mg/dL (8.4-10.2); Hemolysis Index 1
--- NOTE | 2021-02-08 09:00 | Progress Note ---
Subjective Date of service: 02/08/21 Principal diagnosis: CVA Interval history: 60-year-old female who presented to the hospital on 01/12/2021 with left-sided facial droop and slurred speech. Patient apparently was found by her daughter on the floor and had a laceration to the left temporal area. Head CT showed a right MCA infarct with no evidence of hemorrhagic transformation. Neurology was consulted and recommended continued work-up including MRI echo. Also recommended aspirin and Plavix ongoing. Echocardiogram showed severely dilated left ventricle with severe decrease in systolic function and a left ventricular ejection fraction of 15-20%. Brain MRI showed right MCA infarct involving the right posterior insular cortex and right posterior temporal cortex and right posterior frontal cortex. Remainder of imaging reviewed including head MRA, repeat head CT, head neck CTA. Neurology recommended cardiology consult for consideration of anticoagulation due to severe heart failure. We will place the consult today after seeing the patient and would appreciate their recommendat ions. Patient has been placed on aspirin and Plavix. Discussion was had with treating neurologist yesterday who stated that his preference would be that the patient remain on both of these ongoing unless patient is changed to anticoagulation by cardiology. Initially the patient was confused and had encephalopathy requiring restraints for safety. Prior to admission she had been off of restraints for approximately 48 hours and has improved. She is participating with therapy and making good progress. I have placed her on remote telemetry due to her heart failure and have spoken with therapist and instructed them to notified nursing and telemetry monitoring whenever she is off the floor and in the therapy gym. Patient currently remains on the telemetry unit due to decreased availability of nursing staff and will be moved to the rehab unit as soon as able. Speech therapy saw the patient and recommended a mechanical soft diet with ground meats, this order has been placed as well. Hy pokalemia was treated with replacement. Will monitor closely for need to retreat that. Glucose was fairly well controlled on sliding scale, will monitor the patient for a few days on sliding scale to see if we need to start basal insulin doses. A1c was ordered yesterday after admission to rehab which showed an A1c of 8.8%. This a.m., the patient is tachycardic with an elevated blood pressure. Of note, telemetry was not on the patient, have spoken with nursing and they are arranging to replace monitor on patient. Interval History: Patient is participating in therapy and making reasonable progress. Taking rest breaks as needed. +BM. Denies pain, palpitations, dyspnea, cough, N/V, or joint pain. Telemetry in place. No acute events overnight. Cardiology note from the weekend noted with recommendation to start anticoagulation. Will discuss further with cardiology. CVA with Left NonDom Hemiparesis: Continue secondary stroke prevention. Monitor the patient for any signs of worsening neurologic function. No headache, shoulder-hand syndrome, neurologic bowel or bladder. Continue therapy to improve patient's ability to perform self-care and mobility. 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 Started Zoloft and monitor for improvement. Pneumonia: Chest x-ray reviewed shows a right sided infiltrate. Have started patient on antibiotics. Cough seems improved from what was previously reported, afebrile, no leukocytosis. Monitor for resolution. Dyspnea: Patient had another episode of dyspnea which was resolved with 2 L of oxygen via nasal cannula. Seems to be related to anxiety as the patient was requesting to use the nonrebreather mask even though she was stable on her vital signs. Right calf swollen and TTP, obtain Doppler to rule out DVT. Patient is on Lovenox. Hypertension: Amlodipine restarted as blood pressure continues to stay slightly elevated. Patient now on amlodipine, lisinopril and Coreg. Goal blood pressure less than 140/90. Diabetes: Continue carb controlled diet and sliding scale insulin. Patient has been admitted in the past for hypoglycemic episodes due to not eating while on basal doses of insulin. We will avoid this currently. Hemoglobin A1c was 8.8 on our check on her admission. Glucose fairly well controlled with sliding scale currently. Heart failure: Appreciate cardiology consult, will continue current management and defer use of anticoagulation. Will have patient follow-up with cardiology as an outpatient for possible event monitoring Aphasia: Continue working with speech therapy, patient's difficult to understand and still does not follow commands very well without visual cues. Intermittently able to have conversations that are meaningful and understandable however has difficulty following oral directions and amount of time that she is able to engage in conversation is limited. Dysphagia: Continue speech therapy monitor for further improvement. Patient did well with no signs of aspiration on MBS. All records, vitals, labs and medications were reviewed. No other issues per patient, nursing or therapy. Objective - Exam Narrative Exam: MUSCULOSKELETAL SPECIALTY EXAM CONSTITUTIONAL: Well developed, well nourished, appropriately groomed. RIGHT hand dominant. RESPIRATORY: Clear to auscultation bilaterally, improved from yesterday, no increased work of breathing CARDIOVASCULAR: Regular rate and rhythm, right calf swollen and slightly tender to palpation, otherwise no swelling, edema or tenderness in BUE or BLE. All extremities warm. GI: + bowel sounds, soft, NTTP, nondistended. INTEGUMENTARY: Normal, no lesion, rash, masses or bruising noted in extremities. MUSCULOSKELETAL: Some arthritic changes in bilateral hands, otherwise BUE and BLE normal without defect, crepitus, subluxation, effusion, arthritic changes or TTP. R 4+/5 L 4-/5 without full range of motion but she is improving ROM within normal limits on right, decreased on left Tone normal on right, slightly decreased on left without flaccidity NEURO: CN VII : Left facial droop slight Sensation intact in all extremities unable to test extinction. No tremor noted in 4 extremities. Naming and repetition impaired Command following is variable depending on time of day. Likely related to aphasia and some likely apraxia Aphasia present Dysarthria present now that she is talking more Dysphagia present Neglect appears present POSTURE and GAIT: Sitting posture good. PSYCH: Alert, orientation difficult to check again due to patient's aphasia. Affect appears flattened. Insight appears impaired - Constitutional Vitals: Vital Signs - 12hr 02/07/21 02/08/21 02/08/21 21:03 03:32 07:30 Temperature 98.4 F 98.2 F Pulse Rate 85 84 94 H Respiratory 18 18 Rate Blood Pressure 131/76 151/89 152/86 O2 Sat by Pulse 97 92 Oximetry - Allied health notes Allied health notes reviewed: nursing, PT, ST, OT FIMS assessment as documented by PT/OT/ST: Grooming Patient cleans teeth/dentures: Yes Patient khalil/brushes hair: Yes Patient washes, rinses and Yes dries face: Patient washes, rinses and Yes dries hands: Patient performs (no make-up/ 4/4 (100%) shaving): Grooming FIM Score 5. Supervision ([place] applies toothpaste or opens containers.) Social interaction/Memory/Problem solving Social Interaction FIM Score 5. Supervision (Needs supv. <10%. Needs encouragement to participate.) Memory FIM Score 5. Supervision (Needs cueing <10%, stressful/ unfamiliar situations.) Problem Solving FIM Score 5. Supervision (Needs cueing <10% to solve routine problems.) Transfers Mode of Locomotion: Wheelchair Bed/Chair/Wheelchair Transfers 5. Supervision (Needs supv. or set-up for FIM Score sliding board, foot rests.) Toilet Transfers FIM Score 4. Minimal Assistance (Patient = 75% or more. Needs touching.) Patient transferred to: Shower Shower Transfers FIM Score 5. Supervision (Needs supv. or set-up with device.) Locomotion- walk/wheelchair Ambulation Distance 80 Eating Eating Device Adapted Utensil Eating FIM Score 5. Supervision/Set-Up (Needs help w/ containers, cutting meat, etc.) - Labs CBC & Chem 7: 02/08/21 07:01 02/08/21 07:01 Labs: Laboratory Results - last 72 hr 02/05/21 02/05/21 02/05/21 11:02 16:01 20:44 WBC RBC Hgb Hct MCV MCH MCHC RDW Plt Count POC Glucose 148 H 159 H 180 H 02/06/21 02/06/21 02/06/21 07:53 12:00 16:42 WBC RBC Hgb Hct MCV MCH MCHC RDW Plt Count POC Glucose 180 H 172 H 191 H 02/06/21 02/07/21 02/07/21 23:02 06:52 11:36 WBC RBC Hgb Hct MCV MCH MCHC RDW Plt Count POC Glucose 167 H 194 H 177 H 02/07/21 02/07/21 02/08/21 16:49 20:30 07:01 WBC 3.6 L RBC 3.58 L Hgb 11.6 Hct 34.4 MCV 96 MCH 33 H MCHC 34 RDW 14.5 Plt Count 226 POC Glucose 128 H 137 H 02/08/21 07:28 WBC RBC Hgb Hct MCV MCH MCHC RDW Plt Count POC Glucose 194 H Assessment and Plan CVA with left nondominant hemiparesis: Continue Secondary Stroke Prevention (Antithrombotic, Statin (Goal LDL-C <70), BP control (Goal <140/90), GLU control (Goal A1c <7), and lifestyle modification). Monitor for recurrent stroke or post-stroke recrudescence. Continue neuromotor therapy as above. Family training when available. Monitor for post stroke depression, cognitive deficits, seizure, dysphagia, aphasia, shoulder hand syndrome, sensory deficits, spasticity, bowel/bladder deficits, sleep disturbance, vision deficits and DVT. Prognosis for recovery and Secondary Stroke Prevention discussed. Follow up with Neurology. No driving until cleared by Neurologist. Dysphagia: Continue modified diet, speech therapy, swallow precautions. MBS as needed in order to advance patient's diet. Continue therapy to improve patient's ability to safely swallow. Pneumonia: Vital signs have been stable, of WBCs within normal limits. Patient has completed antibiotics and nebulizer treatments. Post stroke depression: Start patient on Zoloft and monitor for improvement. Aphasia: Continue speech therapy to improve patient's ability to speak and communicate her needs. Monitor closely for any needs that patient is unable to voice. Dyspnea: Appears resolved. Possibly anxiety induced. Dysarthria: Becoming more apparent as the patient is starting to talk more. C ontinue speech therapy and address in order to improve patient's clarity and ability to communicate her needs. Hypertension: Contacted patient's PCP who noted she was previously on amlodipine 5 mg, lisinopril 40 mg, and carvedilol 12.5 mg twice daily. Continue to monitor for improved blood pressure control. Diabetes: Currently on sliding scale insulin. Patient has a history of hospitalization for hypoglycemia. Will monitor her dietary intake and continue to utilize sliding scale before starting basal insulin. A1c 8.8%. Heart Failure: Echocardiogram showed 15-20% LVEF. Appreciate cardiology recommendations PCPs office did not know of any cardiology affiliation with the patient previously. Continue telemetry monitoring. Hyperlipidemia: Continue statin as per secondary stroke prevention. Dose has been increased. ADL dysfunction: OT will work on improving ability to perform ADLs (including assistive devices) to increase independence and decrease caregiver burden and improve functional transfers and mobility training. Difficulty walking: PT will work on gait training and proper use of assistive devices and advance as appropriate to use of stairs and outside ambulation on uneven surfaces. Unsteadiness on feet: PT will work on improving static and dynamic sitting and standing balance as well as proper use of assistive devices to decrease risk of falls. Abnormality of gait: PT will work to improve safety and efficiency of gait through neuromotor training and gait training along with instruction on proper use of assistive devices. Muscle weakness: PT & OT will work on strengthening exercises to improve functional strength including mixture of closed and open kinetic chain exercises. Debility: PT & OT will work on improving overall functional status to improve participation with ADLs, mobility and social involvement. Fatigue: PT & OT will work on improving endurance through aerobic exercises and therapeutic activity while monitoring patients tolerance for activity and vital signs as needed. DVT ppx: Lovenox Pain: Continue physical modalities in therapy and pain medications as needed to achieve functional pain control. Sleep: Monitor and address as needed. Bowel: Monitor and address as needed. Appetite: Monitor and address as needed. Discharge planning: Pending therapy progress and care plan meeting. Will continue discussion with therapy team, SW, patient and family. Tentative date for discharge is 02/09 or . DME requirements to be determined. Patient will need 20/02 supervision at this point, may discharge sooner if patient is actually having more improvement than what we are seeing. Restrictions/ Precautions: Falls, swallow, severe heart failure, aphasia WB status: FWB Functional Hx: ADLs: Independent Cognition: Independent Mobility: No AD Barriers to Discharge: Decreased mobility and ability to perform self care, balance deficits, weakness Estimated Length of Stay: 1418 days Discharge Destination: Home with family
[2021-02-08 09:06] LABS: BUN/Creatinine Ratio 11
--- NOTE | 2021-02-08 12:02 | Progress Note ---
Assessment and Plan - Patient Problems (1) Dilated cardiomyopathy Current Visit: Yes Status: Acute Plan to address problem: Patient has chronic systolic left ventricular dysfunction, continue guideline directed medical therapy. We will continue aggressive work-up for possible occult atrial fibrillation which will indicate addition of oral anticoagulation therapy in the long-term. (2) CVA (cerebral vascular accident) Current Visit: No Status: Acute Plan to address problem: Continue supportive management, physical therapy and rehabilitation. Subjective Date of service: 02/08/21 Principal diagnosis: CVA Interval history: Patient is comfortable, no acute distress, undergoing rehab. Speech remains very slurred, she is under going physical therapy for left hemiparesis. On teletypesetter monitor, she has maintained a consistent sinus rhythm. Objective Vital Signs Temp Pulse Resp BP Pulse Ox 02/08/21 07:30 98.2 F 94 H 18 152/86 92 02/08/21 03:32 98.4 F 84 18 151/89 97 02/07/21 21:03 85 131/76 02/07/21 19:25 98.6 F 85 18 131/76 100 02/07/21 16:47 97.5 F L 92 H 16 110/64 92 - Physical Examination General: No Apparent Distress HEENT: Positive: PERRL Neck: Positive: trachea midline Cardiac: Positive: Reg Rate and Rhythm Lungs: Positive: clear to auscultation Neuro: Positive: Other (left hemiparesis) Abdomen: Positive: Soft Skin: Positive: Clear Extremities: Absent: edema - Labs and Meds CBC 02/08/21 Range/Units 07:01 WBC 3.6 L (4.5-11.0) K/mm3 RBC 3.58 L (3.65-5.03) M/mm3 Hgb 11.6 (10.1-14.3) gm/dl Hct 34.4 (30.3-42.9) % Plt Count 226 (140-440) K/mm3 Comprehensive Metabolic Panel 02/08/21 Range/Units 07:01 Sodium 142 (137-145) mmol/L Potassium 3.7 (3.6-5.0) mmol/L Chloride 107.1 H (98-107) mmol/L Carbon Dioxide 25 (22-30) mmol/L BUN 8 (7-17) mg/dL Creatinine 0.7 (0.6-1.2) mg/dL Glucose 187 H (65-100) mg/dL Calcium 8.7 (8.4-10.2) mg/dL
[2021-02-08] MEDS: amLODIPine 5 MG TAB PO SCH (12:21)
--- NOTE | 2021-02-08 14:22 | Vascular Lab Report ---
DUPLEX DOPPLER LOWER EXTREMITY VEINS, BILATERAL INDICATION / CLINICAL INFORMATION: Right LE swelling/TTP, r/o DVT. TECHNIQUE: Duplex doppler imaging was performed through the veins of both lower extremities using indigo ous compression and other maneuvers. COMPARISON: None available. FINDINGS: RIGHT COMMON FEMORAL VEIN: Negative. RIGHT FEMORAL VEIN: Negative. RIGHT POPLITEAL VEIN: Negative. RIGHT CALF VEINS: Negative. LEFT COMMON FEMORAL VEIN: Negative. LEFT FEMORAL VEIN: Negative. LEFT POPLITEAL VEIN: Negative. LEFT CALF VEINS: Negative. ADDITIONAL FINDINGS: None. IMPRESSION: 1. No sonographic evidence for DVT in either lower extremity. Scribed by: Rosalind Jovel RDMS, RVT Scribed: 02/08/2021 1:15 PM I have reviewed the images, agree with this report, and edited this report as needed. Signer Name: Polly De Leon MD Signed: 02/08/2021 2:17 PM Workstation Name: [id number]
[2021-02-09] MEDS: INSULIN LISPRO 100 UNIT/ML SUB-Q SCH ×4 (07:13→23:17)
[2021-02-09] MEDS: FAMOTIDINE 20 MG TAB PO SCH ×2 (08:27→23:05)
--- NOTE | 2021-02-09 09:37 | Progress Note ---
Subjective Date of service: 02/09/21 Principal diagnosis: CVA Interval history: 60-year-old female who presented to the hospital on 01/12/2021 with left-sided facial droop and slurred speech. Patient apparently was found by her daughter on the floor and had a laceration to the left temporal area. Head CT showed a right MCA infarct with no evidence of hemorrhagic transformation. Neurology was consulted and recommended continued work-up including MRI echo. Also recommended aspirin and Plavix ongoing. Echocardiogram showed severely dilated left ventricle with severe decrease in systolic function and a left ventricular ejection fraction of 15-20%. Brain MRI showed right MCA infarct involving the right posterior insular cortex and right posterior temporal cortex and right posterior frontal cortex. Remainder of imaging reviewed including head MRA, repeat head CT, head neck CTA. Neurology recommended cardiology consult for consideration of anticoagulation due to severe heart failure. We will place the consult today after seeing the patient and would appreciate their recommendat ions. Patient has been placed on aspirin and Plavix. Discussion was had with treating neurologist yesterday who stated that his preference would be that the patient remain on both of these ongoing unless patient is changed to anticoagulation by cardiology. Initially the patient was confused and had encephalopathy requiring restraints for safety. Prior to admission she had been off of restraints for approximately 48 hours and has improved. She is participating with therapy and making good progress. I have placed her on remote telemetry due to her heart failure and have spoken with therapist and instructed them to notified nursing and telemetry monitoring whenever she is off the floor and in the therapy gym. Patient currently remains on the telemetry unit due to decreased availability of nursing staff and will be moved to the rehab unit as soon as able. Speech therapy saw the patient and recommended a mechanical soft diet with ground meats, this order has been placed as well. Hy pokalemia was treated with replacement. Will monitor closely for need to retreat that. Glucose was fairly well controlled on sliding scale, will monitor the patient for a few days on sliding scale to see if we need to start basal insulin doses. A1c was ordered yesterday after admission to rehab which showed an A1c of 8.8%. This a.m., the patient is tachycardic with an elevated blood pressure. Of note, telemetry was not on the patient, have spoken with nursing and they are arranging to replace monitor on patient. Interval History: Patient is participating in therapy and making reasonable progress. Taking rest breaks as needed. +BM. Denies pain, palpitations, dyspnea, cough, N/V, or joint pain. Telemetry in place. No acute events overnight. Discussed with cardiology, will continue patient on aspirin and Plavix for now and possibly consider anticoagulation if atrial fibrillation is seen as an outpatient on event monitoring. CVA with Left NonDom Hemiparesis: Continue secondary stroke prevention. Monitor the patient for any signs of worsening neurologic function. No headache, shoulder-hand syndrome, neurologic bowel or bladder. Continue therapy to improve patient's ability to perform self-care and mobility. Post stroke depression: Started Zoloft and monitor for improvement. Pneumonia: Patient has completed antibiotics, cough resolved, no leukocytosis. Dyspnea: Patient has had a couple of episodes of dyspnea since she has been with this. Have been resolved mostly with 2 to 3 L supplemental oxygen on nasal cannula. Patient did request a mask previously but was quickly able to recover with just a nasal cannula or even room air even with activity. Right calf swollen and TTP, obtain Doppler to rule out DVT. Patient is on Lovenox. Doppler reviewed and is negative for DVT. Hypertension: Patient now on amlodipine, lisinopril and Coreg. Goal blood pressure less than 140/90. Continue to monitor and adjust as needed Diabetes: Continue carb controlled diet and sliding scale insulin. Patient has been admitted in the past for hypoglycemic episodes due to not eating while on basal doses of insulin. We will avoid this currently. Hemoglobin A1c was 8.8 on our check on her admission. Glucose fairly well controlled with sliding scale currently. Heart failure: Appreciate cardiology consult, will continue current management and defer use of anticoagulation. Will have patient follow-up with cardiology as an outpatient for possible event monitoring Aphasia: Continue working with speech therapy, patient's difficult to understand and still does not follow commands very well without visual cues. Intermittently able to have conversations that are meaningful and understandable however has difficulty following oral directions and amount of time that she is able to engage in conversation is limited. Dysphagia: Continue speech therapy monitor for further improvement. Patient did well with no signs of aspiration on MBS. All records, vitals, labs and medications were reviewed. No other issues per patient, nursing or therapy. Patient discussed during team conference. Making fairly decent recovery however cognition and speech remain her areas of deficits. Patient is walking for the most part with a quad cane however is having difficulty when performing dynamic standing and needing to utilize upper extremities for task such as ADLs. Due to this we will discharge the patient with a wheelchair and a 3 in 1. Discharge date is set for 02/10. Objective - Exam Narrative Exam: MUSCULOSKELETAL SPECIALTY EXAM CONSTITUTIONAL: Well developed, well nourished, appropriately groomed. RIGHT hand dominant. RESPIRATORY: Clear to auscultation bilaterally, improved from yesterday, no increased work of breathing CARDIOVASCULAR: Regular rate and rhythm, right calf swollen and slightly tender to palpation, otherwise no swelling, edema or tenderness in BUE or BLE. All extremities warm. GI: + bowel sounds, soft, NTTP, nondistended. INTEGUMENTARY: Normal, no lesion, rash, masses or bruising noted in extremities. MUSCULOSKELETAL: Some arthritic changes in bilateral hands, otherwise BUE and BLE normal without defect, crepitus, subluxation, effusion, arthritic changes or TTP. R 4+/5 L 4-/5 without full range of motion but she is improving ROM within normal limits on right, decreased on left Tone normal on right, slightly decreased on left without flaccidity NEURO: CN VII : Left facial droop slight Sensation intact in all extremities unable to test extinction. No tremor noted in 4 extremities. Naming and repetition impaired Command following is variable depending on time of day. Likely related to aphasia and some likely apraxia Aphasia present Dysarthria present now that she is talking more Dysphagia present Neglect appears present POSTURE and GAIT: Sitting posture good. PSYCH: Alert, orientation difficult to check again due to patient's aphasia. Affect appears flattened. Insight appears impaired - Constitutional Vitals: Vital Signs - 12hr 02/09/21 02/09/21 04:17 07:41 Temperature 97.8 F 98.4 F Pulse Rate 89 91 H Respiratory 16 18 Rate Blood Pressure 144/76 153/84 O2 Sat by Pulse 93 94 Oximetry - Allied health notes Allied health notes reviewed: nursing, PT, ST, OT FIMS assessment as documented by PT/OT/ST: Grooming Patient cleans teeth/dentures: Yes Patient khalil/brushes hair: Yes Patient washes, rinses and Yes dries face: Patient washes, rinses and Yes dries hands: Patient performs (no make-up/ 4/4 (100%) shaving): Grooming FIM Score 5. Supervision ([place] applies toothpaste or opens containers.) Social interaction/Memory/Problem solving Social Interaction FIM Score 4. Minimal Assistance (Interacts appropriately 75-90%.) Memory FIM Score 5. Supervision (Needs cueing <10%, stressful/ unfamiliar situations.) Problem Solving FIM Score 4. Minimal Assistance (Solves routine problems 75-90%.) Transfers Mode of Locomotion: Wheelchair Bed/Chair/Wheelchair Transfers 5. Supervision (Needs supv. or set-up for FIM Score sliding board, foot rests.) Toilet Transfers FIM Score 5. Supervision (Needs supervision or cueing.) Patient transferred to: Shower Shower Transfers FIM Score 5. Supervision (Needs supv. or set-up with device.) Locomotion- walk/wheelchair Ambulation Distance 80 Eating Eating Device Adapted Utensil Eating FIM Score 6. Modified [place] (Special consistency or uses device.) - Labs CBC & Chem 7: 02/08/21 07:01 02/08/21 07:01 Labs: Laboratory Results - last 72 hr 02/06/21 02/06/21 02/06/21 12:00 16:42 23:02 WBC RBC Hgb Hct MCV MCH MCHC RDW Plt Count Sodium Potassium Chloride Carbon Dioxide Anion Gap BUN Creatinine Estimated GFR BUN/Creatinine Ratio Glucose POC Glucose 172 H 191 H 167 H Calcium 02/07/21 02/07/21 02/07/21 06:52 11:36 16:49 WBC RBC Hgb Hct MCV MCH MCHC RDW Plt Count Sodium Potassium Chloride Carbon Dioxide Anion Gap BUN Creatinine Estimated GFR BUN/Creatinine Ratio Glucose POC Glucose 194 H 177 H 128 H Calcium 02/07/21 02/08/21 02/08/21 20:30 07:01 07:01 WBC 3.6 L RBC 3.58 L Hgb 11.6 Hct 34.4 MCV 96 MCH 33 H MCHC 34 RDW 14.5 Plt Count 226 Sodium 142 Potassium 3.7 Chloride 107.1 H Carbon Dioxide 25 Anion Gap 14 BUN 8 Creatinine 0.7 Estimated GFR > 60 BUN/Creatinine Ratio 11 Glucose 187 H POC Glucose 137 H Calcium 8.7 02/08/21 02/08/21 02/08/21 07:28 11:51 16:13 WBC RBC Hgb Hct MCV MCH MCHC RDW Plt Count Sodium Potassium Chloride Carbon Dioxide Anion Gap BUN Creatinine Estimated GFR BUN/Creatinine Ratio Glucose POC Glucose 194 H 164 H 184 H Calcium 02/08/21 02/09/21 20:52 07:43 WBC RBC Hgb Hct MCV MCH MCHC RDW Plt Count Sodium Potassium Chloride Carbon Dioxide Anion Gap BUN Creatinine Estimated GFR BUN/Creatinine Ratio Glucose POC Glucose 144 H 148 H Calcium Assessment and Plan CVA with left nondominant hemiparesis: Continue Secondary Stroke Prevention (Antithrombotic, Statin (Goal LDL-C <70), BP control (Goal <140/90), GLU control (Goal A1c <7), and lifestyle modification). Monitor for recurrent stroke or post-stroke recrudescence. Continue neuromotor therapy as above. Family training when available. Monitor for post stroke depression, cognitive deficits, seizure, dysphagia, aphasia, shoulder hand syndrome, sensory deficits, spasticity, bowel/bladder deficits, sleep disturbance, vision deficits and DVT. Prognosis for recovery and Secondary Stroke Prevention discussed. Follow up with Neurology. No driving until cleared by Neurologist. Dysphagia: Continue modified diet, speech therapy, swallow precautions. MBS as needed in order to advance patient's diet. Continue therapy to improve patient's ability to safely swallow. Pneumonia: Vital signs have been stable, of WBCs within normal limits. Patient has completed antibiotics and nebulizer treatments. Post stroke depression: Start patient on Zoloft and monitor for improvement. Aphasia: Continue speech therapy to improve patient's ability to speak and communicate her needs. Monitor closely for any needs that patient is unable to voice. Dyspnea: Appears resolved. Possibly anxiety induced. Dysarthria: Becoming more apparent as the patient is starting to talk more. Continue speech therapy and address in order to improve patient's clarity and ability to communicate her needs. Hypertension: Contacted patient's PCP who noted she was previously on amlodipine 5 mg, lisinopril 40 mg, and carvedilol 12.5 mg twice daily. Continue to monitor for improved blood pressure control. Diabetes: Currently on sliding scale insulin. Patient has a history of hospitalization for hypoglycemia. Will monitor her dietary intake and continue to utilize sliding scale before starting basal insulin. A1c 8.8%. Heart Failure: Echocardiogram showed 15-20% LVEF. Appreciate cardiology recommendations PCPs office did not know of any cardiology affiliation with the patient previously. Continue telemetry monitoring. Hyperlipidemia: Continue statin as per secondary stroke prevention. Dose has been increased. ADL dysfunction: OT will work on improving ability to perform ADLs (including assistive devices) to increase independence and decrease caregiver burden and improve functional transfers and mobility training. Difficulty walking: PT will work on gait training and proper use of assistive devices and advance as appropriate to use of stairs and outside ambulation on uneven surfaces. Unsteadiness on feet: PT will work on improving static and dynamic sitting and standing balance as well as proper use of assistive devices to decrease risk of falls. Abnormality of gait: PT will work to improve safety and efficiency of gait through neuromotor training and gait training along with instruction on proper use of assistive devices. Muscle weakness: PT & OT will work on strengthening exercises to improve functional strength including mixture of closed and open kinetic chain exercises. Debility: PT & OT will work on improving overall functional status to improve participation with ADLs, mobility and social involvement. Fatigue: PT & OT will work on improving endurance through aerobic exercises and therapeutic activity while monitoring patients tolerance for activity and vital signs as needed. DVT ppx: Lovenox Pain: Continue physical modalities in therapy and pain medications as needed to achieve functional pain control. Sleep: Monitor and address as needed. Bowel: Monitor and address as needed. Appetite: Monitor and address as needed. Discharge planning: Pending therapy progress and care plan meeting. Will continue discussion with therapy team, SW, patient and family. Tentative date for discharge is 02/09 or . DME requirements to be determined. Patient will need / supervision at this point, may discharge sooner if patient is actually having more improvement than what we are seeing. Restrictions/ Precautions: Falls, swallow, severe heart failure, aphasia WB status: FWB Functional Hx: ADLs: Independent Cognition: Independent Mobility: No AD Barriers to Discharge: Decreased mobility and ability to perform self care, balance deficits, weakness Estimated Length of Stay: 1418 days Discharge Destination: Home with family on 02/10.
--- NOTE | 2021-02-09 09:50 | Progress Note ---
Assessment and Plan Hx of dilated cardiomyopathy Echo this presentation reports an LVEF 15-20%. Bubble study is negative. Acute CVA with left hemiparesis on plavix and aspirin Shortness of breath and cough CXR findings suspicious for pneumonia Hypertension Diabetes Continue remote telemetry monitoring. Continue medical therapy for nonischemic cardiomyopathy. Otherwise, conservative cardiac management. As an outpatient, will recommend a 30 event monitor. Subjective Date of service: 02/09/21 Principal diagnosis: CVA Interval history: No cardiac complaints Stable sinus rhythm on telemetry. No evidence of atrial fibrillation seen on telemetry thus far. Objective Vital Signs Temp Pulse Resp BP Pulse Ox 02/09/21 07:41 98.4 F 91 H 18 153/84 94 02/09/21 04:17 97.8 F 89 16 144/76 93 02/08/21 16:13 98.6 F 86 18 118/64 100 02/08/21 12:19 97.9 F 87 18 119/64 100 - Physical Examination General: No Apparent Distress HEENT: Positive: PERRL Neck: Positive: trachea midline Cardiac: Positive: Reg Rate and Rhythm Lungs: Positive: Normal Breath Sounds Neuro: Positive: Other (left hemiparesis) Abdomen: Positive: Soft Extremities: Absent: edema
[2021-02-09] MEDS ORDERED: CLOPIDOGREL 75 MG TAB PO SCH (10:00)
[2021-02-09] MEDS: carvediloL 25 MG TAB PO SCH ×2 (10:21→23:03)
[2021-02-09] MEDS: SERTRALINE 25 MG TAB PO SCH (10:22)
[2021-02-09] MEDS: LISINOPRIL 40 MG TAB PO SCH (10:23)
[2021-02-09] MEDS: ASPIRIN EC 81 MG TAB PO SCH (10:25)
[2021-02-09] MEDS: amLODIPine 5 MG TAB PO SCH (10:28)
[2021-02-09 20:45] LABS: Hematocrit 32.9 % (30.3-42.9); Hemoglobin 11.4 gm/dl (10.1-14.3); Mean Corpuscular HGB Conc 35 % (30-34); Mean Corpuscular Volume 95 fl (79-97); Platelet Count 223 K/mm3 (140-440); Red Blood Count 3.48 M/mm3 (3.65-5.03); Red Cell Distribution Width 14.4 % (13.2-15.2)
[2021-02-09 20:54] LABS: INR 1.14 (0.87-1.13); Partial Thromboplastin Time 25.9 Sec. (24.2-36.6)
[2021-02-09] MEDS: APIXABAN 2.5 MG TAB PO SCH (23:04)
[2021-02-10] MEDS: FAMOTIDINE 20 MG TAB PO SCH (08:14)
[2021-02-10] MEDS: amLODIPine 5 MG TAB PO SCH (08:14)
[2021-02-10] MEDS: ASPIRIN EC 81 MG TAB PO SCH (08:14)
[2021-02-10] MEDS: carvediloL 25 MG TAB PO SCH ×2 (08:14→11:30)
[2021-02-10] MEDS: SERTRALINE 25 MG TAB PO SCH (08:15)
[2021-02-10] MEDS: INSULIN LISPRO 100 UNIT/ML SUB-Q SCH ×2 (08:15→12:57)
[2021-02-10] MEDS: LISINOPRIL 40 MG TAB PO SCH (08:15)
[2021-02-10] MEDS: APIXABAN 2.5 MG TAB PO SCH ×2 (08:15→11:30)
--- NOTE | 2021-02-10 09:38 | Progress Note ---
Assessment and Plan Hx of dilated cardiomyopathy Echo this presentation reports an LVEF 15-20%. Bubble study is negative. Acute CVA with left hemiparesis on aspirin and low dose eliquis Shortness of breath and cough -resolved CXR findings suspicious for pneumonia Hypertension Diabetes Recommendations Continue medical therapy for nonischemic cardiomyopathy. Otherwise, conservative cardiac management. As an outpatient, will recommend a 30 event monitor. Subjective Date of service: 02/10/21 Principal diagnosis: CVA Interval history: No cardiac complaints Stable sinus rhythm on telemetry. No evidence of atrial fibrillation thus far. Objective Vital Signs Temp Pulse Resp BP Pulse Ox 02/10/21 07:15 97.7 F 87 16 132/79 94 02/09/21 23:03 100 H 150/88 02/09/21 19:55 97.9 F 90 18 139/74 97 02/09/21 16:02 98.6 F 92 H 18 146/86 94 - Physical Examination General: No Apparent Distress HEENT: Positive: PERRL Neck: Positive: trachea midline Cardiac: Positive: Reg Rate and Rhythm Lungs: Positive: Decreased Breath Sounds Neuro: Positive: Other (left hemiparesis) Extremities: Absent: edema - Labs and Meds Coagulation 02/09/21 Range/Units 20:13 PT 15.1 H (12.2-14.9) Sec. INR 1.14 H (0.87-1.13) APTT 25.9 (24.2-36.6) Sec. CBC 02/09/21 Range/Units 20:13 WBC 4.2 L (4.5-11.0) K/mm3 RBC 3.48 L (3.65-5.03) M/mm3 Hgb 11.4 (10.1-14.3) gm/dl Hct 32.9 (30.3-42.9) % Plt Count 223 (140-440) K/mm3 Comprehensive Metabolic Panel 02/09/21 Range/Units 20:13 Creatinine 2.8 H D (0.6-1.2) mg/dL
[2021-02-10 12:31] VITALS: BP 131/71
--- NOTE | 2021-02-10 13:01 | Discharge Summary ---
Providers - Providers Date of Admission: 01/18/21 17:53 Date of discharge: 02/10/21 Attending physician: ROQUE LITTLE III, MD 01/18/21 15:48 Occupational Therapy Evaluate and Treat [CONS] Routine Comment: Reason For Exam: ADL dysfunction Physical Therapy Evaluation and Treat [CONS] Routine Comment: Reason For Exam: Mobility Dysfunction 01/18/21 16:04 Consult to Case Management [CONS] Routine Services Needed at Discharge: Home Health Services Notified:: CASE MANAGEMENT Speech Therapy Evaluation and Treat [CONS] Routine Reason For Exam: CVA, Assess/Treat Speech/Cog/Swallow 01/19/21 11:42 Consult to Physician [CONS] Routine Comment: Consulting Provider: ALEXIS FAUSTIN Physician Instructions: Anticoagulant need, further follow up? Reason For Exam: LVEF 15-20%, ECHO 01/12 Primary care physician: LISA ALVAREZ Hospitalization Reason for admission: CVA Condition: Good Hospital course: 60-year-old female who presented to the hospital on 01/12/2021 with left-sided facial droop and slurred speech. Patient apparently was found by her daughter on the floor and had a laceration to the left temporal area. Head CT showed a right MCA infarct with no evidence of hemorrhagic transformation. Neurology was consulted and recommended continued work-up including MRI echo. Also recommended aspirin and Plavix ongoing. Echocardiogram showed severely dilated left ventricle with severe decrease in systolic function and a left ventricular ejection fraction of 15-20%. Brain MRI showed right MCA infarct involving the right posterior insular cortex and right posterior temporal cortex and right posterior frontal cortex. Remainder of imaging reviewed including head MRA, repeat head CT, head neck CTA. Neurology recommended cardiology consult for consideration of anticoagulation due to severe heart failure. We will place the consult today after seeing the patient and would appreciate their recommendations. Patient has been placed on aspirin and Plavix. Discussion was had with treating neurologist yesterday who stated that his preference would be that the patient remain on both of these ongoing unless patient is changed to anticoagulation by cardiology. Initially the patient was confused and had encephalopathy requiring restraints for safety. Prior to admission she had been off of restraints for approximately 48 hours and has improved. She is participating with therapy and making good progress. I have placed her on remote telemetry due to her heart failure and have spoken with therapist and instructed them to notified nursing and telemetry monitoring whenever she is off the floor and in the therapy gym. Patient currently remains on the telemetry unit due to decreased availability of nursing staff and will be moved to the rehab unit as soon as able. Speech therapy saw the patient and recommended a mechanical soft diet with ground meats, this order has been placed as well. Hypokalemia was treated with replacement. Will monitor closely for need to retreat that. Glucose was fairly well controlled on sliding scale, will monitor the patient for a few days on sliding scale to see if we need to start basal insulin doses. A1c was ordered yesterday after admission to rehab which showed an A1c of 8.8%. CVA with left nondominant hemiparesis: Continue Secondary Stroke Prevention (Antithrombotic, Statin (Goal LDL-C <70), BP control (Goal <140/90), GLU control (Goal A1c <7), and lifestyle modification). Monitor for recurrent stroke or post-stroke recrudescence. Continue neuromotor therapy as above. Family training when available. Monitor for post stroke depression, cognitive deficits, seizure, dysphagia, aphasia, shoulder hand syndrome, sensory deficits, spasticity, bowel/bladder deficits, sleep disturbance, vision deficits and DVT. Prognosis for recovery and Secondary Stroke Prevention discussed. Follow up with Neurology. No driving until cleared by Neurologist. Post stroke depression: Started Zoloft and monitor for improvement. Pneumonia: Patient has completed antibiotics, cough resolved, afebrile, no leukocytosis. Dyspnea: Patient has had a couple of episodes of dyspnea since she has been with this. Have been resolved mostly with 2 to 3 L supplemental oxygen on nasal cannula. Patient did request a mask previously but was quickly able to recover with just a nasal cannula or even room air even with activity. Question if this was related to anxiety. Right calf swollen and TTP, obtain Doppler to rule out DVT. Patient is on Lovenox. Doppler reviewed and is negative for DVT. Hypertension: Patient now on amlodipine, lisinopril and Coreg. Goal blood pressure less than 140/90. Continue to monitor and adjust as needed Diabetes: Continue carb controlled diet and sliding scale insulin. Patient has been admitted in the past for hypoglycemic episodes due to not eating while on basal doses of insulin. We will avoid this currently. Hemoglobin A1c was 8.8 on our check on her admission. Glucose fairly well controlled with sliding scale currently. Will discharge patient home with prior home insulin at a reduced dose. Patient will need to follow-up with PCP for further adjustments. Heart failure: Appreciate cardiology consult, patient will need to follow-up with cardiology after discharge for event monitoring. I did contact the punch hand [employer] and she stated the office would call the patient to make an appointment. Initially punch hand wanted to defer use of anticoagulation however, on 02/09 they opted to start a low-dose of lisinopril along with aspirin and discontinue Plavix. Aphasia: Continue working with speech therapy, patient's difficult to understand and still has some issues with following commands without visual cues. Intermittently able to have conversations that are meaningful and understandable however has difficulty following oral directions and amount of time that she is able to engage in conversation is limited. Dysphagia: Continue speech therapy monitor for further improvement. Patient did well with no signs of aspiration on MBS. However she does continue to have spillage orally and is continued on modified diet. Would recommend further speech therapy treatment at home. Patient had a creatinine level drawn prior to starting Eliquis on 02/09. Patient's creatinine has been stable during her entire stay with us and well within normal limits. The lab drawn on the afternoon of 02/09 showed an elevated creatinine at 2.8. I was not notified that the lab was being drawn or that it was elevated. Stat redraw of the BMP today shows a normalized creatinine in line with her prior levels. Patient is okay to discharge home today. Patient has mobility limitations that significantly impair her ability to participate in mobility related ADLs. Patient is able ambulate household distances using a quad cane with supervision. Despite this, she still has issues with performing ADLs from the standing position due to weakness and balance and the necessity to utilize her strong upper extremity for balance. In order to improve her safety and reduce the risk for further injury, especially in light of being placed on Eliquis, we are recommending that the patient go home at the wheelchair level in order to perform MRADLs, improve her function and quality of life, and improve her safety. Patient has utilized the wheelchair in the rehab environment, is willing and able to utilize a wheelchair independently for mobility purposes and MRADL purposes in the home environment and will use it on a regular basis and benefit from its use. Disposition: [id number] HOME UND[facility] Final Discharge Diagnosis (Prints w/discharge instructions): CVA Time spent for discharge: >34mins Core Measure Documentation - Palliative Care Palliative Care/ Comfort Measures: Not Applicable - Core Measures Any of the following diagnoses?: heart failure, stroke - Heart Failure Discharge Requirements MAMI/ARB for LVSD if EF <40%: Yes Beta erika at discharge: Yes - Stroke Discharge Requirements Statin for LDL = or >70 mg/dl on DC: Yes Anticoag for atrial fib/atrial flutter: Yes Antithrombotic for ischemic stroke: Yes Stroke additional comments: Atrial fibrillation not seen on tel. Started on low dose Eliquis per cardiology, pt will follow up with cardiology for event monitor Exam - Physical Exam Narrative exam: MUSCULOSKELETAL SPECIALTY EXAM CONSTITUTIONAL: Well developed, well nourished, appropriately groomed. RIGHT hand dominant. RESPIRATORY: Clear to auscultation bilaterally, improved from yesterday, no increased work of breathing CARDIOVASCULAR: Regular rate and rhythm, right calf swollen and slightly tender to palpation, otherwise no swelling, edema or tenderness in BUE or BLE. All extremities warm. GI: + bowel sounds, soft, NTTP, nondistended. INTEGUMENTARY: Normal, no lesion, rash, masses or bruising noted in extremities. MUSCULOSKELETAL: Some arthritic changes in bilateral hands, otherwise BUE and BLE normal without defect, crepitus, subluxation, effusion, arthritic changes or TTP. R 4+/5 L 4-/5 without full range of motion but she is improving ROM within normal limits on right, decreased on left Tone normal on right, slightly decreased on left without flaccidity NEURO: CN VII : Left facial droop slight Sensation intact in all extremities unable to test extinction. No tremor noted in 4 extremities. Naming and repetition impaired Command following is variable depending on time of day. Likely related to aphasia and some likely apraxia Aphasia present Dysarthria present now that she is talking more Dysphagia present Neglect appears present POSTURE and GAIT: Sitting posture good. Ambulating with quad cane and supervision. Still unable to perform MR ADLs safely from the standing position PSYCH: Alert, orientation difficult to check again due to patient's aphasia. Affect appears flattened. Insight appears impaired - Constitutional Vitals: Temp Pulse Resp BP Pulse Ox 97.7 F 85 16 131/71 97 02/10/21 12:12 02/10/21 12:12 02/10/21 12:12 02/10/21 12:12 02/10/21 12:12 Plan Activity: up only with assistance, fall precautions Diet: low fat (Heart healthy diet), low cholesterol, diabetic Special Instructions: record daily BP diary, record blood sugar diary, physical therapy, occupational therapy, home health RN Durable Medical Equipment Needed Upon Discharge: Wheelchair, Bedside Commode Care Plan Goals: Patient will need to follow-up with PCP for continued monitoring of blood pressure, diabetes and other chronic medical conditions. Blood pressure medications have been returned to her baseline with the exception of an increase in carvedilol. She remains currently on carvedilol, lisinopril and amlodipine. Blood pressures have been slightly labile with somewhat frequent elevations into the 150-160 systolic range, this has improved since starting all of her blood pressure medications back. Of note she has been started on Eliquis 2.5 mg every 12 hours by cardiology. Due to this and her risk of falls we would also recommend close monitoring for any further issues relating to impaired mobility and are sending the patient home with continued home health and a wheelchair. Patient will also need follow-up with cardiology for continued event monitoring. They have currently started her on Eliquis 2.5 mg every 12 hours and may increase the dose if they note any atrial fibrillation on event monitoring. Patient will also need to follow-up with neurology practice of her choosing. Should remain on secondary stroke prevention with aspirin and atorvastatin as discharged as well as Eliquis per cardiology recommendations. CBC on 02/09/2021: WBCs 4.2, hemoglobin 11.4, hematocrit 32.9, platelets 223 BM P on 02/10/2021: Sodium 142, potassium 3.7, chloride 106.6, carbon oxide 22, BUN 9, creatinine 0.6, glucose 183, calcium 8.9 Follow up with: LISA ALVAREZ MD [Primary Care Provider] - 7 Days ALEXIS FAUSTIN MD [Staff Physician] - 7 Days Prescriptions: AtorvaSTATin [Lipitor] 80 mg PO QHS #60 tablet amLODIPine 5 mg PO QDAY #30 tablet carvediloL [Coreg] 25 mg PO Q12HR #60 tablet Apixaban [Eliquis] 2.5 mg PO Q12HR #60 tablet Aspirin EC [Halfprin EC] 81 mg PO QDAY #30 tablet Insulin Detemir [Levemir Flextouch] 5 unit SQ HS #1 insuln.pen Famotidine [Pepcid] 20 mg PO BID #60 tablet lisinopriL [Zestril TAB] 40 mg PO QDAY #30 tablet Sertraline [Zoloft] 25 mg PO QDAY #30 tablet
[2021-02-10 14:07] LABS: Blood Urea Nitrogen 9 mg/dL (7-17); Calcium 8.9 mg/dL (8.4-10.2); Hemolysis Index 5
[2021-02-10 14:12] LABS: BUN/Creatinine Ratio 15
== END 2021-02-10 16:15 | disposition home health service (06) | DRG 56 ==
LOC: 3A 14:51 → UNDOADMIN 14:51 → 4A 17:53 → 3B 01-19 18:24
PROVIDERS: ADMIT Physical Medicine & Rehabilitation; ATTEND Physical Medicine & Rehabilitation
DX: I69.954 Hemiplegia and hemiparesis following unspecified cerebrovascular disease affecting left non-dominant side (principal); J18.9 Pneumonia, unspecified organism; I42.0 Dilated cardiomyopathy; R47.01 Aphasia; E11.9 Type 2 diabetes mellitus without complications; I11.0 Hypertensive heart disease with heart failure; I50.9 Heart failure, unspecified; I48.91 Unspecified atrial fibrillation; E87.6 Hypokalemia; R53.81 Other malaise; E78.5 Hyperlipidemia, unspecified; R13.10 Dysphagia, unspecified; Z79.899 Other long term (current) drug therapy; Z79.84 Long term (current) use of oral hypoglycemic drugs; Z82.49 Family history of ischemic heart disease and other diseases of the circulatory system; Z83.3 Family history of diabetes mellitus; Z79.82 Long term (current) use of aspirin
CPT/HCPCS: 36415; 71045; 71046; 74230; 80048; 80053; 82565; 82962; 83036; 85025; 85027; 85610; 85730; 93970; 94640; 97129; G0378; G0515; A9270-GY; J0696; J1650; J1815